=== PATIENT | female | born 1955 | race Caucasian/White ===

== ENCOUNTER → 2017-03-30 | Outpatient (CLI) | payer OTHER ==
--- NOTE | 2017-04-02 10:06 | MM ---
Reason for exam: screening (asymptomatic). Last mammogram was performed 1 year and 1 month ago. History: Patient is postmenopausal. Physical Findings: A clinical breast exam by your physician is recommended on an annual basis and results should be correlated with mammographic findings. MG Screening Mammo w CAD Bilateral CC and MLO view(s) were taken. Prior study comparison: March 07, 2016, bilateral MG screening mammo w CAD. January 08, 2015, bilateral MG screening mammo w CAD. There are scattered fibroglandular densities. There is chronic nodularity in the right breast. No significant changes when compared with prior studies. ASSESSMENT: Negative, BI-RAD 1 RECOMMENDATION: Routine screening mammogram of both breasts in 1 year.
== END | disposition home or self-care (01) ==
LOC: RADMAMWWP 11:38
PROVIDERS: ATTEND Family Medicine
DX: Z12.31 Encounter for screening mammogram for malignant neoplasm of breast (principal)

== ENCOUNTER 2017-08-02 15:12 | Emergency (ER) | payer OTHER ==
[2017-08-02 15:42] VITALS: BP 141/74; PULSE 117; RESP 18; TEMP 97.6
--- NOTE | 2017-08-02 15:56 | ED ---
Upper Extremity HPI - General Chief Complaint: Extremity Injury, Upper Stated Complaint: Shoulder Pain Time Seen by Provider: 08/02/17 15:41 Source: patient, RN notes reviewed Mode of arrival: ambulatory Limitations: no limitations - History of Present Illness Initial Comments: This is a 61-year-old female presents to the emergency department with chief complaint of left shoulder injury. Patient states that last evening she slipped on a patch of ice and fell down landing on her left shoulder with her arm twisted behind herself. Patient states that she has limited range of motion of the arm due to pain. She states that she slept sitting up in a chair last night because she was unable to lay down. Patient denies any head injury or loss of consciousness. She denies any other injuries. Patient states that her left arm feels swollen so she has been applying ice. Denies fever, chills, chest pain, shortness of breath, abdominal pain, nausea or vomiting, constipation or diarrhea, numbness or tingling, headache or vision changes. - Related Data Home Medications Medication Instructions Recorded Confirmed Aspirin 81 mg PO DAILY 02/09/14 07/24/15 Ipratropium/Albuterol Sulfate 2.5 mg INHALATION BID 02/09/14 07/24/15 [Combivent Respimat Inhaler] Methocarbamol [Robaxin] 500 mg PO TID 02/09/14 07/24/15 Montelukast [Singulair] 10 mg PO DAILY 02/09/14 07/24/15 Oxybutynin Chloride 5 mg PO TID 02/09/14 07/24/15 Symbicort (Unknown Dose) 2 puff INHALATION BID 02/09/14 07/24/15 Ventolin Inhaler (Unknown Dose) 90 mg INHALATION QID PRN 02/09/14 07/24/15 Ipratropium [place] [Atrovent Hfa] 2 puff INHALATION QID 02/10/14 07/24/15 Previous Rx's Medication Instructions Recorded Acetaminophen Tab [Tylenol Tab] 650 mg PO Q6H PRN #20 tablet 07/24/15 Allergies Allergy/AdvReac Type Severity Reaction Status Date / Time No Known Allergies Allergy Verified 08/02/17 15:42 Review of Systems ROS Statement: Those systems with pertinent positive or pertinent negative responses have been documented in the HPI. ROS Other: All systems not noted in ROS Statement are negative. Past Medical History Past Medical History: Asthma, Blood Disorder, COPD, Pneumonia Additional Past Medical History / Comment(s): arrythmia, hx anemia History of Any Multi-Drug Resistant Organisms: None Reported Past Surgical History: Orthopedic Surgery Additional Past Surgical History / Comment(s): Thumb surgery Past Anesthesia/Blood Transfusion Reactions: No Reported Reaction Past Psychological History: No Psychological Hx Reported Smoking Status: Former smoker Past Alcohol Use History: Rare Past Drug Use History: None Reported General Exam - General Exam Comments Initial Comments: General: Awake and alert, well-developed; in no apparent distress. HEENT: Head atraumatic, normocephalic. Pupils are equal, round and reactive to light. Extraocular movements intact. Neck: Supple. Normal ROM. Cardiovascular: Regular rate and rhythm. No murmurs, rubs or gallops. Chest symmetrical. Respiratory: Lungs clear to auscultation bilaterally. No wheezes, rales or rhonchi. Normal respiratory effort with no use of accessory muscles. Musculoskeletal: Patient has limited range of motion of the left shoulder due to pain. There is tenderness on palpation of proximal humerus. No clavicular or scapular tenderness. Patient has normal range of motion of the left elbow with no tenderness on palpation. There is generalized swelling of the left upper arm with contusion as noted below. Skin: [place], warm and dry without rashes. Large area of ecchymosis overlying the left bicep muscle. Neurological: Alert and oriented x3. CN II-XII grossly intact. Speech is fluent and answers are appropriate. No focal neuro deficits. Psychiatric: Normal mood and affect. No overt signs of depression or anxiety noted. Limitations: no limitations Course Vital Signs 08/02/17 15:39 Temperature 97.6 F Pulse Rate 117 H Respiratory 18 Rate Blood Pressure 141/74 O2 Sat by Pulse 93 L Oximetry Medical Decision Making - Medical Decision Making This is a 61-year-old female who presents to the emergency department with chief complaint of left shoulder injury. X-ray revealed a left femoral neck fracture. A sling was placed and patient tolerated well. She is neurovascularly intact in no acute distress. She will be discharged home with recommendation to follow-up with orthopedics tomorrow morning. Patient given a starter pack of Tylenol with codeine. Patient is in agreement with plan and voices understanding. All questions were answered. This case was discussed with attending physician, Dr. Garza. - Radiology Data Radiology results: report reviewed X-ray left humerus and shoulder findings: There is a left humeral neck fracture identified with mild comminution seen. Hemarthrosis resulting pseudosubluxation. No additional fracture identified within the field view. AC joint is intact. Impression: 1. Left humeral neck fracture. Disposition Clinical Impression: Fracture of neck of humerus Disposition: HOME SELF-CARE Condition: Good Instructions: Arm Fracture in Adults (ED), Proximal Humerus Fracture (ED) Additional Instructions: Please follow up with Dr. Arias, orthopedics tomorrow morning. May take one Tylenol with codeine as needed every 4-6 hours. Please follow up with primary care provider within 1-2 days. Return to emergency department if symptoms should worsen or any concerns arise. Referrals: Randal Smith DO [Primary Care Provider] - 1-2 days Randy Arias DO [Doctor of Osteopathic Medicine] - 1-2 days Time of Disposition: 16:42
--- NOTE | 2017-08-02 16:11 | XR ---
EXAMINATION TYPE: XR humerus LT, XR shoulder complete LT DATE OF EXAM: 08/02/2017 CLINICAL HISTORY: pain COMPARISON: NONE TECHNIQUE: Three views of the left shoulder and left humerus are obtained. FINDINGS: There is a left humeral neck fracture identified with mild comminution seen. Hemarthrosis r esulting pseudosubluxation. No additional fractures identified within the [id number]. AC joint is intact. IMPRESSION: 1. Left humeral neck fracture. ICD 10 closed FRACTURE, INITIAL EVALUATION
[2017-08-02] MEDS ORDERED: ACET/COD 300 MG/30 MG STARTER PACK 6 TAB BTL PO STA (16:40)
== END 2017-08-02 16:53 | disposition home or self-care (01) ==
LOC: EC 15:12
DX: S42.292A Other displaced fracture of upper end of left humerus, initial encounter for closed fracture (principal); M25.012 Hemarthrosis, left shoulder; J44.9 Chronic obstructive pulmonary disease, unspecified; Z87.891 Personal history of nicotine dependence; Z79.51 Long term (current) use of inhaled steroids; Z79.82 Long term (current) use of aspirin; Z79.899 Other long term (current) drug therapy; Z87.01 Personal history of pneumonia (recurrent); W00.0XXA Fall on same level due to ice and snow, initial encounter; Y92.89 Other specified places as the place of occurrence of the external cause
CPT/HCPCS: 99283

== ENCOUNTER 2018-01-24 19:38 | Emergency (ER) | payer OTHER ==
[2018-01-24 19:45] VITALS: TEMP 97.9
[2018-01-24 20:01] VITALS: RESP 18
--- NOTE | 2018-01-24 20:16 | ED ---
General Adult HPI - General Chief complaint: Upper Respiratory Infection Stated complaint: asthma Time Seen by Provider: 01/24/18 19:40 Source: patient, RN notes reviewed Mode of arrival: ambulatory Limitations: no limitations - History of Present Illness Initial comments: This is a 62-year-old female who comes to the emergency department because she wanted to get a chest x-ray because her primary doctor told her to go to the hospital and get one. After talking to her further this conversation took place a few weeks ago and this was her first opportunity to make it to the hospital. Patient states that this point she hasn't had any difficulty breathing lately and certainly hasn't is no difficulty breathing now. Patient denies any chest pain or palpitations. Patient states she has had a weight loss over the last 2 years and wonders if that is not why the doctor wants the chest x-ray. Patient was pretty insistent on wanting to get the chest x-ray because her doctor wanted to see one. Patient denies any fever chills patient denies any complaints at this time. - Related Data Home Medications Medication Instructions Recorded Confirmed Aspirin 81 mg PO DAILY 02/09/14 07/24/15 Ipratropium/Albuterol Sulfate 2.5 mg INHALATION BID 02/09/14 07/24/15 [Combivent Respimat Inhaler] Methocarbamol [Robaxin] 500 mg PO TID 02/09/14 07/24/15 Montelukast [Singulair] 10 mg PO DAILY 02/09/14 07/24/15 Oxybutynin Chloride 5 mg PO TID 02/09/14 07/24/15 Symbicort (Unknown Dose) 2 puff INHALATION BID 02/09/14 07/24/15 Ventolin Inhaler (Unknown Dose) 90 mg INHALATION QID PRN 02/09/14 07/24/15 Ipratropium [place] [Atrovent Hfa] 2 puff INHALATION QID 02/10/14 07/24/15 Previous Rx's Medication Instructions Recorded Acetaminophen Tab [Tylenol Tab] 650 mg PO Q6H PRN #20 tablet 07/24/15 Allergies Allergy/AdvReac Type Severity Reaction Status Date / Time umeclidinium Allergy Unknown Verified 01/24/18 19:46 [From Patricia Bishop] Review of Systems ROS Statement: Those systems with pertinent positive or pertinent negative responses have been documented in the HPI. ROS Other: All systems not noted in ROS Statement are negative. Past Medical History Past Medical History: Asthma, Blood Disorder, COPD, Pneumonia Additional Past Medical History / Comment(s): arrythmia, hx anemia History of Any Multi-Drug Resistant Organisms: None Reported Past Surgical History: Orthopedic Surgery Additional Past Surgical History / Comment(s): Thumb surgery Past Anesthesia/Blood Transfusion Reactions: No Reported Reaction Past Psychological History: No Psychological Hx Reported Smoking Status: Former smoker Past Alcohol Use History: Rare Past Drug Use History: None Reported General Exam - General Exam Comments Initial Comments: GENERAL: Patient is well-developed and well-nourished. Patient is nontoxic and well- hydrated and is in no acute distress. ENT: Neck is soft and supple. No significant lymphadenopathy is noted. Oropharynx is clear. Moist mucous membranes. Neck has full range of motion without eliciting any pain. EYES: The sclera were anicteric and conjunctiva were pink and moist. Extraocular movements were intact and pupils were equal round and reactive to light. Eyelids were unremarkable. PULMONARY: Unlabored respirations. Good breath sounds bilaterally. No audible rales rhonchi or wheezing was noted. CARDIOVASCULAR: There is a regular rate and rhythm without any murmurs gallops or rubs. ABDOMEN: Soft and nontender with normal bowel sounds. No palpable organomegaly was noted. There is no palpable pulsatile mass. SKIN: Skin is clear with no lesions or rashes and otherwise unremarkable. NEUROLOGIC: Patient is alert and oriented x3. Cranial nerves II through XII are grossly intact. Motor and sensory are also intact. Normal speech, volume and content. Symmetrical smile. MUSCULOSKELETAL: Normal extremities with adequate strength and full range of motion. No lower extremity swelling or edema. No calf tenderness. LYMPHATICS: No significant lymphadenopathy is noted PSYCHIATRIC: Normal psychiatric evaluation. Limitations: no limitations Course Vital Signs 01/24/18 01/24/18 01/24/18 19:41 20:00 20:35 Temperature 97.9 F Pulse Rate 126 H 112 H Respiratory 20 18 18 Rate Blood Pressure 126/77 129/74 O2 Sat by Pulse 94 L 95 Oximetry Medical Decision Making - Medical Decision Making X-ray shows no acute abnormality. Disposition Clinical Impression: History of asthma Disposition: HOME SELF-CARE Condition: Good Instructions: Asthma (ED) Is patient prescribed a controlled substance at d/c from ED?: No Referrals: Randal Smith DO [Primary Care Provider] - 1-2 days Time of Disposition: 20:49
[2018-01-24 20:36] VITALS: BP 129/74; PULSE 112
--- NOTE | 2018-01-24 21:31 | XR ---
EXAMINATION: XR chest 2V DATE AND TIME: 01/24/2018 8:12 PM ORDERING PROVIDER: Sharan Reyes MD CLINICAL INDICATION: Difficulty breathing TECHNIQUE: PA and lateral COMPARISON: None. DESCRIPTION: The lungs show diffuse hyperinflation. In the right upper lobe there is a zone of faint ill-defined opacity which could correlate with a clinical diagnosis of developing right upper lobe bronchopneumon ia. Also, the lateral view shows a band of added opacity posteriorly in the lower lobes, but this has th e appearance of pulmonary scarring rather than pneumonia. Differences on the lateral radiographs make direct comparison difficult. The pleural spaces are positive for small left pleural effusion. The cardiac silhouette is not enlarged. The soft tissues are unremarkable. The skeletal structures are remarkable for what appeared to be subacute or chronic left surgical dusty ral neck fracture, not seen on the comparison 11/29/2012 radiograph. In addition, the right femoral he ad and neck appears remodeled - suggesting prior injury also not seen on the comparison radiograph. IMPRESSION: 1. Hyperinflation. 2. Subtle findings, suspicious for the possibility of developing pneumonia. Recommend: Six-week follow-up radiographs advised.
== END 2018-01-24 21:24 | disposition home or self-care (01) ==
LOC: EC 19:38
DX: Z13.83 Encounter for screening for respiratory disorder NEC (principal); J44.9 Chronic obstructive pulmonary disease, unspecified; Z88.8 Allergy status to other drugs, medicaments and biological substances; Z79.51 Long term (current) use of inhaled steroids; Z79.82 Long term (current) use of aspirin; Z79.899 Other long term (current) drug therapy; Z87.891 Personal history of nicotine dependence
CPT/HCPCS: 71046; 99283

== ENCOUNTER → 2018-05-24 | Outpatient (CLI) | payer OTHER ==
--- NOTE | 2018-05-24 11:52 | CTL ---
EXAMINATION TYPE: CT Low Dose Lung DATE OF EXAM ORDERED: 05/24/2018 COMPARISON: 05/24/2018 HISTORY: . Low Dose CT Lung Screening CT DLP: [address] CTDI: 1.0 mGy IV CONTRAST USED: None. SCREENING VISIT: First visit COMPARISON: None. TECHNIQUE: Low dose computed tomography scan was performed through the chest at 1 millimeter thick se ctions and reconstructed images in the coronal plane at [address] DIAGNOSTIC QUALITY: Satisfactory FINDINGS: LUNG NODULES: Not presentLeft lung: no nodules identified.Right lung: no nodules identified. LUNGS: COPD: Severity: Moderate Fibrosis: Severity: Mild right upper lobe fibrotic and bronchiectatic changes. Lymph nodes: None Other findings: None RIGHT PLEURAL SPACE: Effusion: None Calcification: None Thickening: None Pneumothorax: None LEFT PLEURAL SPACE: Effusion: None Calcification: None Thickening: Left basilar pleural thickening. Pneumothorax: None HEART: Heart Size: Mildly enlarged Coronary calcification: Mild Pericardial effusion: None OTHER FINDINGS: Upper abdomen: Small hiatal hernia. Bony thorax: Degenerative changes Supraclavicular region: No significant abnormalityOther: No significant abnormalityI IMPRESSION: Benign FOLLOW UP CT CHEST RECOMMENDATION: Follow-up screening in one year CT LUNG RAD: LUNG RAD CATEGORY 1 negative
--- NOTE | 2018-05-27 11:45 | MM ---
Reason for exam: screening (asymptomatic). Last mammogram was performed 1 year and 2 months ago. History: Patient is postmenopausal. Physical Findings: A clinical breast exam by your physician is recommended on an annual basis and results should be correlated with mammographic findings. MG Screening Mammo w CAD Bilateral CC and MLO view(s) were taken. Prior study comparison: March 30, 2017, bilateral MG screening mammo w CAD. March 07, 2016, bilateral MG screening mammo w CAD. There are scattered fibroglandular densities. No significant changes when compared with prior studies. ASSESSMENT: Benign, BI-RAD 2 RECOMMENDATION: Routine screening mammogram of both breasts in 1 year.
== END ==
LOC: RADMAMWWP 10:45
PROVIDERS: ATTEND Family Medicine
DX: Z12.31 Encounter for screening mammogram for malignant neoplasm of breast (principal); Z12.2 Encounter for screening for malignant neoplasm of respiratory organs; Z87.891 Personal history of nicotine dependence
CPT/HCPCS: 77067; G0297

== ENCOUNTER → 2018-07-19 | Outpatient (CLI) | payer OTHER ==
--- NOTE | 2018-07-19 18:21 | ECHOF ---
Referral Reason:R94.31 Abnormal EKG. MEASUREMENTS -------- HEIGHT: 160.0 cm WEIGHT: 47.6 kg BP: 112/73 RVIDd: 2.8 cm (< 3.3) IVSd: 1.1 cm (0.6 - 1.1) LVIDd: 3.8 cm (3.9 - 5.3) LVPWd: 1.0 cm (0.6 - 1.1) IVSs: 1.6 cm LVIDs: 2.5 cm LVPWs: 1.4 cm LA Diam: 2.5 cm (2.7 - 3.8) LAESV Index (A-L): 13.56 ml/m Ao Diam: 3.1 cm (2.0 - 3.7) AV Cusp: 2.2 cm (1.5 - 2.6) MV EXCURSION: 18.612 mm (> 18.000) MV EF SLOPE: 145 mm/s (70 - 150) EPSS: 0.4 cm MV E Maxime: 1.19 m/s MV DecT: 169 ms MV A Maxime: 0.50 m/s MV E/A Ratio: 2.39 FINDINGS -------- Resting tachycardia (HR>100bpm). This was a technically adequate study. The left ventricular size is normal. There is borderline concentric left ventricular hypertrophy. Overall left ventricular systolic function is normal with, an EF between 55 - 60 %. The right ventricle is normal in size. Normal LA size by volume 22+/-6 ml/m2. The right atrium is normal in size. The aortic valve is trileaflet and appears structurally normal. Trace amount of aortic regurgitatio n. The mitral valve is normal. The tricuspid valve appears structurally normal. Trace/mild (physiologic) pulmonic regurgitation. The aortic root size is normal. Normal inferior vena cava with less than 50% inspiratory collapse consistent with estimated right atr ial pressure of 15 mmHg. There is no pericardial effusion. CONCLUSIONS -------- 1. Resting tachycardia (HR>100bpm). 2. This was a technically adequate study. 3. The left ventricular size is normal. 4. There is borderline concentric left ventricular hypertrophy. 5. Overall left ventricular systolic function is normal with, an EF between 55 - 60 %. 6. The right ventricle is normal in size. 7. Normal LA size by volume 22+/-6 ml/m2. 8. The right atrium is normal in size. 9. The aortic valve is trileaflet and appears structurally normal. 10. Trace amount of aortic regurgitation. 11. The mitral valve is normal. 12. The tricuspid valve appears structurally normal. 13. Trace/mild (physiologic) pulmonic regurgitation. 14. The aortic root size is normal. 15. Normal inferior vena cava with less than 50% inspiratory collapse consistent with estimated right atrial pressure of 15 mmHg. 16. There is no pericardial effusion. CATERERS HELPER: Jojo Hernandez RDCS
--- NOTE | 2018-07-23 13:39 | EST ---
EXERCISE STRESS DATE OF SERVICE: 07/19/2017 AGE: 62 SEX: Female HT: 5'3" WT: 105 PROTOCOL: Oh STAGE: I DURATION OF EXERCISE: 1 minute 46 seconds HEART RATE REST: 120 BLOOD PRESSURE REST: 140/85 MAXIMUM HEART RATE ACHIEVED: 139 MAXIMUM BLOOD PRESSURE: 167/84 85% MPHR: 134 100% MPHR: 158 METS: 2.8 INDICATIONS: Abnormal EKG. CLINICAL INFORMATION: Baseline EKG revealed normal sinus rhythm with leftward axis. Patient walked on standard Oh protocol for 1 minute 46 seconds. Heart rate changed from 120 beats to 139 beats per minute which is more than 85% of predicted maximal. Blood pressure changed from 140/85 to 167/84. EKG remained unchanged and unremarkable. Extremely limited exercise capacity with a negative stress test by EKG criteria was noted. MMODL / IJN: [id number] /
== END | disposition home or self-care (01) ==
LOC: RADNMMAIN 10:25
PROVIDERS: ATTEND Family Medicine
DX: I37.1 Nonrheumatic pulmonary valve insufficiency (principal); I51.7 Cardiomegaly; R94.31 Abnormal electrocardiogram [ECG] [EKG]
CPT/HCPCS: 93017; 93306

== ENCOUNTER → 2019-03-19 | Outpatient (CLI) | payer OTHER ==
--- NOTE | 2019-03-20 09:37 | XR ---
EXAMINATION TYPE: XR chest 2V DATE OF EXAM: 03/19/2019 COMPARISON: 01/24/2018 HISTORY: R 63.4 TECHNIQUE: Frontal and lateral views of the chest are obtained. FINDINGS: There is pulmonary hyperinflation and flattening of the diaphragms indicative of underlyin g COPD. This appears advanced with increased retrosternal airspace. Pleural parenchymal scarring is s een at the lung apices and right lateral lung as well as at the costophrenic angles. Old healed poste rior lateral fourth left rib fracture is seen as well as right proximal humeral healed fracture. Diff use osseous demineralization is noted. Midthoracic compression deformities are stable. Cardiomediasti nal silhouette is also stable. IMPRESSION: Advanced emphysematous change. No acute cardiopulmonary process.
== END | disposition home or self-care (01) ==
LOC: RADXRMAIN 16:12
PROVIDERS: ATTEND Family Medicine
DX: J43.9 Emphysema, unspecified (principal)
CPT/HCPCS: 71046

== ENCOUNTER → 2019-05-26 | Outpatient (CLI) | payer OTHER ==
--- NOTE | 2019-05-26 12:16 | CTL ---
EXAMINATION TYPE: CT Low Dose Lung DATE OF EXAM ORDERED: 05/26/2019 COMPARISON: 05/24/2018 HISTORY: . Low Dose CT Lung Screening CT DLP: 35.[address] CTDI: 0.9 mGy IV CONTRAST USED: None. SCREENING VISIT: First visit COMPARISON: None. TECHNIQUE: Low dose computed tomography scan was performed through the chest at 1 millimeter thick se ctions and reconstructed images in the coronal plane at [address] DIAGNOSTIC QUALITY: Satisfactory FINDINGS: LUNG NODULES: Not presentLeft lung: no nodules identified.Right lung: no nodules identified. LUNGS: Parenchymal scarring right upper lobe and left lower lobe with bronchiectasis noted. COPD: Severity: Moderate Fibrosis: Severity:None Lymph nodes: None Other findings: Left lower lobe pleural thickening. RIGHT PLEURAL SPACE: Effusion: None Calcification: None Thickening: None Pneumothorax: None LEFT PLEURAL SPACE: Effusion: None Calcification: None Thickening: None Pneumothorax: None HEART: Heart Size: Mildly enlarged Coronary calcification: Mild Pericardial effusion: None OTHER FINDINGS: Upper abdomen: No significant abnormality Bony thorax: Degenerative changes Supraclavicular region: No significant abnormalityOther: No significant abnormalityI IMPRESSION: Benign FOLLOW UP CT CHEST RECOMMENDATION: Follow-up screening in one year. Recommend smoking cessation. CT LUNG RAD: LUNG RAD CATEGORY 1 negative
== END | disposition home or self-care (01) ==
LOC: RADCTMAIN 10:53
PROVIDERS: ATTEND Family Medicine
DX: Z12.2 Encounter for screening for malignant neoplasm of respiratory organs (principal); Z87.891 Personal history of nicotine dependence

== ENCOUNTER 2019-06-20 20:55 | Inpatient (IN) | payer OTHER ==
--- NOTE | 2019-06-20 21:02 | ED ---
SOB HPI - General Stated Complaint: SOB Time Seen by Provider: 06/20/19 21:01 Source: RN notes reviewed, old records reviewed - History of Present Illness Initial Comments: This is a 63-year-old female here for evaluation of severe shortness of breath severe COPD. Patient having continued severe shortness of breath. Patient meza ving significant shortness breath chest pain with cough. No fevers no cough or congestion symptoms are significantly progressed throughout the day. Patient intubated her with all with no significant improvement. MD Complaint: shortness of breath -: hour(s), days(s) Radiation: back Severity: severe Severity scale (1-10): 8 Quality: dull Consistency: constant Improves With: rest, bronchodilators Worsens With: exertion Known History Of: COPD Context: recent URI Associated Symptoms: denies other symptoms, pain with inspiration, cough, sputum production Treatments Prior to Arrival: oxygen, bronchodilator - Related Data Home Medications Medication Instructions Recorded Confirmed Ipratropium/Albuterol Sulfate 2.5 mg INHALATION BID 02/09/14 05/12/19 [Combivent Respimat Inhaler] Methocarbamol [Robaxin] 500 mg PO TID 02/09/14 05/12/19 Montelukast [Singulair] 10 mg PO DAILY 02/09/14 05/12/19 Ipratropium [place] [Atrovent Hfa] 2 puff INHALATION QID 02/10/14 05/12/19 Albuterol Nebulized [Ventolin 2.5 mg INHALATION Q6H 05/12/19 05/12/19 Nebulized] Ascorbic Acid [Vitamin C] 500 mg PO DAILY 05/12/19 05/12/19 Budesonide/Formoterol Fumarate 2 puff INHALATION BID 05/12/19 05/12/19 [Symbicort 160-4.5 Mcg Inhaler] Calcium/Magnesium/Zinc 1 each PO DAILY 05/12/19 05/12/19 [Fnbzovq-Ggptpfpmj-Gjkl Tablet] Cholecalciferol [Vitamin D3 (25 1,000 unit PO DAILY 05/12/19 05/12/19 Mcg = 1000 Iu)] Cranberry 4200mg 1 tab PO DAILY 05/12/19 Fluticasone Nasal [place] [Flonase 2 spr EA NOSTRIL DAILY 05/12/19 05/12/19 Nasal [place]] Guaifenesin/Dextromethorphan 1 each PO HS 05/12/19 05/12/19 [Mucinex Dm ER 1,200-60 mg Tab] Ibuprofen [Motrin Ib] 400 mg PO TID 05/12/19 05/12/19 Tolterodine Tartrate [Detrol LA] 4 mg PO HS 05/12/19 05/12/19 Allergies Allergy/AdvReac Type Severity Reaction Status Date / Time umeclidinium Allergy Dyspnea Verified 05/12/19 15:02 [From Incruse Ellipta] Review of Systems ROS Statement: Those systems with pertinent positive or pertinent negative responses have been documented in the HPI. ROS Other: All systems not noted in ROS Statement are negative. Past Medical History Past Medical History: Asthma, Blood Disorder, COPD, Pneumonia Additional Past Medical History / Comment(s): arrythmia, hx anemia, USES O2/2L NC AT HS History of Any Multi-Drug Resistant Organisms: None Reported Past Surgical History: Orthopedic Surgery Additional Past Surgical History / Comment(s): Thumb surgery, sx on cervix, colonoscopy, bilat cataracts removed Past Anesthesia/Blood Transfusion Reactions: No Reported Reaction Smoking Status: Former smoker - Past Family History Father Family Medical History: Cancer General Exam General appearance: alert, in no apparent distress Head exam: Present: atraumatic, normocephalic, normal inspection Eye exam: Present: normal appearance, PERRL, EOMI. Absent: scleral icterus, conjunctival injection, periorbital swelling ENT exam: Present: normal exam, mucous membranes moist Neck exam: Present: normal inspection. Absent: tenderness, meningismus, lymphadenopathy Respiratory exam: Present: normal lung sounds bilaterally, respiratory distress, wheezes, accessory muscle use, decreased breath sounds, prolonged expiratory. Absent: rales, rhonchi, stridor Cardiovascular Exam: Present: normal rhythm, tachycardia, normal heart sounds. Absent: systolic murmur, diastolic murmur, rubs, gallop, clicks GI/Abdominal exam: Present: soft, normal bowel sounds. Absent: distended, tenderness, guarding, rebound, rigid Extremities exam: Present: normal inspection, full ROM, normal capillary refill. Absent: tenderness, pedal edema, joint swelling, calf tenderness Back exam: Present: normal inspection Neurological exam: Present: alert, oriented X3, CN II-XII intact Psychiatric exam: Present: normal affect, normal mood Skin exam: Present: warm, dry, intact, normal color. Absent: rash Course Vital Signs 06/20/19 06/20/19 06/20/19 21:11 21:58 21:59 Temperature 97.7 F Pulse Rate 119 H 105 H Respiratory 20 20 Rate Blood Pressure 137/83 O2 Sat by Pulse 97 Oximetry 06/20/19 06/20/19 06/20/19 22:15 22:30 22:37 Temperature Pulse Rate 105 H 105 H 112 H Respiratory Rate Blood Pressure O2 Sat by Pulse Oximetry - Reevaluation(s) Reevaluation #1: 06/20/19 22:57 Medical records reviewed Reevaluation #2: 06/20/19 22:57 Patient has no significant improvement of breathing treatments - Consultations Consultation #1: Spoke with Dr. Garcia for [facility] who is agreeable for admission Medical Decision Making - Medical Decision Making 63 female here for evaluation of severe COPD. Patient admitted for evaluation and treatment, continue breathing treatments and monitoring of pulse ox - Lab Data Result diagrams: 06/20/19 21:05 06/20/19 21:05 Lab Results 06/20/19 06/20/19 06/20/19 Range/Units 21:05 21:05 21:05 WBC 13.2 H (3.8-10.6) k/uL RBC 4.53 (3.80-5.40) m/uL Hgb 14.9 (11.4-16.0) gm/dL Hct 43.6 (34.0-46.0) % MCV 96.3 (80.0-100.0) fL MCH 32.8 (25.0-35.0) pg MCHC 34.1 (31.0-37.0) g/dL RDW 12.1 (11.5-15.5) % Plt Count 221 (150-450) k/uL Neutrophils % 86 % Lymphocytes % 8 % Monocytes % 5 % Eosinophils % 0 % Basophils % 0 % Neutrophils # 11.3 H (1.3-7.7) k/uL Lymphocytes # 1.0 (1.0-4.8) k/uL Monocytes # 0.7 (0-1.0) k/uL Eosinophils # 0.0 (0-0.7) k/uL Basophils # 0.0 (0-0.2) k/uL PT (9.0-12.0) sec INR (<1.2) APTT (22.0-30.0) sec Sodium 132 L (137-145) mmol/L Potassium 4.2 (3.5-5.1) mmol/L Chloride 93 L (98-107) mmol/L Carbon Dioxide 32 H (22-30) mmol/L Anion Gap 7 mmol/L BUN 11 (7-17) mg/dL Creatinine 0.39 L (0.52-1.04) mg/dL Est GFR (CKD-EPI)AfAm >90 (>60 ml/min/1.73 sqM) Est GFR (CKD-EPI)NonAf >90 (>60 ml/min/1.73 sqM) Glucose 74 (74-99) mg/dL Calcium 9.2 (8.4-10.2) mg/dL Magnesium 1.8 (1.6-2.3) mg/dL Total Bilirubin 0.9 (0.2-1.3) mg/dL AST 24 (14-36) U/L ALT 27 (9-52) U/L Alkaline Phosphatase 81 (38-126) U/L Troponin I (0.000-0.034) ng/mL NT-Pro-B Natriuret Pep 193 pg/mL Total Protein 6.4 (6.3-8.2) g/dL Albumin 3.7 (3.5-5.0) g/dL 06/20/19 06/20/19 Range/Units 21:05 21:05 WBC (3.8-10.6) k/uL RBC (3.80-5.40) m/uL Hgb (11.4-16.0) gm/dL Hct (34.0-46.0) % MCV (80.0-100.0) fL MCH (25.0-35.0) pg MCHC (31.0-37.0) g/dL RDW (11.5-15.5) % Plt Count (150-450) k/uL Neutrophils % % Lymphocytes % % Monocytes % % Eosinophils % % Basophils % % Neutrophils # (1.3-7.7) k/uL Lymphocytes # (1.0-4.8) k/uL Monocytes # (0-1.0) k/uL Eosinophils # (0-0.7) k/uL Basophils # (0-0.2) k/uL PT 11.7 (9.0-12.0) sec INR 1.1 (<1.2) APTT 29.0 (22.0-30.0) sec Sodium (137-145) mmol/L Potassium (3.5-5.1) mmol/L Chloride (98-107) mmol/L Carbon Dioxide (22-30) mmol/L Anion Gap mmol/L BUN (7-17) mg/dL Creatinine (0.52-1.04) mg/dL Est GFR (CKD-EPI)AfAm (>60 ml/min/1.73 sqM) Est GFR (CKD-EPI)NonAf (>60 ml/min/1.73 sqM) Glucose (74-99) mg/dL Calcium (8.4-10.2) mg/dL Magnesium (1.6-2.3) mg/dL Total Bilirubin (0.2-1.3) mg/dL AST (14-36) U/L ALT (9-52) U/L Alkaline Phosphatase (38-126) U/L Troponin I <0.012 (0.000-0.034) ng/mL NT-Pro-B Natriuret Pep pg/mL Total Protein (6.3-8.2) g/dL Albumin (3.5-5.0) g/dL - EKG Data -: EKG Interpreted by Me (EKG shows sinus tachycardia rate of 114, para 1.6, QRS 80, QTC 446) - Radiology Data Radiology results: report reviewed (Chest x-ray is negative for acute disease), image reviewed Disposition Clinical Impression: Acute exacerbation of chronic obstructive pulmonary disease, Hypoxia Disposition: ADMITTED IP TO THIS [facility] Condition: Good Is patient prescribed a controlled substance at d/c from ED?: No Referrals: Randal Smith DO [Primary Care Provider] - 1-2 days
[2019-06-20] MEDS ORDERED: MORPHINE SULFATE 2 MG/ML SYRINGE IVP STA (21:06)
[2019-06-20] MEDS ORDERED: IPRATROPIUM 0.5 MG/2.5 ML NEBU INHALATION STA ×2 (21:22→23:09)
[2019-06-20] MEDS ORDERED: methylPREDNISolone SOD SUCCI 125 MG/2 ML VIAL IV STA (21:22)
[2019-06-20] MEDS ORDERED: ALBUTEROL NEBULIZED 2.5 MG/3 ML INHALATION STA ×2 (21:22→23:09)
[2019-06-20] MEDS ORDERED: SODIUM CHLORIDE 0.9% 500 ML 500 ML IV STA (21:22)
[2019-06-20] MEDS ORDERED: AZITHROMYCIN 500 MG in SODIUM CHLORIDE 0.9% 250 ML IVPB STA (21:22)
[2019-06-20] MEDS ORDERED: SODIUM CHLORIDE 0.9% 1,000 ML IV STA ×2 (21:22)
[2019-06-20 21:47] LABS: INR 1.1 (<1.2); Prothrombin Time 11.7 sec (9.0-12.0)
[2019-06-20 21:48] LABS: ALT 27 U/L (9-52); AST 24 U/L (14-36); African American GFR (CKD) >90 (>60 ml/min/1.73 sqM); Albumin 3.7 g/dL (3.5-5.0); Alkaline Phosphatase 81 U/L (38-126); Anion Gap 7 mmol/L; Blood Urea Nitrogen 11 mg/dL (7-17); Calcium 9.2 mg/dL (8.4-10.2); Carbon Dioxide 32 mmol/L (22-30); Chloride 93 mmol/L (98-107); Glucose 74 mg/dL (74-99); Magnesium 1.8 mg/dL (1.6-2.3); Non-African American GFR(CKD) >90 (>60 ml/min/1.73 sqM); Potassium 4.2 mmol/L (3.5-5.1); Sodium 132 mmol/L (137-145); Total Bilirubin 0.9 mg/dL (0.2-1.3); Total Protein 6.4 g/dL (6.3-8.2)
--- NOTE | 2019-06-20 21:51 | XR ---
EXAMINATION TYPE: XR chest 2V DATE OF EXAM: 06/20/2019 COMPARISON: 03/19/2019 HISTORY: Cough and short of breath TECHNIQUE: Frontal and lateral views of the chest are obtained. FINDINGS: There is pulmonary hyperinflation and flattening of the diaphragm. Heart size is normal. T horacic aorta is atheromatous. There is some mild coarsening of the lung markings. There is osteopenia. IMPRESSION: COPD and pulmonary fibrosis. Normal heart. There is some progression of disease compared to old exam.
[2019-06-20 21:57] LABS: Basophils % (A) 0 %; Eosinophils % (A) 0 %; HCT 43.6 % (34.0-46.0); HGB 14.9 gm/dL (11.4-16.0); Lymphocytes % (A) 8 %; MCH 32.8 pg (25.0-35.0); MCHC 34.1 g/dL (31.0-37.0); MCV 96.3 fL (80.0-100.0); Mean Platelet Volume 8.3; Monocytes # (A) 0.7 k/uL (0-1.0); Monocytes % (A) 5 %; Neutrophils # (A) 11.3 k/uL (1.3-7.7); Neutrophils % (A) 86 %; Platelet Count 221 k/uL (150-450); RBC 4.53 m/uL (3.80-5.40); RDW 12.1 % (11.5-15.5); WBC 13.2 k/uL (3.8-10.6)
[2019-06-20] MEDS ORDERED: MORPHINE SULFATE 2 MG/ML SYRINGE IVP PRN (22:54)
[2019-06-20] MEDS: SODIUM CHLORIDE 0.9% 1,000 ML IV SCH (23:02)
[2019-06-20] MEDS ORDERED: ONDANSETRON 4 MG/2 ML VIAL IVP STA (23:12)
[2019-06-21] MEDS: methylPREDNISolone SOD SUCCI 125 MG/2 ML VIAL IV SCH ×5 (00:23→23:40)
[2019-06-21] MEDS: IPRATROPIUM-ALBUTEROL 3 ML NEB INHALATION PRN (02:39)
[2019-06-21] MEDS: ALBUTEROL NEBULIZED 2.5 MG/3 ML INHALATION SCH ×4 (08:14→19:51)
[2019-06-21] MEDS: IBUPROFEN 400 MG TAB PO PRN ×2 (10:19→20:22)
[2019-06-21] MEDS: FAMOTIDINE 20 MG TAB PO SCH ×2 (10:20→20:22)
[2019-06-21] MEDS: guaiFENesin 600 MG TABLET.ER PO SCH ×2 (10:20→20:21)
[2019-06-21] MEDS: SODIUM CHLORIDE 0.9% 1,000 ML IV SCH ×2 (10:23→17:28)
[2019-06-21 11:21] LABS: Glucose,Whole Blood 310 mg/dL (75-99)
[2019-06-21] MEDS: INSULIN ASPART (NovoLOG) 100 UNIT/ML VIAL SQ SCH ×3 (12:54→20:23)
[2019-06-21] MEDS: ENOXAPARIN 40 MG/0.4 ML SYRINGE SQ SCH (12:54)
--- NOTE | 2019-06-21 12:55 | P.HPIM ---
History of Present Illness H&P Date: 06/21/19 Chief Complaint: Shortness of breath Ms. Whaley is a 63-year-old female with a past medical history of asthma, COPD, arrhythmia coming into the hospital with a chief complaint of difficulty in breathing. Patient states that she uses 2 L of oxygen at night only and for the past couple of days she has more shortness of breath and so using her oxygen even during the day. She complains of difficulty in breathing with cough. Cough is mostly productive in nature with whitish sputum. Patient denies having any fevers but was feeling hot and cold. Patient denies having any sick contacts. Patient denies having any chest pain or palpitations. She denies having any swelling of her lower extremities. No orthopnea or PND. Patient is a smoker and and quit 1 year back. In the emergency room patient had a chest x-ray showing COPD and pulmonary fibrosis. She had blood work done showing mildly elevated WBC count at 13.2. Troponin less than 0.012. BNP 193. Patient was on BiPAP for a few hours in the ED and her symptoms improved later. She was given breathing treatments, steroids and a dose of Zithromax and admitted to the floor for further management. Review of Systems REVIEW OF SYSTEMS: PSYCH: No anxiety or depression NEURO:No c/o weakness of the extremties, No facial droop, No speech abnormalities. VASCULAR: no edema HEMATOLOGIC: No history of easy bleeding and bruising . No recent infections . RESPIRATORY: As per HPI IMMUNE: No infections INTEGUMENT: no rashes OPHTHALMOLOGIC: No blurry vision and no eye discharge : No dysuria or hematuria HRIS DEVELOPER: No bleeding PV CARDIAC: No chest pain , shortness of breath , paroxysmal nocturnal dyspnea MUSCULOSKELETAL : No Aches or pains in the joints or muscles. GI: No abdominal pain, Nausea or vomiting. No constipation or diarrhea. All 13 review of systems are negative except for the ones mentioned above. Past Medical History Past Medical History: Asthma, Blood Disorder, COPD, Pneumonia Additional Past Medical History / Comment(s): heart arrythmia, hx anemia, USES O2/2L NC AT HS History of Any Multi-Drug Resistant Organisms: None Reported Past Surgical History: Orthopedic Surgery Additional Past Surgical History / Comment(s): Thumb surgery, sx on cervix, colonoscopy, bilat cataracts removed Past Anesthesia/Blood Transfusion Reactions: No Reported Reaction Past Psychological History: No Psychological Hx Reported Smoking Status: Former smoker Past Alcohol Use History: None Reported Additional Past Alcohol Use History / Comment(s): quit smoking 05/2018 Past Drug Use History: None Reported - Past Family History Father Family Medical History: Cancer Medications and Allergies Home Medications Medication Instructions Recorded Confirmed Type Methocarbamol [Robaxin] 500 mg PO TID 02/09/14 06/20/19 History Montelukast [Singulair] 10 mg PO HS 02/09/14 06/20/19 History Albuterol Nebulized [Ventolin 2.5 mg INHALATION RT-Q6H PRN 05/12/19 06/20/19 History Nebulized] Ascorbic Acid [Vitamin C] 500 mg PO DAILY 05/12/19 06/20/19 History Budesonide/Formoterol Fumarate 2 puff INHALATION RT-BID 05/12/19 06/20/19 History [Symbicort 160-4.5 Mcg Inhaler] Cholecalciferol [Vitamin D3 (25 1,000 unit PO DAILY 05/12/19 06/20/19 History Mcg = 1000 Iu)] Fluticasone Nasal [place] [Flonase 2 spr EA NOSTRIL DAILY PRN 05/12/19 06/20/19 History Nasal [place]] Guaifenesin/Dextromethorphan 1 tab PO HS 05/12/19 06/20/19 History [Mucinex Dm ER 1,200-60 mg Tab] Tolterodine Tartrate [Detrol LA] 4 mg PO HS 05/12/19 06/20/19 History Calcium Carbonate [Calcium] 600 mg PO DAILY 06/20/19 06/20/19 History Glycopyrrolate/Formoterol Fum 1 puff INHALATION RT-BID 06/20/19 06/20/19 History [Bevespi Aerosphere Inhaler] Ipratropium Nebulized [Atrovent 0.5 mg INHALATION RT-Q6H PRN 06/20/19 06/20/19 History Nebulized 0.2 MG/ML] Allergies Allergy/AdvReac Type Severity Reaction Status Date / Time umeclidinium AdvReac Dyspnea Verified 06/20/19 22:56 [From Incruse Ellipta] Physical Exam Vitals: Vital Signs Temp Pulse Pulse Resp BP BP Pulse Ox 06/21/19 12:36 108 H 06/21/19 12:24 108 H 06/21/19 08:25 100 06/21/19 08:23 98.3 F 121 H 19 127/69 91 L 06/21/19 08:14 108 H 06/21/19 07:25 106 H 20 124/68 96 06/21/19 04:44 108 H 19 115/60 96 06/21/19 02:50 110 H 06/21/19 02:39 108 H 06/21/19 01:39 94 L 06/21/19 00:22 105 H 20 127/67 94 L 06/20/19 23:13 94 L 06/20/19 23:06 112 H 24 90 L 06/20/19 22:37 112 H 06/20/19 22:30 105 H 06/20/19 22:26 102 H 22 118/69 100 06/20/19 22:15 105 H 06/20/19 21:59 105 H 06/20/19 21:58 20 06/20/19 21:11 97.7 F 119 H 20 137/83 97 Intake and Output 06/20/19 06/21/19 06/21/19 22:59 06:59 14:59 Other: Voiding Method Toilet Weight 45.359 kg 45.359 kg 45.359 kg GEN. APPEARANCE: alert, in no apparent distress HEENT : Normocephalic. PERRLA. No pallor. No icterus. RESPIRATORY EXAM: Decreased breath sounds in all lung varma. Mild end expiratory wheeze. Velcro crackles at the lower lung bases. CARDIOVASCULAR EXAM: Tachycardia. S1 and S2 heard. GI/ABDOMINAL EXAM: soft, normal bowel sounds. No guarding or rigidity. EXTREMITIES EXAM: No edema. NEUROLOGICAL EXAM: alert, oriented X3, no focal neurological deficits on gross exam SKIN EXAM: warm, dry, intact, normal color. Absent: rash Results CBC & Chem 7: 06/20/19 21:05 06/20/19 21:05 Labs: Abnormal Lab Results - Last 24 Hours (Table) 06/20/19 06/20/19 06/21/19 Range/Units 21:05 21:05 11:20 WBC 13.2 H (3.8-10.6) k/uL Neutrophils # 11.3 H (1.3-7.7) k/uL Sodium 132 L (137-145) mmol/L Chloride 93 L (98-107) mmol/L Carbon Dioxide 32 H (22-30) mmol/L Creatinine 0.39 L (0.52-1.04) mg/dL POC Glucose (mg/dL) 310 H (75-99) mg/dL Thrombosis Risk Factor Assmnt - Choose All That Apply Any of the Below Risk Factors Present?: Yes Each Factor Represents 1 point: Abnormal pulmonary function (COPD) Other Risk Factors: Yes Each Risk Factor Represents 2 Points: Age 61-74 years Other congenital or acquired thrombophilia - If yes, enter type in comment: No Thrombosis Risk Factor Assessment Total Risk Factor Score: 3 Thrombosis Risk Factor Assessment Level: Moderate Risk Assessment and Plan Assessment: ASSESSMENT Acute on chronic hypoxic respiratory failure Acute COPD exacerbation Asthma History of arrhythmia Low BMI and 17.7 PLAN: Patient has been started on breathing treatments and IV steroids. Continue with azithromycin. Patient's home medications have been continued. The treatment plan was discussed with the patient in detail and further recommendations to follow depending on the progress of the patient.
[2019-06-21] MEDS: METHOCARBAMOL 500 MG TAB PO SCH ×2 (15:35→20:22)
[2019-06-21 17:20] LABS: Glucose,Whole Blood 193 mg/dL (75-99)
[2019-06-21 19:37] LABS: Glucose,Whole Blood 248 mg/dL (75-99)
[2019-06-21] MEDS: SYMBICORT 160-4.5 MCG INHALER INHALATION SCH (19:51)
[2019-06-21] MEDS: MONTELUKAST 10 MG TAB PO SCH (20:21)
[2019-06-21] MEDS: OXYBUTYNIN 10 MG TAB.ER.24 PO SCH (20:22)
[2019-06-21] MEDS: AZITHROMYCIN 250 MG TAB PO SCH (20:26)
[2019-06-22] MEDS: IPRATROPIUM-ALBUTEROL 3 ML NEB INHALATION PRN ×2 (01:22→10:59)
[2019-06-22] MEDS: SODIUM CHLORIDE 0.9% 1,000 ML IV SCH ×2 (03:17→17:06)
[2019-06-22] MEDS: IBUPROFEN 400 MG TAB PO PRN (03:17)
[2019-06-22] MEDS: methylPREDNISolone SOD SUCCI 125 MG/2 ML VIAL IV SCH ×3 (05:36→17:03)
[2019-06-22 07:00] LABS: Glucose,Whole Blood 160 mg/dL (75-99)
[2019-06-22] MEDS: ENOXAPARIN 40 MG/0.4 ML SYRINGE SQ SCH (07:13)
[2019-06-22] MEDS: INSULIN ASPART (NovoLOG) 100 UNIT/ML VIAL SQ SCH ×4 (07:13→21:34)
[2019-06-22] MEDS: FAMOTIDINE 20 MG TAB PO SCH ×2 (07:14→21:48)
[2019-06-22] MEDS: METHOCARBAMOL 500 MG TAB PO SCH ×3 (07:14→22:01)
[2019-06-22] MEDS: guaiFENesin 600 MG TABLET.ER PO SCH ×2 (07:14→21:48)
[2019-06-22] MEDS: SYMBICORT 160-4.5 MCG INHALER INHALATION SCH ×2 (07:19→20:29)
[2019-06-22] MEDS: ALBUTEROL NEBULIZED 2.5 MG/3 ML INHALATION SCH ×4 (07:19→20:29)
[2019-06-22 07:47] LABS: Basophils % (A) 0 %; Eosinophils % (A) 0 %; HCT 43.4 % (34.0-46.0); HGB 14.1 gm/dL (11.4-16.0); Lymphocytes # (A) 0.8 k/uL (1.0-4.8); Lymphocytes % (A) 4 %; MCH 32.5 pg (25.0-35.0); MCHC 32.5 g/dL (31.0-37.0); MCV 99.9 fL (80.0-100.0); Mean Platelet Volume 6.6; Monocytes # (A) 0.6 k/uL (0-1.0); Monocytes % (A) 3 %; Neutrophils # (A) 17.9 k/uL (1.3-7.7); Neutrophils % (A) 92 %; Platelet Count 254 k/uL (150-450); RBC 4.34 m/uL (3.80-5.40); RDW 12.4 % (11.5-15.5); WBC 19.4 k/uL (3.8-10.6)
[2019-06-22 08:02] LABS: African American GFR (CKD) >90 (>60 ml/min/1.73 sqM); Anion Gap 5 mmol/L; Blood Urea Nitrogen 11 mg/dL (7-17); Carbon Dioxide 32 mmol/L (22-30); Chloride 100 mmol/L (98-107); Glucose 138 mg/dL (74-99); Non-African American GFR(CKD) >90 (>60 ml/min/1.73 sqM); Potassium 4.7 mmol/L (3.5-5.1); Sodium 137 mmol/L (137-145)
[2019-06-22 11:14] LABS: Glucose,Whole Blood 157 mg/dL (75-99)
[2019-06-22 15:44] LABS: Glucose,Whole Blood 231 mg/dL (75-99)
[2019-06-22 15:54] LABS: ABG Base Excess -0.1 mmol/L; ABG HCO3 30 mmol/L (21-25); ABG Oxygen Saturation 99.5 % (94-97); ABG PO2 234 mmHg (83-108); ABG TCO2 33 mmol/L (19-24); Allen Test Performed? Yes
[2019-06-22 16:02] LABS: ABG PCO2 96 mmHg (35-45)
[2019-06-22 16:11] LABS: Glucose,Whole Blood 218 mg/dL (75-99)
[2019-06-22 16:53] LABS: ABG Base Excess 8.1 mmol/L; ABG HCO3 35 mmol/L (21-25); ABG Oxygen Saturation 93.8 % (94-97); ABG PH 7.26 (7.35-7.45); ABG PO2 70 mmHg (83-108); ABG TCO2 38 mmol/L (19-24); Allen Test Performed? Yes
[2019-06-22 17:02] LABS: ABG PCO2 78 mmHg (35-45)
--- NOTE | 2019-06-22 18:20 | CT ---
EXAMINATION TYPE: CT brain wo con DATE OF EXAM: 06/22/2019 COMPARISON: None HISTORY: Unwitnessed fall injury. Head pain. CT DLP: 1099.4 mGycm Automated exposure control for dose reduction was used. TECHNIQUE: CT scan of the head is performed without contrast. FINDINGS: There is no acute intracranial hemorrhage or midline shift identified. There is diffuse v entricular and sulcal prominence consistent with diffuse age-related cerebral atrophy. There is low- attenuation in the periventricular white matter consistent with chronic small vessel ischemic change. The globes are intact and the visualized sinuses are clear. Small amount of fluid is seen within the right mastoid air cells. IMPRESSION: 1. No acute intracranial hemorrhage or midline shift. 2. Diffuse age-related cerebral atrophy and chronic small vessel ischemic change noted. 3. Small amount of fluid in the right mastoid air cells. Correlate with point tenderness to mastoidit is.
[2019-06-22 18:44] LABS: ABG Base Excess 9.4 mmol/L; ABG HCO3 36 mmol/L (21-25); ABG Oxygen Saturation 98.8 % (94-97); ABG PH 7.28 (7.35-7.45); ABG PO2 134 mmHg (83-108); ABG TCO2 39 mmol/L (19-24); Allen Test Performed? Yes
[2019-06-22 18:50] LABS: ABG PCO2 77 mmHg (35-45)
[2019-06-22 21:34] LABS: Glucose,Whole Blood 105 mg/dL (75-99)
[2019-06-22] MEDS: MONTELUKAST 10 MG TAB PO SCH (21:48)
[2019-06-22] MEDS: OXYBUTYNIN 10 MG TAB.ER.24 PO SCH (22:01)
[2019-06-22] MEDS: AZITHROMYCIN 250 MG TAB PO SCH (22:01)
--- NOTE | 2019-06-22 22:58 | P.PN ---
Subjective Progress Note Date: 06/22/19 Principal diagnosis: Acute on chronic hypercapnic respiratory failure Ms. Whaley is a 63-year-old female with a past medical history of asthma, COPD, arrhythmia coming into the hospital with a chief complaint of difficulty in breathing. Patient states that she uses 2 L of oxygen at night only and for the past couple of days she has more shortness of breath and so using her oxygen even during the day. She complains of difficulty in breathing with cough. Cough is mostly productive in nature with whitish sputum. Patient denies having any fevers but was feeling hot and cold. Patient denies having any sick contacts. Patient denies having any chest pain or palpitations. She denies having any swelling of her lower extremities. No orthopnea or PND. Patient is a smoker and and quit 1 year back. In the emergency room patient had a chest x-ray showing COPD and pulmonary fibrosis. She had blood work done showing mildly elevated WBC count at 13.2. Troponin less than 0.012. BNP 193. Patient was on BiPAP for a few hours in the ED and her symptoms improved later. She was given breathing treatments, steroids and a dose of Zithromax and admitted to the floor for further management. On 06/22/2019 -around 3:30 PM a CODE BLUE was called overhead as the patient was found on the floor beside the bed. Patient was trying to get out of bed to go to the bathroom and her roommate heard her fall and informed the nursing staff. When they went to see her, she was blue, not wearing her oxygen. The patient opened her eyes to sternal rub. No CPR was done. There was no loss of consciousness. Patient only complained of difficulty in breathing. She did not having any slurring of speech or weakness of her extremities. Patient was placed on BiPAP. ABGs were obtained showing severe respiratory acidosis. Patient was transferred to the ICU for further management. Active Medications Albuterol Sulfate (Ventolin Nebulized) 2.5 mg INHALATION RT-QID ANTONIA Last Admin: 06/22/19 20:29 Dose: 2.5 mg Documented by: Albuterol/Ipratropium (Duoneb 0.5 Mg-3 Mg/3 Ml Soln) 3 ml INHALATION RT-Q4H PRN PRN Reason: Shortness Of Breath Or Wheezing Last Admin: 06/22/19 10:59 Dose: 3 ml Documented by: Azithromycin (Zithromax) 250 mg PO [facility] Last Admin: 06/22/19 22:01 Dose: 250 mg Documented by: Budesonide/Formoterol Fumarate (Symbicort 160-4.5 Mcg Inhaler) 2 puff INHALATION RT-BID [facility] Last Admin: 06/22/19 20:29 Dose: 2 puff Documented by: Enoxaparin Sodium (Lovenox) 40 mg SQ DAILY [facility] Last Admin: 06/22/19 07:13 Dose: 40 mg Documented by: Famotidine (Pepcid) 20 mg PO BID [facility] Last Admin: 06/22/19 21:48 Dose: 20 mg Documented by: Guaifenesin (Mucinex) 600 mg PO Q12HR [facility] Last Admin: 06/22/19 21:48 Dose: 600 mg Documented by: Sodium Chloride (Saline 0.9%) 1,000 mls @ 100 mls/hr IV .Q10H [facility] Last Admin: 06/22/19 17:06 Dose: 100 mls/hr Documented by: Ibuprofen (Motrin) 400 mg PO TID PRN PRN Reason: pain Last Admin: 06/22/19 03:17 Dose: 400 mg Documented by: Insulin Aspart (Novolog) 0 unit SQ [facility]; Protocol Last Admin: 06/22/19 21:34 Dose: Not Given Documented by: Lorazepam (Ativan) 1 mg IV Q4HR PRN PRN Reason: Anxiety Methocarbamol (Robaxin) 500 mg PO TID [facility] Last Admin: 06/22/19 22:01 Dose: 500 mg Documented by: Methylprednisolone Sodium Succinate (Solu-Medrol) 60 mg IV Q6HR [facility] Last Admin: 06/22/19 17:03 Dose: 60 mg Documented by: Montelukast Sodium (Singulair) 10 mg PO [facility] Last Admin: 06/22/19 21:48 Dose: 10 mg Documented by: Morphine Sulfate (Morphine Sulfate (Inj)) 2 mg IVP Q4H PRN PRN Reason: Pain/Discomfort Oxybutynin Chloride (Ditropan Xl) 10 mg PO [facility] Last Admin: 06/22/19 22:01 Dose: 10 mg Documented by: Objective - Vital Signs Vital signs: Vital Signs Temp 98.1 F 06/22/19 13:00 Pulse 111 H 06/22/19 15:32 Resp 16 06/22/19 15:32 BP 108/58 06/22/19 13:00 Pulse Ox 100 06/22/19 13:00 Intake & Output 06/21/19 06/22/19 06/22/19 18:59 06:59 18:59 Intake Total 800 800 Balance 800 800 Weight 45.359 kg Intake: IV 800 800 Sodium Chloride 0.9% 1, 800 800 000 ml @ 100 mls/hr IV . Q10H [facility] Rx#:[id number] Other: Voiding Method Toilet Toilet Toilet # Voids 2 2 - Exam GEN. APPEARANCE: alert, in no apparent distress HEENT : Normocephalic. PERRLA. No pallor. No icterus. RESPIRATORY EXAM: Decreased breath sounds in all lung varma. Mild end expiratory wheeze. Velcro crackles at the lower lung bases. CARDIOVASCULAR EXAM: Tachycardia. S1 and S2 heard. GI/ABDOMINAL EXAM: soft, normal bowel sounds. No guarding or rigidity. EXTREMITIES EXAM: No edema. NEUROLOGICAL EXAM: alert, oriented X3, no focal neurological deficits on gross exam SKIN EXAM: warm, dry, intact, normal color. Absent: rash - Labs CBC & Chem 7: 06/22/19 06:33 06/22/19 06:33 Labs: Abnormal Lab Results - Last 24 Hours (Table) 06/21/19 06/21/19 06/22/19 Range/Units 17:18 19:35 06:33 WBC 19.4 H (3.8-10.6) k/uL Neutrophils # 17.9 H (1.3-7.7) k/uL Lymphocytes # 0.8 L (1.0-4.8) k/uL ABG pH (7.35-7.45) ABG pCO2 (35-45) mmHg ABG pO2 (83-108) mmHg ABG HCO3 (21-25) mmol/L ABG Total CO2 (19-24) mmol/L ABG O2 Saturation (94-97) % Carbon Dioxide (22-30) mmol/L Creatinine (0.52-1.04) mg/dL Glucose (74-99) mg/dL POC Glucose (mg/dL) 193 H 248 H (75-99) mg/dL 06/22/19 06/22/19 06/22/19 Range/Units 06:33 06:58 11:10 WBC (3.8-10.6) k/uL Neutrophils # (1.3-7.7) k/uL Lymphocytes # (1.0-4.8) k/uL ABG pH (7.35-7.45) ABG pCO2 (35-45) mmHg ABG pO2 (83-108) mmHg ABG HCO3 (21-25) mmol/L ABG Total CO2 (19-24) mmol/L ABG O2 Saturation (94-97) % Carbon Dioxide 32 H (22-30) mmol/L Creatinine 0.39 L (0.52-1.04) mg/dL Glucose 138 H (74-99) mg/dL POC Glucose (mg/dL) 160 H 157 H (75-99) mg/dL 06/22/19 06/22/19 Range/Units 15:43 15:50 WBC (3.8-10.6) k/uL Neutrophils # (1.3-7.7) k/uL Lymphocytes # (1.0-4.8) k/uL ABG pH 7.10 L* (7.35-7.45) ABG pCO2 96 H* (35-45) mmHg ABG pO2 234 H (83-108) mmHg ABG HCO3 30 H (21-25) mmol/L ABG Total CO2 33 H (19-24) mmol/L ABG O2 Saturation 99.5 H (94-97) % Carbon Dioxide (22-30) mmol/L Creatinine (0.52-1.04) mg/dL Glucose (74-99) mg/dL POC Glucose (mg/dL) 231 H (75-99) mg/dL Assessment and Plan Assessment: ASSESSMENT Acute on chronic hypercapnic respiratory failure Acute COPD exacerbation Asthma History of arrhythmia Low BMI and 17.7 PLAN: Patient was on BiPAP in the emergency department initially, later on transferred to the floors. Patient was maintaining her oxygen saturations well on 3 L. But this afternoon as she took her oxygen off and and tried to go to the bathroom, she became very short of breath and fell to the floor. She was found blue on the floor by the nursing staff. A CODE BLUE was initiated overhead, but CPR was not done. Patient open her eyes to sternal rub and she was immediately put on BiPAP, her oxygen saturations came up to 90's. ABGs were obtained showing severe respiratory acidosis. As the patient had a fall, CT of the head was obtained, it was negative for any acute intracranial process.She is transferred to the ICU. Overall prognosis is guarded. Further recommendations to follow depending on the progress of the patient.
[2019-06-23] MEDS: methylPREDNISolone SOD SUCCI 125 MG/2 ML VIAL IV SCH ×5 (00:28→23:59)
[2019-06-23] MEDS: LORazepam 2 MG/ML INJ IV PRN ×2 (00:40→23:59)
[2019-06-23] MEDS: SODIUM CHLORIDE 0.9% 1,000 ML IV SCH ×3 (01:50→22:38)
[2019-06-23 05:31] LABS: Basophils % (A) 0 %; Eosinophils % (A) 0 %; HGB 12.8 gm/dL (11.4-16.0); Lymphocytes # (A) 0.5 k/uL (1.0-4.8); Lymphocytes % (A) 3 %; MCH 32.9 pg (25.0-35.0); MCHC 33.6 g/dL (31.0-37.0); Mean Platelet Volume 7.2; Monocytes # (A) 0.3 k/uL (0-1.0); Monocytes % (A) 2 %; Neutrophils # (A) 15.6 k/uL (1.3-7.7); Neutrophils % (A) 95 %; Platelet Count 226 k/uL (150-450); RBC 3.88 m/uL (3.80-5.40); RDW 12.2 % (11.5-15.5); WBC 16.4 k/uL (3.8-10.6)
[2019-06-23 05:40] LABS: ALT 66 U/L (9-52); AST 50 U/L (14-36); African American GFR (CKD) >90 (>60 ml/min/1.73 sqM); Albumin 2.7 g/dL (3.5-5.0); Alkaline Phosphatase 61 U/L (38-126); Anion Gap -2 mmol/L; Blood Urea Nitrogen 12 mg/dL (7-17); Calcium 8.5 mg/dL (8.4-10.2); Carbon Dioxide 38 mmol/L (22-30); Chloride 98 mmol/L (98-107); Glucose 131 mg/dL (74-99); Non-African American GFR(CKD) >90 (>60 ml/min/1.73 sqM); Potassium 4.1 mmol/L (3.5-5.1); Sodium 134 mmol/L (137-145); Total Bilirubin 0.3 mg/dL (0.2-1.3); Total Protein 4.9 g/dL (6.3-8.2)
[2019-06-23 06:34] LABS: Glucose,Whole Blood 131 mg/dL (75-99)
[2019-06-23] MEDS: INSULIN ASPART (NovoLOG) 100 UNIT/ML VIAL SQ SCH ×4 (06:39→22:38)
--- NOTE | 2019-06-23 07:08 | XR ---
EXAMINATION TYPE: XR chest 1V DATE OF EXAM: 06/23/2019 COMPARISON: 06/20/2019 HISTORY: Shortness of breath TECHNIQUE: Single frontal view of the chest is obtained. FINDINGS: Emphysematous changes are seen in the lungs with pulmonary hyperinflation and biapical maxine ency. Biapical fibrotic change is seen with very minimal right basilar linear atelectasis. No new foc al consolidation, pleural effusion or pneumothorax. Cardiomediastinal silhouette is within normal merlos its. 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 Diffuse osseous demineralization. IMPRESSION: COPD and new right basilar subsegmental atelectasis.
[2019-06-23] MEDS: SYMBICORT 160-4.5 MCG INHALER INHALATION SCH (08:10)
[2019-06-23] MEDS: ALBUTEROL NEBULIZED 2.5 MG/3 ML INHALATION SCH (08:10)
[2019-06-23] MEDS: ENOXAPARIN 40 MG/0.4 ML SYRINGE SQ SCH (09:54)
[2019-06-23] MEDS: METHOCARBAMOL 500 MG TAB PO SCH ×3 (09:55→22:44)
[2019-06-23] MEDS: FAMOTIDINE 20 MG TAB PO SCH ×2 (09:56→22:37)
[2019-06-23] MEDS: guaiFENesin 600 MG TABLET.ER PO SCH ×2 (09:56→22:37)
--- NOTE | 2019-06-23 10:19 | CONS ---
CONSULTATION PULMONARY/CRITICAL CARE CONSULTATION: DATE OF CONSULTATION: June 23, 2019 This is a patient who was apparently admitted to the hospital on June 20 with COPD exacerbation. The patient was transferred to the ICU yesterday on June 22. She apparently stopped breathing and a Code Blue was called. She apparently was bagged and transferred to the ICU. Throughout that period of time, the patient apparently had a pulse and blood pressure. Anyway, the patient is now in the ICU. Currently, she is between either 8 L high-flow oxygen or BiPAP at 14 and 5 and 45%. She is a CO2 retainer. We calculated her baseline PaCO2 to be right around 65 to 67 mmHg and hence we are going to accept saturations anywhere from 88% to 92%. She is getting a 0.9 IV at 100 mL an hour. The patient had a CT of the brain, which was negative. We did have a long conversation with the patient and she would not want to be intubated and resuscitated in that regard. Short of that, all medical therapies are appropriate. The patient is a 63-year-old female who presented to the emergency room on June 20 with shortness of breath. Her primary care provider is Dr. Randal Smith. Her events manager is Dr. Huerta. The patient presented with shortness of breath, cough, chest congestion and wheezing. No fever or chills. Anyway, she was initially admitted with a COPD exacerbation as I mentioned to the medical floor. The Code Blue was called on June 22. HOME MEDICATIONS: Her home medications are reviewed. She was on Combivent, Robaxin, Singulair, Atrovent inhaler, albuterol updrafts, ascorbic acid, Symbicort, calcium, magnesium, zinc tablet, vitamin D3, cranberry tablets, Flonase nasal spray, Mucinex, Motrin, and Detrol LA. ALLERGIES: Allergies include INCRUSE. MEDICAL HISTORY: Medical history includes COPD, stage III, pneumonia, cardiac arrhythmia, anemia, chronic hypoxemic respiratory failure with nighttime oxygen therapy. SURGICAL HISTORY: Surgical history includes thumb surgery, cervical surgery, colonoscopy, bilateral cataract surgery. SOCIAL HISTORY: Positive for heavy tobacco use in the past. She apparently quit about a year ago. FAMILY HISTORY: Positive for father with cancer. OCCUPATIONAL HISTORY: Noncontributory. REVIEW OF SYSTEMS: CONSTITUTIONAL: Weakness. NEUROLOGIC: Negative. HEENT: Negative. CARDIOVASCULAR: Negative. PULMONARY: Profound shortness of breath with any activity. Chronic cough, wheezing and tightness in the chest. GI: Negative. : Negative. RHEUMATOLOGIC: Negative. IMMUNOLOGIC: Negative. ENDOCRINOLOGIC: Negative. DERMATOLOGIC: Negative. PHYSICAL EXAMINATION: VITAL SIGNS: Current vital signs are reviewed. Temperature is 97.3, heart rate about 100, respiratory rate 24, blood pressure 146/77, mean 100, and saturations are about 92% to 94% on BiPAP. GENERAL: She does have conversational dyspnea. No use of accessory muscles. No audible wheezing. HEENT: Examination is grossly unremarkable. Nasal O2 in place, when we saw her. NECK: Supple. Full range of motion. No adenopathy. Neck veins are flat. CARDIOVASCULAR: Examination reveals tachycardia. Heart rate 100 beats per minute. It is regular. LUNGS: Reveal diffuse inspiratory and expiratory wheezes. Breath sounds are severely diminished. No rhonchi or crackles. ABDOMEN: Soft. EXTREMITIES: Are intact. No cyanosis, clubbing, or edema. SKIN: Without rash. NEUROLOGIC: Examination is brief but nonfocal. She is alert and oriented. A chest x-ray is consistent with underlying COPD with some bibasilar atelectasis. Brain CT was negative for anything acute. LABS: Labs are reviewed. White count 16.4, hemoglobin 12.8, hematocrit 38.0, platelet count 226,000. Sodium 134, potassium 4.1, chloride 98, CO2 is 38, BUN and creatinine were 12 and 0.34. Albumin 2.7. Microbiology is currently pending or negative. MEDICATIONS: Medications are reviewed. She is currently on albuterol updrafts, Zithromax, Symbicort, Lovenox, Pepcid, Mucinex, Motrin, insulin, DuoNeb, Ativan, Robaxin, Solu- Medrol, Singulair, morphine, Ditropan, and a 0.9 IV at 100 mL an hour. ASSESSMENT: 1. Chronic obstructive pulmonary disease exacerbation in a patient with severe chronic obstructive pulmonary disease, status post respiratory arrest, not requiring intubation. 2. Chronic hypoxemic and hypercapnic respiratory failure secondary to chronic obstructive pulmonary disease. 3. Previous history of heavy tobacco use. 4. History of urinary incontinence. 5. History of chronic anemia. 6. Previous history of arrhythmia. 7. History of pneumonia. 8. Previous history of heavy tobacco use with nicotine addiction. 9. History of vitamin D deficiency. PLAN: Today we had a long discussion with the patient about code status and intubation. Though she would want everything done, she does not want intubation and mechanical ventilation. She is very clear about that. She is very lucid and oriented when having the discussion. The patient would agree oxygen therapy, antibiotics breathing treatments, steroids, AIRVO, BiPAP, oxygen, etc., but no intubation. That order is put in. Additional recommendations and suggestions forthcoming. I will review the medications. We will optimize those. Will discontinue the Symbicort in favor of Pulmicort and Perforomist. We will also make sure she is on appropriate updrafts and steroids. An oral antibiotic would be appropriate. No additional recommendations are made. Prognosis is guarded. MMODL / IJN: [id number] /
[2019-06-23] MEDS: IPRATROPIUM-ALBUTEROL 3 ML NEB INHALATION PRN ×4 (11:30→23:33)
[2019-06-23 11:38] LABS: Glucose,Whole Blood 127 mg/dL (75-99)
[2019-06-23 16:42] LABS: Glucose,Whole Blood 113 mg/dL (75-99)
[2019-06-23] MEDS: FORMOTEROL FUMARATE 20 MCG/2 ML NEBU INHALATION SCH (19:32)
[2019-06-23] MEDS: BUDESONIDE 1 MG/2 ML NEBU INHALATION SCH (19:32)
--- NOTE | 2019-06-23 19:53 | P.PN ---
Subjective Progress Note Date: 06/23/19 Principal diagnosis: Acute on chronic hypercapnic respiratory failure Ms. Whaley is a 63-year-old female with a past medical history of asthma, COPD, arrhythmia coming into the hospital with a chief complaint of difficulty in breathing. Patient states that she uses 2 L of oxygen at night only and for the past couple of days she has more shortness of breath and so using her oxygen even during the day. She complains of difficulty in breathing with cough. Cough is mostly productive in nature with whitish sputum. Patient denies having any fevers but was feeling hot and cold. Patient denies having any sick contacts. Patient denies having any chest pain or palpitations. She denies having any swelling of her lower extremities. No orthopnea or PND. Patient is a smoker and and quit 1 year back. In the emergency room patient had a chest x-ray showing COPD and pulmonary fibrosis. She had blood work done showing mildly elevated WBC count at 13.2. Troponin less than 0.012. BNP 193. Patient was on BiPAP for a few hours in the ED and her symptoms improved later. She was given breathing treatments, steroids and a dose of Zithromax and admitted to the floor for further management. On 06/22/2019 -around 3:30 PM a CODE BLUE was called overhead as the patient was found on the floor beside the bed. Patient was trying to get out of bed to go to the bathroom and her roommate heard her fall and informed the nursing staff. When they went to see her, she was blue, not wearing her oxygen. The patient opened her eyes to sternal rub. No CPR was done. There was no loss of consciousness. Patient only complained of difficulty in breathing. She did not having any slurring of speech or weakness of her extremities. Patient was placed on BiPAP. ABGs were obtained showing severe respiratory acidosis. Patient was transferred to the ICU for further management. On 06/23/19 - Patient is in the ICU. She is on BiPAP. As per the nursing staff report the patient was on 8 L of oxygen this morning to have her breakfast and was very short of breath, so they had to put her back on BiPAP. Patient denies having any chest pain or palpitations. She continues to have difficulty in breathing. No fevers chills or rigors. On reviewing the patient's vitals her blood pressure has been within normal limits and heart rate below 100. Patient's labs from this morning show a white count of 16.4 hemoglobin at 12.8 sodium 134, potassium 4.1, BUN 12, creatinine 0.34. Active Medications Albuterol/Ipratropium (Duoneb 0.5 Mg-3 Mg/3 Ml Soln) 3 ml INHALATION RT-Q4H PRN PRN Reason: Shortness Of Breath Or Wheezing Last Admin: 06/23/19 19:32 Dose: 3 ml Documented by: Azithromycin (Zithromax) 250 mg PO HS [facility] Last Admin: 06/22/19 22:01 Dose: 250 mg Documented by: Budesonide (Pulmicort) 1 mg INHALATION RT-BID [facility] Last Admin: 06/23/19 19:32 Dose: 1 mg Documented by: Enoxaparin Sodium (Lovenox) 40 mg SQ DAILY [facility] Last Admin: 06/23/19 09:54 Dose: 40 mg Documented by: Famotidine (Pepcid) 20 mg PO BID [facility] Last Admin: 06/23/19 09:56 Dose: 20 mg Documented by: Formoterol Fumarate (Perforomist) 20 mcg INHALATION RT-BID [facility] Last Admin: 06/23/19 19:32 Dose: 20 mcg Documented by: Guaifenesin (Mucinex) 600 mg PO Q12HR [facility] Last Admin: 06/23/19 09:56 Dose: 600 mg Documented by: Sodium Chloride (Saline 0.9%) 1,000 mls @ 100 mls/hr IV .Q10H [facility] Last Admin: 06/23/19 10:05 Dose: 100 mls/hr Documented by: Ibuprofen (Motrin) 400 mg PO TID PRN PRN Reason: pain Last Admin: 06/22/19 03:17 Dose: 400 mg Documented by: Insulin Aspart (Novolog) 0 unit SQ ACHS [facility]; Protocol Last Admin: 06/23/19 16:45 Dose: Not Given Documented by: Lorazepam (Ativan) 1 mg IV Q4HR PRN PRN Reason: Anxiety Last Admin: 06/23/19 00:40 Dose: 1 mg Documented by: Methocarbamol (Robaxin) 500 mg PO TID [facility] Last Admin: 06/23/19 16:36 Dose: 500 mg Documented by: Methylprednisolone Sodium Succinate (Solu-Medrol) 60 mg IV Q6HR [facility] Last Admin: 06/23/19 18:16 Dose: 60 mg Documented by: Montelukast Sodium (Singulair) 10 mg PO [facility] Last Admin: 06/22/19 21:48 Dose: 10 mg Documented by: Morphine Sulfate (Morphine Sulfate (Inj)) 2 mg IVP Q4H PRN PRN Reason: Pain/Discomfort Oxybutynin Chloride (Ditropan Xl) 10 mg PO [facility] Last Admin: 06/22/19 22:01 Dose: 10 mg Documented by: Objective - Vital Signs Vital signs: Vital Signs Temp 97.3 F L 06/23/19 16:00 Pulse 93 06/23/19 19:00 Resp 19 06/23/19 19:00 BP 144/77 06/23/19 19:00 Pulse Ox 97 06/23/19 19:00 Intake & Output 06/23/19 06/23/19 06/24/19 06:59 18:59 06:59 Intake Total 1200 1200 100 Output Total 800 1395 90 Balance 400 -195 10 Weight 50.3 kg Intake: IV 1200 1200 100 Sodium Chloride 0.9% 1, 1200 1200 100 000 ml @ 100 mls/hr IV . Q10H [facility] Rx#:[id number] Output: Urine 800 1395 90 Other: Voiding Method Bedpan Bedpan - Exam GEN. APPEARANCE: alert, in no apparent distress, on BiPAP, Cachectic HEENT : Normocephalic. PERRLA. No pallor. No icterus. RESPIRATORY EXAM: Decreased breath sounds in all lung varma. Mild end expiratory wheeze. Velcro crackles at the lower lung bases. CARDIOVASCULAR EXAM: S1 and S2 heard. GI/ABDOMINAL EXAM: soft, normal bowel sounds. No guarding or rigidity. EXTREMITIES EXAM: No edema. NEUROLOGICAL EXAM: alert, oriented X3, no focal neurological deficits on gross exam SKIN EXAM: warm, dry, intact, normal color. Absent: rash - Labs CBC & Chem 7: 06/23/19 05:17 06/23/19 05:15 Labs: Abnormal Lab Results - Last 24 Hours (Table) 06/22/19 06/23/19 06/23/19 Range/Units 21:33 05:15 05:17 WBC 16.4 H (3.8-10.6) k/uL Neutrophils # 15.6 H (1.3-7.7) k/uL Lymphocytes # 0.5 L (1.0-4.8) k/uL Sodium 134 L (137-145) mmol/L Carbon Dioxide 38 H (22-30) mmol/L Creatinine 0.34 L (0.52-1.04) mg/dL Glucose 131 H (74-99) mg/dL POC Glucose (mg/dL) 105 H (75-99) mg/dL AST 50 H (14-36) U/L ALT 66 H (9-52) U/L Total Protein 4.9 L (6.3-8.2) g/dL Albumin 2.7 L (3.5-5.0) g/dL 06/23/19 06/23/19 06/23/19 Range/Units 06:31 11:37 16:41 WBC (3.8-10.6) k/uL Neutrophils # (1.3-7.7) k/uL Lymphocytes # (1.0-4.8) k/uL Sodium (137-145) mmol/L Carbon Dioxide (22-30) mmol/L Creatinine (0.52-1.04) mg/dL Glucose (74-99) mg/dL POC Glucose (mg/dL) 131 H 127 H 113 H (75-99) mg/dL AST (14-36) U/L ALT (9-52) U/L Total Protein (6.3-8.2) g/dL Albumin (3.5-5.0) g/dL Assessment and Plan Assessment: ASSESSMENT Acute on chronic hypercapnic respiratory failure with respiratory arrest Acute on Chronic COPD exacerbation Asthma History of arrhythmia History of urinary incontinence Chronic anemia Heavy smoking history History of pneumonia Severe protein calorie malnutrition PLAN: . Patient is being maintained on BiPAP. Pulmonary, Dr. Alonso, had a CODE STATUS discussion, patient does not want to be intubated. Continue with IV steroids and breathing treatments. Overall prognosis is poor. Further recommendations to follow depending on the progress of the patient.
[2019-06-23 20:33] LABS: Glucose,Whole Blood 113 mg/dL (75-99)
[2019-06-23] MEDS: MONTELUKAST 10 MG TAB PO SCH (22:37)
[2019-06-23] MEDS: OXYBUTYNIN 10 MG TAB.ER.24 PO SCH (22:44)
[2019-06-23] MEDS: AZITHROMYCIN 250 MG TAB PO SCH (22:44)
[2019-06-24] MEDS: IPRATROPIUM-ALBUTEROL 3 ML NEB INHALATION PRN ×4 (03:25→15:47)
[2019-06-24 05:38] LABS: Basophils % (A) 0 %; Eosinophils % (A) 0 %; HCT 41.7 % (34.0-46.0); HGB 13.5 gm/dL (11.4-16.0); Lymphocytes # (A) 0.4 k/uL (1.0-4.8); Lymphocytes % (A) 3 %; MCH 31.9 pg (25.0-35.0); MCHC 32.4 g/dL (31.0-37.0); MCV 98.4 fL (80.0-100.0); Monocytes # (A) 0.4 k/uL (0-1.0); Monocytes % (A) 3 %; Neutrophils # (A) 11.7 k/uL (1.3-7.7); Neutrophils % (A) 93 %; Platelet Count 248 k/uL (150-450); RBC 4.23 m/uL (3.80-5.40); RDW 12.1 % (11.5-15.5); WBC 12.5 k/uL (3.8-10.6)
[2019-06-24 05:54] LABS: African American GFR (CKD) >90 (>60 ml/min/1.73 sqM); Blood Urea Nitrogen 8 mg/dL (7-17); Calcium 8.4 mg/dL (8.4-10.2); Chloride 92 mmol/L (98-107); Glucose 141 mg/dL (74-99); Non-African American GFR(CKD) >90 (>60 ml/min/1.73 sqM); Potassium 3.5 mmol/L (3.5-5.1); Sodium 134 mmol/L (137-145)
[2019-06-24 06:00] LABS: Anion Gap -1 mmol/L
[2019-06-24 06:04] LABS: Carbon Dioxide 43 mmol/L (22-30)
[2019-06-24 06:42] LABS: Glucose,Whole Blood 139 mg/dL (75-99)
[2019-06-24] MEDS: SODIUM CHLORIDE 0.9% 1,000 ML IV SCH ×2 (07:34→16:44)
[2019-06-24] MEDS: INSULIN ASPART (NovoLOG) 100 UNIT/ML VIAL SQ SCH ×4 (07:34→20:57)
[2019-06-24] MEDS: methylPREDNISolone SOD SUCCI 125 MG/2 ML VIAL IV SCH ×3 (07:34→17:11)
--- NOTE | 2019-06-24 08:02 | XR ---
EXAMINATION TYPE: XR chest 1V portable DATE OF EXAM: 06/24/2019 COMPARISON: 06/23/2019 HISTORY: Shortness of breath TECHNIQUE: Single frontal view of the chest is obtained. FINDINGS: Hyperinflation suggests COPD. Chronic rib deformities are seen. Curvature the spine with d egenerative changes. Subsegmental changes at both lung bases. IMPRESSION: COPD with basilar atelectasis favored over pneumonia. Correlate clinically.
--- NOTE | 2019-06-24 08:38 | P.PN ---
Subjective Progress Note Date: 06/24/19 Principal diagnosis: Acute exacerbation of chronic obstructive pulmonary disease acute on chronic hypercapnic and hypoxemic respiratory failure. On 06/24/2019 patient seen again in follow-up in the intensive care unit, she is intermittently wearing BiPAP, she has been given a trial of nasal cannula, currently at 3 L, her pulse ox is 88-94%, patient is afebrile, hemodynamically able, a bit hypertensive, she states her breathing is improving, but she still gets fatigued easy, and quite dyspneic, requiring intermittent BiPAP support, lung sounds are positive for very diminished breath sounds, with end expiratory wheezes, patient states she has a productive cough, she is on Zithromax for antibiotic coverage, nebulized bronchodilator's, IV steroids, Singulair, today's labs have been reviewed, with a total count is trending down, down to 12.5 on today's labs, hemoglobin is 13.5, sodium is 134, potassium 3.5, chloride is 92, CO2 is 43, BUN is 8, creatinine is 0.39. Today's chest x-ray has been reviewed, which shows hyperinflation consistent with COPD, and basilar atelectasis. Objective - Vital Signs Vital signs: Vital Signs Temp 98.0 F 06/24/19 04:00 Pulse 116 H 06/24/19 07:00 Resp 28 H 06/24/19 07:00 BP 164/91 06/24/19 07:00 Pulse Ox 88 L 06/24/19 07:00 Intake & Output 06/23/19 06/24/19 06/24/19 18:59 06:59 18:59 Intake Total 1200 560 100 Output Total 1395 1125 350 Balance -195 -565 -250 Weight 51.4 kg Intake: IV 1200 560 100 Sodium Chloride 0.9% 1, 1200 560 100 000 ml @ 100 mls/hr IV . Q10H [facility] Rx#:[id number] Output: Urine 1395 1125 350 Other: Voiding Method Bedpan Bedpan - Exam GENERAL EXAM: Alert, thin, 63-year-old white female, on 3 L of oxygen, moderately short of breath with conversation, comfortable in no apparent distress. HEAD: Normocephalic/atraumatic. EYES: Normal reaction of pupils, equal size. Conjunctiva pink, sclera white. NOSE: Clear with pink turbinates. THROAT: No erythema or exudates. NECK: No masses, no JVD, no thyroid enlargement, no adenopathy. CHEST: No chest wall deformity. Symmetrical expansion. LUNGS: Diminished air entry with end expiratory wheezes CVS: Regular rate and rhythm, normal S1 and S2, no gallops, no murmurs, no rubs ABDOMEN: Soft, nontender. No hepatosplenomegaly, normal bowel sounds, no guarding or rigidity. EXTREMITIES: No clubbing, no edema, no cyanosis, 2+ pulses and upper and lower extremities. MUSCULOSKELETAL: Muscle strength and tone normal. SPINE: No scoliosis or deformity SKIN: No rashes CENTRAL NERVOUS SYSTEM: Alert and oriented -3. No focal deficits, tone is normal in all 4 extremities. PSYCHIATRIC: Alert and oriented -3. Appropriate affect. Intact judgment and insight. - Labs CBC & Chem 7: 06/24/19 05:30 06/24/19 05:28 Labs: Abnormal Lab Results - Last 24 Hours (Table) 06/23/19 06/23/19 06/23/19 Range/Units 11:37 16:41 20:32 WBC (3.8-10.6) k/uL Neutrophils # (1.3-7.7) k/uL Lymphocytes # (1.0-4.8) k/uL Sodium (137-145) mmol/L Chloride (98-107) mmol/L Carbon Dioxide (22-30) mmol/L Creatinine (0.52-1.04) mg/dL Glucose (74-99) mg/dL POC Glucose (mg/dL) 127 H 113 H 113 H (75-99) mg/dL 06/24/19 06/24/19 06/24/19 Range/Units 05:28 05:30 06:40 WBC 12.5 H (3.8-10.6) k/uL Neutrophils # 11.7 H (1.3-7.7) k/uL Lymphocytes # 0.4 L (1.0-4.8) k/uL Sodium 134 L (137-145) mmol/L Chloride 92 L (98-107) mmol/L Carbon Dioxide 43 H* (22-30) mmol/L Creatinine 0.39 L (0.52-1.04) mg/dL Glucose 141 H (74-99) mg/dL POC Glucose (mg/dL) 139 H (75-99) mg/dL Assessment and Plan Plan: Assessment: #1. Acute on chronic hypercapnic and hypoxemic respiratory failure related to acute exacerbation of chronic obstructive pulmonary disease #2. Altered mentation, respiratory arrest, not requiring intubation, and patient has improved via noninvasive positive pressure ventilation and medical treatment #3. Advanced COPD, with chronic hypoxemic and hypercapnic respiratory failure normally wears 2-3 L of oxygen at home #4. Previous history of heavy tobacco use #5. History of chronic anemia #6. Previous history of arrhythmia #7. History of pneumonia #8. History of vitamin D deficiency Plan: Continue current medical treatment, and his sputum culture, continue Zithromax, no fever or chills, patient is tolerating nasal cannula trials, she states her breathing is improving, she is more awake and alert, answering questions, still is fatigued and dyspneic, continue BiPAP support intermittently, her CODE STATUS is DO NOT INTUBATE, continue current dose of IV steroids, nebulized bronchodilators, today's chest x-ray has been reviewed showing bibasilar atelectasis the ground of chronic COPD I performed a history & physical examination of the patient and discussed their management with my nurse practitioner, Jasmin Fuentes. I reviewed the nurse practitioner's note and agree with the documented findings and plan of care. Lung sounds are positive for diminished breath sounds with diffuse wheezes throughout the lung varma. The findings and the impression was discussed with the patient. I attest to the documentation by the nurse practitioner. Time with Patient: Less than 30
[2019-06-24] MEDS: METHOCARBAMOL 500 MG TAB PO SCH ×3 (08:41→20:57)
[2019-06-24] MEDS: guaiFENesin 600 MG TABLET.ER PO SCH ×2 (08:41→20:57)
[2019-06-24] MEDS: ENOXAPARIN 40 MG/0.4 ML SYRINGE SQ SCH (08:41)
[2019-06-24] MEDS: FAMOTIDINE 20 MG TAB PO SCH ×2 (08:41→20:57)
[2019-06-24] MEDS: BUDESONIDE 1 MG/2 ML NEBU INHALATION SCH ×2 (08:52→20:01)
[2019-06-24] MEDS: FORMOTEROL FUMARATE 20 MCG/2 ML NEBU INHALATION SCH ×2 (08:52→20:01)
[2019-06-24 11:38] LABS: Glucose,Whole Blood 235 mg/dL (75-99)
[2019-06-24] MEDS ORDERED: Potassium Replacement Protocol 1 EACH MISC MISCELLANE PRN (11:38)
[2019-06-24] MEDS: POTASSIUM BICARBONATE/CIT AC 20 MEQ TABLET.EFF NG-TUBE SCH ×2 (12:18→13:34)
[2019-06-24] MEDS: IPRATROPIUM-ALBUTEROL 3 ML NEB INHALATION SCH ×3 (15:47→23:44)
[2019-06-24] MEDS ORDERED: POTASSIUM BICARBONATE/CIT AC 20 MEQ TABLET.EFF NG-TUBE ONE (16:00)
[2019-06-24] MEDS: IBUPROFEN 400 MG TAB PO PRN (16:43)
[2019-06-24 16:53] LABS: Glucose,Whole Blood 158 mg/dL (75-99)
[2019-06-24 20:26] LABS: Glucose,Whole Blood 228 mg/dL (75-99)
--- NOTE | 2019-06-24 20:36 | PN ---
PROGRESS NOTE DATE OF SERVICE: 06/24/2019. PRESENTING COMPLAINT: Short of breath. INTERVAL HISTORY: This is a 63-year-old patient of Dr. Smith who was admitted with shortness of breath. Admitted with a diagnosis of acute on chronic hypercapnic and hypoxic respiratory failure from chronic obstructive pulmonary disease exacerbation, acute metabolic encephalopathy. Today-remains in the ICU. Requiring BiPAP intermittently. The patient is drinking clear Ensure. Tires very easily. Minimal cough. REVIEW OF SYSTEMS: Was done for constitutional, cardiovascular, GI, pulmonary; relevant findings as above. CURRENT MEDICATIONS: Reviewed that include IV Solu-Medrol, nebulized bronchodilator. PHYSICAL EXAMINATION: VITAL SIGNS: Temperature 97.5. Pulse 126, respiration 38, blood pressure 159/94, pulse ox 93 percent on 3 L. GENERAL APPEARANCE: Sitting up on bed, short of breath at rest with a BiPAP in place. HEENT: Eyes: Pupils equal. Conjunctivae normal. NECK: JVD not raised. Mass not palpable. RESPIRATORY: Effort increased. Accessory muscles are working. Not able to speak in full sentences. LUNGS: Poor air entry. Prolonged expiration. CARDIOVASCULAR: First and second sounds normal. No edema. ABDOMEN: Soft, nontender. Liver and spleen not palpable. PSYCHIATRY: Alert, oriented x3. Mood and affect anxious-appearing. INVESTIGATIONS: White count 12.5, hemoglobin 13.5. Chest x-ray film, personally reviewed by me, shows hyperinflated lungs. ASSESSMENT: 1. Acute on chronic hypercapnic and hypoxemic respiratory failure secondary to acute chronic obstructive pulmonary disease exacerbation. 2. Acute severe chronic obstructive pulmonary disease exacerbation in an ex-smoker. 3. Chronic hypoxic respiratory failure. Patient wears 2-3 L oxygen at home. 4. Acute metabolic encephalopathy from chronic obstructive pulmonary disease exacerbation requiring BiPAP. 5. Metabolic alkalosis, possible steroids and volume contraction. 6. Mild protein-calorie malnutrition with hypoalbuminemia from decreased oral intake. 7. Overall slow to respond. PLAN: The patient remains on IV Solu-Medrol, DuoNeb every 4 hours, Zithromax. Other medications are to continue. Care was discussed with the patient. MMODL / IJN: [id number] /
[2019-06-24] MEDS: OXYBUTYNIN 10 MG TAB.ER.24 PO SCH (20:57)
[2019-06-24] MEDS: MONTELUKAST 10 MG TAB PO SCH (20:57)
[2019-06-24] MEDS: AZITHROMYCIN 250 MG TAB PO SCH (20:57)
[2019-06-24] MEDS: LORazepam 2 MG/ML INJ IV PRN (22:00)
[2019-06-25] MEDS: methylPREDNISolone SOD SUCCI 125 MG/2 ML VIAL IV SCH ×4 (00:25→17:00)
[2019-06-25] MEDS: IPRATROPIUM-ALBUTEROL 3 ML NEB INHALATION SCH ×5 (03:28→19:32)
[2019-06-25 06:25] LABS: Basophils % (A) 0 %; Eosinophils % (A) 0 %; HCT 42.8 % (34.0-46.0); HGB 13.8 gm/dL (11.4-16.0); Lymphocytes # (A) 0.9 k/uL (1.0-4.8); Lymphocytes % (A) 7 %; MCH 31.3 pg (25.0-35.0); MCHC 32.2 g/dL (31.0-37.0); MCV 97.3 fL (80.0-100.0); Mean Platelet Volume 6.8; Monocytes # (A) 0.6 k/uL (0-1.0); Monocytes % (A) 5 %; Neutrophils # (A) 10.8 k/uL (1.3-7.7); Neutrophils % (A) 87 %; Platelet Count 217 k/uL (150-450); RDW 12.1 % (11.5-15.5); WBC 12.4 k/uL (3.8-10.6)
[2019-06-25 06:36] LABS: African American GFR (CKD) >90 (>60 ml/min/1.73 sqM); Blood Urea Nitrogen 7 mg/dL (7-17); Calcium 8.7 mg/dL (8.4-10.2); Chloride 83 mmol/L (98-107); Glucose 93 mg/dL (74-99); Non-African American GFR(CKD) >90 (>60 ml/min/1.73 sqM); Potassium 3.5 mmol/L (3.5-5.1); Sodium 132 mmol/L (137-145)
[2019-06-25 06:43] LABS: Anion Gap 0 mmol/L
[2019-06-25 06:45] LABS: Glucose,Whole Blood 98 mg/dL (75-99)
[2019-06-25] MEDS: INSULIN ASPART (NovoLOG) 100 UNIT/ML VIAL SQ SCH ×3 (06:59→16:58)
[2019-06-25 07:00] LABS: Carbon Dioxide 49 mmol/L (22-30)
--- NOTE | 2019-06-25 07:29 | XR ---
EXAMINATION TYPE: XR chest 1V portable DATE OF EXAM: 06/25/2019 COMPARISON: 06/24/2019 HISTORY: Shortness of breath TECHNIQUE: Single frontal view of the chest is obtained. FINDINGS: New right basilar opacity has developed in the interim. Extensive underlying COPD with pul monary hyperinflation and biapical lucency. There is diffuse osseous demineralization and old fractur e deformities of the proximal humeri. Cardiomediastinal silhouette is within normal limits. Mild dext roscoliosis of the thoracolumbar junction. IMPRESSION: New small right basilar opacity that may represent atelectasis or developing pneumonia. Advanced underlying COPD.
[2019-06-25] MEDS: ENOXAPARIN 40 MG/0.4 ML SYRINGE SQ SCH (08:20)
[2019-06-25] MEDS: METHOCARBAMOL 500 MG TAB PO SCH ×3 (08:20→22:58)
[2019-06-25] MEDS: POTASSIUM BICARBONATE/CIT AC 20 MEQ TABLET.EFF NG-TUBE SCH ×2 (08:20→10:32)
[2019-06-25] MEDS: guaiFENesin 600 MG TABLET.ER PO SCH ×2 (08:21→22:58)
[2019-06-25] MEDS: FAMOTIDINE 20 MG TAB PO SCH ×2 (08:21→22:58)
[2019-06-25] MEDS: IBUPROFEN 400 MG TAB PO PRN ×2 (08:21→16:19)
[2019-06-25] MEDS: FORMOTEROL FUMARATE 20 MCG/2 ML NEBU INHALATION SCH ×2 (08:35→19:31)
[2019-06-25] MEDS: BUDESONIDE 1 MG/2 ML NEBU INHALATION SCH ×2 (08:35→19:31)
--- NOTE | 2019-06-25 09:30 | P.PN ---
Subjective Progress Note Date: 06/25/19 Principal diagnosis: Acute exacerbation of chronic obstructive pulmonary disease acute on chronic hypercapnic and hypoxemic respiratory failure. On 06/24/2019 patient seen again in follow-up in the intensive care unit, she is intermittently wearing BiPAP, she has been given a trial of nasal cannula, currently at 3 L, her pulse ox is 88-94%, patient is afebrile, hemodynamically able, a bit hypertensive, she states her breathing is improving, but she still gets fatigued easy, and quite dyspneic, requiring intermittent BiPAP support, lung sounds are positive for very diminished breath sounds, with end expiratory wheezes, patient states she has a productive cough, she is on Zithromax for antibiotic coverage, nebulized bronchodilator's, IV steroids, Singulair, today's labs have been reviewed, with a total count is trending down, down to 12.5 on today's labs, hemoglobin is 13.5, sodium is 134, potassium 3.5, chloride is 92, CO2 is 43, BUN is 8, creatinine is 0.39. Today's chest x-ray has been reviewed, which shows hyperinflation consistent with COPD, and basilar atelectasis. On 06/25/2018 patient seen in follow-up in intensive care unit, she continues to wear BiPAP most of the night, and intermittently through the day, she is currently off BiPAP on 3 L of oxygen, she is sounding and looking slightly improved, although lung sounds are still very diminished, with expiratory wheezes, and patient gets quite dyspneic with any exertion. No fever or chills, today's labs have been reviewed, with blood cell count is 12.4, hemoglobin is 13.8, sodium is 132, potassium is 3.5, chloride is 83, CO2 is 49, BUN is 7 creatinine 0.35. Continues on nebulized bronchodilators, empiric antibiotics, and IV steroids. Today's chest x-ray shows a new small right basilar opacity that could represent atelectasis or developing pneumonia. Objective - Vital Signs Vital signs: Vital Signs Temp 97.7 F 06/25/19 08:00 Pulse 111 H 06/25/19 08:51 Resp 19 06/25/19 08:00 BP 126/90 06/25/19 08:00 Pulse Ox 91 L 06/25/19 08:00 Intake & Output 06/24/19 06/25/19 06/25/19 18:59 06:59 18:59 Intake Total 400 260 Output Total 3250 1500 Balance -2850 -1240 Weight 51.4 kg 50.8 kg Intake: IV 400 260 Sodium Chloride 0.9% 1, 400 260 000 ml @ 20 mls/hr IV . Q24H [facility] Rx#:[id number] Output: Urine 3250 1500 Other: Voiding Method Indwelling Catheter Indwelling Catheter Indwelling Catheter # Bowel Movements 1 - Exam GENERAL EXAM: Alert, thin, 63-year-old white female, on 3 L of oxygen, modera tely short of breath with conversation, comfortable in no apparent distress. HEAD: Normocephalic/atraumatic. EYES: Normal reaction of pupils, equal size. Conjunctiva pink, sclera white. NOSE: Clear with pink turbinates. THROAT: No erythema or exudates. NECK: No masses, no JVD, no thyroid enlargement, no adenopathy. CHEST: No chest wall deformity. Symmetrical expansion. LUNGS: Diminished air entry with end expiratory wheezes CVS: Regular rate and rhythm, normal S1 and S2, no gallops, no murmurs, no rubs ABDOMEN: Soft, nontender. No hepatosplenomegaly, normal bowel sounds, no guarding or rigidity. EXTREMITIES: No clubbing, no edema, no cyanosis, 2+ pulses and upper and lower extremities. MUSCULOSKELETAL: Muscle strength and tone normal. SPINE: No scoliosis or deformity SKIN: No rashes CENTRAL NERVOUS SYSTEM: Alert and oriented -3. No focal deficits, tone is normal in all 4 extremities. PSYCHIATRIC: Alert and oriented -3. Appropriate affect. Intact judgment and insight. - Labs CBC & Chem 7: 06/25/19 05:57 06/25/19 05:57 Labs: Abnormal Lab Results - Last 24 Hours (Table) 06/24/19 06/24/19 06/24/19 Range/Units 11:37 16:52 20:24 WBC (3.8-10.6) k/uL Neutrophils # (1.3-7.7) k/uL Lymphocytes # (1.0-4.8) k/uL Sodium (137-145) mmol/L Chloride (98-107) mmol/L Carbon Dioxide (22-30) mmol/L Creatinine (0.52-1.04) mg/dL POC Glucose (mg/dL) 235 H 158 H 228 H (75-99) mg/dL 06/25/19 06/25/19 Range/Units 05:57 05:57 WBC 12.4 H (3.8-10.6) k/uL Neutrophils # 10.8 H (1.3-7.7) k/uL Lymphocytes # 0.9 L (1.0-4.8) k/uL Sodium 132 L (137-145) mmol/L Chloride 83 L (98-107) mmol/L Carbon Dioxide 49 H* (22-30) mmol/L Creatinine 0.35 L (0.52-1.04) mg/dL POC Glucose (mg/dL) (75-99) mg/dL Assessment and Plan Plan: Assessment: #1. Acute on chronic hypercapnic and hypoxemic respiratory failure related to acute exacerbation of chronic obstructive pulmonary disease #2. Altered mentation, respiratory arrest, not requiring intubation, and patient has improved via noninvasive positive pressure ventilation and medical treatment #3. Advanced COPD, with chronic hypoxemic and hypercapnic respiratory failure normally wears 2-3 L of oxygen at home #4. Previous history of heavy tobacco use #5. History of chronic anemia #6. Previous history of arrhythmia #7. History of pneumonia #8. History of vitamin D deficiency Plan: Continue current medical treatment, same dose IV steroids, empiric antibiotics, nebulized bronchodilators, continue intermittent BiPAP support, slightly improved on today's exam, although still quite dyspneic on bronchospastic, his chest x-ray has been reviewed, showing new right basilar area of atelectasis or developing infiltrate, however patient has been afebrile. No worsening dyspnea, we'll continue to follow I performed a history & physical examination of the patient and discussed their management with my nurse practitioner, Jasmin Fuentes. I reviewed the nurse practitioner's note and agree with the documented findings and plan of care. Lung sounds are positive for diminished breath sounds with diffuse wheezes throughout the lung varma. The findings and the impression was discussed with the patient. I attest to the documentation by the nurse practitioner. Time with Patient: Less than 30
[2019-06-25] MEDS: MENTHOL (NICE) LOZENGE MUCOUS MEM PRN ×2 (10:32→16:20)
[2019-06-25 11:54] LABS: Glucose,Whole Blood 205 mg/dL (75-99)
[2019-06-25] MEDS: LORazepam 2 MG/ML INJ IV PRN (13:26)
[2019-06-25] MEDS: SODIUM CHLORIDE 0.9% 1,000 ML IV SCH (16:14)
[2019-06-25 16:58] LABS: Glucose,Whole Blood 127 mg/dL (75-99)
[2019-06-25 17:13] LABS: Glucose,Whole Blood 130 mg/dL (75-99)
[2019-06-25 20:47] LABS: Glucose,Whole Blood 235 mg/dL (75-99)
[2019-06-25 22:58] LABS: Glucose,Whole Blood 314 mg/dL (75-99)
[2019-06-25] MEDS: MONTELUKAST 10 MG TAB PO SCH (22:58)
[2019-06-25] MEDS: AZITHROMYCIN 250 MG TAB PO SCH (22:58)
[2019-06-25] MEDS: THEOPHYLLINE 24 HOUR 200 MG CAP.ER.24H PO SCH (22:58)
[2019-06-25] MEDS: OXYBUTYNIN 10 MG TAB.ER.24 PO SCH (22:59)
--- NOTE | 2019-06-25 23:46 | P.PN ---
Progress Note - Text Progress Note Date: 06/25/19 Interval history: This is a 63-year-old patient of Dr. Smith who was admitted for shortness of breath. Found to have acute on chronic hypercapnic and hypoxic respiratory failure from underlying COPD exacerbation. Also had acute metabolic encephalopathy. Today-to the ICU. Continues to use BiPAP. Decreased oral intake. She'll tired rundown. Review of systems: Was done for constitutional, cardiovascular, GI, pulmonary. relevant finding as above Active Medications Albuterol/Ipratropium (Duoneb 0.5 Mg-3 Mg/3 Ml Soln) 3 ml INHALATION RT-Q4H PRN PRN Reason: Shortness Of Breath Or Wheezing Last Admin: 06/24/19 15:47 Dose: 3 ml Documented by: Albuterol/Ipratropium (Duoneb 0.5 Mg-3 Mg/3 Ml Soln) 3 ml INHALATION RT-Q4H [facility] Last Admin: 06/25/19 19:32 Dose: 3 ml Documented by: Azithromycin (Zithromax) 250 mg PO HS [facility] Last Admin: 06/25/19 22:58 Dose: 250 mg Documented by: Budesonide (Pulmicort) 1 mg INHALATION RT-BID [facility] Last Admin: 06/25/19 19:31 Dose: 1 mg Documented by: Enoxaparin Sodium (Lovenox) 40 mg SQ DAILY [facility] Last Admin: 06/25/19 08:20 Dose: 40 mg Documented by: Famotidine (Pepcid) 20 mg PO BID [facility] Last Admin: 06/25/19 22:58 Dose: 20 mg Documented by: Formoterol Fumarate (Perforomist) 20 mcg INHALATION RT-BID [facility] Last Admin: 06/25/19 19:31 Dose: 20 mcg Documented by: Guaifenesin (Mucinex) 600 mg PO Q12HR [facility] Last Admin: 06/25/19 22:58 Dose: 600 mg Documented by: Sodium Chloride (Saline 0.9%) 1,000 mls @ 20 mls/hr IV .Q24H [facility] Last Admin: 06/25/19 16:14 Dose: Not Given Documented by: Ibuprofen (Motrin) 400 mg PO TID PRN PRN Reason: pain Last Admin: 06/25/19 16:19 Dose: 400 mg Documented by: Insulin Aspart (Novolog) 0 unit SQ [facility]; Protocol Last Admin: 06/25/19 16:58 Dose: Not Given Documented by: Lorazepam (Ativan) 1 mg IV Q4HR PRN PRN Reason: Anxiety Last Admin: 06/25/19 13:26 Dose: 1 mg Documented by: Menthol (Nice Cough Drops) 1 each MUCOUS MEM Q2H PRN PRN Reason: Sore Throat Last Admin: 06/25/19 16:20 Dose: 1 each Documented by: Methocarbamol (Robaxin) 500 mg PO TID [facility] Last Admin: 06/25/19 22:58 Dose: 500 mg Documented by: Methylprednisolone Sodium Succinate (Solu-Medrol) 60 mg IV Q6HR [facility] Last Admin: 06/25/19 17:00 Dose: 60 mg Documented by: Miscellaneous Information (Potassium Per Protocol) 1 each MISCELLANE DAILY PRN; Protocol PRN Reason: Per Protocol Montelukast Sodium (Singulair) 10 mg PO [facility] Last Admin: 06/25/19 22:58 Dose: 10 mg Documented by: Morphine Sulfate (Morphine Sulfate (Inj)) 2 mg IVP Q4H PRN PRN Reason: Pain/Discomfort Oxybutynin Chloride (Ditropan Xl) 10 mg PO [facility] Last Admin: 06/25/19 22:59 Dose: 10 mg Documented by: Theophylline (Marvin-24) 200 mg PO [facility] Last Admin: 06/25/19 22:58 Dose: 200 mg Documented by: Physical examination: VITAL SIGNS: 97.8, 120, 24, 157/97, 92% on 3 L GENERAL: ; Bed, tired short of breath BiPAP in place. EYES: Pupils equal. Conjunctiva normal. HEENT: External appearance of nose and ears normal, oral cavity grossly normal. NECK: JVD unable to assess; masses not palpable. HEART: First and second heart sounds are normal; no edema. LUNGS: Respiratory rate increased, decreased breath sounds prolonged expiration. ABDOMEN: Soft, nontender, liver spleen not palpable, no masses palpable. PSYCH: Alert and oriented x3; mood and affect tiredl. Investigations: -White count 12.4 hemoglobin 10.8 progression 3.5 by, 49 creatinine 0.35 Assessment: -Acute on chronic hypercapnic and hypoxemic respiratory failure secondary to COPD exacerbation -Acute severe COPD exacerbation and an ex-smoker slow to respond -Chronic hypoxic respiratory failure patient wished to-3 L of oxygen at home -Acute metabolic encephalopathy from COPD requiring BiPAP -Metabolic alkalosis from steroids involvement contraction -Mild protein calorie medication with hypoalbuminemia from decreased oral intake - Plan: Patient remains on IV steroids antibiotics. Prognosis guarded. Patient encouraged to increase her oral intake . Follow with pulmonary
[2019-06-26] MEDS: IPRATROPIUM-ALBUTEROL 3 ML NEB INHALATION SCH ×7 (00:17→23:08)
[2019-06-26 00:34] LABS: Glucose,Whole Blood 198 mg/dL (75-99)
[2019-06-26] MEDS: INSULIN ASPART (NovoLOG) 100 UNIT/ML VIAL SQ SCH ×5 (00:34→22:37)
[2019-06-26] MEDS: methylPREDNISolone SOD SUCCI 125 MG/2 ML VIAL IV SCH ×4 (01:15→17:11)
[2019-06-26 06:17] LABS: Basophils % (A) 0 %; Eosinophils % (A) 0 %; HCT 45.8 % (34.0-46.0); HGB 14.7 gm/dL (11.4-16.0); Lymphocytes # (A) 0.6 k/uL (1.0-4.8); Lymphocytes % (A) 3 %; MCH 31.2 pg (25.0-35.0); MCHC 32.1 g/dL (31.0-37.0); MCV 97.4 fL (80.0-100.0); Mean Platelet Volume 6.7; Monocytes # (A) 0.9 k/uL (0-1.0); Monocytes % (A) 5 %; Neutrophils # (A) 17.2 k/uL (1.3-7.7); Neutrophils % (A) 91 %; Platelet Count 244 k/uL (150-450); RDW 12.1 % (11.5-15.5); WBC 18.8 k/uL (3.8-10.6)
[2019-06-26 06:34] LABS: ALT 43 U/L (9-52); AST 19 U/L (14-36); African American GFR (CKD) >90 (>60 ml/min/1.73 sqM); Albumin 3.3 g/dL (3.5-5.0); Alkaline Phosphatase 56 U/L (38-126); Blood Urea Nitrogen 9 mg/dL (7-17); Calcium 8.7 mg/dL (8.4-10.2); Chloride 81 mmol/L (98-107); Glucose 87 mg/dL (74-99); Non-African American GFR(CKD) >90 (>60 ml/min/1.73 sqM); Potassium 3.2 mmol/L (3.5-5.1); Sodium 134 mmol/L (137-145); Total Protein 5.8 g/dL (6.3-8.2)
[2019-06-26 06:41] LABS: Anion Gap 5 mmol/L
[2019-06-26 06:50] LABS: Glucose,Whole Blood 94 mg/dL (75-99)
[2019-06-26 07:20] LABS: Carbon Dioxide 48 mmol/L (22-30)
--- NOTE | 2019-06-26 07:31 | XR ---
EXAMINATION TYPE: XR chest 1V portable DATE OF EXAM: 06/26/2019 HISTORY: Shortness of breath. COMPARISON: 06/25/2019 TECHNIQUE: Single view of the chest is submitted. FINDINGS: Demonstrated are scattered senescent parenchymal change. There is no evidence for focal infiltrate. The heart is stable. Hilar and mediastinal structures are within normal limits. Degenerative changes are seen of the dorsal spine. IMPRESSION: 1. Chronic changes without evidence for acute pulmonary disease.
[2019-06-26] MEDS: FORMOTEROL FUMARATE 20 MCG/2 ML NEBU INHALATION SCH ×2 (08:01→20:43)
[2019-06-26] MEDS: BUDESONIDE 1 MG/2 ML NEBU INHALATION SCH ×2 (08:01→20:43)
[2019-06-26] MEDS: FAMOTIDINE 20 MG TAB PO SCH ×2 (08:29→20:40)
[2019-06-26] MEDS: guaiFENesin 600 MG TABLET.ER PO SCH ×2 (08:29→20:40)
[2019-06-26] MEDS: ENOXAPARIN 40 MG/0.4 ML SYRINGE SQ SCH (08:29)
[2019-06-26] MEDS: METHOCARBAMOL 500 MG TAB PO SCH ×3 (08:30→20:41)
--- NOTE | 2019-06-26 09:01 | P.PN ---
Subjective Progress Note Date: 06/26/19 Principal diagnosis: Acute exacerbation of chronic obstructive pulmonary disease acute on chronic hypercapnic and hypoxemic respiratory failure. On 06/24/2019 patient seen again in follow-up in the intensive care unit, she is intermittently wearing BiPAP, she has been given a trial of nasal cannula, currently at 3 L, her pulse ox is 88-94%, patient is afebrile, hemodynamically able, a bit hypertensive, she states her breathing is improving, but she still gets fatigued easy, and quite dyspneic, requiring intermittent BiPAP support, lung sounds are positive for very diminished breath sounds, with end expiratory wheezes, patient states she has a productive cough, she is on Zithromax for antibiotic coverage, nebulized bronchodilator's, IV steroids, Singulair, today's labs have been reviewed, with a total count is trending down, down to 12.5 on today's labs, hemoglobin is 13.5, sodium is 134, potassium 3.5, chloride is 92, CO2 is 43, BUN is 8, creatinine is 0.39. Today's chest x-ray has been reviewed, which shows hyperinflation consistent with COPD, and basilar atelectasis. On 06/25/2019 patient seen in follow-up in intensive care unit, she continues to wear BiPAP most of the night, and intermittently through the day, she is currently off BiPAP on 3 L of oxygen, she is sounding and looking slightly improved, although lung sounds are still very diminished, with expiratory wheezes, and patient gets quite dyspneic with any exertion. No fever or chills, today's labs have been reviewed, with blood cell count is 12.4, hemoglobin is 13.8, sodium is 132, potassium is 3.5, chloride is 83, CO2 is 49, BUN is 7 creatinine 0.35. Continues on nebulized bronchodilators, empiric antibiotics, and IV steroids. Today's chest x-ray shows a new small right basilar opacity that could represent atelectasis or developing pneumonia. On 06/26/2019 patient is seen in follow-up in intensive care unit, she is awake and alert, she is breathing easier today, she did not require BiPAP support last night, currently on 3 L of oxygen with a pulse ox of 98%, afebrile, hemodyna mically stable, yesterday we added theophylline 2 patient's medications, and patient continues on IV steroids, nebulized bronchodilators and empiric antibiotics. Lung sounds are positive for a few scattered rhonchi, less bronchospastic on today's exam. Improving. Objective - Vital Signs Vital signs: Vital Signs Temp 96.1 F L 06/26/19 08:00 Pulse 94 06/26/19 08:30 Resp 16 06/26/19 08:00 BP 130/71 06/26/19 08:00 Pulse Ox 98 06/26/19 08:00 Intake & Output 06/25/19 06/26/19 06/26/19 18:59 06:59 18:59 Intake Total 240 220 20 Output Total 3100 700 100 Balance -2860 -480 -80 Weight 51.4 kg Intake: IV 240 220 20 Sodium Chloride 0.9% 1, 240 220 20 000 ml @ 20 mls/hr IV . Q24H [facility] Rx#:[id number] Output: Urine 3100 700 100 Other: Voiding Method Indwelling Catheter Indwelling Catheter # Voids 2 # Bowel Movements 1 - Exam GENERAL EXAM: Alert, thin, 63-year-old white female, on 3 L of oxygen, m oderately short of breath with conversation, comfortable in no apparent distress. HEAD: Normocephalic/atraumatic. EYES: Normal reaction of pupils, equal size. Conjunctiva pink, sclera white. NOSE: Clear with pink turbinates. THROAT: No erythema or exudates. NECK: No masses, no JVD, no thyroid enlargement, no adenopathy. CHEST: No chest wall deformity. Symmetrical expansion. LUNGS: Diminished air entry with scattered rhonchi, minimal wheezing heard on today's exam. CVS: Regular rate and rhythm, normal S1 and S2, no gallops, no murmurs, no rubs ABDOMEN: Soft, nontender. No hepatosplenomegaly, normal bowel sounds, no guarding or rigidity. EXTREMITIES: No clubbing, no edema, no cyanosis, 2+ pulses and upper and lower extremities. MUSCULOSKELETAL: Muscle strength and tone normal. SPINE: No scoliosis or deformity SKIN: No rashes CENTRAL NERVOUS SYSTEM: Alert and oriented -3. No focal deficits, tone is normal in all 4 extremities. PSYCHIATRIC: Alert and oriented -3. Appropriate affect. Intact judgment and insight. - Labs CBC & Chem 7: 06/26/19 05:58 06/26/19 05:58 Labs: Abnormal Lab Results - Last 24 Hours (Table) 06/25/19 06/25/19 06/25/19 Range/Units 11:53 16:57 17:11 WBC (3.8-10.6) k/uL Neutrophils # (1.3-7.7) k/uL Lymphocytes # (1.0-4.8) k/uL Sodium (137-145) mmol/L Potassium (3.5-5.1) mmol/L Chloride (98-107) mmol/L Carbon Dioxide (22-30) mmol/L Creatinine (0.52-1.04) mg/dL POC Glucose (mg/dL) 205 H 127 H 130 H (75-99) mg/dL Total Protein (6.3-8.2) g/dL Albumin (3.5-5.0) g/dL 06/25/19 06/25/19 06/26/19 Range/Units 20:46 22:56 00:34 WBC (3.8-10.6) k/uL Neutrophils # (1.3-7.7) k/uL Lymphocytes # (1.0-4.8) k/uL Sodium (137-145) mmol/L Potassium (3.5-5.1) mmol/L Chloride (98-107) mmol/L Carbon Dioxide (22-30) mmol/L Creatinine (0.52-1.04) mg/dL POC Glucose (mg/dL) 235 H 314 H 198 H (75-99) mg/dL Total Protein (6.3-8.2) g/dL Albumin (3.5-5.0) g/dL 06/26/19 06/26/19 Range/Units 05:58 05:58 WBC 18.8 H (3.8-10.6) k/uL Neutrophils # 17.2 H (1.3-7.7) k/uL Lymphocytes # 0.6 L (1.0-4.8) k/uL Sodium 134 L (137-145) mmol/L Potassium 3.2 L (3.5-5.1) mmol/L Chloride 81 L (98-107) mmol/L Carbon Dioxide 48 H* (22-30) mmol/L Creatinine 0.29 L (0.52-1.04) mg/dL POC Glucose (mg/dL) (75-99) mg/dL Total Protein 5.8 L (6.3-8.2) g/dL Albumin 3.3 L (3.5-5.0) g/dL Microbiology - Last 24 Hours (Table) 06/25/19 11:52 Gram Stain - Preliminary Sputum Assessment and Plan Plan: Assessment: #1. Acute on chronic hypercapnic and hypoxemic respiratory failure related to acute exacerbation of chronic obstructive pulmonary disease #2. Altered mentation, respiratory arrest, not requiring intubation, and patient has improved via noninvasive positive pressure ventilation and medical treatment #3. Advanced COPD, with chronic hypoxemic and hypercapnic respiratory failure normally wears 2-3 L of oxygen at home #4. Previous history of heavy tobacco use #5. History of chronic anemia #6. Previous history of arrhythmia #7. History of pneumonia #8. History of vitamin D deficiency Plan: Continue current medical treatment, continue same dose IV steroids, nebulized broncho-dilators, empiric antibiotics, yesterday we added the theophylline preparation, patient started to respond to inpatient treatments, encourage the patient to use the flutter valve, encouraged to deep breathe and cough, not require BiPAP support last night, may use BiPAP as needed, patient is able to transfer out of the intensive care unit today to general medical floor. I performed a history & physical examination of the patient and discussed their management with my nurse practitioner, Jasmin Fuentes. I reviewed the nurse practitioner's note and agree with the documented findings and plan of care. Lung sounds are positive for diminished breath sounds with diffuse wheezes throughout the lung varma. The findings and the impression was discussed with the patient. I attest to the documentation by the nurse practitioner. Time with Patient: Less than 30
[2019-06-26] MEDS: IBUPROFEN 400 MG TAB PO PRN (11:01)
[2019-06-26] MEDS: LORazepam 2 MG/ML INJ IV PRN (11:29)
[2019-06-26 12:02] LABS: Glucose,Whole Blood 262 mg/dL (75-99)
[2019-06-26] MEDS: SODIUM CHLORIDE 0.9% 1,000 ML IV SCH (16:32)
[2019-06-26 16:45] LABS: Glucose,Whole Blood 124 mg/dL (75-99)
[2019-06-26 20:35] LABS: Glucose,Whole Blood 218 mg/dL (75-99)
[2019-06-26] MEDS: MONTELUKAST 10 MG TAB PO SCH (20:40)
[2019-06-26] MEDS: THEOPHYLLINE 24 HOUR 200 MG CAP.ER.24H PO SCH (20:40)
[2019-06-26] MEDS: OXYBUTYNIN 10 MG TAB.ER.24 PO SCH (20:41)
[2019-06-26] MEDS: AZITHROMYCIN 250 MG TAB PO SCH (20:41)
--- NOTE | 2019-06-26 21:24 | P.PN ---
Progress Note - Text Progress Note Date: 06/26/19 Interval history: This is a 63-year-old patient of Dr. Smith who was admitted for shortness of breath. Found to have acute on chronic hypercapnic and hypoxic respiratory failure from underlying COPD exacerbation. Also had acute metabolic encephalopathy. Today- ICU. patient's wish to nasal cannula. More awake a bit. Eating better. Less short of breath. Tired Review of systems: Was done for constitutional, cardiovascular, GI, pulmonary. relevant finding as above Active Medications Albuterol/Ipratropium (Duoneb 0.5 Mg-3 Mg/3 Ml Soln) 3 ml INHALATION RT-Q4H PRN PRN Reason: Shortness Of Breath Or Wheezing Last Admin: 06/24/19 15:47 Dose: 3 ml Documented by: Albuterol/Ipratropium (Duoneb 0.5 Mg-3 Mg/3 Ml Soln) 3 ml INHALATION RT-Q4H [facility] Last Admin: 06/26/19 20:43 Dose: 3 ml Documented by: Azithromycin (Zithromax) 250 mg PO HS [facility] Last Admin: 06/26/19 20:41 Dose: 250 mg Documented by: Budesonide (Pulmicort) 1 mg INHALATION RT-BID [facility] Last Admin: 06/26/19 20:43 Dose: 1 mg Documented by: Enoxaparin Sodium (Lovenox) 40 mg SQ DAILY [facility] Last Admin: 06/26/19 08:29 Dose: 40 mg Documented by: Famotidine (Pepcid) 20 mg PO BID [facility] Last Admin: 06/26/19 20:40 Dose: 20 mg Documented by: Formoterol Fumarate (Perforomist) 20 mcg INHALATION RT-BID [facility] Last Admin: 06/26/19 20:43 Dose: 20 mcg Documented by: Guaifenesin (Mucinex) 600 mg PO Q12HR [facility] Last Admin: 06/26/19 20:40 Dose: 600 mg Documented by: Sodium Chloride (Saline 0.9%) 1,000 mls @ 20 mls/hr IV .Q24H [facility] Last Admin: 06/26/19 16:32 Dose: 20 mls/hr Documented by: Ibuprofen (Motrin) 400 mg PO TID PRN PRN Reason: pain Last Admin: 06/26/19 11:01 Dose: 400 mg Documented by: Insulin Aspart (Novolog) 0 unit SQ [facility]; Protocol Last Admin: 06/26/19 17:06 Dose: Not Given Documented by: Lorazepam (Ativan) 1 mg IV Q4HR PRN PRN Reason: Anxiety Last Admin: 06/26/19 11:29 Dose: 1 mg Documented by: Menthol (Nice Cough Drops) 1 each MUCOUS MEM Q2H PRN PRN Reason: Sore Throat Last Admin: 06/25/19 16:20 Dose: 1 each Documented by: Methocarbamol (Robaxin) 500 mg PO TID [facility] Last Admin: 06/26/19 20:41 Dose: 500 mg Documented by: Methylprednisolone Sodium Succinate (Solu-Medrol) 40 mg IV Q8HR [facility] Miscellaneous Information (Potassium Per Protocol) 1 each MISCELLANE DAILY PRN; Protocol PRN Reason: Per Protocol Montelukast Sodium (Singulair) 10 mg PO HS [facility] Last Admin: 06/26/19 20:40 Dose: 10 mg Documented by: Morphine Sulfate (Morphine Sulfate (Inj)) 2 mg IVP Q4H PRN PRN Reason: Pain/Discomfort Oxybutynin Chloride (Ditropan Xl) 10 mg PO HS [facility] Last Admin: 06/26/19 20:41 Dose: 10 mg Documented by: Theophylline (Marvin-24) 200 mg PO [facility] Last Admin: 06/26/19 20:40 Dose: 200 mg Documented by: Physical examination: VITAL SIGNS: 98, 116, 29, 156/82, 97% on 3 L GENERAL: ; propped up in bed, more awake today. EYES: Pupils equal. Conjunctiva normal. HEENT: External appearance of nose and ears normal, oral cavity grossly normal. NECK: JVD unable to assess; masses not palpable. HEART: First and second heart sounds are normal; no edema. LUNGS: Respiratory rate increased, decreased breath sounds prolonged expiration. ABDOMEN: Soft, nontender, liver spleen not palpable, no masses palpable. PSYCH: Alert and oriented x3; mood and affect tiredl. Investigations: white count 18.8 hemoglobin 14.7 progression 3.2 by commercial helicopter pilot 48 creatinine 0.29 Assessment: -Acute on chronic hypercapnic and hypoxemic respiratory failure secondary to COPD exacerbation, slowly improving -Acute severe COPD exacerbation and an ex-smoker, slowly improving -Chronic hypoxic respiratory failure patient wished to-3 L of oxygen at home -Acute metabolic encephalopathy from COPD requiring BiPAP, improving -Metabolic alkalosis from steroids involvement contraction -Mild protein calorie medication with hypoalbuminemia from decreased oral intake - Plan: tobacco patient IV Solu-Medrol to 40 every 8. Other medication treatment plan is to continue. Oral intake to increase encouraged. Patient will be moved out of the ICU.
[2019-06-27] MEDS: methylPREDNISolone SOD SUCCI 40 MG/ML 1 ML VIAL IV SCH ×2 (00:32→08:31)
[2019-06-27] MEDS: IPRATROPIUM-ALBUTEROL 3 ML NEB INHALATION SCH ×6 (03:25→23:20)
[2019-06-27] MEDS: BUDESONIDE 1 MG/2 ML NEBU INHALATION SCH ×2 (07:36→19:03)
[2019-06-27] MEDS: FORMOTEROL FUMARATE 20 MCG/2 ML NEBU INHALATION SCH ×2 (07:36→19:03)
[2019-06-27 07:38] LABS: Glucose,Whole Blood 116 mg/dL (75-99)
[2019-06-27] MEDS: INSULIN ASPART (NovoLOG) 100 UNIT/ML VIAL SQ SCH ×4 (07:53→20:36)
[2019-06-27] MEDS: IBUPROFEN 400 MG TAB PO PRN ×2 (08:30→21:15)
[2019-06-27] MEDS: ENOXAPARIN 40 MG/0.4 ML SYRINGE SQ SCH (08:31)
[2019-06-27] MEDS: FAMOTIDINE 20 MG TAB PO SCH ×2 (08:31→21:15)
[2019-06-27] MEDS: guaiFENesin 600 MG TABLET.ER PO SCH ×2 (08:31→21:15)
[2019-06-27] MEDS: METHOCARBAMOL 500 MG TAB PO SCH ×3 (09:48→21:15)
[2019-06-27] MEDS: MENTHOL (NICE) LOZENGE MUCOUS MEM PRN (09:49)
--- NOTE | 2019-06-27 11:14 | P.PN ---
Subjective Progress Note Date: 06/27/19 Principal diagnosis: Acute exacerbation of chronic obstructive pulmonary disease acute on chronic hypercapnic and hypoxemic respiratory failure. On 06/24/2019 patient seen again in follow-up in the intensive care unit, she is intermittently wearing BiPAP, she has been given a trial of nasal cannula, currently at 3 L, her pulse ox is 88-94%, patient is afebrile, hemodynamically able, a bit hypertensive, she states her breathing is improving, but she still gets fatigued easy, and quite dyspneic, requiring intermittent BiPAP support, lung sounds are positive for very diminished breath sounds, with end expiratory wheezes, patient states she has a productive cough, she is on Zithromax for antibiotic coverage, nebulized bronchodilator's, IV steroids, Singulair, today's labs have been reviewed, with a total count is trending down, down to 12.5 on today's labs, hemoglobin is 13.5, sodium is 134, potassium 3.5, chloride is 92, CO2 is 43, BUN is 8, creatinine is 0.39. Today's chest x-ray has been reviewed, which shows hyperinflation consistent with COPD, and basilar atelectasis. On 06/25/2019 patient seen in follow-up in intensive care unit, she continues to wear BiPAP most of the night, and intermittently through the day, she is currently off BiPAP on 3 L of oxygen, she is sounding and looking slightly improved, although lung sounds are still very diminished, with expiratory wheezes, and patient gets quite dyspneic with any exertion. No fever or chills, today's labs have been reviewed, with blood cell count is 12.4, hemoglobin is 13.8, sodium is 132, potassium is 3.5, chloride is 83, CO2 is 49, BUN is 7 creatinine 0.35. Continues on nebulized bronchodilators, empiric antibiotics, and IV steroids. Today's chest x-ray shows a new small right basilar opacity that could represent atelectasis or developing pneumonia. On 06/26/2019 patient is seen in follow-up in intensive care unit, she is awake and alert, she is breathing easier today, she did not require BiPAP support last night, currently on 3 L of oxygen with a pulse ox of 98%, afebrile, hemodyna mically stable, yesterday we added theophylline 2 patient's medications, and patient continues on IV steroids, nebulized bronchodilators and empiric antibiotics. Lung sounds are positive for a few scattered rhonchi, less bronchospastic on today's exam. Improving. On 06/27/2018 patient seen in follow-up on selective care unit, she is awake and alert, but having more difficulty breathing today, compared to yesterday she did not wear BiPAP support yesterday or last night, this morning she is on 2 L of oxygen her pulse ox is 92%, she is afebrile, slightly tachycardic. Lungs sounds are diminished, with expiratory wheezing. Sputum culture so far showed just Sarahi albicans likely related to oral contamination, final culture is pending, patient is covered with an antibiotic in the form of Zithromax, nebulized bronchodilators, we added theophylline preparation, and patient remains on IV s teroids although her dose was decreased to 40 every 8 hours. Objective - Vital Signs Vital signs: Vital Signs Temp 97.7 F 06/27/19 07:46 Pulse 118 H 06/27/19 08:45 Resp 16 06/27/19 07:46 BP 150/77 06/27/19 07:46 Pulse Ox 92 L 06/27/19 07:46 Intake & Output 06/26/19 06/27/19 06/27/19 18:59 06:59 18:59 Intake Total 400 340 Output Total 1970 9421 792 Balance -6570 -7350 -114 Weight 51.4 kg 51.5 kg Intake: IV 200 Sodium Chloride 0.9% 1, 200 000 ml @ 20 mls/hr IV . Q24H [facility] Rx#:[id number] Oral 200 340 Output: Urine 1969 1471 660 Uretheral (Mcgrath) [id number] Other: Voiding Method Indwelling Catheter Indwelling Catheter - Exam GENERAL EXAM: Alert, thin, 63-year-old white female, on 2 L of oxygen, moderately short of breath with conversation, or shortness of breath appears to be worse on today's exam HEAD: Normocephalic/atraumatic. EYES: Normal reaction of pupils, equal size. Conjunctiva pink, sclera white. NOSE: Clear with pink turbinates. THROAT: No erythema or exudates. NECK: No masses, no JVD, no thyroid enlargement, no adenopathy. CHEST: No chest wall deformity. Symmetrical expansion. LUNGS: Diminished air entry with scattered rhonchi, wheezing heard on today's exam. CVS: Regular rate and rhythm, normal S1 and S2, no gallops, no murmurs, no rubs ABDOMEN: Soft, nontender. No hepatosplenomegaly, normal bowel sounds, no guarding or rigidity. EXTREMITIES: No clubbing, no edema, no cyanosis, 2+ pulses and upper and lower extremities. MUSCULOSKELETAL: Muscle strength and tone normal. SPINE: No scoliosis or deformity SKIN: No rashes CENTRAL NERVOUS SYSTEM: Alert and oriented -3. No focal deficits, tone is normal in all 4 extremities. PSYCHIATRIC: Alert and oriented -3. Appropriate affect. Intact judgment and insight. - Labs CBC & Chem 7: 06/26/19 05:58 06/26/19 05:58 Labs: Abnormal Lab Results - Last 24 Hours (Table) 06/26/19 06/26/19 06/26/19 Range/Units 12:01 16:43 20:23 POC Glucose (mg/dL) 262 H 124 H 218 H (75-99) mg/dL 06/27/19 Range/Units 07:21 POC Glucose (mg/dL) 116 H (75-99) mg/dL Microbiology - Last 24 Hours (Table) 06/25/19 11:52 Gram Stain - Preliminary Sputum Sputum Culture - Preliminary Sarahi albicans Assessment and Plan Plan: Assessment: #1. Acute on chronic hypercapnic and hypoxemic respiratory failure related to acute exacerbation of chronic obstructive pulmonary disease #2. Altered mentation, respiratory arrest, not requiring intubation, and p atient has improved via noninvasive positive pressure ventilation and medical treatment #3. Advanced COPD, with chronic hypoxemic and hypercapnic respiratory failure normally wears 2-3 L of oxygen at home #4. Previous history of heavy tobacco use #5. History of chronic anemia #6. Previous history of arrhythmia #7. History of pneumonia #8. History of vitamin D deficiency Plan: May use BiPAP support as needed, and we recommended the patient use it at bedtime as it may help her with breathing during the day and help her with respiratory muscle fatigue. Continue same antibiotics, will increase to IV site measured to 60 every 6, patient is more bronchospastic and dyspneic on today's exam, continue nebulized bronchodilators, and theophylline. We'll continue to follow. Yesterday chest x-ray has been reviewed showing chronic changes without evidence of acute pulmonary disease. I performed a history & physical examination of the patient and discussed their management with my nurse practitioner, Jasmin Fuentes. I reviewed the nurse practitioner's note and agree with the documented findings and plan of care. Lung sounds are positive for diminished breath sounds with diffuse wheezes throughout the lung varma. The findings and the impression was discussed with the patient. I attest to the documentation by the nurse practitioner. Time with Patient: Less than 30
[2019-06-27 11:21] LABS: Glucose,Whole Blood 218 mg/dL (75-99)
[2019-06-27] MEDS: LORazepam 2 MG/ML INJ IV PRN ×3 (11:28→21:15)
[2019-06-27] MEDS: methylPREDNISolone SOD SUCCI 125 MG/2 ML VIAL IV SCH ×2 (12:01→17:23)
[2019-06-27 17:10] LABS: Glucose,Whole Blood 219 mg/dL (75-99)
[2019-06-27] MEDS: SODIUM CHLORIDE 0.9% 1,000 ML IV SCH (18:59)
--- NOTE | 2019-06-27 19:32 | P.PN ---
Progress Note - Text Progress Note Date: 06/27/19 interval history: This is a 63-year-old patient of Dr. Smith who was admitted for shortness of breath. Found to have acute on chronic hypercapnic and hypoxic respiratory failure from underlying COPD exacerbation. Also had acute metabolic encephalopathy. Today- moved out of the ICU. Tired. She is slightly short of breath. breathing a bit worse today. Heart rate is up. Eating small amounts. Review of systems: Was done for constitutional, cardiovascular, GI, pulmonary. relevant finding as above Active Medications Albuterol/Ipratropium (Duoneb 0.5 Mg-3 Mg/3 Ml Soln) 3 ml INHALATION RT-Q4H PRN PRN Reason: Shortness Of Breath Or Wheezing Last Admin: 06/24/19 15:47 Dose: 3 ml Documented by: Albuterol/Ipratropium (Duoneb 0.5 Mg-3 Mg/3 Ml Soln) 3 ml INHALATION RT-Q4H COUNTS INCLUDE 234 BEDS AT THE [facility] Last Admin: 06/27/19 19:03 Dose: 3 ml Documented by: Azithromycin (Zithromax) 250 mg PO HS COUNTS INCLUDE 234 BEDS AT THE [facility] Last Admin: 06/26/19 20:41 Dose: 250 mg Documented by: Budesonide (Pulmicort) 1 mg INHALATION RT-BID COUNTS INCLUDE 234 BEDS AT THE [facility] Last Admin: 06/27/19 19:03 Dose: 1 mg Documented by: Enoxaparin Sodium (Lovenox) 40 mg SQ DAILY COUNTS INCLUDE 234 BEDS AT THE [facility] Last Admin: 06/27/19 08:31 Dose: 40 mg Documented by: Famotidine (Pepcid) 20 mg PO BID COUNTS INCLUDE 234 BEDS AT THE [facility] Last Admin: 06/27/19 08:31 Dose: 20 mg Documented by: Formoterol Fumarate (Perforomist) 20 mcg INHALATION RT-BID COUNTS INCLUDE 234 BEDS AT THE [facility] Last Admin: 06/27/19 19:03 Dose: 20 mcg Documented by: Guaifenesin (Mucinex) 600 mg PO Q12HR COUNTS INCLUDE 234 BEDS AT THE [facility] Last Admin: 06/27/19 08:31 Dose: 600 mg Documented by: Sodium Chloride (Saline 0.9%) 1,000 mls @ 20 mls/hr IV .Q24H COUNTS INCLUDE 234 BEDS AT THE [facility] Last Admin: 06/27/19 18:59 Dose: Not Given Documented by: Ibuprofen (Motrin) 400 mg PO TID PRN PRN Reason: pain Last Admin: 06/27/19 08:30 Dose: 400 mg Documented by: Insulin Aspart (Novolog) 0 unit SQ ACHS COUNTS INCLUDE 234 BEDS AT THE [facility]; Protocol Last Admin: 06/27/19 17:27 Dose: 7 unit Documented by: Lorazepam (Ativan) 1 mg IV Q4HR PRN PRN Reason: Anxiety Last Admin: 06/27/19 17:44 Dose: 1 mg Documented by: Menthol (Nice Cough Drops) 1 each MUCOUS MEM Q2H PRN PRN Reason: Sore Throat Last Admin: 06/27/19 09:49 Dose: 1 each Documented by: Methocarbamol (Robaxin) 500 mg PO TID COUNTS INCLUDE 234 BEDS AT THE [facility] Last Admin: 06/27/19 17:23 Dose: 500 mg Documented by: Methylprednisolone Sodium Succinate (Solu-Medrol) 60 mg IV Q6HR COUNTS INCLUDE 234 BEDS AT THE [facility] Last Admin: 06/27/19 17:23 Dose: 60 mg Documented by: Miscellaneous Information (Potassium Per Protocol) 1 each MISCELLANE DAILY PRN; Protocol PRN Reason: Per Protocol Montelukast Sodium (Singulair) 10 mg PO [facility] Last Admin: 06/26/19 20:40 Dose: 10 mg Documented by: Morphine Sulfate (Morphine Sulfate (Inj)) 2 mg IVP Q4H PRN PRN Reason: Pain/Discomfort Last Admin: 06/27/19 19:03 Dose: 2 mg Documented by: Oxybutynin Chloride (Ditropan Xl) 10 mg PO [facility] Last Admin: 06/26/19 20:41 Dose: 10 mg Documented by: Theophylline (Marvin-24) 200 mg PO [facility] Last Admin: 06/26/19 20:40 Dose: 200 mg Documented by: Physical examination: VITAL SIGNS: 97.8, 26, 130, 92% on 2 L GENERAL: ; propped up in bed, a bit tired EYES: Pupils equal. Conjunctiva normal. HEENT: External appearance of nose and ears normal, oral cavity grossly normal. NECK: JVD unable to assess; masses not palpable. HEART: First and second heart sounds are normal; no edema. LUNGS: Respiratory rate increased, decreased breath sounds prolonged expiration. ABDOMEN: Soft, nontender, liver spleen not palpable, no masses palpable. PSYCH: Alert and oriented x3; mood and affect tiredl. Investigations: white count 18.8 hemoglobin 14.7 progression 3.2 by copy holder 48 creatinine 0.29 EKG-sinus tachycardia Assessment: -Acute on chronic hypercapnic and hypoxemic respiratory failure secondary to COPD exacerbation, some worsening -Acute severe COPD exacerbation and an ex-smoker, slowly improving -Chronic hypoxic respiratory failure patient wished to-3 L of oxygen at home -Acute metabolic encephalopathy from COPD requiring BiPAP, improving -Metabolic alkalosis from steroids involvement contraction -Mild protein calorie medication with hypoalbuminemia from decreased oral intake -Sinus tachycardia, multifactorial - Plan: patient remains on DuoNeb every 4 hours, inhaled Pulmicort, IV Solu-Medrol dose was increased by pulmonary because of restricted motion short of breath later today ,remains on theophylline. Prognosis is guarded
[2019-06-27 20:22] LABS: Glucose,Whole Blood 125 mg/dL (75-99)
[2019-06-27] MEDS: OXYBUTYNIN 10 MG TAB.ER.24 PO SCH (21:15)
[2019-06-27] MEDS: MONTELUKAST 10 MG TAB PO SCH (21:15)
[2019-06-27] MEDS: THEOPHYLLINE 24 HOUR 200 MG CAP.ER.24H PO SCH (21:15)
[2019-06-27] MEDS: AZITHROMYCIN 250 MG TAB PO SCH (21:42)
[2019-06-28] MEDS: methylPREDNISolone SOD SUCCI 125 MG/2 ML VIAL IV SCH ×4 (00:05→17:21)
[2019-06-28] MEDS: IPRATROPIUM-ALBUTEROL 3 ML NEB INHALATION SCH ×6 (04:19→23:28)
[2019-06-28 07:04] LABS: Glucose,Whole Blood 159 mg/dL (75-99)
[2019-06-28] MEDS: FORMOTEROL FUMARATE 20 MCG/2 ML NEBU INHALATION SCH ×2 (07:24→20:26)
[2019-06-28] MEDS: BUDESONIDE 1 MG/2 ML NEBU INHALATION SCH ×2 (07:24→20:26)
[2019-06-28] MEDS: ENOXAPARIN 40 MG/0.4 ML SYRINGE SQ SCH (07:57)
[2019-06-28] MEDS: guaiFENesin 600 MG TABLET.ER PO SCH ×2 (07:57→21:14)
[2019-06-28] MEDS: INSULIN ASPART (NovoLOG) 100 UNIT/ML VIAL SQ SCH ×4 (07:58→21:13)
[2019-06-28] MEDS: FAMOTIDINE 20 MG TAB PO SCH ×2 (07:58→21:14)
[2019-06-28] MEDS: LORazepam 2 MG/ML INJ IV PRN ×2 (09:47→19:24)
[2019-06-28 12:34] LABS: Glucose,Whole Blood 179 mg/dL (75-99)
[2019-06-28] MEDS: METHOCARBAMOL 500 MG TAB PO SCH ×3 (13:12→21:17)
--- NOTE | 2019-06-28 13:57 | PN ---
PROGRESS NOTE This is a pulmonary/critical care progress note DATE OF SERVICE: June 28, 2019 This is a 63-year-old female with a history of severe end-stage COPD. She was admitted with a diagnosis of acute on chronic hypoxemic and hypercapnic respiratory failure. Apparently last night and today she has been refusing her BiPAP. I was called last night. I told the nurses that we could not force her to wear the BiPAP. The patient does not want to wear it and continues to rip it off. I told him just to use oxygen therapy including nasal cannula. Venturi mask, simple mask, AIRVO, and also continue with her other medications including bronchodilator, steroids, etc. Currently, she is doing poorly. consideration of palliative care or hospice would be appropriate. The patient does have a history of advanced COPD. She does have a history of chronic and heavy tobacco use, anemia, arrhythmia, pneumonia, and vitamin D deficiency. On prior discussions multiple times, she did not want intubation, mechanical ventilation, or any long-term ICU care. PHYSICAL EXAMINATION: VITAL SIGNS: Current vital signs include a temperature 97.7. Heart rate 115, respiratory rate about 26, blood pressure 155/81 mean 105 and saturations are documented at 87% on 3 L. Appears quite tachypneic and dyspneic. Very lethargic today. HEENT examination is grossly unremarkable. Mucous membranes moist. No oral lesions. NECK: Supple. Full range of motion. No adenopathy. CARDIOVASCULAR examination reveals regular rhythm and rate. Heart rate about 100 beats per minute. S1, S2 normal. Heart sounds are distant. LUNGS: Reveal severely diminished breath sounds. A few scattered wheezes and rhonchi noted. Breath sounds are equal bilaterally. ABDOMEN: Soft. Bowel sounds are heard. EXTREMITIES are intact. No cyanosis, clubbing, or edema. SKIN: Without rash. NEUROLOGIC: Examination is difficult to assess. She is a bit more lethargic. She does move all 4 extremities. She does arouse. Microbiology just shows a sputum that is positive for Sarahi back on June 25. LABS: Reviewed. Nothing more from today. No new chest x-rays to report. Medications are reviewed. She is on very significant quite extensive medications for her COPD. ASSESSMENT: 1. Acute on chronic hypoxemic and hypercapnic respiratory failure secondary to severe chronic obstructive pulmonary disease and chronic obstructive pulmonary disease exacerbation. 2. Status post recent episode of near respiratory arrest/elieser respiratory arrest, with ongoing pulse and blood pressure, not requiring intubation or mechanical ventilation. 3. Advanced end-stage chronic obstructive pulmonary disease, with chronic hypoxemic respiratory failure. 4. Previous history of heavy tobacco use. 5. History of chronic anemia. 6. History of pneumonia. 7. History of vitamin D deficiency. PLAN: Overall, the patient is doing poorly. We talked to her before about code status. She does not want to be intubated. She agreed just to medical management. She does not want to wear BiPAP device. Additional recommendations and suggestions are forthcoming. Prognosis is poor. MMODL / IJN: [id number] /
[2019-06-28 17:14] LABS: Glucose,Whole Blood 160 mg/dL (75-99)
[2019-06-28 20:54] LABS: Glucose,Whole Blood 230 mg/dL (75-99)
[2019-06-28] MEDS: MONTELUKAST 10 MG TAB PO SCH (21:13)
[2019-06-28] MEDS: THEOPHYLLINE 24 HOUR 200 MG CAP.ER.24H PO SCH (21:17)
[2019-06-28] MEDS: OXYBUTYNIN 10 MG TAB.ER.24 PO SCH (21:17)
[2019-06-28] MEDS: AZITHROMYCIN 250 MG TAB PO SCH (21:17)
--- NOTE | 2019-06-28 22:16 | P.PN ---
Progress Note - Text Progress Note Date: 06/28/19 interval history: This is a 63-year-old patient of Dr. Smith who was admitted for shortness of breath. Found to have acute on chronic hypercapnic and hypoxic respiratory failure from underlying COPD exacerbation. Also had acute metabolic encephalopathy. Today-appetite slowly improved. Still quite a bit short of breath at rest. Tired.. Review of systems: Was done for constitutional, cardiovascular, GI, pulmonary. relevant finding as above Active Medications Albuterol/Ipratropium (Duoneb 0.5 Mg-3 Mg/3 Ml Soln) 3 ml INHALATION RT-Q4H PRN PRN Reason: Shortness Of Breath Or Wheezing Last Admin: 06/24/19 15:47 Dose: 3 ml Documented by: Albuterol/Ipratropium (Duoneb 0.5 Mg-3 Mg/3 Ml Soln) 3 ml INHALATION RT-Q4H [facility] Last Admin: 06/28/19 20:26 Dose: 3 ml Documented by: Budesonide (Pulmicort) 1 mg INHALATION RT-BID [facility] Last Admin: 06/28/19 20:26 Dose: 1 mg Documented by: Enoxaparin Sodium (Lovenox) 40 mg SQ DAILY [facility] Last Admin: 06/28/19 07:57 Dose: 40 mg Documented by: Famotidine (Pepcid) 20 mg PO BID [facility] Last Admin: 06/28/19 21:14 Dose: 20 mg Documented by: Formoterol Fumarate (Perforomist) 20 mcg INHALATION RT-BID [facility] Last Admin: 06/28/19 20:26 Dose: 20 mcg Documented by: Guaifenesin (Mucinex) 600 mg PO Q12HR [facility] Last Admin: 06/28/19 21:14 Dose: 600 mg Documented by: Sodium Chloride (Saline 0.9%) 1,000 mls @ 20 mls/hr IV .Q24H [facility] Last Admin: 06/27/19 18:59 Dose: Not Given Documented by: Ibuprofen (Motrin) 400 mg PO TID PRN PRN Reason: pain Last Admin: 06/27/19 21:15 Dose: 400 mg Documented by: Insulin Aspart (Novolog) 0 unit SQ ACHS [facility]; Protocol Last Admin: 06/28/19 21:13 Dose: 7 unit Documented by: Lorazepam (Ativan) 1 mg IV Q4HR PRN PRN Reason: Anxiety Last Admin: 06/28/19 19:24 Dose: 1 mg Documented by: Menthol (Nice Cough Drops) 1 each MUCOUS MEM Q2H PRN PRN Reason: Sore Throat Last Admin: 06/27/19 09:49 Dose: 1 each Documented by: Methocarbamol (Robaxin) 500 mg PO TID [facility] Last Admin: 06/28/19 21:17 Dose: 500 mg Documented by: Methylprednisolone Sodium Succinate (Solu-Medrol) 60 mg IV Q6HR [facility] Last Admin: 06/28/19 17:21 Dose: 60 mg Documented by: Miscellaneous Information (Potassium Per Protocol) 1 each MISCELLANE DAILY PRN; Protocol PRN Reason: Per Protocol Montelukast Sodium (Singulair) 10 mg PO [facility] Last Admin: 06/28/19 21:13 Dose: 10 mg Documented by: Morphine Sulfate (Morphine Sulfate (Inj)) 2 mg IVP Q4H PRN PRN Reason: Pain/Discomfort Last Admin: 06/27/19 19:03 Dose: 2 mg Documented by: Oxybutynin Chloride (Ditropan Xl) 10 mg PO [facility] Last Admin: 06/28/19 21:17 Dose: 10 mg Documented by: Theophylline (Marvin-24) 200 mg PO [facility] Last Admin: 06/28/19 21:17 Dose: 200 mg Documented by: Physical examination: VITAL SIGNS: 98, 122, 16, 136/73, 94% room air GENERAL: ; propped up in bed, tired EYES: Pupils equal. Conjunctiva normal. HEENT: External appearance of nose and ears normal, oral cavity grossly normal. NECK: JVD unable to assess; masses not palpable. HEART: First and second heart sounds are normal; no edema. LUNGS: Respiratory rate increased, decreased breath sounds prolonged expiration. ABDOMEN: Soft, nontender, liver spleen not palpable, no masses palpable. PSYCH: Alert and oriented x3; mood and affect tired Investigations: white count 18.8 hemoglobin 14.7 progression 3.2 by copier and printer field technician 48 creatinine 0.29 EKG-sinus tachycardia Assessment: -Acute on chronic hypercapnic and hypoxemic respiratory failure secondary to COPD exacerbation, slow to respond -Acute severe COPD exacerbation and an ex-smoker, slow to respond -Chronic hypoxic respiratory failure patient wished to-3 L of oxygen at home -Acute metabolic encephalopathy from COPD requiring BiPAP, improving -Metabolic alkalosis from steroids involvement contraction -Mild protein calorie medication with hypoalbuminemia from decreased oral intake -Sinus tachycardia, multifactorial - Plan: continue with bronchodilators, steroids, theophylline. Discussed with the patient.
[2019-06-28] MEDS: SODIUM CHLORIDE 0.9% 1,000 ML IV SCH (23:38)
[2019-06-29] MEDS: LORazepam 2 MG/ML INJ IV PRN ×4 (01:22→17:38)
[2019-06-29] MEDS: methylPREDNISolone SOD SUCCI 125 MG/2 ML VIAL IV SCH ×4 (01:22→17:18)
[2019-06-29] MEDS: IPRATROPIUM-ALBUTEROL 3 ML NEB INHALATION SCH ×6 (03:28→23:06)
[2019-06-29 07:20] LABS: Glucose,Whole Blood 135 mg/dL (75-99)
[2019-06-29] MEDS: BUDESONIDE 1 MG/2 ML NEBU INHALATION SCH ×2 (07:37→19:33)
[2019-06-29] MEDS: FORMOTEROL FUMARATE 20 MCG/2 ML NEBU INHALATION SCH ×2 (07:37→19:33)
[2019-06-29] MEDS: ENOXAPARIN 40 MG/0.4 ML SYRINGE SQ SCH (08:07)
[2019-06-29] MEDS: INSULIN ASPART (NovoLOG) 100 UNIT/ML VIAL SQ SCH ×4 (08:07→21:12)
[2019-06-29] MEDS: FAMOTIDINE 20 MG TAB PO SCH ×2 (08:08→21:11)
[2019-06-29] MEDS: guaiFENesin 600 MG TABLET.ER PO SCH ×2 (08:08→21:11)
[2019-06-29] MEDS: METHOCARBAMOL 500 MG TAB PO SCH ×3 (08:08→21:11)
--- NOTE | 2019-06-29 10:38 | P.PN ---
Subjective Progress Note Date: 06/29/19 Principal diagnosis: Acute hypoxemic/hypercapnic respiratory failure secondary to an acute exacerbation chronic obstructive pulmonary disease. The patient is seen today 06/29/2019 in follow-up on the regular medical floor. She is more awake and alert today as compared to yesterday. She still has declined to utilize the BiPAP but states she did try it for about an hour last n ight. Currently maintaining O2 saturations in the low 90s on 3 L/m per nasal cannula. She's been afebrile. Tachycardic. Tachypneic. Sputum was positive for Sarahi. She remains on DuoNeb inhalations, Pulmicort and Perforomist inhalations, Mucinex, Singulair, theophylline, IV Solu-Medrol. Objective - Vital Signs Vital signs: Vital Signs Temp 97.7 F 06/29/19 06:50 Pulse 120 H 06/29/19 08:06 Resp 20 06/29/19 07:25 BP 157/86 06/29/19 06:50 Pulse Ox 93 L 06/29/19 06:50 Intake & Output 06/28/19 06/29/19 06/29/19 18:59 06:59 18:59 Intake Total 296 Output Total 1400 1900 Balance -1104 -1900 Weight 51.4 kg Intake: Oral 296 Output: Urine 1400 1900 Other: Voiding Method Indwelling Catheter Indwelling Catheter Indwelling Catheter - Exam GENERAL EXAM: Alert, frail cachectic 63-year-old female patient, appears older than stated age on 3 L of oxygen, moderately short of breath HEAD: Normocephalic/atraumatic. EYES: Normal reaction of pupils, equal size. Conjunctiva pink, sclera white. NOSE: Clear with pink turbinates. THROAT: No erythema or exudates. NECK: No masses, no JVD, no thyroid enlargement, no adenopathy. CHEST: No chest wall deformity. Symmetrical expansion. LUNGS: Diminished air entry with scattered rhonchi, bilateral wheezing, diminished. CVS: Regular rate and rhythm, normal S1 and S2, no gallops, no murmurs, no rubs ABDOMEN: Soft, nontender. No hepatosplenomegaly, normal bowel sounds, no guarding or rigidity. EXTREMITIES: No clubbing, no edema, no cyanosis, 2+ pulses and upper and lower extremities. MUSCULOSKELETAL: Muscle strength and tone normal. SPINE: No scoliosis or deformity SKIN: No rashes CENTRAL NERVOUS SYSTEM: No focal deficits, tone is normal in all 4 extremities. PSYCHIATRIC: Alert and oriented -3. Appropriate affect. Intact judgment and insight. - Labs CBC & Chem 7: 06/26/19 05:58 06/26/19 05:58 Labs: Abnormal Lab Results - Last 24 Hours (Table) 06/28/19 06/28/19 06/28/19 Range/Units 12:21 16:56 20:43 POC Glucose (mg/dL) 179 H 160 H 230 H (75-99) mg/dL 06/29/19 Range/Units 06:51 POC Glucose (mg/dL) 135 H (75-99) mg/dL Microbiology - Last 24 Hours (Table) 06/25/19 11:52 Gram Stain - Final Sputum Sputum Culture - Final Sarahi albicans Assessment and Plan Assessment: #1. Acute on chronic hypercapnic and hypoxemic respiratory failure related to acute exacerbation of chronic obstructive pulmonary disease #2. Altered mentation, respiratory arrest, not requiring intubation, and patient has improved via noninvasive positive pressure ventilation and medical treatment #3. Advanced COPD, with chronic hypoxemic and hypercapnic respiratory failure normally wears 2-3 L of oxygen at home #4. Previous history of heavy tobacco use #5. History of chronic anemia #6. Previous history of arrhythmia #7. History of pneumonia #8. History of vitamin D deficiency Plan: The patient was seen and evaluated by Dr. Alonso. She is a bit improved today as compared to yesterday. She is again encouraged to utilize the BiPAP to help decrease her work of breathing. She is currently on 3 L nasal cannula. We'll continue with the current treatment plan. Her overall prognosis is quite poor. She is a DO NOT RESUSCITATE/DO NOT INTUBATE CODE STATUS per her conversation with Dr. Alonso. We'll continue to follow and make further recommendations based on her clinical status. I, the cosigning physician, performed a history & physical examination of the patient. Lungs sounds with few scattered rhonchi, end expiratory wheeze, diminished. Maintaining good O2 saturations in the 90s on 3 L/m per nasal cannula. I discussed the assessment and plan of care with my nurse practitioner, Hansa Enciso. I attest to the above note as dictated by her.
[2019-06-29 11:38] LABS: Glucose,Whole Blood 228 mg/dL (75-99)
[2019-06-29 17:10] LABS: Glucose,Whole Blood 137 mg/dL (75-99)
[2019-06-29] MEDS: SODIUM CHLORIDE 0.9% 1,000 ML IV SCH (17:18)
--- NOTE | 2019-06-29 20:16 | P.PN ---
Progress Note - Text Progress Note Date: 06/29/19 interval history: This is a 63-year-old patient of Dr. Smith who was admitted for shortness of breath. Found to have acute on chronic hypercapnic and hypoxic respiratory failure from underlying COPD exacerbation. Also had acute metabolic encephalopathy. Today-remains easily tired. Short of breath. Associated better. Using BiPAP intermittently. Family the bedside... Review of systems: Was done for constitutional, cardiovascular, GI, pulmonary. relevant finding as above Active Medications Albuterol/Ipratropium (Duoneb 0.5 Mg-3 Mg/3 Ml Soln) 3 ml INHALATION RT-Q4H PRN PRN Reason: Shortness Of Breath Or Wheezing Last Admin: 06/24/19 15:47 Dose: 3 ml Documented by: Albuterol/Ipratropium (Duoneb 0.5 Mg-3 Mg/3 Ml Soln) 3 ml INHALATION RT-Q4H [facility] Last Admin: 06/29/19 19:34 Dose: 3 ml Documented by: Budesonide (Pulmicort) 1 mg INHALATION RT-BID [facility] Last Admin: 06/29/19 19:33 Dose: 1 mg Documented by: Enoxaparin Sodium (Lovenox) 40 mg SQ DAILY [facility] Last Admin: 06/29/19 08:07 Dose: 40 mg Documented by: Famotidine (Pepcid) 20 mg PO BID [facility] Last Admin: 06/29/19 08:08 Dose: 20 mg Documented by: Formoterol Fumarate (Perforomist) 20 mcg INHALATION RT-BID [facility] Last Admin: 06/29/19 19:33 Dose: 20 mcg Documented by: Guaifenesin (Mucinex) 600 mg PO Q12HR [facility] Last Admin: 06/29/19 08:08 Dose: 600 mg Documented by: Sodium Chloride (Saline 0.9%) 1,000 mls @ 20 mls/hr IV .Q24H [facility] Last Admin: 06/29/19 17:18 Dose: Not Given Documented by: Ibuprofen (Motrin) 400 mg PO TID PRN PRN Reason: pain Last Admin: 06/27/19 21:15 Dose: 400 mg Documented by: Insulin Aspart (Novolog) 0 unit SQ ACHS [facility]; Protocol Last Admin: 06/29/19 17:18 Dose: 1 unit Documented by: Lorazepam (Ativan) 1 mg IV Q4HR PRN PRN Reason: Anxiety Last Admin: 06/29/19 17:38 Dose: 1 mg Documented by: Menthol (Nice Cough Drops) 1 each MUCOUS MEM Q2H PRN PRN Reason: Sore Throat Last Admin: 06/27/19 09:49 Dose: 1 each Documented by: Methocarbamol (Robaxin) 500 mg PO TID [facility] Last Admin: 06/29/19 17:18 Dose: 500 mg Documented by: Methylprednisolone Sodium Succinate (Solu-Medrol) 60 mg IV Q6HR [facility] Last Admin: 06/29/19 17:18 Dose: 60 mg Documented by: Miscellaneous Information (Potassium Per Protocol) 1 each MISCELLANE DAILY PRN; Protocol PRN Reason: Per Protocol Montelukast Sodium (Singulair) 10 mg PO [facility] Last Admin: 06/28/19 21:13 Dose: 10 mg Documented by: Morphine Sulfate (Morphine Sulfate (Inj)) 2 mg IVP Q4H PRN PRN Reason: Pain/Discomfort Last Admin: 06/27/19 19:03 Dose: 2 mg Documented by: Oxybutynin Chloride (Ditropan Xl) 10 mg PO [facility] Last Admin: 06/28/19 21:17 Dose: 10 mg Documented by: Theophylline (Marvin-24) 200 mg PO [facility] Last Admin: 06/28/19 21:17 Dose: 200 mg Documented by: Physical examination: VITAL SIGNS: 98.4, 118, 18, 123/71, 95% on 3 L GENERAL: ; Reclined in bed, tired EYES: Pupils equal. Conjunctiva normal. HEENT: External appearance of nose and ears normal, oral cavity grossly normal. NECK: JVD unable to assess; masses not palpable. HEART: First and second heart sounds are normal; no edema. LUNGS: Respiratory rate increased, decreased breath sounds prolonged expiration. ABDOMEN: Soft, nontender, liver spleen not palpable, no masses palpable. PSYCH: Alert and oriented x3; mood and affect tired Investigations: Accu-Cheks noted Previous testing white count 18.8 hemoglobin 14.7 progression 3.2 bun 48 creatinine 0.29 EKG-sinus tachycardia Assessment: -Acute on chronic hypercapnic and hypoxemic respiratory failure secondary to COPD exacerbation, slow to respond -Acute severe COPD exacerbation and an ex-smoker, slow to respond -Chronic hypoxic respiratory failure patient wished to-3 L of oxygen at home -Acute metabolic encephalopathy from COPD requiring BiPAP, improving -Metabolic alkalosis from steroids involvement contraction -Mild protein calorie medication with hypoalbuminemia from decreased oral intake -Sinus tachycardia, multifactorial - Plan: continue with bronchodilators, steroids, theophylline. Discussed with the p atient and at bedside. Questions were answered. The patient is set up in a chair. Increase activity. Prognosis guarded
[2019-06-29 20:47] LABS: Glucose,Whole Blood 226 mg/dL (75-99)
[2019-06-29] MEDS: MONTELUKAST 10 MG TAB PO SCH (21:11)
[2019-06-29] MEDS: THEOPHYLLINE 24 HOUR 200 MG CAP.ER.24H PO SCH (21:11)
[2019-06-29] MEDS: OXYBUTYNIN 10 MG TAB.ER.24 PO SCH (21:11)
[2019-06-30] MEDS: LORazepam 2 MG/ML INJ IV PRN ×3 (00:33→20:07)
[2019-06-30] MEDS: methylPREDNISolone SOD SUCCI 40 MG/ML 1 ML VIAL IV SCH ×4 (00:33→23:46)
[2019-06-30] MEDS: IPRATROPIUM-ALBUTEROL 3 ML NEB INHALATION SCH ×5 (02:54→19:35)
[2019-06-30 06:57] LABS: Glucose,Whole Blood 123 mg/dL (75-99)
[2019-06-30] MEDS: INSULIN ASPART (NovoLOG) 100 UNIT/ML VIAL SQ SCH ×4 (07:23→21:19)
[2019-06-30] MEDS: BUDESONIDE 1 MG/2 ML NEBU INHALATION SCH ×2 (08:25→19:35)
[2019-06-30] MEDS: FORMOTEROL FUMARATE 20 MCG/2 ML NEBU INHALATION SCH ×2 (08:25→19:35)
[2019-06-30] MEDS: FAMOTIDINE 20 MG TAB PO SCH ×2 (09:18→21:17)
[2019-06-30] MEDS: guaiFENesin 600 MG TABLET.ER PO SCH ×2 (09:18→21:17)
[2019-06-30] MEDS: METHOCARBAMOL 500 MG TAB PO SCH ×3 (09:19→21:17)
[2019-06-30] MEDS: ENOXAPARIN 40 MG/0.4 ML SYRINGE SQ SCH (09:19)
--- NOTE | 2019-06-30 11:44 | P.PN ---
Subjective Progress Note Date: 06/30/19 [place] evaluation, the patient is still short of breath quite congested and having difficulties with breathing. Limited improvement over the past few days. The chest x-ray from time of admission was consistent with COPD without any evidence of pneumonia. Sputum was positive for Sarahi. She is on 3 L of oxygen by nasal cannula. She is on DuoNeb nebulized treatments. She is on Perforomist and Pulmicort nebulized treatments. She remains on IV Solu-Medrol and theophylline. Mucinex for cough and congestion was also offered to this patient. Improvement is limited. Objective - Vital Signs Vital signs: Vital Signs Temp 98.1 F 06/30/19 07:38 Pulse 122 H 06/30/19 08:49 Resp 24 06/30/19 07:38 BP 140/71 06/30/19 07:38 Pulse Ox 98 06/30/19 08:25 Intake & Output 06/29/19 06/30/19 06/30/19 18:59 06:59 18:59 Intake Total 1080 440 Output Total 1974 1200 Balance -895 -1200 440 Weight 51.4 kg Intake: Oral 1080 440 Output: Urine 1974 1200 Other: Voiding Method Indwelling Catheter Indwelling Catheter Indwelling Catheter # Voids 1 - Exam GENERAL EXAM: Alert, frail cachectic 63-year-old female patient, appears older than stated age on 3 L of oxygen, moderately short of breath HEAD: Normocephalic/atraumatic. EYES: Normal reaction of pupils, equal size. Conjunctiva pink, sclera white. NOSE: Clear with pink turbinates. THROAT: No erythema or exudates. NECK: No masses, no JVD, no thyroid enlargement, no adenopathy. CHEST: No chest wall deformity. Symmetrical expansion. LUNGS: Diminished air entry with scattered rhonchi, bilateral wheezing, diminished. CVS: Regular rate and rhythm, normal S1 and S2, no gallops, no murmurs, no rubs ABDOMEN: Soft, nontender. No hepatosplenomegaly, normal bowel sounds, no guarding or rigidity. EXTREMITIES: No clubbing, no edema, no cyanosis, 2+ pulses and upper and lower extremities. MUSCULOSKELETAL: Muscle strength and tone normal. SPINE: No scoliosis or deformity SKIN: No rashes CENTRAL NERVOUS SYSTEM: No focal deficits, tone is normal in all 4 extremities. PSYCHIATRIC: Alert and oriented -3. Appropriate affect. I - Labs CBC & Chem 7: 06/26/19 05:58 06/26/19 05:58 Labs: Abnormal Lab Results - Last 24 Hours (Table) 06/29/19 06/29/19 06/30/19 Range/Units 16:49 20:36 06:45 POC Glucose (mg/dL) 137 H 226 H 123 H (75-99) mg/dL Assessment and Plan Plan: #1. Acute on chronic hypercapnic and hypoxemic respiratory failure related to acute exacerbation of chronic obstructive pulmonary diseasepatient continues to have congested cough and she has mucus which she is unable to bring it up completely. She remains on 3 L of oxygen by nasal cannula. She has not used BiPAP over the past 24 hours. Based on FEV1 is at 0.47 L which is only 20% of predicted with some limited reversibility post-bronchodilation as measured being up to 24%. #2. Altered mentation, respiratory arrest, not requiring intubation, and patien t has improved via noninvasive positive pressure ventilation and medical treatment #3. Advanced COPD, with chronic hypoxemic and hypercapnic respiratory failure normally wears 2-3 L of oxygen at home #4. Previous history of heavy tobacco use #5. History of chronic anemia #6. Previous history of arrhythmia #7. History of pneumonia #8. History of vitamin D deficiency plan Continue same treatment. Consider bronchoscopy within next 24-48 hours to improve overall pulmonary status and without any underlying infection. Continue IV Solu-Medrol. Aggressive pulmonary toileting.
[2019-06-30 12:04] LABS: Glucose,Whole Blood 191 mg/dL (75-99)
[2019-06-30 17:00] LABS: Glucose,Whole Blood 141 mg/dL (75-99)
[2019-06-30] MEDS: SODIUM CHLORIDE 0.9% 1,000 ML IV SCH (20:06)
[2019-06-30 20:58] LABS: Glucose,Whole Blood 229 mg/dL (75-99)
--- NOTE | 2019-06-30 21:01 | P.PN ---
Progress Note - Text Progress Note Date: 06/30/19 interval history: This is a 63-year-old patient of Dr. Smith who was admitted for shortness of breath. Found to have acute on chronic hypercapnic and hypoxic respiratory failure from underlying COPD exacerbation. Also had acute metabolic encephalopathy. Today-remains fatigued. Tired. Short of breath. Congested in the chest. Eating some.... Review of systems: Was done for constitutional, cardiovascular, GI, pulmonary. relevant finding as above Active Medications Albuterol/Ipratropium (Duoneb 0.5 Mg-3 Mg/3 Ml Soln) 3 ml INHALATION RT-Q4H PRN PRN Reason: Shortness Of Breath Or Wheezing Last Admin: 06/24/19 15:47 Dose: 3 ml Documented by: Albuterol/Ipratropium (Duoneb 0.5 Mg-3 Mg/3 Ml Soln) 3 ml INHALATION RT-Q4H [facility] Last Admin: 06/30/19 19:35 Dose: 3 ml Documented by: Budesonide (Pulmicort) 1 mg INHALATION RT-BID [facility] Last Admin: 06/30/19 19:35 Dose: 1 mg Documented by: Enoxaparin Sodium (Lovenox) 40 mg SQ DAILY [facility] Last Admin: 06/30/19 09:19 Dose: 40 mg Documented by: Famotidine (Pepcid) 20 mg PO BID [facility] Last Admin: 06/30/19 09:18 Dose: 20 mg Documented by: Formoterol Fumarate (Perforomist) 20 mcg INHALATION RT-BID [facility] Last Admin: 06/30/19 19:35 Dose: 20 mcg Documented by: Guaifenesin (Mucinex) 600 mg PO Q12HR [facility] Last Admin: 06/30/19 09:18 Dose: 600 mg Documented by: Sodium Chloride (Saline 0.9%) 1,000 mls @ 20 mls/hr IV .Q24H [facility] Last Admin: 06/30/19 20:06 Dose: Not Given Documented by: Ibuprofen (Motrin) 400 mg PO TID PRN PRN Reason: pain Last Admin: 06/27/19 21:15 Dose: 400 mg Documented by: Insulin Aspart (Novolog) 0 unit SQ ACHS [facility]; Protocol Last Admin: 06/30/19 18:38 Dose: Not Given Documented by: Lorazepam (Ativan) 1 mg IV Q4HR PRN PRN Reason: Anxiety Last Admin: 06/30/19 20:07 Dose: 1 mg Documented by: Menthol (Nice Cough Drops) 1 each MUCOUS MEM Q2H PRN PRN Reason: Sore Throat Last Admin: 06/27/19 09:49 Dose: 1 each Documented by: Methocarbamol (Robaxin) 500 mg PO TID [facility] Last Admin: 06/30/19 16:12 Dose: 500 mg Documented by: Methylprednisolone Sodium Succinate (Solu-Medrol) 40 mg IV Q8HR [facility] Last Admin: 06/30/19 16:13 Dose: 40 mg Documented by: Miscellaneous Information (Potassium Per Protocol) 1 each MISCELLANE DAILY PRN; Protocol PRN Reason: Per Protocol Montelukast Sodium (Singulair) 10 mg PO [facility] Last Admin: 06/29/19 21:11 Dose: 10 mg Documented by: Morphine Sulfate (Morphine Sulfate (Inj)) 2 mg IVP Q4H PRN PRN Reason: Pain/Discomfort Last Admin: 06/27/19 19:03 Dose: 2 mg Documented by: Oxybutynin Chloride (Ditropan Xl) 10 mg PO [facility] Last Admin: 06/29/19 21:11 Dose: 10 mg Documented by: Theophylline (Marvin-24) 200 mg PO [facility] Last Admin: 06/29/19 21:11 Dose: 200 mg Documented by: Physical examination: VITAL SIGNS: 58, 115, 16, 142/85, 93% on 3 L GENERAL: ; Reclined in bed, tired, congested cough EYES: Pupils equal. Conjunctiva normal. HEENT: External appearance of nose and ears normal, oral cavity grossly normal. NECK: JVD unable to assess; masses not palpable. HEART: First and second heart sounds are normal; no edema. LUNGS: Respiratory rate increased, decreased breath sounds prolonged expiration. audible congested cough ABDOMEN: Soft, nontender, liver spleen not palpable, no masses palpable. PSYCH: Alert and oriented x3; mood and affect tired Investigations: Accu-Cheks noted Previous testing white count 18.8 hemoglobin 14.7 progression 3.2 bun 48 creatinine 0.29 EKG-sinus tachycardia Assessment: -Acute on chronic hypercapnic and hypoxemic respiratory failure secondary to COPD exacerbation, slow to respond -Acute severe COPD exacerbation and an ex-smoker, slow to respond -Chronic hypoxic respiratory failure patient wished to-3 L of oxygen at home -Acute metabolic encephalopathy from COPD requiring BiPAP, improving -Metabolic alkalosis from steroids involvement contraction -Mild protein calorie medication with hypoalbuminemia from decreased oral intake -Sinus tachycardia, multifactorial - Plan: communicate with Dr. Harry from pulmonary. Plan to do a bronchoscopy with lavage. Prognosis guarded. With advanced lung disease. Discussed with the patient.
[2019-06-30] MEDS: OXYBUTYNIN 10 MG TAB.ER.24 PO SCH (21:17)
[2019-06-30] MEDS: THEOPHYLLINE 24 HOUR 200 MG CAP.ER.24H PO SCH (21:17)
[2019-06-30] MEDS: MONTELUKAST 10 MG TAB PO SCH (21:17)
[2019-07-01] MEDS: LORazepam 2 MG/ML INJ IV PRN ×2 (00:09→10:35)
[2019-07-01] MEDS: IPRATROPIUM-ALBUTEROL 3 ML NEB INHALATION SCH ×7 (00:38→23:48)
[2019-07-01 07:12] LABS: Glucose,Whole Blood 107 mg/dL (75-99)
[2019-07-01] MEDS: INSULIN ASPART (NovoLOG) 100 UNIT/ML VIAL SQ SCH ×4 (07:46→21:44)
[2019-07-01] MEDS: FAMOTIDINE 20 MG TAB PO SCH ×2 (07:53→21:44)
[2019-07-01] MEDS: IBUPROFEN 400 MG TAB PO PRN (07:53)
[2019-07-01] MEDS: guaiFENesin 600 MG TABLET.ER PO SCH ×2 (07:53→21:44)
[2019-07-01] MEDS: ENOXAPARIN 40 MG/0.4 ML SYRINGE SQ SCH (07:54)
[2019-07-01] MEDS: METHOCARBAMOL 500 MG TAB PO SCH ×3 (07:54→21:44)
[2019-07-01] MEDS: methylPREDNISolone SOD SUCCI 40 MG/ML 1 ML VIAL IV SCH ×2 (07:54→17:20)
[2019-07-01] MEDS: FORMOTEROL FUMARATE 20 MCG/2 ML NEBU INHALATION SCH ×2 (10:12→19:37)
[2019-07-01] MEDS: BUDESONIDE 1 MG/2 ML NEBU INHALATION SCH ×2 (10:12→19:37)
--- NOTE | 2019-07-01 11:30 | P.PN ---
Subjective Progress Note Date: 07/01/19 Principal diagnosis: Acute hypoxemic/hypercapnic respiratory failure secondary to an acute exacerbation chronic obstructive pulmonary disease. The patient is seen today 07/01/2019 in follow-up on the regular medical floor. She is more awake and alert today as compared to yesterday. She still has declined to utilize the BiPAP. Currently maintaining O2 saturations in the low 90s on 3 L/m per nasal cannula. She's been afebrile. Tachycardic. Tachypneic. Sputum was positive for Sarahi. She remains on DuoNeb inhalations, Pulmicort and Perforomist inhalations, Mucinex, Singulair, theophylline, IV Solu-Medrol. Objective - Vital Signs Vital signs: Vital Signs Temp 98 F 07/01/19 07:00 Pulse 112 H 07/01/19 10:35 Resp 24 07/01/19 10:23 BP 145/75 07/01/19 07:00 Pulse Ox 94 L 07/01/19 07:00 Intake & Output 06/30/19 07/01/19 07/01/19 18:59 06:59 18:59 Intake Total 2200 Output Total 1650 2200 Balance 550 -2200 Weight 51.4 kg Intake: Oral 2200 Output: Urine 1650 2200 Other: Voiding Method Indwelling Catheter Indwelling Catheter # Voids 1 # Bowel Movements 1 - Exam GENERAL EXAM: Alert, frail cachectic 63-year-old female, appears older than stated age on 3 L of oxygen, moderately short of breath HEAD: Normocephalic/atraumatic. EYES: Normal reaction of pupils, equal size. Conjunctiva pink, sclera white. NOSE: Clear with pink turbinates. THROAT: No erythema or exudates. NECK: No masses, no JVD, no thyroid enlargement, no adenopathy. CHEST: No chest wall deformity. Symmetrical expansion. LUNGS: Diminished air entry with scattered rhonchi, bilateral wheezing, diminished. CVS: Regular rate and rhythm, normal S1 and S2, no gallops, no murmurs, no rubs ABDOMEN: Soft, nontender. No hepatosplenomegaly, normal bowel sounds, no guarding or rigidity. EXTREMITIES: No clubbing, no edema, no cyanosis, 2+ pulses and upper and lower extremities. MUSCULOSKELETAL: Muscle strength and tone normal. SPINE: No scoliosis or deformity SKIN: No rashes CENTRAL NERVOUS SYSTEM: No focal deficits, tone is normal in all 4 extremities. PSYCHIATRIC: Alert and oriented -3. Appropriate affect. Intact judgment and insight. - Labs CBC & Chem 7: 06/26/19 05:58 06/26/19 05:58 Labs: Abnormal Lab Results - Last 24 Hours (Table) 06/30/19 06/30/19 06/30/19 Range/Units 11:53 16:48 20:57 POC Glucose (mg/dL) 191 H 141 H 229 H (75-99) mg/dL 07/01/19 Range/Units 06:55 POC Glucose (mg/dL) 107 H (75-99) mg/dL Assessment and Plan Assessment: #1. Acute on chronic hypercapnic and hypoxemic respiratory failure related to acute exacerbation of chronic obstructive pulmonary disease #2. Altered mentation, respiratory arrest, not requiring intubation, and patient has improved via noninvasive positive pressure ventilation and medical treatment #3. Advanced COPD, with chronic hypoxemic and hypercapnic respiratory failure normally wears 2-3 L of oxygen at home #4. Previous history of heavy tobacco use #5. History of chronic anemia #6. Previous history of arrhythmia #7. History of pneumonia #8. History of vitamin D deficiency Plan: The patient was seen and evaluated by Dr. Harry. We were considering possible bronchoscopy with BAL however the patient is quite adamant she does not want to have any further intervention and definitely does not want to be on life support. She is currently on 3 L nasal cannula. We'll continue with the current treatment plan. Her overall prognosis is quite poor. She is a DO NOT RESUSCITATE/DO NOT INTUBATE CODE STATUS per her conversation with Dr. Alonso. We'll continue to follow and make further recommendations based on her clinical status. I, the cosigning physician, performed a history & physical examination of the patient. Lungs sounds with few scattered rhonchi, end expiratory wheeze, diminished. Maintaining good O2 saturations in the 90s on 3 L/m per nasal cannula. I discussed the assessment and plan of care with my nurse practitioner, Hansa Enciso. I attest to the above note as dictated by her.
[2019-07-01 12:01] LABS: Glucose,Whole Blood 186 mg/dL (75-99)
[2019-07-01 16:41] LABS: Glucose,Whole Blood 138 mg/dL (75-99)
[2019-07-01] MEDS: SODIUM CHLORIDE 0.9% 1,000 ML IV SCH (17:23)
[2019-07-01 20:37] LABS: Glucose,Whole Blood 197 mg/dL (75-99)
[2019-07-01 21:36] LABS: Glucose,Whole Blood 212 mg/dL (75-99)
[2019-07-01] MEDS: THEOPHYLLINE 24 HOUR 200 MG CAP.ER.24H PO SCH (21:44)
[2019-07-01] MEDS: OXYBUTYNIN 10 MG TAB.ER.24 PO SCH (21:44)
[2019-07-01] MEDS: MONTELUKAST 10 MG TAB PO SCH (21:44)
--- NOTE | 2019-07-01 23:49 | P.PN ---
Progress Note - Text Progress Note Date: 07/01/19 nterval history: This is a 63-year-old patient of Dr. Smith who was admitted for shortness of breath. Found to have acute on chronic hypercapnic and hypoxic respiratory failure from underlying COPD exacerbation. Also had acute metabolic encephalopathy. Today-remains fatigued. Remains short of breath. Eating some food..... Review of systems: Was done for constitutional, cardiovascular, GI, pulmonary. relevant finding as above Active Medications Albuterol/Ipratropium (Duoneb 0.5 Mg-3 Mg/3 Ml Soln) 3 ml INHALATION RT-Q4H PRN PRN Reason: Shortness Of Breath Or Wheezing Last Admin: 06/24/19 15:47 Dose: 3 ml Documented by: Albuterol/Ipratropium (Duoneb 0.5 Mg-3 Mg/3 Ml Soln) 3 ml INHALATION RT-Q4H [facility] Last Admin: 07/01/19 19:37 Dose: 3 ml Documented by: Budesonide (Pulmicort) 1 mg INHALATION RT-BID [facility] Last Admin: 07/01/19 19:37 Dose: 1 mg Documented by: Enoxaparin Sodium (Lovenox) 40 mg SQ DAILY [facility] Last Admin: 07/01/19 07:54 Dose: 40 mg Documented by: Famotidine (Pepcid) 20 mg PO BID [facility] Last Admin: 07/01/19 21:44 Dose: 20 mg Documented by: Formoterol Fumarate (Perforomist) 20 mcg INHALATION RT-BID [facility] Last Admin: 07/01/19 19:37 Dose: 20 mcg Documented by: Guaifenesin (Mucinex) 600 mg PO Q12HR [facility] Last Admin: 07/01/19 21:44 Dose: 600 mg Documented by: Sodium Chloride (Saline 0.9%) 1,000 mls @ 20 mls/hr IV .Q24H [facility] Last Admin: 07/01/19 17:23 Dose: Not Given Documented by: Ibuprofen (Motrin) 400 mg PO TID PRN PRN Reason: pain Last Admin: 07/01/19 07:53 Dose: 400 mg Documented by: Insulin Aspart (Novolog) 0 unit SQ ACHS [facility]; Protocol Last Admin: 07/01/19 21:44 Dose: 6 unit Documented by: Lorazepam (Ativan) 1 mg IV Q4HR PRN PRN Reason: Anxiety Last Admin: 07/01/19 10:35 Dose: 1 mg Documented by: Menthol (Nice Cough Drops) 1 each MUCOUS MEM Q2H PRN PRN Reason: Sore Throat Last Admin: 06/27/19 09:49 Dose: 1 each Documented by: Methocarbamol (Robaxin) 500 mg PO TID [facility] Last Admin: 07/01/19 21:44 Dose: 500 mg Documented by: Methylprednisolone Sodium Succinate (Solu-Medrol) 40 mg IV Q8HR [facility] Last Admin: 07/01/19 17:20 Dose: 40 mg Documented by: Miscellaneous Information (Potassium Per Protocol) 1 each MISCELLANE DAILY PRN; Protocol PRN Reason: Per Protocol Montelukast Sodium (Singulair) 10 mg PO [facility] Last Admin: 07/01/19 21:44 Dose: 10 mg Documented by: Morphine Sulfate (Morphine Sulfate (Inj)) 2 mg IVP Q4H PRN PRN Reason: Pain/Discomfort Last Admin: 06/27/19 19:03 Dose: 2 mg Documented by: Oxybutynin Chloride (Ditropan Xl) [address] [facility] Last Admin: 07/01/19 21:44 Dose: 10 mg Documented by: Theophylline (Marvin-24) [address] [facility] Last Admin: 07/01/19 21:44 Dose: 200 mg Documented by: Physical examination: VITAL SIGNS: 98, oral 3, 20, 145/75, 94% on 3 L GENERAL: ; Reclined in bed, tired, congested cough EYES: Pupils equal. Conjunctiva normal. HEENT: External appearance of nose and ears normal, oral cavity grossly normal. NECK: JVD unable to assess; masses not palpable. HEART: First and second heart sounds are normal; no edema. LUNGS: Respiratory rate increased, decreased breath sounds prolonged expiration. audible congested cough ABDOMEN: Soft, nontender, liver spleen not palpable, no masses palpable. PSYCH: Alert and oriented x3; mood and affect tired Investigations: Accu-Cheks noted Previous testing white count 18.8 hemoglobin 14.7 progression 3.2 bun 48 creatinine 0.29 EKG-sinus tachycardia Assessment: -Acute on chronic hypercapnic and hypoxemic respiratory failure secondary to COPD exacerbation, slow to respond -Acute severe COPD exacerbation and an ex-smoker, slow to respond -Chronic hypoxic respiratory failure patient wished to-3 L of oxygen at home -Acute metabolic encephalopathy from COPD requiring BiPAP, improving -Metabolic alkalosis from steroids involvement contraction -Mild protein calorie medication with hypoalbuminemia from decreased oral intake -Sinus tachycardia, multifactorial - Plan: Spoke to patient at length. Did explain to her that the options are limited. Bronchoscopy with lavage will offer some relief and breathing. She is finally agreed to the same. Did communicate this with Dr. Harry. Total time spent today was about 40 minutes with over 20 from a discussion. We added verapamil for heart rate control
[2019-07-02] MEDS: VERAPAMIL 40 MG TAB PO SCH ×4 (00:18→21:22)
[2019-07-02] MEDS: IPRATROPIUM-ALBUTEROL 3 ML NEB INHALATION SCH ×5 (02:49→19:35)
[2019-07-02 07:05] LABS: Glucose,Whole Blood 80 mg/dL (75-99)
[2019-07-02] MEDS: INSULIN ASPART (NovoLOG) 100 UNIT/ML VIAL SQ SCH ×4 (07:40→21:17)
[2019-07-02] MEDS: FAMOTIDINE 20 MG TAB PO SCH ×2 (07:46→21:22)
[2019-07-02] MEDS: guaiFENesin 600 MG TABLET.ER PO SCH ×2 (07:47→21:22)
[2019-07-02] MEDS: methylPREDNISolone SOD SUCCI 40 MG/ML 1 ML VIAL IV SCH ×2 (07:47→19:39)
[2019-07-02] MEDS: ENOXAPARIN 40 MG/0.4 ML SYRINGE SQ SCH (07:47)
[2019-07-02] MEDS: METHOCARBAMOL 500 MG TAB PO SCH ×3 (07:49→21:23)
[2019-07-02] MEDS: BUDESONIDE 1 MG/2 ML NEBU INHALATION SCH ×2 (08:24→19:35)
[2019-07-02] MEDS: FORMOTEROL FUMARATE 20 MCG/2 ML NEBU INHALATION SCH ×2 (08:24→19:50)
--- NOTE | 2019-07-02 11:02 | P.PN ---
Subjective Progress Note Date: 07/02/19 On 07/02/2019, the patient is being seen for a follow-up. Overall pulmonary status slightly better compared to yesterday. She still has a congested cough. Unable to bring up much of sputum. She is on Mucinex for cough and congestion. She is still on 3 L of oxygen by nasal cannula. She remains on Perforomist and Pulmicort nebulized treatments and DuoNeb otherwise treatments around the clock. No fever. No chills. No other complaints otherwise. We had a prolonged discussion with her regarding the possibility of bronchoscopy and therapeutic airway suctioning. She has not made up her mind yet special that she showing some signs of improvement. Objective - Vital Signs Vital signs: Vital Signs Temp 98.2 F 07/02/19 07:52 Pulse 112 H 07/02/19 08:45 Resp 12 07/02/19 07:52 BP 121/70 07/02/19 07:52 Pulse Ox 93 L 07/02/19 07:52 Intake & Output 07/01/19 07/02/19 07/02/19 18:59 06:59 18:59 Other: Voiding Method Bedside Commode # Voids 1 4 # Bowel Movements 1 1 - Exam GENERAL EXAM: Alert, frail cachectic 63-year-old female patient, appears older than stated age on 3 L of oxygen, moderately short of breath HEAD: Normocephalic/atraumatic. EYES: Normal reaction of pupils, equal size. Conjunctiva pink, sclera white. NOSE: Clear with pink turbinates. THROAT: No erythema or exudates. NECK: No masses, no JVD, no thyroid enlargement, no adenopathy. CHEST: No chest wall deformity. Symmetrical expansion. LUNGS: Diminished air entry with scattered rhonchi, bilateral wheezing, diminished. CVS: Regular rate and rhythm, normal S1 and S2, no gallops, no murmurs, no rubs ABDOMEN: Soft, nontender. No hepatosplenomegaly, normal bowel sounds, no guarding or rigidity. EXTREMITIES: No clubbing, no edema, no cyanosis, 2+ pulses and upper and lower extremities. MUSCULOSKELETAL: Muscle strength and tone normal. SPINE: No scoliosis or deformity SKIN: No rashes CENTRAL NERVOUS SYSTEM: No focal deficits, tone is normal in all 4 extremities. PSYCHIATRIC: Alert and oriented -3. Appropriate affect. I - Labs CBC & Chem 7: 06/26/19 05:58 06/26/19 05:58 Labs: Abnormal Lab Results - Last 24 Hours (Table) 07/01/19 07/01/19 07/01/19 Range/Units 11:47 16:28 20:25 POC Glucose (mg/dL) 186 H 138 H 197 H (75-99) mg/dL 07/01/19 Range/Units 21:24 POC Glucose (mg/dL) 212 H (75-99) mg/dL Assessment and Plan Plan: #1. Acute on chronic hypercapnic and hypoxemic respiratory failure related to acute exacerbation of chronic obstructive pulmonary diseasepatient continues to have congested cough and she has mucus which she is unable to bring it up completely. She remains on 3 L of oxygen by nasal cannula. She has not used BiPAP over the past 24 hours. Based on FEV1 is at 0.47 L which is only 20% of predicted with some limited reversibility post-bronchodilation as measured being up to 24%. #2. Altered mentation, respiratory arrest, not requiring intubation, and patient has improved via noninvasive positive pressure ventilation and medical treatment #3. Advanced COPD, with chronic hypoxemic and hypercapnic respiratory failure normally wears 2-3 L of oxygen at home #4. Previous history of heavy tobacco use #5. History of chronic anemia #6. Previous history of arrhythmia #7. History of pneumonia #8. History of vitamin D deficiency plan Clinically somewhat improved compared to yesterday. CPAP unit after midnight for possible bronchoscopy in the morning and this will largely depend on the progression over the next 24 hours.
[2019-07-02 12:00] LABS: Glucose,Whole Blood 133 mg/dL (75-99)
[2019-07-02] MEDS: IBUPROFEN 400 MG TAB PO PRN (15:26)
[2019-07-02 17:11] LABS: Glucose,Whole Blood 187 mg/dL (75-99)
[2019-07-02] MEDS: SODIUM CHLORIDE 0.9% 1,000 ML IV SCH (17:32)
[2019-07-02] MEDS: OXYBUTYNIN 10 MG TAB.ER.24 PO SCH (21:22)
[2019-07-02] MEDS: THEOPHYLLINE 24 HOUR 200 MG CAP.ER.24H PO SCH (21:22)
[2019-07-02] MEDS: MONTELUKAST 10 MG TAB PO SCH (21:22)
[2019-07-02 21:26] LABS: Glucose,Whole Blood 125 mg/dL (75-99)
--- NOTE | 2019-07-02 23:38 | P.PN ---
Progress Note - Text Progress Note Date: 07/02/19 nterval history: This is a 63-year-old patient of Dr. Smith who was admitted for shortness of breath. Found to have acute on chronic hypercapnic and hypoxic respiratory failure from underlying COPD exacerbation. Also had acute metabolic encephalopathy. Today-remains fatigued. short of breath. she better than yesterday. Tired. Bronchoscopy postponed until tomorrow. Review of systems: Was done for constitutional, cardiovascular, GI, pulmonary. relevant finding as above Active Medications Albuterol/Ipratropium (Duoneb 0.5 Mg-3 Mg/3 Ml Soln) 3 ml INHALATION RT-Q4H PRN PRN Reason: Shortness Of Breath Or Wheezing Last Admin: 06/24/19 15:47 Dose: 3 ml Documented by: Albuterol/Ipratropium (Duoneb 0.5 Mg-3 Mg/3 Ml Soln) 3 ml INHALATION RT-Q4H [facility] Last Admin: 07/02/19 19:35 Dose: 3 ml Documented by: Budesonide (Pulmicort) 1 mg INHALATION RT-BID [facility] Last Admin: 07/02/19 19:35 Dose: 1 mg Documented by: Enoxaparin Sodium (Lovenox) 40 mg SQ DAILY [facility] Last Admin: 07/02/19 07:47 Dose: 40 mg Documented by: Famotidine (Pepcid) 20 mg PO BID [facility] Last Admin: 07/02/19 21:22 Dose: 20 mg Documented by: Formoterol Fumarate (Perforomist) 20 mcg INHALATION RT-BID [facility] Last Admin: 07/02/19 19:50 Dose: 20 mcg Documented by: Guaifenesin (Mucinex) 600 mg PO Q12HR [facility] Last Admin: 07/02/19 21:22 Dose: 600 mg Documented by: Sodium Chloride (Saline 0.9%) 1,000 mls @ 20 mls/hr IV .Q24H [facility] Last Admin: 07/02/19 17:32 Dose: Not Given Documented by: Ibuprofen (Motrin) 400 mg PO TID PRN PRN Reason: pain Last Admin: 07/02/19 15:26 Dose: 400 mg Documented by: Insulin Aspart (Novolog) 0 unit SQ ACHS [facility]; Protocol Last Admin: 07/02/19 21:17 Dose: Not Given Documented by: Lorazepam (Ativan) 1 mg IV Q4HR PRN PRN Reason: Anxiety Last Admin: 07/01/19 10:35 Dose: 1 mg Documented by: Menthol (Nice Cough Drops) 1 each MUCOUS MEM Q2H PRN PRN Reason: Sore Throat Last Admin: 06/27/19 09:49 Dose: 1 each Documented by: Methocarbamol (Robaxin) 500 mg PO TID [facility] Last Admin: 07/02/19 21:23 Dose: 500 mg Documented by: Methylprednisolone Sodium Succinate (Solu-Medrol) 40 mg IV Q12H [facility] Last Admin: 07/02/19 19:39 Dose: 40 mg Documented by: Miscellaneous Information (Potassium Per Protocol) 1 each MISCELLANE DAILY PRN; Protocol PRN Reason: Per Protocol Montelukast Sodium (Singulair) 10 mg PO HS [facility] Last Admin: 07/02/19 21:22 Dose: 10 mg Documented by: Morphine Sulfate (Morphine Sulfate (Inj)) 2 mg IVP Q4H PRN PRN Reason: Pain/Discomfort Last Admin: 06/27/19 19:03 Dose: 2 mg Documented by: Oxybutynin Chloride (Ditropan Xl) 10 mg PO [facility] Last Admin: 07/02/19 21:22 Dose: 10 mg Documented by: Theophylline (Marvin-24) 200 mg PO HS [facility] Last Admin: 07/02/19 21:22 Dose: 200 mg Documented by: Verapamil HCl (Isoptin) 40 mg PO TID [facility] Last Admin: 07/02/19 21:22 Dose: 40 mg Documented by: Physical examination: VITAL SIGNS: 98.8, 103, 16, 120/69, 91% on oxygen GENERAL: ;laying in bed, tired EYES: Pupils equal. Conjunctiva normal. HEENT: External appearance of nose and ears normal, oral cavity grossly normal. NECK: JVD unable to assess; masses not palpable. HEART: First and second heart sounds are normal; no edema. LUNGS: Respiratory rate increased, decreased breath sounds prolonged expiration. audible congested cough ABDOMEN: Soft, nontender, liver spleen not palpable, no masses palpable. PSYCH: Alert and oriented x3; mood and affect tired Investigations: Accu-Cheks noted Previous testing white count 18.8 hemoglobin 14.7 progression 3.2 bun 48 creatinine 0.29 EKG-sinus tachycardia Assessment: -Acute on chronic hypercapnic and hypoxemic respiratory failure secondary to COPD exacerbation, slow to respond -Acute severe COPD exacerbation and an ex-smoker, slow to respond -Chronic hypoxic respiratory failure patient wished to-3 L of oxygen at home -Acute metabolic encephalopathy from COPD requiring BiPAP, improving -Metabolic alkalosis from steroids involvement contraction -Mild protein calorie medication with hypoalbuminemia from decreased oral intake -Sinus tachycardia, multifactorial, Verapamil SR at - Plan: heart rate better controlled with the addition of verapamil. Seen by pulmonary earlier today. Bronchoscopy with lavage postponed for tomorrow.
[2019-07-03] MEDS: IBUPROFEN 400 MG TAB PO PRN ×2 (00:44→21:13)
[2019-07-03] MEDS: IPRATROPIUM-ALBUTEROL 3 ML NEB INHALATION SCH ×6 (02:06→20:53)
[2019-07-03 07:05] LABS: Glucose,Whole Blood 127 mg/dL (75-99)
[2019-07-03] MEDS: BUDESONIDE 1 MG/2 ML NEBU INHALATION SCH ×2 (09:10→20:53)
[2019-07-03] MEDS: FORMOTEROL FUMARATE 20 MCG/2 ML NEBU INHALATION SCH ×2 (09:10→20:53)
[2019-07-03] MEDS: ENOXAPARIN 40 MG/0.4 ML SYRINGE SQ SCH (10:28)
[2019-07-03] MEDS: methylPREDNISolone SOD SUCCI 40 MG/ML 1 ML VIAL IV SCH ×2 (10:28→21:03)
[2019-07-03] MEDS: FAMOTIDINE 20 MG TAB PO SCH ×2 (10:29→21:04)
[2019-07-03] MEDS: VERAPAMIL 40 MG TAB PO SCH ×3 (10:29→21:04)
[2019-07-03] MEDS: METHOCARBAMOL 500 MG TAB PO SCH ×3 (10:29→21:04)
[2019-07-03] MEDS: guaiFENesin 600 MG TABLET.ER PO SCH ×2 (10:29→21:04)
[2019-07-03] MEDS: INSULIN ASPART (NovoLOG) 100 UNIT/ML VIAL SQ SCH ×4 (10:30→21:04)
[2019-07-03 11:53] LABS: Glucose,Whole Blood 99 mg/dL (75-99)
--- NOTE | 2019-07-03 15:43 | P.PN ---
Subjective Progress Note Date: 07/03/19 on 07/03/2019, we had plans to bronchoscope this patient for therapeutic airway suctioning. She was quite concerned about the procedure. She also felt that she was getting better. She decided not to proceed with the intervention. The procedure got canceled. She has been off for liters of oxygen. She is on her usual bronchodilators and systemic steroids. I concur that there is some improvement in her condition in general. She valve and a incentive spirometer. She is doing minimal amount of activity and she is pending most of her time in bed. No fever. No chills. No other new complaints otherwise for now. Objective - Vital Signs Vital signs: Vital Signs Temp 98.2 F 07/03/19 14:40 Pulse 96 07/03/19 14:40 Resp 20 07/03/19 14:40 BP 133/67 07/03/19 14:40 Pulse Ox 93 L 07/03/19 14:40 Intake & Output 07/02/19 07/03/19 07/03/19 18:59 06:59 18:59 Output Total 950 Balance -950 Weight 46 kg Output: Urine 950 Other: Voiding Method Bedside Commode Bedside Commode Bedside Commode # Voids 1 - Exam GENERAL EXAM: Alert, frail cachectic 63-year-old female patient, appears older than stated age on 3 L of oxygen, moderately short of breath HEAD: Normocephalic/atraumatic. EYES: Normal reaction of pupils, equal size. Conjunctiva pink, sclera white. NOSE: Clear with pink turbinates. THROAT: No erythema or exudates. NECK: No masses, no JVD, no thyroid enlargement, no adenopathy. CHEST: No chest wall deformity. Symmetrical expansion. LUNGS: Diminished air entry with scattered rhonchi, bilateral wheezing, diminished. CVS: Regular rate and rhythm, normal S1 and S2, no gallops, no murmurs, no rubs ABDOMEN: Soft, nontender. No hepatosplenomegaly, normal bowel sounds, no guarding or rigidity. EXTREMITIES: No clubbing, no edema, no cyanosis, 2+ pulses and upper and lower extremities. MUSCULOSKELETAL: Muscle strength and tone normal. SPINE: No scoliosis or deformity SKIN: No rashes CENTRAL NERVOUS SYSTEM: No focal deficits, tone is normal in all 4 extremities. PSYCHIATRIC: Alert and oriented -3. Appropriate affect. I - Labs CBC & Chem 7: 06/26/19 05:58 06/26/19 05:58 Labs: Abnormal Lab Results - Last 24 Hours (Table) 07/02/19 07/02/19 07/03/19 Range/Units 17:00 21:15 06:53 POC Glucose (mg/dL) 187 H 125 H 127 H (75-99) mg/dL Assessment and Plan Plan: #1. Acute on chronic hypercapnic and hypoxemic respiratory failure related to acute exacerbation of chronic obstructive pulmonary disease She remains on 3 L of oxygen by nasal cannula. She has not used BiPAP over the past 24 hours. Based on FEV1 is at 0.47 L which is only 20% of predicted with some limited reversibility post-bronchodilation as measured being up to 24%. #2. Altered mentation, respiratory arrest, not requiring intubation, and patient has improved via noninvasive positive pressure ventilation and medical treatment #3. Advanced COPD, with chronic hypoxemic and hypercapnic respiratory failure normally wears 2-3 L of oxygen at home #4. Previous history of heavy tobacco use #5. History of chronic anemia #6. Previous history of arrhythmia #7. History of pneumonia #8. History of vitamin D deficiency plan Discussed with the patient a possibility of bronchoscopy. the patient felt that she is feeling better. She was very much concerned about the procedure itself. After scheduling it on few occasions, we ended up canceling the procedure. We will going to continue with the medical treatment. No plans for bronchoscopy for now. she should be changed to prednisone burst taper at time of discharge and be considered for discharge per medicine
[2019-07-03 17:00] LABS: Glucose,Whole Blood 155 mg/dL (75-99)
[2019-07-03] MEDS: SODIUM CHLORIDE 0.9% 1,000 ML IV SCH (17:26)
[2019-07-03 20:17] LABS: Glucose,Whole Blood 188 mg/dL (75-99)
[2019-07-03] MEDS: THEOPHYLLINE 24 HOUR 200 MG CAP.ER.24H PO SCH (21:04)
[2019-07-03] MEDS: MONTELUKAST 10 MG TAB PO SCH (21:04)
[2019-07-03] MEDS: OXYBUTYNIN 10 MG TAB.ER.24 PO SCH (21:04)
[2019-07-04] MEDS: IPRATROPIUM-ALBUTEROL 3 ML NEB INHALATION SCH ×6 (00:42→19:58)
[2019-07-04 07:22] LABS: Glucose,Whole Blood 131 mg/dL (75-99)
[2019-07-04] MEDS: INSULIN ASPART (NovoLOG) 100 UNIT/ML VIAL SQ SCH ×4 (07:56→21:48)
[2019-07-04] MEDS: guaiFENesin 600 MG TABLET.ER PO SCH ×2 (08:20→21:47)
[2019-07-04] MEDS: VERAPAMIL 40 MG TAB PO SCH ×3 (08:20→21:47)
[2019-07-04] MEDS: ENOXAPARIN 40 MG/0.4 ML SYRINGE SQ SCH (08:20)
[2019-07-04] MEDS: FAMOTIDINE 20 MG TAB PO SCH ×2 (08:20→21:47)
[2019-07-04] MEDS: methylPREDNISolone SOD SUCCI 40 MG/ML 1 ML VIAL IV SCH (08:20)
[2019-07-04] MEDS: METHOCARBAMOL 500 MG TAB PO SCH ×3 (08:22→21:47)
[2019-07-04] MEDS: BUDESONIDE 1 MG/2 ML NEBU INHALATION SCH ×2 (08:28→19:58)
[2019-07-04] MEDS: FORMOTEROL FUMARATE 20 MCG/2 ML NEBU INHALATION SCH ×2 (08:28→19:58)
[2019-07-04 11:58] LABS: Glucose,Whole Blood 144 mg/dL (75-99)
[2019-07-04] MEDS: predniSONE 20 MG TAB PO SCH (12:44)
--- NOTE | 2019-07-04 14:45 | P.PN ---
Subjective Progress Note Date: 07/04/19 Principal diagnosis: Acute exacerbation of chronic obstructive pulmonary disease acute on chronic hypercapnic and hypoxemic respiratory failure. On 06/24/2019 patient seen again in follow-up in the intensive care unit, she is intermittently wearing BiPAP, she has been given a trial of nasal cannula, currently at 3 L, her pulse ox is 88-94%, patient is afebrile, hemodynamically able, a bit hypertensive, she states her breathing is improving, but she still gets fatigued easy, and quite dyspneic, requiring intermittent BiPAP support, lung sounds are positive for very diminished breath sounds, with end expiratory wheezes, patient states she has a productive cough, she is on Zithromax for antibiotic coverage, nebulized bronchodilator's, IV steroids, Singulair, today's labs have been reviewed, with a total count is trending down, down to 12.5 on today's labs, hemoglobin is 13.5, sodium is 134, potassium 3.5, chloride is 92, CO2 is 43, BUN is 8, creatinine is 0.39. Today's chest x-ray has been reviewed, which shows hyperinflation consistent with COPD, and basilar atelectasis. On 06/25/2019 patient seen in follow-up in intensive care unit, she continues to wear BiPAP most of the night, and intermittently through the day, she is currently off BiPAP on 3 L of oxygen, she is sounding and looking slightly improved, although lung sounds are still very diminished, with expiratory wheezes, and patient gets quite dyspneic with any exertion. No fever or chills, today's labs have been reviewed, with blood cell count is 12.4, hemoglobin is 13.8, sodium is 132, potassium is 3.5, chloride is 83, CO2 is 49, BUN is 7 creatinine 0.35. Continues on nebulized bronchodilators, empiric antibiotics, and IV steroids. Today's chest x-ray shows a new small right basilar opacity that could represent atelectasis or developing pneumonia. On 06/26/2019 patient is seen in follow-up in intensive care unit, she is awake and alert, she is breathing easier today, she did not require BiPAP support last night, currently on 3 L of oxygen with a pulse ox of 98%, afebrile, hemodyna mically stable, yesterday we added theophylline 2 patient's medications, and patient continues on IV steroids, nebulized bronchodilators and empiric antibiotics. Lung sounds are positive for a few scattered rhonchi, less bronchospastic on today's exam. Improving. On 06/27/2018 patient seen in follow-up on selective care unit, she is awake and alert, but having more difficulty breathing today, compared to yesterday she did not wear BiPAP support yesterday or last night, this morning she is on 2 L of oxygen her pulse ox is 92%, she is afebrile, slightly tachycardic. Lungs sounds are diminished, with expiratory wheezing. Sputum culture so far showed just Sarahi albicans likely related to oral contamination, final culture is pending, patient is covered with an antibiotic in the form of Zithromax, nebulized bronchodilators, we added theophylline preparation, and patient remains on IV s teroids although her dose was decreased to 40 every 8 hours. On 07/04/2019 patient seen in follow-up on medical surgical floor, clinically stable, remains on supplemental oxygen, did not require BiPAP support in last several days, improving, vital signs are stable, no acute events overnight, lung sounds are diminished, patient does have occasional congested nonproductive cough. She has been treated with a combination of Zithromax, nebulized dilators, theophylline preparation, steroids. Improving, she is being discharged home today and she will follow-up on an outpatient basis Objective - Vital Signs Vital signs: Vital Signs Temp 97.7 F 07/04/19 07:10 Pulse 84 07/04/19 11:59 Resp 20 07/04/19 07:10 BP 133/67 07/04/19 07:10 Pulse Ox 96 07/04/19 08:28 Intake & Output 07/03/19 07/04/19 07/04/19 18:59 06:59 18:59 Intake Total 400 Output Total 950 Balance -550 Intake: Oral 400 Output: Urine 950 Other: Voiding Method Bedside Commode Bedside Commode Bedside Commode # Voids 1 - Exam GENERAL EXAM: Alert, thin, 63-year-old white female, on 2 L of oxygen, moderately short of breath with conversation, or shortness of breath appears to be worse on today's exam HEAD: Normocephalic/atraumatic. EYES: Normal reaction of pupils, equal size. Conjunctiva pink, sclera white. NOSE: Clear with pink turbinates. THROAT: No erythema or exudates. NECK: No masses, no JVD, no thyroid enlargement, no adenopathy. CHEST: No chest wall deformity. Symmetrical expansion. LUNGS: Diminished air entry with no rhonchi, or wheezing heard on today's exam. CVS: Regular rate and rhythm, normal S1 and S2, no gallops, no murmurs, no rubs ABDOMEN: Soft, nontender. No hepatosplenomegaly, normal bowel sounds, no guarding or rigidity. EXTREMITIES: No clubbing, no edema, no cyanosis, 2+ pulses and upper and lower extremities. MUSCULOSKELETAL: Muscle strength and tone normal. SPINE: No scoliosis or deformity SKIN: No rashes CENTRAL NERVOUS SYSTEM: Alert and oriented -3. No focal deficits, tone is normal in all 4 extremities. PSYCHIATRIC: Alert and oriented -3. Appropriate affect. Intact judgment and insight. - Labs CBC & Chem 7: 06/26/19 05:58 06/26/19 05:58 Labs: Abnormal Lab Results - Last 24 Hours (Table) 07/03/19 07/03/19 07/04/19 Range/Units 16:48 20:15 07:09 POC Glucose (mg/dL) 155 H 188 H 131 H (75-99) mg/dL 07/04/19 Range/Units 11:56 POC Glucose (mg/dL) 144 H (75-99) mg/dL Assessment and Plan Plan: Assessment: #1. Acute on chronic hypercapnic and hypoxemic respiratory failure related to acute exacerbation of chronic obstructive pulmonary disease #2. Altered mentation, respiratory arrest, not requiring intubation, and patient has improved via noninvasive positive pressure ventilation and medical treatment #3. Advanced COPD, with chronic hypoxemic and hypercapnic respiratory failure normally wears 2-3 L of oxygen at home #4. Previous history of heavy tobacco use #5. History of chronic anemia #6. Previous history of arrhythmia #7. History of pneumonia #8. History of vitamin D deficiency Plan: Patient is clinically stable, slowly continues to improve, still becomes dyspneic on exertion, she is planning on going to her son's house for a couple weeks after discharge she is going home with visiting nurses, no acute events overnight, nno worsening dyspnea, slightly congested cough, nonproductive, patient is encouraged to keep working on incentive spirometer and flutter valve, she is going home today and she can finish outpatient course of prednisone taper, antibiotics, and she can resume nebulized treatments, and inhalers, and she can follow up with Dr. Harry in the office in one to 2 weeks. I performed a history & physical examination of the patient and discussed their management with my nurse practitioner, Jasmin Fuentes. I reviewed the nurse practitioner's note and agree with the documented findings and plan of care. Lung sounds are positive for diminished breath sounds with diffuse wheezes throughout the lung varma. The findings and the impression was discussed with the patient. I attest to the documentation by the nurse practitioner. Time with Patient: Less than 30
[2019-07-04 15:14] VITALS: BMI 17.9
[2019-07-04 17:06] LABS: Glucose,Whole Blood 251 mg/dL (75-99)
[2019-07-04] MEDS: SODIUM CHLORIDE 0.9% 1,000 ML IV SCH (17:27)
[2019-07-04 21:07] LABS: Glucose,Whole Blood 150 mg/dL (75-99)
--- NOTE | 2019-07-04 21:33 | P.PN ---
Progress Note - Text Progress Note Date: 07/03/19 interval history: This is a 63-year-old patient of Dr. Smith who was admitted for shortness of breath. Found to have acute on chronic hypercapnic and hypoxic respiratory failure from underlying COPD exacerbation. Also had acute metabolic encephalopathy. Today-feels a bit better. Bronchoscopy canceled , as patient reluctant for the same. Patient would like to have another day before she can go back home. Appetite improving. Review of systems: Was done for constitutional, cardiovascular, GI, pulmonary. relevant finding as above Current medications are reviewed from today's electronic records Physical examination: VITAL SIGNS: 98.3, 103, 16, 133/64, 91% on 3 L GENERAL: ; Propped up in bed, awake EYES: Pupils equal. Conjunctiva normal. HEENT: External appearance of nose and ears normal, oral cavity grossly normal. NECK: JVD unable to assess; masses not palpable. HEART: First and second heart sounds are normal; no edema. LUNGS: Respiratory rate increased, decreased breath sounds prolonged expiration. audible congested cough ABDOMEN: Soft, nontender, liver spleen not palpable, no masses palpable. PSYCH: Alert and oriented x3; mood and affect tired Investigations: Accu-Cheks noted Previous testing white count 18.8 hemoglobin 14.7 progression 3.2 bun 48 creatinine 0.29 EKG-sinus tachycardia Assessment: -Acute on chronic hypercapnic and hypoxemic respiratory failure secondary to COPD exacerbation, -Acute severe COPD exacerbation and an ex-smoker, -Chronic hypoxic respiratory failure patient wished to-3 L of oxygen at home -Acute metabolic encephalopathy from COPD requiring BiPAP, improved -Metabolic alkalosis from steroids involvement contraction -Mild protein calorie medication with hypoalbuminemia from decreased oral intake -Sinus tachycardia, multifactorial, Verapamil SR added, doing better - Plan: Broncho-[place] was canceled as patient reluctant for the same. Continue current medications. Steroid dose to be cut back. Hopefully discharge in [address] Harry
--- NOTE | 2019-07-04 21:35 | P.PN ---
Progress Note - Text Progress Note Date: 07/04/19 interval history: This is a 63-year-old patient of Dr. Smith who was admitted for shortness of breath. Found to have acute on chronic hypercapnic and hypoxic respiratory failure from underlying COPD exacerbation. Also had acute metabolic encephalopathy. Today-feels a bit better. Sitting up. Feeling better. Less short of breath. Review of systems: Was done for constitutional, cardiovascular, GI, pulmonary. relevant finding as above Active Medications Albuterol/Ipratropium (Duoneb 0.5 Mg-3 Mg/3 Ml Soln) 3 ml INHALATION RT-Q4H PRN PRN Reason: Shortness Of Breath Or Wheezing Last Admin: 06/24/19 15:47 Dose: 3 ml Documented by: Albuterol/Ipratropium (Duoneb 0.5 Mg-3 Mg/3 Ml Soln) 3 ml INHALATION RT-Q4H ANTONIA Last Admin: 07/04/19 19:58 Dose: 3 ml Documented by: Budesonide (Pulmicort) 1 mg INHALATION RT-BID [facility] Last Admin: 07/04/19 19:58 Dose: 1 mg Documented by: Enoxaparin Sodium (Lovenox) 40 mg SQ DAILY [facility] Last Admin: 07/04/19 08:20 Dose: 40 mg Documented by: Famotidine (Pepcid) 20 mg PO BID [facility] Last Admin: 07/04/19 08:20 Dose: 20 mg Documented by: Formoterol Fumarate (Perforomist) 20 mcg INHALATION RT-BID [facility] Last Admin: 07/04/19 19:58 Dose: 20 mcg Documented by: Guaifenesin (Mucinex) 600 mg PO Q12HR [facility] Last Admin: 07/04/19 08:20 Dose: 600 mg Documented by: Sodium Chloride (Saline 0.9%) 1,000 mls @ 20 mls/hr IV .Q24H ANTONIA Last Admin: 07/04/19 17:27 Dose: Not Given Documented by: Ibuprofen (Motrin) 400 mg PO TID PRN PRN Reason: pain Last Admin: 07/03/19 21:13 Dose: 400 mg Documented by: Insulin Aspart (Novolog) 0 unit SQ ACHS ANTONIA; Protocol Last Admin: 07/04/19 17:24 Dose: 8 unit Documented by: Lorazepam (Ativan) 1 mg IV Q4HR PRN PRN Reason: Anxiety Last Admin: 07/01/19 10:35 Dose: 1 mg Documented by: Menthol (Nice Cough Drops) 1 each MUCOUS MEM Q2H PRN PRN Reason: Sore Throat Last Admin: 06/27/19 09:49 Dose: 1 each Documented by: Methocarbamol (Robaxin) 500 mg PO TID [facility] Last Admin: 07/04/19 17:24 Dose: 500 mg Documented by: Miscellaneous Information (Potassium Per Protocol) 1 each MISCELLANE DAILY PRN; Protocol PRN Reason: Per Protocol Montelukast Sodium (Singulair) 10 mg PO HS [facility] Last Admin: 07/03/19 21:04 Dose: 10 mg Documented by: Oxybutynin Chloride (Ditropan Xl) 10 mg PO [facility] Last Admin: 07/03/19 21:04 Dose: 10 mg Documented by: Prednisone () 40 mg PO DAILY [facility] Last Admin: 07/04/19 12:44 Dose: 40 mg Documented by: Theophylline (Marvin-24) 200 mg PO HS [facility] Last Admin: 07/03/19 21:04 Dose: 200 mg Documented by: Verapamil HCl (Isoptin) 40 mg PO TID [facility] Last Admin: 07/04/19 17:24 Dose: 40 mg Documented by: Physical examination: VITAL SIGNS: 97.7, 108, 20, 133/67, 95% on room air GENERAL: ; Propped up in bed, more comfortable EYES: Pupils equal. Conjunctiva normal. HEENT: External appearance of nose and ears normal, oral cavity grossly normal. NECK: JVD unable to assess; masses not palpable. HEART: First and second heart sounds are normal; no edema. LUNGS: Respiratory rate increased, decreased breath sounds prolonged expiration. ABDOMEN: Soft, nontender, liver spleen not palpable, no masses palpable. PSYCH: Alert and oriented x3; mood and affect tired Investigations: Accu-Cheks noted Previous testing white count 18.8 hemoglobin 14.7 progression 3.2 bun 48 creatinine 0.29 EKG-sinus tachycardia Assessment: -Acute on chronic hypercapnic and hypoxemic respiratory failure secondary to COPD exacerbation, improving -Acute severe COPD exacerbation and an ex-smoker, -Chronic hypoxic respiratory failure patient wished to-3 L of oxygen at home -Acute metabolic encephalopathy from COPD requiring BiPAP, improved -Metabolic alkalosis from steroids involvement contraction -Mild protein calorie medication with hypoalbuminemia from decreased oral intake -Sinus tachycardia, multifactorial, Verapamil SR added, doing better - Plan: Patient is doing better. All the discharge paperwork was done. Later the nurse called to state that patient did did not want to go home as she was feeling more short of breath. Current medications are to be continued.
[2019-07-04] MEDS: OXYBUTYNIN 10 MG TAB.ER.24 PO SCH (21:47)
[2019-07-04] MEDS: IBUPROFEN 400 MG TAB PO PRN (21:47)
[2019-07-04] MEDS: THEOPHYLLINE 24 HOUR 200 MG CAP.ER.24H PO SCH (21:47)
[2019-07-04] MEDS: MONTELUKAST 10 MG TAB PO SCH (21:47)
[2019-07-05] MEDS: IPRATROPIUM-ALBUTEROL 3 ML NEB INHALATION SCH ×4 (00:33→11:05)
[2019-07-05 06:58] LABS: Glucose,Whole Blood 88 mg/dL (75-99)
[2019-07-05] MEDS: INSULIN ASPART (NovoLOG) 100 UNIT/ML VIAL SQ SCH ×2 (07:00→12:39)
[2019-07-05 07:17] VITALS: BP 116/64; TEMP 98.4
[2019-07-05] MEDS: FORMOTEROL FUMARATE 20 MCG/2 ML NEBU INHALATION SCH (08:13)
[2019-07-05] MEDS: BUDESONIDE 1 MG/2 ML NEBU INHALATION SCH (08:13)
[2019-07-05] MEDS: ENOXAPARIN 40 MG/0.4 ML SYRINGE SQ SCH (09:01)
[2019-07-05] MEDS: VERAPAMIL 40 MG TAB PO SCH (09:01)
[2019-07-05] MEDS: predniSONE 20 MG TAB PO SCH (09:01)
[2019-07-05] MEDS: FAMOTIDINE 20 MG TAB PO SCH (09:01)
[2019-07-05] MEDS: guaiFENesin 600 MG TABLET.ER PO SCH (09:01)
[2019-07-05] MEDS: METHOCARBAMOL 500 MG TAB PO SCH (09:02)
[2019-07-05 09:08] VITALS: RESP 24
[2019-07-05] MEDS: IBUPROFEN 400 MG TAB PO PRN (09:21)
[2019-07-05 11:13] VITALS: PULSE 92
[2019-07-05 11:20] LABS: Glucose,Whole Blood 134 mg/dL (75-99)
--- NOTE | 2019-07-05 23:48 | P.DS ---
Providers Date of admission: 06/20/19 22:54 Expected date of discharge: 07/05/19 Attending physician: Chapin Bermudez Consults: 06/22/19 15:52 Consult Physician Stat Consulting Provider: Edu Huerta Consult Reason/Comments: COPD, Hypoxia Do you want consulting provider notified?: Yes Primary care physician: Randal Smith [facility] Course: Hospital course: This is a 63-year-old patient of Dr. Smith who was admitted for shortness of breath. Found to have acute on chronic hypercapnic and hypoxic respiratory failure from underlying COPD exacerbation. Also had acute metabolic encephalopathy.treated with bronchodilators steroids. Had a rather protracted course. Patient was offered bronchoscopy for lavage. she declined. Patient has end-stage COPD. Prognosis is not good.discussed with the patient repeatedly. today- Tolerating a diet. Feeling stable consultation: Dr. Myles and partners from pulmonary Physical examination: VITAL SIGNS: 98.4, 103, 17, 11 6/64, 95% on 3 L GENERAL: ; sitting at the edge of the bed,-breathing better EYES: Pupils equal. Conjunctiva normal. HEENT: External appearance of nose and ears normal, oral cavity grossly normal. NECK: JVD unable to assess; masses not palpable. HEART: First and second heart sounds are normal; no edema. LUNGS: Respiratory rate increased, decreased breath sounds ABDOMEN: Soft, nontender, liver spleen not palpable, no masses palpable. PSYCH: Alert and oriented x3; mood and affect tired Investigations: Accu-Cheks noted Previous testing white count 18.8 hemoglobin 14.7 progression 3.2 bun 48 creatinine 0.29 EKG-sinus tachycardia Assessment: -Acute on chronic hypercapnic and hypoxemic respiratory failure secondary to COPD exacerbation, improving -Acute severe COPD exacerbation and an ex-smoker, -Chronic hypoxic respiratory failure patient wished to-3 L of oxygen at home -Acute metabolic encephalopathy from COPD requiring BiPAP, improved -Metabolic alkalosis from steroids involvement contraction -Mild protein calorie medication with hypoalbuminemia from decreased oral intake -Sinus tachycardia, multifactorial, Verapamil SR added, doing better - disposition: Home Patient Condition at Discharge: Stable Plan - Discharge Summary Discharge Rx Participant: No New Discharge Prescriptions: New Ipratropium-Albuterol Nebulize [Duoneb 0.5 mg-3 mg/3 ml Soln] 3 ml INHALATION QID #120 ampul.neb guaiFENesin [Mucinex] 1,200 mg PO Q12HR #60 tablet.er Famotidine [Pepcid] 20 mg PO BID #60 tab predniSONE 10 mg PO DAILY #30 tab Theophylline 24 Hour [Marvin-24] 200 mg PO HS #30 cap.er.24h Verapamil HCl [Verapamil ER] 120 mg PO DAILY #30 tablet.er Continue Montelukast [Singulair] 10 mg PO HS Methocarbamol [Robaxin] 500 mg PO TID Budesonide/Formoterol Fumarate [Symbicort 160-4.5 Mcg Inhaler] 2 puff INHALATION RT-BID Cholecalciferol [Vitamin D3 (25 Mcg = 1000 Iu)] 1,000 unit PO DAILY Ascorbic Acid [Vitamin C] 500 mg PO DAILY Tolterodine Tartrate [Detrol LA] 4 mg PO HS Glycopyrrolate/Formoterol Fum [Bevespi Aerosphere Inhaler] 1 puff INHALATION RT-BID Calcium Carbonate [Calcium] 600 mg PO DAILY Discontinued Albuterol Nebulized [Ventolin Nebulized] 2.5 mg INHALATION RT-Q6H PRN PRN Reason: Shortness Of Breath Fluticasone Nasal [place] [Flonase Nasal [place]] 2 spr EA NOSTRIL DAILY PRN PRN Reason: Nasal Congestion Guaifenesin/Dextromethorphan [Mucinex Dm ER 1,200-60 mg Tab] 1 tab PO HS Ipratropium Nebulized [Atrovent Nebulized 0.2 MG/ML] 0.5 mg INHALATION RT-Q6H PRN PRN Reason: Shortness Of Breath Discharge Medication List Methocarbamol [Robaxin] 500 mg PO TID 02/09/14 [History] Montelukast [Singulair] 10 mg PO HS 02/09/14 [History] Ascorbic Acid [Vitamin C] 500 mg PO DAILY 05/12/19 [History] Budesonide/Formoterol Fumarate [Symbicort 160-4.5 Mcg Inhaler] 2 puff INHALATION RT-BID 05/12/19 [History] Cholecalciferol [Vitamin D3 (25 Mcg = 1000 Iu)] 1,000 unit PO DAILY 05/12/19 [History] Tolterodine Tartrate [Detrol LA] 4 mg PO HS 05/12/19 [History] Calcium Carbonate [Calcium] 600 mg PO DAILY 06/20/19 [History] Glycopyrrolate/Formoterol Fum [Bevespi Aerosphere Inhaler] 1 puff INHALATION RT- BID 06/20/19 [History] Famotidine [Pepcid] 20 mg PO BID #60 tab 07/04/19 [Rx] Ipratropium-Albuterol Nebulize [Duoneb 0.5 mg-3 mg/3 ml Soln] 3 ml INHALATION QID #120 ampul.neb 07/04/19 [Rx] Theophylline 24 Hour [Marvin-24] 200 mg PO HS #30 cap.er.24h 07/04/19 [Rx] Verapamil HCl [Verapamil ER] 120 mg PO DAILY #30 tablet.er 07/04/19 [Rx] guaiFENesin [Mucinex] 1,200 mg PO Q12HR #60 tablet.er 07/04/19 [Rx] predniSONE 10 mg PO DAILY #30 tab 07/04/19 [Rx] Follow up Appointment(s)/Referral(s): administrative office specialistdr [Other] - 1 Week [facility], [NON-STAFF] - As Needed Randal Smith DO [Primary Care Provider] - 07/10/19 9:15 am Patient Instructions/Handouts: COPD (Chronic Obstructive Pulmonary Disease) (DC) Activity/Diet/Wound Care/Special Instructions: dc if ok with dr myles
== END 2019-07-05 13:44 | disposition home health service (06) | DRG 190 ==
LOC: EC 20:55 → 3NMEDONC 22:54 → 2SICU 06-22 16:08 → 4SSUR 06-26 18:23
PROVIDERS: ADMIT Hospitalist; ATTEND Hospitalist
DX: J44.1 Chronic obstructive pulmonary disease with (acute) exacerbation (principal); E43 Unspecified severe protein-calorie malnutrition; G93.41 Metabolic encephalopathy; J96.21 Acute and chronic respiratory failure with hypoxia; J96.22 Acute and chronic respiratory failure with hypercapnia; Z68.1 Body mass index [BMI] 19.9 or less, adult; E87.4 Mixed disorder of acid-base balance; J98.11 Atelectasis; D64.9 Anemia, unspecified; F17.200 Nicotine dependence, unspecified, uncomplicated; F41.9 Anxiety disorder, unspecified; J84.10 Pulmonary fibrosis, unspecified; Z79.51 Long term (current) use of inhaled steroids; Z79.899 Other long term (current) drug therapy; Z80.9 Family history of malignant neoplasm, unspecified; Z87.01 Personal history of pneumonia (recurrent); Z99.81 Dependence on supplemental oxygen; Z88.8 Allergy status to other drugs, medicaments and biological substances; R00.0 Tachycardia, unspecified
CPT/HCPCS: 36415; 36600; 70450; 71045; 71046; 80048; 80053; 82805; 83735; 83880; 84132; 84484; 85025; 85610; 85730; 87070; 87205; 93005; 94640; 94644; 94660; 94667; 94760; 96361; 96365; 96366; 96375; 96376; 99285

== ENCOUNTER 2021-05-10 18:06 | Inpatient (IN) | payer MEDICARE, OTHER ==
[2021-05-10] MEDS ORDERED: ALBUTEROL NEBULIZED 2.5 MG/3 ML INHALATION STA (18:11)
[2021-05-10] MEDS ORDERED: IPRATROPIUM 0.5 MG/2.5 ML NEBU INHALATION STA (18:11)
[2021-05-10] MEDS ORDERED: MAGNESIUM SULFATE-D5W PMX 1 GM in DEXTROSE/WATER 1 100ML.BAG IVPB STA (18:11)
[2021-05-10] MEDS ORDERED: methylPREDNISolone SOD SUCCI 125 MG/2 ML VIAL IV STA (18:11)
[2021-05-10 18:33] LABS: Basophils # (A) 0.1 k/uL (0-0.2); Basophils % (A) 0 %; Eosinophils % (A) 0 %; HCT 41.7 % (34.0-46.0); HGB 14.2 gm/dL (11.4-16.0); Lymphocytes # (A) 0.9 k/uL (1.0-4.8); Lymphocytes % (A) 7 %; MCH 30.4 pg (25.0-35.0); MCHC 33.9 g/dL (31.0-37.0); MCV 89.7 fL (80.0-100.0); Monocytes # (A) 0.7 k/uL (0-1.0); Monocytes % (A) 5 %; Neutrophils # (A) 11.7 k/uL (1.3-7.7); Neutrophils % (A) 86 %; Platelet Count 415 k/uL (150-450); RBC 4.65 m/uL (3.80-5.40); RDW 12.3 % (11.5-15.5); WBC 13.6 k/uL (3.8-10.6)
[2021-05-10 18:41] LABS: INR 1.2 (<1.2); Partial Thromboplastin Time 25.7 sec (22.0-30.0); Prothrombin Time 12.4 sec (9.0-12.0)
[2021-05-10 18:43] LABS: ALT 27 U/L (4-34); AST 48 U/L (14-36); African American GFR (CKD) >90 (>60 ml/min/1.73 sqM); Albumin 3.7 g/dL (3.5-5.0); Alkaline Phosphatase 103 U/L (38-126); Blood Urea Nitrogen 5 mg/dL (7-17); Calcium 8.5 mg/dL (8.4-10.2); Carbon Dioxide 32 mmol/L (22-30); Glucose 175 mg/dL (74-99); Magnesium 1.5 mg/dL (1.6-2.3); Non-African American GFR(CKD) >90 (>60 ml/min/1.73 sqM); Potassium 3.4 mmol/L (3.5-5.1); Total Protein 6.5 g/dL (6.3-8.2)
[2021-05-10 18:50] LABS: Anion Gap 9 mmol/L; Chloride 73 mmol/L (98-107); Sodium 114 mmol/L (137-145)
[2021-05-10] MEDS ORDERED: SODIUM CHLORIDE 0.9% 1,000 ML IV STA (19:11)
--- NOTE | 2021-05-10 19:38 | XR ---
EXAMINATION TYPE: XR chest 1V portable DATE OF EXAM: 05/10/2021 COMPARISON: 06/26/2019 HISTORY: Cough TECHNIQUE: Single view FINDINGS: Heart size is normal. There is some patchy airspace infiltrate right lower lobe. There is n o heart failure. There is coarsening of interstitial markings. IMPRESSION: There is some right lower lobe pneumonia which is new compared to old exam. No heart fail ure. There is probably COPD and pulmonary fibrosis.
[2021-05-10] MEDS ORDERED: NALOXONE 0.4 MG/ML 1 ML VIAL IV PRN (19:41)
--- NOTE | 2021-05-10 19:41 | ED ---
SOB HPI - General Chief Complaint: Shortness of Breath Stated Complaint: DIMITRY Time Seen by Provider: 05/10/21 18:09 Source: patient, EMS Mode of arrival: EMS Limitations: no limitations - History of Present Illness Initial Comments: Patient presents with shortness of breath. Nothing makes her symptoms better or worse. She has taken medication at home with no improvement. She is unaware of sick contacts. She hasn't traveled anywhere. She denies palpitations. She has no swelling in her arms or legs. She has no nausea or vomiting. She has no fer st pain or pressure or tightness. She has no fevers or chills. - Related Data Home Medications Medication Instructions Recorded Confirmed Montelukast [Singulair] 10 mg PO HS 02/09/14 05/10/21 methocarbamoL [Robaxin] 500 mg PO TID PRN 02/09/14 05/10/21 Ascorbic Acid [Vitamin C] 500 mg PO DAILY 05/12/19 05/10/21 Budesonide/Formoterol Fumarate 2 puff INHALATION RT-BID 05/12/19 05/10/21 [Symbicort 160-4.5 Mcg Inhaler] Cholecalciferol [Vitamin D3 (25 1,000 unit PO DAILY 05/12/19 05/10/21 Mcg = 1000 Iu)] Tolterodine Tartrate [Detrol LA] 4 mg PO HS 05/12/19 05/10/21 Calcium Carbonate [Calcium] 600 mg PO DAILY 06/20/19 05/10/21 Albuterol Nebulized [Ventolin 2.5 mg INHALATION RT-Q6H PRN 05/10/21 05/10/21 Nebulized] Aspirin [Children's Aspirin] 81 mg PO DAILY 05/10/21 05/10/21 Fluticasone Nasal [place] [Flonase 2 spray EA NOSTRIL DAILY 05/10/21 05/10/21 Nasal [place]] Ipratropium [place] [Atrovent Hfa] 2 puff INHALATION RT-Q6H 05/10/21 05/10/21 Ipratropium Nebulized [Atrovent 0.5 mg INHALATION RT-Q6H PRN 05/10/21 05/10/21 Nebulized 0.2 MG/ML] Previous Rx's Medication Instructions Recorded guaiFENesin [Mucinex] 1,200 mg PO Q12HR #60 tablet.er 12/20/19 Allergies Allergy/AdvReac Type Severity Reaction Status Date / Time umeclidinium AdvReac Dyspnea Verified 05/10/21 19:20 [From Incruse Ellipta] Review of Systems ROS Statement: Those systems with pertinent positive or pertinent negative responses have been documented in the HPI. ROS Other: All systems not noted in ROS Statement are negative. Past Medical History Past Medical History: Asthma, Blood Disorder, COPD, Pneumonia Additional Past Medical History / Comment(s): heart arrythmia, hx anemia, USES O2/2L NC AT HS History of Any Multi-Drug Resistant Organisms: None Reported Past Surgical History: Orthopedic Surgery Additional Past Surgical History / Comment(s): Thumb surgery, sx on cervix, colonoscopy, bilat cataracts removed Past Anesthesia/Blood Transfusion Reactions: No Reported Reaction Past Psychological History: No Psychological Hx Reported Smoking Status: Former smoker Past Alcohol Use History: None Reported Past Drug Use History: None Reported - Past Family History Father Family Medical History: Cancer General Exam Limitations: no limitations General appearance: alert, in no apparent distress Head exam: Present: atraumatic, normocephalic, normal inspection Eye exam: Present: normal appearance, PERRL, EOMI. Absent: scleral icterus, conjunctival injection, periorbital swelling ENT exam: Present: normal exam, mucous membranes moist Neck exam: Present: normal inspection. Absent: tenderness, meningismus, lymphadenopathy Respiratory exam: Present: respiratory distress, wheezes. Absent: rales, rhonchi, stridor Cardiovascular Exam: Present: regular rate, normal rhythm, normal heart sounds. Absent: systolic murmur, diastolic murmur, rubs, gallop, clicks GI/Abdominal exam: Present: soft, normal bowel sounds. Absent: distended, tenderness, guarding, rebound, rigid Extremities exam: Present: normal inspection, full ROM, normal capillary refill. Absent: tenderness, pedal edema, joint swelling, calf tenderness Back exam: Present: normal inspection Neurological exam: Present: alert, oriented X3, CN II-XII intact Psychiatric exam: Present: normal affect, normal mood Skin exam: Present: warm, dry, intact, normal color. Absent: rash Course Vital Signs 05/10/21 05/10/21 05/10/21 18:10 18:48 19:12 Temperature 97.6 F Pulse Rate 125 H 120 H 141 H Respiratory 20 Rate Blood Pressure 163/90 O2 Sat by Pulse 96 Oximetry Medical Decision Making - Medical Decision Making Patient presents with severe respiratory distress. She is laced on BiPAP. She has a low sodium. I consult to nephrology. I consult at pulmonology. Patient will be admitted to the hospital. - Lab Data Result diagrams: 05/10/21 18:21 05/10/21 18:21 Lab Results 05/10/21 05/10/21 05/10/21 Range/Units 18:21 18:21 18:21 WBC 13.6 H (3.8-10.6) k/uL RBC 4.65 (3.80-5.40) m/uL Hgb 14.2 (11.4-16.0) gm/dL Hct 41.7 (34.0-46.0) % MCV 89.7 (80.0-100.0) fL MCH 30.4 (25.0-35.0) pg MCHC 33.9 (31.0-37.0) g/dL RDW 12.3 (11.5-15.5) % Plt Count 415 (150-450) k/uL MPV 7.0 Neutrophils % 86 % Lymphocytes % 7 % Monocytes % 5 % Eosinophils % 0 % Basophils % 0 % Neutrophils # 11.7 H (1.3-7.7) k/uL Lymphocytes # 0.9 L (1.0-4.8) k/uL Monocytes # 0.7 (0-1.0) k/uL Eosinophils # 0.0 (0-0.7) k/uL Basophils # 0.1 (0-0.2) k/uL PT 12.4 H (9.0-12.0) sec INR 1.2 H (<1.2) APTT 25.7 (22.0-30.0) sec Sodium 114 L* (137-145) mmol/L Potassium 3.4 L (3.5-5.1) mmol/L Chloride 73 L* (98-107) mmol/L Carbon Dioxide 32 H (22-30) mmol/L Anion Gap 9 mmol/L BUN 5 L (7-17) mg/dL Creatinine 0.23 L (0.52-1.04) mg/dL Est GFR (CKD-EPI)AfAm >90 (>60 ml/min/1.73 sqM) Est GFR (CKD-EPI)NonAf >90 (>60 ml/min/1.73 sqM) Glucose 175 H (74-99) mg/dL Plasma Lactic Acid Philip (0.7-2.0) mmol/L Calcium 8.5 (8.4-10.2) mg/dL Magnesium 1.5 L (1.6-2.3) mg/dL Total Bilirubin 1.0 (0.2-1.3) mg/dL AST 48 H (14-36) U/L ALT 27 (4-34) U/L Alkaline Phosphatase 103 (38-126) U/L Troponin I (0.000-0.034) ng/mL NT-Pro-B Natriuret Pep pg/mL Total Protein 6.5 (6.3-8.2) g/dL Albumin 3.7 (3.5-5.0) g/dL 05/10/21 05/10/21 05/10/21 Range/Units 18:21 18:21 18:21 WBC (3.8-10.6) k/uL RBC (3.80-5.40) m/uL Hgb (11.4-16.0) gm/dL Hct (34.0-46.0) % MCV (80.0-100.0) fL MCH (25.0-35.0) pg MCHC (31.0-37.0) g/dL RDW (11.5-15.5) % Plt Count (150-450) k/uL MPV Neutrophils % % Lymphocytes % % Monocytes % % Eosinophils % % Basophils % % Neutrophils # (1.3-7.7) k/uL Lymphocytes # (1.0-4.8) k/uL Monocytes # (0-1.0) k/uL Eosinophils # (0-0.7) k/uL Basophils # (0-0.2) k/uL PT (9.0-12.0) sec INR (<1.2) APTT (22.0-30.0) sec Sodium (137-145) mmol/L Potassium (3.5-5.1) mmol/L Chloride (98-107) mmol/L Carbon Dioxide (22-30) mmol/L Anion Gap mmol/L BUN (7-17) mg/dL Creatinine (0.52-1.04) mg/dL Est GFR (CKD-EPI)AfAm (>60 ml/min/1.73 sqM) Est GFR (CKD-EPI)NonAf (>60 ml/min/1.73 sqM) Glucose (74-99) mg/dL Plasma Lactic Acid Philip 1.5 (0.7-2.0) mmol/L Calcium (8.4-10.2) mg/dL Magnesium (1.6-2.3) mg/dL Total Bilirubin (0.2-1.3) mg/dL AST (14-36) U/L ALT (4-34) U/L Alkaline Phosphatase (38-126) U/L Troponin I <0.012 (0.000-0.034) ng/mL NT-Pro-B Natriuret Pep 609 pg/mL Total Protein (6.3-8.2) g/dL Albumin (3.5-5.0) g/dL 05/10/21 19:40 Twelve-lead EKG shows ventricular 119 bpm, normal IN interval and QRS complexes, no ST elevation or depression, interpreted by me as sinus tachycardia. Disposition Clinical Impression: COPD (chronic obstructive pulmonary disease), Hyponatremia Disposition: ADMITTED IP TO THIS HOSP Condition: Serious Referrals: Randal Smith DO [Primary Care Provider] - 1-2 days
[2021-05-10] MEDS ORDERED: methocarbamoL 500 MG TAB PO PRN (19:46)
[2021-05-10] MEDS ORDERED: IPRATROPIUM-ALBUTEROL 3 ML NEB INHALATION PRN (19:46)
[2021-05-10] MEDS ORDERED: IPRATROPIUM 0.5 MG/2.5 ML NEBU INHALATION PRN (19:46)
[2021-05-10] MEDS ORDERED: IPRATROPIUM 0.5 MG/2.5 ML NEBU INHALATION SCH (20:30)
[2021-05-10] MEDS: SODIUM CHLORIDE 0.9% 1,000 ML IV SCH (20:59)
[2021-05-10] MEDS: OXYBUTYNIN 10 MG TAB.ER.24 PO SCH (20:59)
[2021-05-10] MEDS: MONTELUKAST 10 MG TAB PO SCH (20:59)
[2021-05-10 23:16] LABS: Glucose,Whole Blood 313 mg/dL (75-99)
[2021-05-10] MEDS: SYMBICORT 160-4.5 MCG INHALER INHALATION SCH (23:34)
[2021-05-10] MEDS: guaiFENesin 600 MG TABLET.ER PO SCH (23:41)
[2021-05-10] MEDS ORDERED: ALBUTEROL HFA INHALER INHALATION PRN (23:48)
[2021-05-10] MEDS ORDERED: Potassium Replacement Protocol 1 EACH MISC MISCELLANE PRN (23:48)
[2021-05-11 00:06] LABS: ABG Base Excess 1.1 mmol/L; ABG HCO3 31 mmol/L (21-25); ABG PH 7.22 (7.35-7.45); ABG PO2 80 mmHg (83-108); Allen Test Performed? Yes
[2021-05-11 00:13] LABS: ABG PCO2 78 mmHg (35-45)
[2021-05-11] MEDS ORDERED: ALPRAZolam 0.25 MG TAB PO PRN (00:30)
[2021-05-11] MEDS: POTASSIUM CHLORIDE ER 20 MEQ TAB.ER PO SCH ×2 (00:30→01:39)
[2021-05-11] MEDS ORDERED: LORazepam 2 MG/ML INJ IV PRN (04:16)
[2021-05-11 04:52] LABS: Basophils # (A) 0.1 k/uL (0-0.2); Basophils % (A) 0 %; Eosinophils % (A) 0 %; HCT 41.7 % (34.0-46.0); HGB 13.9 gm/dL (11.4-16.0); Lymphocytes # (A) 0.7 k/uL (1.0-4.8); Lymphocytes % (A) 2 %; MCH 30.2 pg (25.0-35.0); MCHC 33.5 g/dL (31.0-37.0); MCV 90.3 fL (80.0-100.0); Mean Platelet Volume 7.8; Monocytes # (A) 1.3 k/uL (0-1.0); Monocytes % (A) 5 %; Neutrophils # (A) 24.6 k/uL (1.3-7.7); Neutrophils % (A) 92 %; Platelet Count 487 k/uL (150-450); RBC 4.62 m/uL (3.80-5.40); WBC 26.8 k/uL (3.8-10.6)
[2021-05-11 05:06] LABS: ALT 28 U/L (4-34); AST 48 U/L (14-36); African American GFR (CKD) >90 (>60 ml/min/1.73 sqM); Albumin 3.5 g/dL (3.5-5.0); Alkaline Phosphatase 98 U/L (38-126); Anion Gap 11 mmol/L; Blood Urea Nitrogen 10 mg/dL (7-17); Calcium 8.3 mg/dL (8.4-10.2); Carbon Dioxide 27 mmol/L (22-30); Chloride 79 mmol/L (98-107); Glucose 216 mg/dL (74-99); Non-African American GFR(CKD) >90 (>60 ml/min/1.73 sqM); Potassium 4.1 mmol/L (3.5-5.1); Total Bilirubin 0.7 mg/dL (0.2-1.3); Total Protein 6.3 g/dL (6.3-8.2)
[2021-05-11 05:13] LABS: Sodium 117 mmol/L (137-145)
[2021-05-11] MEDS ORDERED: propofoL 100 ML IV ONE (05:58)
[2021-05-11] MEDS ORDERED: SODIUM CHLORIDE 0.9% 1,000 ML IV ONE (06:41)
--- NOTE | 2021-05-11 06:48 | XR ---
EXAMINATION TYPE: XR chest 1V portable DATE OF EXAM: 05/11/2021 COMPARISON: Today HISTORY: Check PEG tube placement TECHNIQUE: Single view FINDINGS: There is some mild infiltrate and atelectasis right lower lobe. Left lung is fairly clear. There is nasogastric tube in the distal stomach. The endotracheal tube is 2.4 cm from the alonso. The re is no heart failure. Heart size is normal. IMPRESSION: There is some infiltrate and atelectasis right lower lobe slightly worse than exam one ho ur ago.
[2021-05-11] MEDS: NOREPINEPHRINE 4 MG in SODIUM CHLORIDE 0.9% 250 ML IV SCH (06:58)
[2021-05-11 07:26] LABS: ABG Base Excess -0.6 mmol/L; ABG HCO3 23 mmol/L (21-25); ABG Oxygen Saturation 99.9 % (94-97); ABG PCO2 37 mmHg (35-45); ABG PH 7.41 (7.35-7.45); ABG PO2 367 mmHg (83-108); Allen Test Performed? Yes
[2021-05-11] MEDS: TIOTROPIUM 2.5 MCG INHALER INHALATION SCH (07:46)
--- NOTE | 2021-05-11 07:48 | XR ---
EXAMINATION TYPE: XR chest 1V portable DATE OF EXAM: 05/11/2021 COMPARISON: 05/10/2021 INDICATION: Increased O2 demand TECHNIQUE: Single frontal view of the chest is obtained. FINDINGS: The heart size is normal. The pulmonary vasculature is normal. There is mild diffuse increased lung markings greater in the right lower lobe. Correlate for pneumoni a. Consider atypical pneumonia. IMPRESSION: 1. Developing right lower lobe infiltrate with some diffuse increased lung markings the remaining por tions of the lung varma. Correlate for atypical pneumonia
[2021-05-11] MEDS ORDERED: FLUTICASONE 50MCG/SPRAY NASAL 16GM EA NOSTRIL SCH (09:00)
[2021-05-11] MEDS: ASPIRIN 81 MG PO SCH (09:14)
[2021-05-11] MEDS: SYMBICORT 160-4.5 MCG INHALER INHALATION SCH ×2 (10:13→20:52)
[2021-05-11] MEDS ORDERED: MAGNESIUM SULFATE-D5W PMX 1 GM in DEXTROSE/WATER 1 100ML.BAG IVPB ONE (10:44)
--- NOTE | 2021-05-11 10:51 | P.HPIM ---
History of Present Illness Patient 66-year-old female came with sharp shortness of breath and patient is presently intubated patient was a shortly intubated because of severe acute hypoxemia and hypercapnia. Patient does have history of her advanced COPD, for paige smoker uses 3 L of oxygen at home. Patient is presently on systemic steroids. Patient is also found to have severe hyponatremia with the serum sodium as low as 114 patient is only getting 50 mL of IV normal saline as her sodium went up to 119 because of the bolus of IV fluids and patient is also hypotensive on levo fed, tachycardic. Patient the chest x-ray which was concerning for right lower lobe infiltrate but mostly consistent with atypical pneumonia and patient was found to have Covid 19 pneumonia. Patient is presently intubated sedated patient is on assist control ventilation with set up respiratory of around 18 because of hypercapnia episode of 40% PEEP of 5 REVIEW OF SYSTEMS: Unable to obtain due to her clinical condition PHYSICAL EXAMINATION: GENERAL: Patient is intubated sedated HEENT: Pupils are round and equally reacting to light. EOMI. No scleral icterus. No conjunctival pallor. Normocephalic, atraumatic. No pharyngeal erythema. No thyromegaly. CARDIOVASCULAR: S1 and S2 present. No murmurs, rubs, or gallops. PULMONARY: Expiratory wheezing and some rhonchi ABDOMEN: Soft, nontender, nondistended, normoactive bowel sounds. No palpable organomegaly. MUSCULOSKELETAL: No joint swelling or deformity. EXTREMITIES: No cyanosis, clubbing, or pedal edema. NEUROLOGICAL: Patient is sedated SKIN: No rashes. Assessment and plan -Acute on chronic hypoxic and hypercapnic respiratory failure secondary to Covid 19 pneumonia and COPD exacerbation respectively patient admitted to support systemic steroids inhalational treatments. -Severe hyponatremia is hypovolemic hyponatremia patient is only and 50 mL of IV fluids because of concerns of rapid correction of sodium. -Hypotension and shock most probably hypovolemia although septic shock cannot be ruled out sepsis can be secondary to Covid 19 or seconded actual pneumonia considering that she has mildly consolidated infiltrate in the right lower lung varma. Patient is presently on Rocephin. Patient is presently on norepinephrine which is being tapered -Hematuria: Patient will be monitored and patient was only taking aspirin which is being held. D-dimer is within normal limits possibility of DIC is low -Chronic hypoxic and hypercapnic respiratory failure secondary to COPD -Heimlich maneuver ischemia which will be replaced -Tachycardia secondary to severe sepsis improving at this time -Multiple acid-base abnormalities including respiratory acidosis, compensated metabolic alkalosis and possible metabolic acidosis DVT prophylaxis: No pharmacologic DVT prophylaxis at this time secondary to he maturia Past Medical History Past Medical History: Asthma, Blood Disorder, COPD, Pneumonia Additional Past Medical History / Comment(s): heart arrythmia, hx anemia, USES O2/2L NC AT HS History of Any Multi-Drug Resistant Organisms: None Reported Past Surgical History: Orthopedic Surgery Additional Past Surgical History / Comment(s): Thumb surgery, sx on cervix, colonoscopy, bilat cataracts removed Past Anesthesia/Blood Transfusion Reactions: No Reported Reaction Past Psychological History: No Psychological Hx Reported Smoking Status: Former smoker Past Alcohol Use History: None Reported Additional Past Alcohol Use History / Comment(s): quit smoking 05/2018 Past Drug Use History: None Reported - Past Family History Father Family Medical History: Cancer Medications and Allergies Home Medications Medication Instructions Recorded Confirmed Type Montelukast [Singulair] 10 mg PO HS 02/09/14 05/10/21 History methocarbamoL [Robaxin] 500 mg PO TID PRN 02/09/14 05/10/21 History Ascorbic Acid [Vitamin C] 500 mg PO DAILY 05/12/19 05/10/21 History Budesonide/Formoterol Fumarate 2 puff INHALATION RT-BID 05/12/19 05/10/21 History [Symbicort 160-4.5 Mcg Inhaler] Cholecalciferol [Vitamin D3 (25 1,000 unit PO DAILY 05/12/19 05/10/21 History Mcg = 1000 Iu)] Tolterodine Tartrate [Detrol LA] 4 mg PO HS 05/12/19 05/10/21 History Calcium Carbonate [Calcium] 600 mg PO DAILY 06/20/19 05/10/21 History guaiFENesin [Mucinex] 1,200 mg PO Q12HR #60 tablet.er 07/04/19 05/10/21 Rx Albuterol Nebulized [Ventolin 2.5 mg INHALATION RT-Q6H PRN 05/10/21 05/10/21 History Nebulized] Aspirin [Children's Aspirin] 81 mg PO DAILY 05/10/21 05/10/21 History Fluticasone Nasal [place] [Flonase 2 spray EA NOSTRIL DAILY 05/10/21 05/10/21 History Nasal [place]] Ipratropium [place] [Atrovent Hfa] 2 puff INHALATION RT-Q6H 05/10/21 05/10/21 History Ipratropium Nebulized [Atrovent 0.5 mg INHALATION RT-Q6H PRN 05/10/21 05/10/21 History Nebulized 0.2 MG/ML] Allergies Allergy/AdvReac Type Severity Reaction Status Date / Time umeclidinium AdvReac Dyspnea Verified 05/10/21 19:20 [From [facility]] Physical Exam Vitals: Vital Signs Temp Pulse Resp BP BP Pulse Ox 05/11/21 07:00 93 20 77/59 91 L 05/11/21 06:00 138 H 33 H 91/65 90 L 05/11/21 05:00 122 H 53 H 130/99 91 L 05/11/21 04:00 97.5 F L 140 H 35 H 123/89 88 L 05/11/21 03:00 130 H 34 H 124/88 94 L 05/11/21 02:00 131 H 25 H 112/80 94 L 05/11/21 01:00 133 H 24 112/80 89 L 05/11/21 00:15 89 L 05/11/21 00:13 140 H 91 L 05/11/21 00:00 96.0 F L 142 H 34 H 119/93 90 L 05/10/21 22:21 137 H 20 122/84 91 L 05/10/21 21:02 96.0 F L 119/93 91 L 05/10/21 21:00 137 H 22 128/77 91 L 05/10/21 19:12 141 H 05/10/21 19:00 22 05/10/21 18:48 120 H 05/10/21 18:10 97.6 F 125 H 20 163/90 96 Intake and Output 05/10/21 05/11/21 05/11/21 22:59 06:59 14:59 Intake Total 1370 60.072 Balance 1370 60.072 Intake: IV 1350 50 Sodium Chloride 0.9% 1, 350 50 000 ml @ 50 mls/hr IV . Q20H [facility] Rx#:[id number] Sodium Chloride 0.9% 1, 1000 000 ml @ 999 mls/hr IV . Q1H1M ONE Rx#:[id number] Intake, IV Titration 10.072 Amount propofoL 1,000 mg In 10.072 Empty Bag 1 bag @ Titrate IV .Q0M [facility] Rx#: [id number] Oral 20 Other: Voiding Method External Catheter # Voids 200 0 Weight 56.9 kg 56.9 kg 56.9 kg ABP, PAP, CO, CI - Last 8 Hours Arterial Blood Pressure 92/56 Results CBC & Chem 7: 05/11/21 04:25 05/11/21 07:36 Labs: Abnormal Lab Results - Last 24 Hours (Table) 05/10/21 05/10/21 05/10/21 Range/Units 18:21 18:21 18:21 WBC 13.6 H (3.8-10.6) k/uL Plt Count (150-450) k/uL Neutrophils # 11.7 H (1.3-7.7) k/uL Lymphocytes # 0.9 L (1.0-4.8) k/uL Monocytes # (0-1.0) k/uL PT 12.4 H (9.0-12.0) sec INR 1.2 H (<1.2) ABG pH (7.35-7.45) ABG pCO2 (35-45) mmHg ABG pO2 (83-108) mmHg ABG HCO3 (21-25) mmol/L ABG O2 Saturation (94-97) % Sodium 114 L* (137-145) mmol/L Potassium 3.4 L (3.5-5.1) mmol/L Chloride 73 L* (98-107) mmol/L Carbon Dioxide 32 H (22-30) mmol/L BUN 5 L (7-17) mg/dL Creatinine 0.23 L (0.52-1.04) mg/dL Glucose 175 H (74-99) mg/dL POC Glucose (mg/dL) (75-99) mg/dL Osmolality (280-301) mosm/kg Calcium (8.4-10.2) mg/dL Magnesium 1.5 L (1.6-2.3) mg/dL AST 48 H (14-36) U/L Coronavirus (PCR) (Not Detectd) 05/10/21 05/10/21 05/10/21 Range/Units 20:51 22:00 23:11 WBC (3.8-10.6) k/uL Plt Count (150-450) k/uL Neutrophils # (1.3-7.7) k/uL Lymphocytes # (1.0-4.8) k/uL Monocytes # (0-1.0) k/uL PT (9.0-12.0) sec INR (<1.2) ABG pH (7.35-7.45) ABG pCO2 (35-45) mmHg ABG pO2 (83-108) mmHg ABG HCO3 (21-25) mmol/L ABG O2 Saturation (94-97) % Sodium 114 L* (137-145) mmol/L Potassium (3.5-5.1) mmol/L Chloride (98-107) mmol/L Carbon Dioxide (22-30) mmol/L BUN (7-17) mg/dL Creatinine (0.52-1.04) mg/dL Glucose (74-99) mg/dL POC Glucose (mg/dL) 313 H (75-99) mg/dL Osmolality (280-301) mosm/kg Calcium (8.4-10.2) mg/dL Magnesium (1.6-2.3) mg/dL AST (14-36) U/L Coronavirus (PCR) Detected A (Not Detectd) 05/10/21 05/11/21 05/11/21 Range/Units 23:55 01:09 04:25 WBC (3.8-10.6) k/uL Plt Count (150-450) k/uL Neutrophils # (1.3-7.7) k/uL Lymphocytes # (1.0-4.8) k/uL Monocytes # (0-1.0) k/uL PT (9.0-12.0) sec INR (<1.2) ABG pH 7.22 L (7.35-7.45) ABG pCO2 78 H* (35-45) mmHg ABG pO2 80 L (83-108) mmHg ABG HCO3 31 H (21-25) mmol/L ABG O2 Saturation 93.0 L (94-97) % Sodium 115 L* 117 L* (137-145) mmol/L Potassium (3.5-5.1) mmol/L Chloride 79 L (98-107) mmol/L Carbon Dioxide (22-30) mmol/L BUN (7-17) mg/dL Creatinine 0.39 L (0.52-1.04) mg/dL Glucose 216 H (74-99) mg/dL POC Glucose (mg/dL) (75-99) mg/dL Osmolality (280-301) mosm/kg Calcium 8.3 L (8.4-10.2) mg/dL Magnesium (1.6-2.3) mg/dL AST 48 H (14-36) U/L Coronavirus (PCR) (Not Detectd) 05/11/21 05/11/21 05/11/21 Range/Units 04:25 07:16 07:36 WBC 26.8 H (3.8-10.6) k/uL Plt Count 487 H (150-450) k/uL Neutrophils # 24.6 H (1.3-7.7) k/uL Lymphocytes # 0.7 L (1.0-4.8) k/uL Monocytes # 1.3 H (0-1.0) k/uL PT (9.0-12.0) sec INR (<1.2) ABG pH (7.35-7.45) ABG pCO2 (35-45) mmHg ABG pO2 367 H (83-108) mmHg ABG HCO3 (21-25) mmol/L ABG O2 Saturation 99.9 H (94-97) % Sodium 119 L* (137-145) mmol/L Potassium (3.5-5.1) mmol/L Chloride (98-107) mmol/L Carbon Dioxide (22-30) mmol/L BUN (7-17) mg/dL Creatinine (0.52-1.04) mg/dL Glucose (74-99) mg/dL POC Glucose (mg/dL) (75-99) mg/dL Osmolality 259 L (280-301) mosm/kg Calcium (8.4-10.2) mg/dL Magnesium (1.6-2.3) mg/dL AST (14-36) U/L Coronavirus (PCR) (Not Detectd) Thrombosis Risk Factor Assmnt - Choose All That Apply Any of the Below Risk Factors Present?: Yes Each Factor Represents 1 point: Abnormal pulmonary function (COPD), Serious lung disease incl. pneumonia (< 1month) Other Risk Factors: Yes Each Risk Factor Represents 2 Points: Age 61-74 years Other congenital or acquired thrombophilia - If yes, enter type in comment: No Thrombosis Risk Factor Assessment Total Risk Factor Score: 4 Thrombosis Risk Factor Assessment Level: Moderate Risk
--- NOTE | 2021-05-11 11:13 | P.NPCON ---
History of Present Illness - Reason for Consult hyponatremia - History of Present Illness Reason for consultation: Hyponatremia History of present illness: Patient is a 65-year-old female seen in renal consultation for hyponatremia. Patient's sodium level at 6:21 PM yesterday evening was 114. Patient has received 2 L of normal saline bolus and is currently maintained on normal saline at 50 mL an hour. Sodium level as of 7:30 AM this morning was 119. No history of kidney disease. GFR at baseline. Nonoliguric. Patient was short of breath and agitated last night and was subsequently intubated. Blood pressures have been low and she is now on Levophed. She is on 40% FiO2. I don't see any thi azide diuretics and her home medication list. She does have history of COPD. Patient did test positive for coronavirus. Vital signs are stable. On Levophed. General: The patient appeared well nourished and normally developed. HEENT: Intubated. LUNGS: Breath sounds decreased. HEART: Tachycardic. ABDOMEN: Soft, no distention. EXTREMITITES: No edema. Past Medical History Past Medical History: Asthma, Blood Disorder, COPD, Pneumonia Additional Past Medical History / Comment(s): heart arrythmia, hx anemia, USES O2/2L NC AT HS History of Any Multi-Drug Resistant Organisms: None Reported Past Surgical History: Orthopedic Surgery Additional Past Surgical History / Comment(s): Thumb surgery, sx on cervix, colonoscopy, bilat cataracts removed Past Anesthesia/Blood Transfusion Reactions: No Reported Reaction Past Psychological History: No Psychological Hx Reported Smoking Status: Former smoker Past Alcohol Use History: None Reported Additional Past Alcohol Use History / Comment(s): quit smoking 05/2018 Past Drug Use History: None Reported - Past Family History Father Family Medical History: Cancer Medications and Allergies Home Medications Medication Instructions Recorded Confirmed Type Montelukast [Singulair] 10 mg PO HS 02/09/14 05/10/21 History methocarbamoL [Robaxin] 500 mg PO TID PRN 02/09/14 05/10/21 History Ascorbic Acid [Vitamin C] 500 mg PO DAILY 05/12/19 05/10/21 History Budesonide/Formoterol Fumarate 2 puff INHALATION RT-BID 05/12/19 05/10/21 History [Symbicort 160-4.5 Mcg Inhaler] Cholecalciferol [Vitamin D3 (25 1,000 unit PO DAILY 05/12/19 05/10/21 History Mcg = 1000 Iu)] Tolterodine Tartrate [Detrol LA] 4 mg PO HS 05/12/19 05/10/21 History Calcium Carbonate [Calcium] 600 mg PO DAILY 06/20/19 05/10/21 History guaiFENesin [Mucinex] 1,200 mg PO Q12HR #60 tablet.er 07/04/19 05/10/21 Rx Albuterol Nebulized [Ventolin 2.5 mg INHALATION RT-Q6H PRN 05/10/21 05/10/21 History Nebulized] Aspirin [Children's Aspirin] 81 mg PO DAILY 05/10/21 05/10/21 History Fluticasone Nasal [place] [Flonase 2 spray EA NOSTRIL DAILY 05/10/21 05/10/21 History Nasal [place]] Ipratropium [place] [Atrovent Hfa] 2 puff INHALATION RT-Q6H 05/10/21 05/10/21 History Ipratropium Nebulized [Atrovent 0.5 mg INHALATION RT-Q6H PRN 05/10/21 05/10/21 History Nebulized 0.2 MG/ML] Allergies Allergy/AdvReac Type Severity Reaction Status Date / Time umeclidinium AdvReac Dyspnea Verified 05/10/21 19:20 [[address] [facility] [place]] Physical Exam Vitals: Vital Signs Temp Pulse Resp BP BP Pulse Ox 05/11/21 07:00 93 20 77/59 91 L 05/11/21 06:00 138 H 33 H 91/65 90 L 05/11/21 05:00 122 H 53 H 130/99 91 L 05/11/21 04:00 97.5 F L 140 H 35 H 123/89 88 L 05/11/21 03:00 130 H 34 H 124/88 94 L 05/11/21 02:00 131 H 25 H 112/80 94 L 05/11/21 01:00 133 H 24 112/80 89 L 05/11/21 00:15 89 L 05/11/21 00:13 140 H 91 L 05/11/21 00:00 96.0 F L 142 H 34 H 119/93 90 L 05/10/21 22:21 137 H 20 122/84 91 L 05/10/21 21:02 96.0 F L 119/93 91 L 05/10/21 21:00 137 H 22 128/77 91 L 05/10/21 19:12 141 H 05/10/21 19:00 22 05/10/21 18:48 120 H 05/10/21 18:10 97.6 F 125 H 20 163/90 96 Intake and Output 05/10/21 05/11/21 05/11/21 22:59 06:59 14:59 Intake Total 1370 60.072 Balance 1370 60.072 Intake: IV 1350 50 Sodium Chloride 0.9% 1, 350 50 000 ml @ 50 mls/hr IV . Q20H [facility] Rx#:[id number] Sodium Chloride 0.9% 1, 1000 000 ml @ 999 mls/hr IV . Q1H1M ONE Rx#:[id number] Intake, IV Titration 10.072 Amount propofoL 1,000 mg In 10.072 Empty Bag 1 bag @ Titrate IV .Q0M [facility] Rx#: [id number] Oral 20 Other: Voiding Method External Catheter # Voids 200 0 Weight 56.9 kg 56.9 kg 56.9 kg ABP, PAP, CO, CI - Last 8 Hours Arterial Blood Pressure 92/56 Results - Lab Results Most recent lab results ABG pH 7.41 (7.35-7.45) 05/11/21 07:16 ABG pCO2 37 mmHg (35-45) 05/11/21 07:16 ABG pO2 367 mmHg (83-108) H 05/11/21 07:16 ABG HCO3 23 mmol/L (21-25) 05/11/21 07:16 ABG O2 Saturation 99.9 % (94-97) H 05/11/21 07:16 Calcium 8.3 mg/dL (8.4-10.2) L 05/11/21 04:25 Magnesium 1.5 mg/dL (1.6-2.3) L 05/10/21 18:21 05/11/21 04:25 05/11/21 07:36 Assessment and Plan Plan: Assessment: 1. Hypovolemic hyponatremia improving with IV hydration. Component of poor solute intake. Urine osmolality 146. TSH normal.Sodium level 114 on admission and was 119 this morning. 2. Acute hypoxic respiratory failure secondary to COVID-19 infection and COPD exacerbation. Intubated. 3. Coronavirus infection. 4. Septic shock secondary to coronavirus on Levophed. Plan: Maintain normal saline at 50 mL an hour. Repeat sodium level at noon. Check cortisol level. Follow-up echocardiogram. Continue to monitor renal function and urine output. Thank you for the consultation. I will continue to follow the patient with you during her hospital stay.
[2021-05-11] MEDS: ALBUTEROL HFA INHALER INHALATION SCH ×3 (12:45→20:52)
[2021-05-11] MEDS: guaiFENesin 600 MG TABLET.ER PO SCH ×2 (12:49→20:26)
[2021-05-11] MEDS: CHOLECALCIFEROL 25 MCG (1000 IU) TABLET PO SCH (12:52)
[2021-05-11] MEDS: CHLORHEXIDINE GLUCONATE 15 ML CUP MUCOUS MEM SCH ×2 (12:52→20:26)
[2021-05-11] MEDS ORDERED: HEPARIN SODIUM 1,000 UN/ML (10ML VL) IV ONE (12:52)
[2021-05-11] MEDS: CALCIUM CARBONATE 500 MG CHEWABLE PO SCH (12:52)
[2021-05-11] MEDS: ASCORBIC ACID 500 MG TAB PO SCH (12:52)
[2021-05-11] MEDS ORDERED: HEPARIN SODIUM 1,000 UN/ML (10ML VL) IV PRN (12:52)
[2021-05-11] MEDS: methylPREDNISolone SOD SUCCI 125 MG/2 ML VIAL IV SCH ×2 (12:55→17:31)
[2021-05-11] MEDS ORDERED: HEPARIN SOD,PORK IN 0.45% NACL 25,000 UNIT in 0.45% NACL 1 250ML.BAG IV SCH (13:00)
[2021-05-11 13:22] LABS: Glucose,Whole Blood 156 mg/dL (75-99)
--- NOTE | 2021-05-11 13:50 | P.CNPUL ---
History of Present Illness Consult date: 05/11/21 Requesting physician: Lilli Calabrese Reason for consult: dyspnea, COPD Chief complaint: Shortness of breath History of present illness: This is a 65-year-old female patient who follows with Dr. Smith as her primary care provider. She has a history of COPD with nighttime oxygen at home at 2 L, former smoker, FEV1 value is 0.56 L or 23% of predicted. DLCO 28%. She was last seen in our office in 2019. She's been maintained on Symbicort, Singulair, Atrovent. She presented to the emergency room yesterday with complaints of increasing shortness of breath. She had been compliant with her medications but no improvement. Chest x-ray revealed some right lower lobe pneumonia. No heart failure. Evidence of COPD. Questionable pulmonary fibrosis. She initially required BiPAP support. She was also found to be hyponatremic with a sodium of 114. She was admitted to the intensive care unit. She was found to have hypercapnic respiratory failure. Initial blood gases revealed a pO2 of 80, pCO2 78 and a pH of 7.22 on 44% FiO2. Approximately 6:00 this morning the patient had worsening oxygenation and required intubation and mechanical ventilatory support. She also tested positive for araujo virus. She is seen today in consultation in the intensive care unit. Current vent settings are assist control at a rate of 18, tidal volume 350, FiO2 40% and a PEEP of 5. Follow-up blood gases reveal a P O2 of 367, pCO2 37, pH 7.41. She is sedated on propofol at 40 mcg/kg/m. Requiring norepinephrine at 0.06 mcg/kg/m. She has 0.9 normal saline at 50 MLS per hour. White count 26.8. Hemoglobin 13.9. Platelets 487. Lymphocytes 0.7. D-dimer 0.35. Sodium 121. Potassium 4.1. Chloride 79. Bicarb 27. Anion gap 11. Creatinine 0.39. Glucose 156. Lactic acid 1.5. AST 48. ALT 28. Initial troponin negative. Current troponin 0.306. Review of Systems ROS unobtainable: due to endotracheal tube Past Medical History Past Medical History: Asthma, Blood Disorder, COPD, Pneumonia Additional Past Medical History / Comment(s): heart arrythmia, hx anemia, USES O2/2L NC AT HS History of Any Multi-Drug Resistant Organisms: None Reported Past Surgical History: Orthopedic Surgery Additional Past Surgical History / Comment(s): Thumb surgery, sx on cervix, colonoscopy, bilat cataracts removed Past Anesthesia/Blood Transfusion Reactions: No Reported Reaction Past Psychological History: No Psychological Hx Reported Smoking Status: Former smoker Past Alcohol Use History: None Reported Additional Past Alcohol Use History / Comment(s): quit smoking 05/2018 Past Drug Use History: None Reported - Past Family History Father Family Medical History: Cancer Medications and Allergies Home Medications Medication Instructions Recorded Confirmed Type Montelukast [Singulair] 10 mg PO HS 02/09/14 05/10/21 History methocarbamoL [Robaxin] 500 mg PO TID PRN 02/09/14 05/10/21 History Ascorbic Acid [Vitamin C] 500 mg PO DAILY 05/12/19 05/10/21 History Budesonide/Formoterol Fumarate 2 puff INHALATION RT-BID 05/12/19 05/10/21 History [Symbicort 160-4.5 Mcg Inhaler] Cholecalciferol [Vitamin D3 (25 1,000 unit PO DAILY 05/12/19 05/10/21 History Mcg = 1000 Iu)] Tolterodine Tartrate [Detrol LA] 4 mg PO HS 05/12/19 05/10/21 History Calcium Carbonate [Calcium] 600 mg PO DAILY 06/20/19 05/10/21 History guaiFENesin [Mucinex] 1,200 mg PO Q12HR #60 tablet.er 07/04/19 05/10/21 Rx Albuterol Nebulized [Ventolin 2.5 mg INHALATION RT-Q6H PRN 05/10/21 05/10/21 History Nebulized] Aspirin [Children's Aspirin] 81 mg PO DAILY 05/10/21 05/10/21 History Fluticasone Nasal [place] [Flonase 2 spray EA NOSTRIL DAILY 05/10/21 05/10/21 History Nasal [place]] Ipratropium [place] [Atrovent Hfa] 2 puff INHALATION RT-Q6H 05/10/21 05/10/21 History Ipratropium Nebulized [Atrovent 0.5 mg INHALATION RT-Q6H PRN 05/10/21 05/10/21 History Nebulized 0.2 MG/ML] Allergies Allergy/AdvReac Type Severity Reaction Status Date / Time umeclidinium AdvReac Dyspnea Verified 05/10/21 19:20 [From Incruse Ellipta] Physical Exam Vitals: Vital Signs Temp Pulse Resp BP BP Pulse Ox 05/11/21 13:00 88 18 81/61 91 L 05/11/21 12:00 97.5 F L 92 18 83/53 90 L 05/11/21 11:00 96 24 90/62 92 L 05/11/21 10:00 90 18 121/77 98 05/11/21 09:00 133 H 17 86/63 98 05/11/21 08:00 97.7 F 112 H 20 85/63 99 05/11/21 07:00 93 20 77/59 91 L 05/11/21 06:00 138 H 33 H 91/65 90 L 05/11/21 05:00 122 H 53 H 130/99 91 L 05/11/21 04:00 97.5 F L 140 H 35 H 123/89 88 L 05/11/21 03:00 130 H 34 H 124/88 94 L 05/11/21 02:00 131 H 25 H 112/80 94 L 05/11/21 01:00 133 H 24 112/80 89 L 05/11/21 00:15 89 L 05/11/21 00:13 140 H 91 L 05/11/21 00:00 96.0 F L 142 H 34 H 119/93 90 L 05/10/21 22:21 137 H 20 122/84 91 L 05/10/21 21:02 96.0 F L 119/93 91 L 05/10/21 21:00 137 H 22 128/77 91 L 05/10/21 19:12 141 H 05/10/21 19:00 22 05/10/21 18:48 120 H 05/10/21 18:10 97.6 F 125 H 20 163/90 96 Intake and Output 05/10/21 05/11/21 05/11/21 22:59 06:59 14:59 Intake Total 1370 178.310 Balance 1370 178.310 Intake: IV 1350 50 Sodium Chloride 0.9% 1, 350 50 000 ml @ 50 mls/hr IV . Q20H [facility] Rx#:[id number] Sodium Chloride 0.9% 1, 1000 000 ml @ 999 mls/hr IV . Q1H1M [facility] Rx#:[id number] Intake, IV Titration 128.310 Amount Norepinephrine 4 mg In 66.118 Sodium Chloride 0.9% 250 ml @ 0.05 MCG/KG/MIN 10. 839 mls/hr IV .[id number] [facility] Rx#:[id number] propofoL 1,000 mg In 62.192 Empty Bag 1 bag @ Titrate IV .Q0M [facility] Rx#: [id number] Oral 20 Other: Voiding Method External Catheter # Voids 200 0 Weight 56.9 kg 56.9 kg 56.9 kg ABP, PAP, CO, CI - Last 8 Hours Arterial Blood Pressure 103/59 Arterial Blood Pressure 97/57 Arterial Blood Pressure 112/62 Arterial Blood Pressure 107/63 Arterial Blood Pressure 147/82 Arterial Blood Pressure 135/78 Arterial Blood Pressure 92/56 GENERAL EXAM: Intubated, sedated 65-year-old female patient, on 40% FiO2 via the mechanical ventilator, comfortable in no apparent distress. HEAD: Normocephalic. EYES: Sluggish reaction of pupils, equal size. NOSE: Clear with pink turbinates. THROAT: Oral endotracheal tube and gastric tube secured in place. No erythema or exudates. NECK: No masses, no JVD. CHEST: No chest wall deformity. LUNGS: Equal air entry with crackles in the right lung base CVS: S1 and S2 normal with no audible murmur, regular rhythm. ABDOMEN: No hepatosplenomegaly, normal bowel sounds, no guarding or rigidity. SPINE: No scoliosis or deformity SKIN: No rashes CENTRAL NERVOUS SYSTEM: Sedated, tone is normal in all 4 extremities. EXTREMITIES: There is no peripheral edema. No clubbing, no cyanosis. Peripheral pulses are intact. Results - Laboratory Findings CBC and BMP: 05/11/21 04:25 05/11/21 10:55 ABG ABG pH 7.41 (7.35-7.45) 05/11/21 07:16 ABG pCO2 37 mmHg (35-45) 05/11/21 07:16 ABG pO2 367 mmHg (83-108) H 05/11/21 07:16 ABG O2 Saturation 99.9 % (94-97) H 05/11/21 07:16 PT/INR, D-dimer PT 12.4 sec (9.0-12.0) H 05/10/21 18:21 INR 1.2 (<1.2) H 05/10/21 18:21 D-Dimer 0.35 mg/L FEU (<0.60) 05/11/21 04:30 Abnormal lab findings: Abnormal Labs 05/10/21 05/10/21 05/10/21 18:21 18:21 18:21 WBC 13.6 H Plt Count Neutrophils # 11.7 H Lymphocytes # 0.9 L Monocytes # PT 12.4 H INR 1.2 H ABG pH ABG pCO2 ABG pO2 ABG HCO3 ABG O2 Saturation Sodium 114 L* Potassium 3.4 L Chloride 73 L* Carbon Dioxide 32 H BUN 5 L Creatinine 0.23 L Glucose 175 H POC Glucose (mg/dL) Osmolality Calcium Magnesium 1.5 L AST 48 H Troponin I Coronavirus (PCR) 05/10/21 05/10/21 05/10/21 20:51 22:00 23:11 WBC Plt Count Neutrophils # Lymphocytes # Monocytes # PT INR ABG pH ABG pCO2 ABG pO2 ABG HCO3 ABG O2 Saturation Sodium 114 L* Potassium Chloride Carbon Dioxide BUN Creatinine Glucose POC Glucose (mg/dL) 313 H Osmolality Calcium Magnesium AST Troponin I Coronavirus (PCR) Detected A 05/10/21 05/11/21 05/11/21 23:55 01:09 04:25 WBC Plt Count Neutrophils # Lymphocytes # Monocytes # PT INR ABG pH 7.22 L ABG pCO2 78 H* ABG pO2 80 L ABG HCO3 31 H ABG O2 Saturation 93.0 L Sodium 115 L* 117 L* Potassium Chloride 79 L Carbon Dioxide BUN Creatinine 0.39 L Glucose 216 H POC Glucose (mg/dL) Osmolality Calcium 8.3 L Magnesium AST 48 H Troponin I Coronavirus (PCR) 05/11/21 05/11/21 05/11/21 04:25 07:16 07:36 WBC 26.8 H Plt Count 487 H Neutrophils # 24.6 H Lymphocytes # 0.7 L Monocytes # 1.3 H PT INR ABG pH ABG pCO2 ABG pO2 367 H ABG HCO3 ABG O2 Saturation 99.9 H Sodium 119 L* Potassium Chloride Carbon Dioxide BUN Creatinine Glucose POC Glucose (mg/dL) Osmolality 259 L Calcium Magnesium AST Troponin I Coronavirus (PCR) 05/11/21 05/11/21 05/11/21 10:55 10:55 13:19 WBC Plt Count Neutrophils # Lymphocytes # Monocytes # PT INR ABG pH ABG pCO2 ABG pO2 ABG HCO3 ABG O2 Saturation Sodium 121 L Potassium Chloride Carbon Dioxide BUN Creatinine Glucose POC Glucose (mg/dL) 156 H Osmolality Calcium Magnesium AST Troponin I 0.306 H* Coronavirus (PCR) - Diagnostic Findings Chest x-ray: image reviewed Assessment and Plan Assessment: 1 Acute on chronic hypoxic/hypercapnic respiratory failure suspect secondary to a acute exacerbation of COPD, complicated by possible right lower lobe community-acquired pneumonia, COVID-19 infection. Required intubation mechanical ventilatory support on 05/11/2021 2 Severe oxygen dependent chronic obstructive pulmonary disease with an FEV1 value 23% of predicted 3 Former smoker 4 Leukocytosis secondary to above 5 Hypovolemic hyponatremia suspect secondary to poor oral intake 6 COVID-19 infection 7 Sepsis with hypotension requiring pressor support. 8 History of anemia Plan: The patient was seen and evaluated by Dr. Huerta Check pro-calcitonin Add ceftriaxone Add IV Solu-Medrol Continue bronchodilators Triple-lumen catheter placed Initiate tube feedings Follow-up chest x-ray, ABGs and labs in the a.m. We will continue to follow and make further recommendations based on her clinical status I, the cosigning physician, performed a history & physical examination of the patient. Lungs sounds with crackles in the right lung base. Maintaining good O2 saturations in the 90s on 80% FiO2 via the mechanical ventilator. I discussed the assessment and plan of care with my nurse practitioner, Hansa Enciso. I attest to the above consultation as dictated by her. Time with Patient: Greater than 30
--- NOTE | 2021-05-11 14:16 | CONS ---
CONSULTATION Mrs. Whaley is a 65-year-old female with known history of chronic obstructive lung disease who presented to the emergency room yesterday with symptoms of progressive dyspnea on exertion, hyponatremia, and was diagnosed with COVID-19 infection. The patient became more tachycardic and tachypneic early this morning, requiring mechanical ventilation. There were noted to be EKG changes, and cardiology consultation was requested. The history is obtained from the nursing staff and the chart. Patient has a history of severe obstructive lung disease, uses oxygen at home. She has been on systemic steroids. She is hypotensive. There is no documentation in the chart of prior cardiac disease. She had an echocardiogram performed in 2019, and at that time she had normal left ventricular systolic function. She had a regular stress test that showed very poor exercise tolerance with 1 minute 46 seconds and there were no EKG changes. Otherwise, there is no other cardiac history. Patient has been in sinus mechanism since her admission. She has been seen by Dr. Huerta as well as Dr. Manriquez regarding her status. Her medications at the time of admission included Mucinex, aspirin, Robaxin, Detrol, Singulair, Ventolin, Atrovent and Symbicort. No review of systems could be obtained. She is intubated. Blood pressure 92/56 with a heart rate in the 90s. Earlier her heart rate was up in the 140s. I see no evidence of atrial fibrillation. No physical examination was done to limit the exposure. LAB DATA: On presentation, her sodium was 114 with a potassium of 3.4 and a chloride of 73. Her BUN and creatinine were 5 and 0.23. Her troponin was less than 0.012 with an NT proBNP of 609. Subsequent troponin is 0.306. Her sodium is up to 121. Her pH was 7.22 initially with a pCO2 of 78 and a PO2 of 80. Most recent blood gases this morning were pH 7.41, pCO2 of 37, and PO2 of 367 after intubation. White blood cells of 26,800. Her chest x-ray revealed evidence of an infiltrate. Initial EKG revealed a sinus mechanism, rate of 119, left axis deviation, nonspecific ST-T wave changes. Subsequent EKG revealed a T-wave inversion involving the anterior precordial leads as well as the inferior leads. IMPRESSION: 1. Respiratory failure with COVID-19 infection in a patient with known history of severe COPD. 2. Abnormal EKG with mild troponin elevation consistent with ischemic event. This could have been precipitated by the hypoxemia. It is unclear if the patient had a primary ischemic event. 3. Severe hyponatremia with hypovolemic, hyponatremic status. 4. Hypotension and probable septic shock related to her infectious process. 5. Sinus tachycardia related to the infectious process and the hypoxemia. RECOMMENDATIONS: From the cardiac standpoint, I will obtain echocardiogram with Doppler. Will hold on beta loni at this time because of her hypotension. I will add to her regimen a statin. I will add IV heparin. I will follow her cardiac enzymes and, depending on her progress, further recommendations will be made. The prognosis is guarded. The patient is not a candidate for aggressive cardiac workup. Thank you for this consult. Will follow with you. JESUS / CRISTIAN: [id number] /
--- NOTE | 2021-05-11 16:10 | OP ---
OPERATIVE REPORT OPERATIVE REPORT: Placement of right femoral triple-lumen catheter. PREOPERATIVE DIAGNOSIS: Acute hypoxic and hypercapnic respiratory failure secondary to chronic obstructive pulmonary disease and COVID-19 19 pneumonia. POSTOPERATIVE DIAGNOSIS: Acute hypoxic and hypercapnic respiratory failure secondary to chronic obstructive pulmonary disease and COVID-19 19 pneumonia. ANESTHESIA USED: 2 mL of 1% lidocaine. PROCEDURE DESCRIPTION: The patient was placed in a supine position. The right groin was prepared in a sterile fashion. Drapes were applied. The area was locally anesthetized, and then the right femoral vein was cannulated. A guidewire was placed, and the area around the guidewire was dilated using a dilator. Then a triple-lumen catheter was inserted over the guidewire and the guidewire was removed. Good blood flow was noted in the 3 different ports of the triple-lumen catheter. No evidence of any complications. Line was secured using 3.0 silk sutures. MMODL / IJN: [id number] /
[2021-05-11 17:51] LABS: Glucose,Whole Blood 141 mg/dL (75-99)
[2021-05-11] MEDS ORDERED: DEXTROSE 10% IN WATER 500 ML in EMPTY BAG 1 BAG IV SCH (19:30)
[2021-05-11] MEDS: SODIUM CHLORIDE 0.9% 1,000 ML IV SCH (20:19)
[2021-05-11] MEDS: MONTELUKAST 10 MG TAB PO SCH (20:26)
[2021-05-11] MEDS: OXYBUTYNIN 10 MG TAB.ER.24 PO SCH (20:26)
[2021-05-12] MEDS: methylPREDNISolone SOD SUCCI 125 MG/2 ML VIAL IV SCH ×4 (00:36→18:11)
[2021-05-12 00:51] LABS: Glucose,Whole Blood 232 mg/dL (75-99)
[2021-05-12 04:56] LABS: Basophils % (A) 0 %; Eosinophils % (A) 0 %; HCT 38.8 % (34.0-46.0); HGB 13.1 gm/dL (11.4-16.0); Lymphocytes # (A) 0.7 k/uL (1.0-4.8); Lymphocytes % (A) 3 %; MCH 30.8 pg (25.0-35.0); MCHC 33.8 g/dL (31.0-37.0); Mean Platelet Volume 7.9; Monocytes # (A) 1.3 k/uL (0-1.0); Monocytes % (A) 6 %; Neutrophils # (A) 19.9 k/uL (1.3-7.7); Neutrophils % (A) 90 %; Platelet Count 385 k/uL (150-450); RBC 4.26 m/uL (3.80-5.40); RDW 12.9 % (11.5-15.5); WBC 22.1 k/uL (3.8-10.6)
[2021-05-12 04:58] LABS: African American GFR (CKD) >90 (>60 ml/min/1.73 sqM); Anion Gap 5 mmol/L; Blood Urea Nitrogen 14 mg/dL (7-17); Calcium 8.4 mg/dL (8.4-10.2); Carbon Dioxide 25 mmol/L (22-30); Chloride 92 mmol/L (98-107); Glucose 202 mg/dL (74-99); Non-African American GFR(CKD) >90 (>60 ml/min/1.73 sqM); Potassium 3.9 mmol/L (3.5-5.1); Sodium 122 mmol/L (137-145)
[2021-05-12 05:50] LABS: ABG Base Excess 3.5 mmol/L; ABG HCO3 28 mmol/L (21-25); ABG PCO2 42 mmHg (35-45); ABG PH 7.43 (7.35-7.45); ABG PO2 60 mmHg (83-108); Allen Test Performed? Yes
[2021-05-12] MEDS: NOREPINEPHRINE 4 MG in SODIUM CHLORIDE 0.9% 250 ML IV SCH (06:15)
[2021-05-12 06:27] LABS: Partial Thromboplastin Time 23.7 sec (22.0-30.0); Prothrombin Time 11.2 sec (9.0-12.0)
[2021-05-12 06:29] LABS: INR 1.1 (<1.2)
[2021-05-12] MEDS: SODIUM CHLORIDE 0.9% 1,000 ML IV SCH ×2 (07:12→15:25)
--- NOTE | 2021-05-12 07:24 | XR ---
EXAMINATION TYPE: XR chest 1V portable DATE OF EXAM: 05/12/2021 COMPARISON: 05/11/2021 HISTORY: SOB, Follow Up FINDINGS: Indwelling tubes and catheters are unchanged. Strandy and patchy density right medial lung base and left lower lobe persists unchanged. Stable appearance of the cardio-mediastinal structures at this time. Pleural effusion unchanged. IMPRESSION: 1. Stable portable chest. Clinical correlation and follow up until resolution is recommended.
[2021-05-12] MEDS: CALCIUM CARBONATE 500 MG CHEWABLE PO SCH (08:06)
[2021-05-12] MEDS: CHLORHEXIDINE GLUCONATE 15 ML CUP MUCOUS MEM SCH ×2 (08:06→20:23)
[2021-05-12] MEDS: guaiFENesin 600 MG TABLET.ER PO SCH ×2 (08:06→20:23)
[2021-05-12] MEDS: ASPIRIN 81 MG PO SCH (08:06)
[2021-05-12] MEDS: CHOLECALCIFEROL 25 MCG (1000 IU) TABLET PO SCH (08:06)
[2021-05-12] MEDS: ATORVASTATIN 40 MG TAB PO SCH (08:06)
[2021-05-12] MEDS: ASCORBIC ACID 500 MG TAB PO SCH (08:07)
[2021-05-12] MEDS: POTASSIUM BICARBONATE/CIT AC 20 MEQ TABLET.EFF PO SCH (08:12)
[2021-05-12] MEDS ORDERED: SODIUM CHLORIDE 0.9% 500 ML 500 ML IV ONE (08:43)
--- NOTE | 2021-05-12 09:28 | P.PN ---
Subjective Patient is seen in follow-up for hyponatremia. Received D5W for a few hours last night to prevent rapid correction. Sodium level 122 this morning. Urine output is low. Off Levophed. Intubated. 40% FiO2. Vital signs are stable. On Levophed. HEENT: Intubated. LUNGS: Breath sounds decreased. HEART: Tachycardic. ABDOMEN: Soft, no distention. EXTREMITITES: No edema. Objective - Vital Signs Vital signs: Vital Signs Temp 97.1 F L 05/12/21 08:00 Pulse 105 H 05/12/21 08:00 Resp 18 05/12/21 08:00 BP 102/69 05/12/21 08:00 Pulse Ox 95 05/12/21 08:00 Intake & Output 05/11/21 05/12/21 05/12/21 18:59 06:59 18:59 Intake Total 630.653 925.698 1544.674 Output Total 900 260 45 Balance -269.347 294.777 968.674 Weight 56.9 kg Intake: IV 440 260 850 Dextrose 10% in Water 500 250 ml In Empty Bag 1 bag @ 50 mls/hr IV .Q10H [facility] Rx #:[id number] Sodium Chloride 0.9% 1, 300 000 ml @ 100 mls/hr IV . Q10H [facility] Rx#:[id number] Sodium Chloride 0.9% 1, 440 10 000 ml @ 50 mls/hr IV . Q20H [facility] Rx#:[id number] Sodium Chloride 0.9% 500 500 ml 500 ml @ 999 mls/hr IV .Q31M [facility] Rx#:[id number] cefTRIAXone 1 gm In 50 Sodium Chloride 0.9% 50 ml @ 100 mls/hr IVPB Q24HR [facility] Rx#:[id number] Intake, IV Titration 190.653 152.777 49.674 Amount Norepinephrine 4 mg In 82.884 Sodium Chloride 0.9% 250 ml @ 0.05 MCG/KG/MIN 10. 839 mls/hr IV .[id number] [facility] Rx#:[id number] propofoL 1,000 mg In 107.769 152.777 49.674 Empty Bag 1 bag @ Titrate IV .Q0M [facility] Rx#: [id number] Tube Feeding 112 84 Other 30 30 Output: Urine 900 260 45 Other: Voiding Method Indwelling Catheter Indwelling Catheter # Voids 0 ABP, PAP, CO, CI - Last Documented Arterial Blood Pressure 100/52 - Labs CBC & Chem 7: 05/12/21 04:25 05/12/21 04:25 Labs: Abnormal Lab Results - Last 24 Hours (Table) 05/11/21 05/11/21 05/11/21 Range/Units 07:36 08:05 10:55 WBC (3.8-10.6) k/uL Neutrophils # (1.3-7.7) k/uL Lymphocytes # (1.0-4.8) k/uL Monocytes # (0-1.0) k/uL ABG pO2 (83-108) mmHg ABG HCO3 (21-25) mmol/L ABG O2 Saturation (94-97) % Sodium 121 L (137-145) mmol/L Chloride (98-107) mmol/L Creatinine (0.52-1.04) mg/dL Glucose (74-99) mg/dL POC Glucose (mg/dL) (75-99) mg/dL Osmolality 259 L (280-301) mosm/kg Troponin I (0.000-0.034) ng/mL Procalcitonin (0.02-0.09) ng/mL Ur Random Sodium <20 L (40-220) mmol/L 05/11/21 05/11/21 05/11/21 Range/Units 10:55 10:55 13:19 WBC (3.8-10.6) k/uL Neutrophils # (1.3-7.7) k/uL Lymphocytes # (1.0-4.8) k/uL Monocytes # (0-1.0) k/uL ABG pO2 (83-108) mmHg ABG HCO3 (21-25) mmol/L ABG O2 Saturation (94-97) % Sodium (137-145) mmol/L Chloride (98-107) mmol/L Creatinine (0.52-1.04) mg/dL Glucose (74-99) mg/dL POC Glucose (mg/dL) 156 H (75-99) mg/dL Osmolality (280-301) mosm/kg Troponin I 0.306 H* (0.000-0.034) ng/mL Procalcitonin 0.19 H (0.02-0.09) ng/mL Ur Random Sodium (40-220) mmol/L 05/11/21 05/11/21 05/11/21 Range/Units 13:27 17:49 17:50 WBC (3.8-10.6) k/uL Neutrophils # (1.3-7.7) k/uL Lymphocytes # (1.0-4.8) k/uL Monocytes # (0-1.0) k/uL ABG pO2 (83-108) mmHg ABG HCO3 (21-25) mmol/L ABG O2 Saturation (94-97) % Sodium 122 L (137-145) mmol/L Chloride (98-107) mmol/L Creatinine (0.52-1.04) mg/dL Glucose (74-99) mg/dL POC Glucose (mg/dL) 141 H (75-99) mg/dL Osmolality (280-301) mosm/kg Troponin I 0.204 H* (0.000-0.034) ng/mL Procalcitonin (0.02-0.09) ng/mL Ur Random Sodium (40-220) mmol/L 05/11/21 05/11/21 05/12/21 Range/Units 17:50 21:55 00:50 WBC (3.8-10.6) k/uL Neutrophils # (1.3-7.7) k/uL Lymphocytes # (1.0-4.8) k/uL Monocytes # (0-1.0) k/uL ABG pO2 (83-108) mmHg ABG HCO3 (21-25) mmol/L ABG O2 Saturation (94-97) % Sodium 125 L 124 L (137-145) mmol/L Chloride (98-107) mmol/L Creatinine (0.52-1.04) mg/dL Glucose (74-99) mg/dL POC Glucose (mg/dL) 232 H (75-99) mg/dL Osmolality (280-301) mosm/kg Troponin I (0.000-0.034) ng/mL Procalcitonin (0.02-0.09) ng/mL Ur Random Sodium (40-220) mmol/L 05/12/21 05/12/21 05/12/21 Range/Units 04:25 04:25 05:23 WBC 22.1 H (3.8-10.6) k/uL Neutrophils # 19.9 H (1.3-7.7) k/uL Lymphocytes # 0.7 L (1.0-4.8) k/uL Monocytes # 1.3 H (0-1.0) k/uL ABG pO2 60 L (83-108) mmHg ABG HCO3 28 H (21-25) mmol/L ABG O2 Saturation 91.0 L (94-97) % Sodium 122 L (137-145) mmol/L Chloride 92 L (98-107) mmol/L Creatinine 0.39 L (0.52-1.04) mg/dL Glucose 202 H (74-99) mg/dL POC Glucose (mg/dL) (75-99) mg/dL Osmolality (280-301) mosm/kg Troponin I (0.000-0.034) ng/mL Procalcitonin (0.02-0.09) ng/mL Ur Random Sodium (40-220) mmol/L Microbiology - Last 24 Hours (Table) 05/10/21 22:00 Blood Culture - Preliminary Blood No Growth after 24 hours 05/10/21 22:15 Blood Culture - Preliminary Blood No Growth after 24 hours Assessment and Plan Plan: Assessment: 1. Hypovolemic hyponatremia improving with IV hydration. Component of poor solute intake. Urine osmolality 146. TSH normal. Improving. Sodium level 122 this morning. Cortisol level 12. 2. Acute hypoxic respiratory failure secondary to COVID-19 infection and COPD exacerbation. Intubated. 3. Coronavirus infection. 4. Septic shock secondary to coronavirus on Levophed. Plan: Start normal saline at 100 mL an hour. 500 mL bolus of normal saline now. Repeat sodium level at noon. Follow-up echocardiogram. Continue to monitor renal function and urine output.
[2021-05-12] MEDS: ALBUTEROL HFA INHALER INHALATION SCH ×4 (09:34→20:14)
[2021-05-12] MEDS: SYMBICORT 160-4.5 MCG INHALER INHALATION SCH ×2 (09:34→20:14)
[2021-05-12] MEDS: TIOTROPIUM 2.5 MCG INHALER INHALATION SCH (09:35)
--- NOTE | 2021-05-12 10:16 | ECHOF ---
Referral Reason:hypoxic resp failure MEASUREMENTS -------- HEIGHT: 160.0 cm WEIGHT: 56.7 kg BP: 103/59 RVIDd: 2.7 cm (< 3.3) IVSd: 1.1 cm (0.6 - 1.1) LVIDd: 4.3 cm (3.9 - 5.3) LVPWd: 1.2 cm (0.6 - 1.1) IVSs: 1.5 cm LVIDs: 3.2 cm LVPWs: 1.3 cm LAESV Index (A-L): 17.41 ml/m Ao Diam: 2.9 cm (2.0 - 3.7) AV Cusp: 1.7 cm (1.5 - 2.6) MV EXCURSION: 17.245 mm (> 18.000) MV EF SLOPE: 192 mm/s (70 - 150) EPSS: 0.7 cm AR PHT: 1492 ms RAP: 15.00 mmHg RVSP: 30.98 mmHg FINDINGS -------- Sinus rhythm. This was a technically adequate study. The left ventricular size is normal. There is borderline concentric left ventricular hypertrophy. Overall left ventricular systolic function is moderate-severely impaired with, an EF between 30 - 35 %. Apical anterior LV wall motion is hypokinetic. Apical lateral LV wall motion is hypokinetic. Apical inferior LV wall motion is hypokinetic. Apical septum LV wall motion is hypokinetic. The right ventricle is normal in size. Normal LA size by volume 22+/-6 ml/m2. The right atrium is normal in size. Interatrial and interventricular septum intact. There is mild aortic valve sclerosis. There is mild aortic regurgitation. The mitral valve is normal. Mild tricuspid regurgitation present. Right ventricular systolic pressure is normal at < 35 mmHg. There is no pulmonic regurgitation present. The aortic root size is normal. Normal inferior vena cava with less than 50% inspiratory collapse consistent with estimated right atr ial pressure of 15 mmHg. There is no pericardial effusion. CONCLUSIONS -------- 1. The left ventricular size is normal. 2. There is borderline concentric left ventricular hypertrophy. 3. Overall left ventricular systolic function is moderate-severely impaired with, an EF between 30 - 35 %. 4. Apical anterior LV wall motion is hypokinetic. 5. Apical lateral LV wall motion is hypokinetic. 6. Apical inferior LV wall motion is hypokinetic. 7. Apical septum LV wall motion is hypokinetic. 8. There is mild aortic valve sclerosis. 9. There is mild aortic regurgitation. 10. Mild tricuspid regurgitation present. 11. Normal inferior vena cava with less than 50% inspiratory collapse consistent with estimated right atrial pressure of 15 mmHg. 12. There is no pericardial effusion. SALES ANALYST: Jojo Hernandez RDCS
--- NOTE | 2021-05-12 11:34 | PN ---
PROGRESS NOTE Mrs. Whaley is a 65-year-old female with known history of severe chronic obstructive lung disease who presented with progressive dyspnea, had COVID-19 infection, required mechanical ventilation. She remains intubated. Cardiology consultation was requested because of abnormal EKG as well as evidence of mild troponin elevation. She remains intubated at this time. There is no evidence of ventricular ectopic activity or malignant arrhythmia. She continues to have hematuria, and her heparin is on hold. She continues to be on aspirin 81 mg daily, Lipitor 40 mg daily, methylprednisolone, vitamin C, vitamin D, Mucinex, Singulair. She is on norepinephrine. Blood pressure is running in the 80s to 100 with a heart rate in the low 100s in sinus tachycardia. She is afebrile. No physical examination was done to limit the exposure. Lab data revealed white blood cells of 22.1. Hemoglobin is 13.1. Her BUN and creatinine are 14 and 0.39. Her EKG continues to show anterior wall T-wave inversion consistent with acute ischemic event. IMPRESSION: 1. Respiratory failure in a patient with known severe chronic obstructive lung disease with COVID-19 infection. 2. T-wave inversion consistent with changes consistent with non-STEMI, probably exacerbated by the infectious process and the hypoxemia. 3. History of severe oxygen-dependent chronic obstructive lung disease with an FEV1 of 23%. 4. Prior history of smoking. RECOMMENDATIONS: From the cardiac standpoint, we will continue supportive care. Her heparin is on hold because of the hematuria. Will review the results of her echocardiogram. Depending on her progress, further recommendations will be made. Unfortunately the prognosis remains guarded. MMODL / IJN: [id number] /
[2021-05-12 11:38] LABS: Glucose,Whole Blood 192 mg/dL (75-99)
[2021-05-12] MEDS ORDERED: INSULIN ASPART (NovoLOG) 100 UNIT/ML VIAL SQ SCH (12:30)
--- NOTE | 2021-05-12 14:16 | P.PN ---
Subjective Progress Note Date: 05/12/21 Principal diagnosis: Acute hypoxic and hypercapnic respiratory failure secondary to acute exacerbation of COPD and COVID-19 pneumonia. This is a 65-year-old female patient who follows with Dr. Smith as her primary care provider. She has a history of COPD with nighttime oxygen at home at 2 L, former smoker, FEV1 value is 0.56 L or 23% of predicted. DLCO 28%. She was last seen in our office in 2019. She's been maintained on Symbicort, Singulair, Atrovent. She presented to the emergency room yesterday with complaints of increasing shortness of breath. She had been compliant with her medications but no improvement. Chest x-ray revealed some right lower lobe pneumonia. No heart failure. Evidence of COPD. Questionable pulmonary fibrosis. She initially required BiPAP support. She was also found to be hyponatremic with a sodium of 114. She was admitted to the intensive care unit. She was found to have hypercapnic respiratory failure. Initial blood gases revealed a pO2 of 80, pCO2 78 and a pH of 7.22 on 44% FiO2. Approximately 6:00 this morning the patient had worsening oxygenation and required intubation and mechanical ventilatory support. She also tested positive for araujo virus. She is seen today in consultation in the intensive care unit. Current vent settings are assist control at a rate of 18, tidal volume 350, FiO2 40% and a PEEP of 5. Follow-up blood gases reveal a P O2 of 367, pCO2 37, pH 7.41. She is sedated on propofol at 40 mcg/kg/m. Requiring norepinephrine at 0.06 mcg/kg/m. She has 0.9 normal saline at 50 MLS per hour. White count 26.8. Hemoglobin 13.9. Platelets 487. Lymphocytes 0.7. D-dimer 0.35. Sodium 121. Potassium 4.1. Chloride 79. Bicarb 27. Anion gap 11. Creatinine 0.39. Glucose 156. Lactic acid 1.5. AST 48. ALT 28. Initial troponin negative. Current troponin 0.306. Reevaluated today on 05/12/21, patient remains in the ICU, intubated and mechanically ventilated. She is now on assist control rate of 18 and I cut down 16 volume of 350 FiO2 40% PEEP of 5 however FiO2 was increased to 45% since ABG showed a pO2 of 60 pCO2 42 pH of 7.43. Patient remains on propofol at 50 mcg/kg/m, she is on IV fluid at 100 mL per hour. Patient is not requiring any pressors. She is on the COVID-19 cocktail, she is also on bronchodilators and steroids, and she is on enteral feeding vital AF at 28 mL/h. Patient developed worsening hematuria, hence cardiology stopped her heparin today. And urology wa s consulted regarding her hematuria. Labs today showed WBC count of 22.1 hemoglobin is 13.1 electrolytes showed improvement in her sodium up to 125. Renal profile is normal bicarb is 25. Pro-calcitonin is 0.19, relatively low. 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 Q10H [facility] Rx#:[id number] Sodium Chloride 0.9% 1, 440 10 000 ml @ 50 mls/hr IV . Q20H [facility] Rx#:[id number] Sodium Chloride 0.9% 500 500 ml 500 ml @ 999 mls/hr IV .Q31M [facility] Rx#:[id number] cefTRIAXone 1 gm In 50 Sodium Chloride 0.9% 50 ml @ 100 mls/hr IVPB Q24HR [facility] Rx#:[id number] Intake, IV Titration 190.653 152.777 73.003 Amount Norepinephrine 4 mg In 82.884 Sodium Chloride 0.9% 250 ml @ 0.05 MCG/KG/MIN 10. 839 mls/hr IV .[id number] [facility] Rx#:[id number] propofoL 1,000 mg In 107.769 152.777 73.003 Empty Bag 1 bag @ Titrate IV .Q0M [facility] Rx#: [id number] Tube Feeding 112 196 Other 30 60 Output: Urine 900 260 165 Other: Voiding Method Indwelling Catheter Indwelling Catheter Indwelling Catheter # Voids 0 ABP, PAP, CO, CI - Last Documented Arterial Blood Pressure 93/73 - Exam Physical Exam: Revealed 65-year-old female intubated, sedated, on propofol, in no distress. Head: Atraumatic, normocephalic. HEENT:[Neck is supple.] [No neck masses.] [No thyromegaly.] [No JVD.] Chest: [Diminished breath sound bilaterally, minimal crackles at the bases. No rhonchi and no wheezes. Cardiac Exam: [Normal S1 and S2, no S3 gallop, no murmur.] Abdomen: [Soft, nontender, no megaly, no rebound, no guarding, normal bowel sounds.] Extremities: [No clubbing, no edema, no cyanosis.] Neurological Exam: Sedated, on propofol, unable to assess. Psychiatric: Unable to assess. Skin: No rashes. - Labs CBC & Chem 7: 05/12/21 04:25 05/12/21 12:49 Labs: Abnormal Lab Results - Last 24 Hours (Table) 05/11/21 05/11/21 05/11/21 Range/Units 08:05 10:55 17:49 WBC (3.8-10.6) k/uL Neutrophils # (1.3-7.7) k/uL Lymphocytes # (1.0-4.8) k/uL Monocytes # (0-1.0) k/uL ABG pO2 (83-108) mmHg ABG HCO3 (21-25) mmol/L ABG O2 Saturation (94-97) % Sodium (137-145) mmol/L Chloride (98-107) mmol/L Creatinine (0.52-1.04) mg/dL Glucose (74-99) mg/dL POC Glucose (mg/dL) 141 H (75-99) mg/dL Troponin I (0.000-0.034) ng/mL Procalcitonin 0.19 H (0.02-0.09) ng/mL Ur Random Sodium <20 L (40-220) mmol/L 05/11/21 05/11/21 05/11/21 Range/Units 17:50 17:50 21:55 WBC (3.8-10.6) k/uL Neutrophils # (1.3-7.7) k/uL Lymphocytes # (1.0-4.8) k/uL Monocytes # (0-1.0) k/uL ABG pO2 (83-108) mmHg ABG HCO3 (21-25) mmol/L ABG O2 Saturation (94-97) % Sodium 125 L 124 L (137-145) mmol/L Chloride (98-107) mmol/L Creatinine (0.52-1.04) mg/dL Glucose (74-99) mg/dL POC Glucose (mg/dL) (75-99) mg/dL Troponin I 0.204 H* (0.000-0.034) ng/mL Procalcitonin (0.02-0.09) ng/mL Ur Random Sodium (40-220) mmol/L 05/12/21 05/12/21 05/12/21 Range/Units 00:50 04:25 04:25 WBC 22.1 H (3.8-10.6) k/uL Neutrophils # 19.9 H (1.3-7.7) k/uL Lymphocytes # 0.7 L (1.0-4.8) k/uL Monocytes # 1.3 H (0-1.0) k/uL ABG pO2 (83-108) mmHg ABG HCO3 (21-25) mmol/L ABG O2 Saturation (94-97) % Sodium 122 L (137-145) mmol/L Chloride 92 L (98-107) mmol/L Creatinine 0.39 L (0.52-1.04) mg/dL Glucose 202 H (74-99) mg/dL POC Glucose (mg/dL) 232 H (75-99) mg/dL Troponin I (0.000-0.034) ng/mL Procalcitonin (0.02-0.09) ng/mL Ur Random Sodium (40-220) mmol/L 05/12/21 05/12/21 05/12/21 Range/Units 05:23 11:37 12:49 WBC (3.8-10.6) k/uL Neutrophils # (1.3-7.7) k/uL Lymphocytes # (1.0-4.8) k/uL Monocytes # (0-1.0) k/uL ABG pO2 60 L (83-108) mmHg ABG HCO3 28 H (21-25) mmol/L ABG O2 Saturation 91.0 L (94-97) % Sodium 125 L (137-145) mmol/L Chloride (98-107) mmol/L Creatinine (0.52-1.04) mg/dL Glucose (74-99) mg/dL POC Glucose (mg/dL) 192 H (75-99) mg/dL Troponin I (0.000-0.034) ng/mL Procalcitonin (0.02-0.09) ng/mL Ur Random Sodium (40-220) mmol/L Microbiology - Last 24 Hours (Table) 05/10/21 22:00 Blood Culture - Preliminary Blood No Growth after 24 hours 05/10/21 22:15 Blood Culture - Preliminary Blood No Growth after 24 hours Assessment and Plan Assessment: Impression: Acute on chronic hypoxic and hypercapnic respiratory failure secondary to severe exacerbation of COPD complicated by COVID-19 infection, required intubation and mechanical ventilation on 05/11. Severe COPD, FEV1 of 23%. Hypovolemic hyponatremia/acute. COVID-19 pneumonia possible underlying community-acquired pneumonia based on a relatively elevated pro calcitonin level. Acute sepsis with hypotension but no evidence of septic shock Leukocytosis secondary to above. Former smoker. Recommendation: Continue ventilatory support. Continue bronchodilators. Continue IV Solu-Medrol. Continue antibiotics. Continue enteral feeding. Continue GI and DVT prophylaxis. Daily interruption of sedation and assessment of mental status. Not quite ready for extubation. Continue to monitor sodium and address accordingly. This is being addressed by nephrology. Prognosis remains guarded. Patient remains critical. Critical care time is over 30 minutes Time with Patient: Greater than 30
--- NOTE | 2021-05-12 15:00 | P.PN ---
Subjective Progress Note Date: 05/12/21 Patient 66-year-old female came with sharp shortness of breath and patient is presently intubated patient was a shortly intubated because of severe acute hypoxemia and hypercapnia. Patient does have history of her advanced COPD, former smoker uses 3 L of oxygen at home. Patient is presently on systemic s teroids. Patient is also found to have severe hyponatremia with the serum sodium as low as 114 patient is only getting 50 mL of IV normal saline as her sodium went up to 119 because of the bolus of IV fluids and patient is also hypotensive on levo fed, tachycardic. Patient the chest x-ray which was concerning for right lower lobe infiltrate but mostly consistent with atypical pneumonia and patient was found to have Covid 19 pneumonia. Patient is presently intubated sedated patient is on assist control ventilation with set up respiratory of around 18 because of hypercapnia episode of 40% PEEP of 5 05/12/2021 Patient is intubated in ICU, 40% FiO2. Covid was positive. Sodium level today is 122. Continue with IV fluids and recheck tomorrow. She is off levophed and maintaining blood pressures of 115/44. HR is 98, afebrile. Additional labs today include a WBC of 22.1, which is decreasing. Blood sugars are elevated. Pt was started on heparin gtt from cardiology for a possibility of Non-STEMI, but due to hematuria, heparin gtt has been placed on hold. Patient did have some T Wave inversion found on EKG. Cardiology is following closely. REVIEW OF SYSTEMS: Unable to obtain due to her clinical condition PHYSICAL EXAMINATION: GENERAL: Patient is intubated sedated HEENT: Pupils are round and equally reacting to light. EOMI. No scleral icterus. No conjunctival pallor. Normocephalic, atraumatic. No pharyngeal erythema. No thyromegaly. CARDIOVASCULAR: S1 and S2 present. No murmurs, rubs, or gallops. PULMONARY: Expiratory wheezing and some rhonchi ABDOMEN: Soft, nontender, nondistended, normoactive bowel sounds. No palpable organomegaly. MUSCULOSKELETAL: No joint swelling or deformity. EXTREMITIES: No cyanosis, clubbing, or pedal edema. NEUROLOGICAL: Patient is sedated SKIN: No rashes. Assessment and plan -Acute on chronic hypoxic and hypercapnic respiratory failure secondary to Covid 19 pneumonia and COPD exacerbation required intubation on 05/11/2021 -Severe hyponatremia is hypovolemic hyponatremia, 122 today, 0.9 at 100 after 500 cc bolus today -Sepsis with hypotension and leukocytosis, on IV rocephin, norepinephrin has been discontinued. -Hematuria: Patient will be monitored and patient was only taking aspirin which is being held. D-dimer is within normal limits possibility of DIC is low -Chronic hypoxic and hypercapnic respiratory failure secondary to COPD -hypomagnesemia, repleted -hyperglycemia s/t steroids - add novolog for glycemic control -Tachycardia secondary to severe sepsis improving at this time -Multiple acid-base abnormalities including respiratory acidosis, compensated metabolic alkalosis and possible metabolic acidosis DVT prophylaxis: No pharmacologic DVT prophylaxis at this time secondary to hematuria GI Prophlyaxis: IV Protonix Pt remains intubated in ICU, continue with all medications, recheck labs in the AM. Novolog added for hyperglycemia Objective - Vital Signs Vital signs: Vital Signs Temp 97.1 F L 05/12/21 08:00 Pulse 105 H 05/12/21 10:00 Resp 19 05/12/21 10:00 BP 122/83 05/12/21 10:00 Pulse Ox 92 L 05/12/21 10:00 Intake & Output 05/11/21 05/12/21 05/12/21 18:59 06:59 18:59 Intake Total 630.653 995.346 9553.003 Output Total 900 260 110 Balance -269.347 760.875 6205.003 Weight 56.9 kg Intake: IV 278 093 7067 Dextrose 10% in Water 500 250 ml In Empty Bag 1 bag @ 50 mls/hr IV .Q10H [facility] Rx #:[id number] Sodium Chloride 0.9% 1, 500 000 ml @ 100 mls/hr IV . Q10H [facility] Rx#:[id number] Sodium Chloride 0.9% 1, 440 10 000 ml @ 50 mls/hr IV . Q20H [facility] Rx#:[id number] Sodium Chloride 0.9% 500 500 ml 500 ml @ 999 mls/hr IV .Q31M [facility] Rx#:[id number] cefTRIAXone 1 gm In 50 Sodium Chloride 0.9% 50 ml @ 100 mls/hr IVPB Q24HR [facility] Rx#:[id number] Intake, IV Titration 190.653 152.777 73.003 Amount Norepinephrine 4 mg In 82.884 Sodium Chloride 0.9% 250 ml @ 0.05 MCG/KG/MIN 10. 839 mls/hr IV .[id number] [facility] Rx#:[id number] propofoL 1,000 mg In 107.769 152.777 73.003 Empty Bag 1 bag @ Titrate IV .Q0M [facility] Rx#: [id number] Tube Feeding 112 140 Other 30 30 Output: Urine 900 260 110 Other: Voiding Method Indwelling Catheter Indwelling Catheter Indwelling Catheter # Voids 0 ABP, PAP, CO, CI - Last Documented Arterial Blood Pressure 123/79 - Labs CBC & Chem 7: 05/12/21 04:25 05/12/21 12:49 Labs: Abnormal Lab Results - Last 24 Hours (Table) 05/11/21 05/11/21 05/11/21 Range/Units 08:05 10:55 10:55 WBC (3.8-10.6) k/uL Neutrophils # (1.3-7.7) k/uL Lymphocytes # (1.0-4.8) k/uL Monocytes # (0-1.0) k/uL ABG pO2 (83-108) mmHg ABG HCO3 (21-25) mmol/L ABG O2 Saturation (94-97) % Sodium 121 L (137-145) mmol/L Chloride (98-107) mmol/L Creatinine (0.52-1.04) mg/dL Glucose (74-99) mg/dL POC Glucose (mg/dL) (75-99) mg/dL Troponin I (0.000-0.034) ng/mL Procalcitonin 0.19 H (0.02-0.09) ng/mL Ur Random Sodium <20 L (40-220) mmol/L 05/11/21 05/11/21 05/11/21 Range/Units 10:55 13:19 13:27 WBC (3.8-10.6) k/uL Neutrophils # (1.3-7.7) k/uL Lymphocytes # (1.0-4.8) k/uL Monocytes # (0-1.0) k/uL ABG pO2 (83-108) mmHg ABG HCO3 (21-25) mmol/L ABG O2 Saturation (94-97) % Sodium 122 L (137-145) mmol/L Chloride (98-107) mmol/L Creatinine (0.52-1.04) mg/dL Glucose (74-99) mg/dL POC Glucose (mg/dL) 156 H (75-99) mg/dL Troponin I 0.306 H* (0.000-0.034) ng/mL Procalcitonin (0.02-0.09) ng/mL Ur Random Sodium (40-220) mmol/L 05/11/21 05/11/21 05/11/21 Range/Units 17:49 17:50 17:50 WBC (3.8-10.6) k/uL Neutrophils # (1.3-7.7) k/uL Lymphocytes # (1.0-4.8) k/uL Monocytes # (0-1.0) k/uL ABG pO2 (83-108) mmHg ABG HCO3 (21-25) mmol/L ABG O2 Saturation (94-97) % Sodium 125 L (137-145) mmol/L Chloride (98-107) mmol/L Creatinine (0.52-1.04) mg/dL Glucose (74-99) mg/dL POC Glucose (mg/dL) 141 H (75-99) mg/dL Troponin I 0.204 H* (0.000-0.034) ng/mL Procalcitonin (0.02-0.09) ng/mL Ur Random Sodium (40-220) mmol/L 05/11/21 05/12/21 05/12/21 Range/Units 21:55 00:50 04:25 WBC (3.8-10.6) k/uL Neutrophils # (1.3-7.7) k/uL Lymphocytes # (1.0-4.8) k/uL Monocytes # (0-1.0) k/uL ABG pO2 (83-108) mmHg ABG HCO3 (21-25) mmol/L ABG O2 Saturation (94-97) % Sodium 124 L 122 L (137-145) mmol/L Chloride 92 L (98-107) mmol/L Creatinine 0.39 L (0.52-1.04) mg/dL Glucose 202 H (74-99) mg/dL POC Glucose (mg/dL) 232 H (75-99) mg/dL Troponin I (0.000-0.034) ng/mL Procalcitonin (0.02-0.09) ng/mL Ur Random Sodium (40-220) mmol/L 05/12/21 05/12/21 Range/Units 04:25 05:23 WBC 22.1 H (3.8-10.6) k/uL Neutrophils # 19.9 H (1.3-7.7) k/uL Lymphocytes # 0.7 L (1.0-4.8) k/uL Monocytes # 1.3 H (0-1.0) k/uL ABG pO2 60 L (83-108) mmHg ABG HCO3 28 H (21-25) mmol/L ABG O2 Saturation 91.0 L (94-97) % Sodium (137-145) mmol/L Chloride (98-107) mmol/L Creatinine (0.52-1.04) mg/dL Glucose (74-99) mg/dL POC Glucose (mg/dL) (75-99) mg/dL Troponin I (0.000-0.034) ng/mL Procalcitonin (0.02-0.09) ng/mL Ur Random Sodium (40-220) mmol/L Microbiology - Last 24 Hours (Table) 05/10/21 22:00 Blood Culture - Preliminary Blood No Growth after 24 hours 05/10/21 22:15 Blood Culture - Preliminary Blood No Growth after 24 hours
[2021-05-12 17:49] LABS: Glucose,Whole Blood 119 mg/dL (75-99)
[2021-05-12] MEDS: INSULIN ASPART (NovoLOG) 100 UNIT/ML VIAL SQ SCH (18:06)
--- NOTE | 2021-05-12 19:38 | P.GSCN ---
History of Present Illness Consult date: 05/12/21 Reason for Consult: Hematuria Requesting physician: Edu Huerta History of present illness: The patient is a 65-year-old white female admitted with acute exacerbation of COPD and COVID-19 pneumonia. Upon Mcgrath catheter placement, hematuria was noted. Per his nurse, the urine was initially red in color, and over time has turned brown (consistent with old blood). She was oliguric, but urinalysis but has improved in the urine is essentially clear at this time. She is intubated and unable to provide history. Review of Systems ROS unobtainable: due to endotracheal tube Past Medical History Past Medical History: Asthma, Blood Disorder, COPD, Pneumonia Additional Past Medical History / Comment(s): heart arrythmia, hx anemia, USES O2/2L NC AT HS History of Any Multi-Drug Resistant Organisms: None Reported Past Surgical History: Orthopedic Surgery Additional Past Surgical History / Comment(s): Thumb surgery, sx on cervix, colonoscopy, bilat cataracts removed Past Anesthesia/Blood Transfusion Reactions: No Reported Reaction Past Psychological History: No Psychological Hx Reported Smoking Status: Former smoker Past Alcohol Use History: None Reported Additional Past Alcohol Use History / Comment(s): quit smoking 05/2018 Past Drug Use History: None Reported - Past Family History Father Family Medical History: Cancer Medications and Allergies Home Medications Medication Instructions Recorded Confirmed Type Montelukast [Singulair] 10 mg PO HS 02/09/14 05/10/21 History methocarbamoL [Robaxin] 500 mg PO TID PRN 02/09/14 05/10/21 History Ascorbic Acid [Vitamin C] 500 mg PO DAILY 05/12/19 05/10/21 History Budesonide/Formoterol Fumarate 2 puff INHALATION RT-BID 05/12/19 05/10/21 History [Symbicort 160-4.5 Mcg Inhaler] Cholecalciferol [Vitamin D3 (25 1,000 unit PO DAILY 05/12/19 05/10/21 History Mcg = 1000 Iu)] Tolterodine Tartrate [Detrol LA] 4 mg PO HS 05/12/19 05/10/21 History Calcium Carbonate [Calcium] 600 mg PO DAILY 06/20/19 05/10/21 History guaiFENesin [Mucinex] 1,200 mg PO Q12HR #60 tablet.er 07/04/19 05/10/21 Rx Albuterol Nebulized [Ventolin 2.5 mg INHALATION RT-Q6H PRN 05/10/21 05/10/21 History Nebulized] Aspirin [Children's Aspirin] 81 mg PO DAILY 05/10/21 05/10/21 History Fluticasone Nasal [place] [Flonase 2 spray EA NOSTRIL DAILY 05/10/21 05/10/21 History Nasal [place]] Ipratropium [place] [Atrovent Hfa] 2 puff INHALATION RT-Q6H 05/10/21 05/10/21 History Ipratropium Nebulized [Atrovent 0.5 mg INHALATION RT-Q6H PRN 05/10/21 05/10/21 History Nebulized 0.2 MG/ML] Allergies Allergy/AdvReac Type Severity Reaction Status Date / Time umeclidinium AdvReac Dyspnea Verified 05/10/21 19:20 [From Incruse Ellipta] Surgical - Exam Vital Signs Temp Pulse Resp BP Pulse Ox 97.6 F 125 H 20 163/90 96 05/10/21 18:10 05/10/21 18:10 05/10/21 18:10 05/10/21 18:10 05/10/21 18:10 - General well developed, well nourished - Abdomen Abdomen: soft, non tender, no guarding, no rigid, no rebound - Psychiatric oriented to time, oriented to person, oriented to place, speech is normal, memory intact Results - Labs 05/12/21 04:25 05/12/21 12:49 Abnormal Lab Results - Last 24 Hours (Table) 05/11/21 05/11/21 05/11/21 Range/Units 08:05 10:55 21:55 WBC (3.8-10.6) k/uL Neutrophils # (1.3-7.7) k/uL Lymphocytes # (1.0-4.8) k/uL Monocytes # (0-1.0) k/uL ABG pO2 (83-108) mmHg ABG HCO3 (21-25) mmol/L ABG O2 Saturation (94-97) % Sodium 124 L (137-145) mmol/L Chloride (98-107) mmol/L Creatinine (0.52-1.04) mg/dL Glucose (74-99) mg/dL POC Glucose (mg/dL) (75-99) mg/dL Procalcitonin 0.19 H (0.02-0.09) ng/mL Ur Random Sodium <20 L (40-220) mmol/L 05/12/21 05/12/21 05/12/21 Range/Units 00:50 04:25 04:25 WBC 22.1 H (3.8-10.6) k/uL Neutrophils # 19.9 H (1.3-7.7) k/uL Lymphocytes # 0.7 L (1.0-4.8) k/uL Monocytes # 1.3 H (0-1.0) k/uL ABG pO2 (83-108) mmHg ABG HCO3 (21-25) mmol/L ABG O2 Saturation (94-97) % Sodium 122 L (137-145) mmol/L Chloride 92 L (98-107) mmol/L Creatinine 0.39 L (0.52-1.04) mg/dL Glucose 202 H (74-99) mg/dL POC Glucose (mg/dL) 232 H (75-99) mg/dL Procalcitonin (0.02-0.09) ng/mL Ur Random Sodium (40-220) mmol/L 05/12/21 05/12/21 05/12/21 Range/Units 05:23 11:37 12:49 WBC (3.8-10.6) k/uL Neutrophils # (1.3-7.7) k/uL Lymphocytes # (1.0-4.8) k/uL Monocytes # (0-1.0) k/uL ABG pO2 60 L (83-108) mmHg ABG HCO3 28 H (21-25) mmol/L ABG O2 Saturation 91.0 L (94-97) % Sodium 125 L (137-145) mmol/L Chloride (98-107) mmol/L Creatinine (0.52-1.04) mg/dL Glucose (74-99) mg/dL POC Glucose (mg/dL) 192 H (75-99) mg/dL Procalcitonin (0.02-0.09) ng/mL Ur Random Sodium (40-220) mmol/L 05/12/21 Range/Units 17:47 WBC (3.8-10.6) k/uL Neutrophils # (1.3-7.7) k/uL Lymphocytes # (1.0-4.8) k/uL Monocytes # (0-1.0) k/uL ABG pO2 (83-108) mmHg ABG HCO3 (21-25) mmol/L ABG O2 Saturation (94-97) % Sodium (137-145) mmol/L Chloride (98-107) mmol/L Creatinine (0.52-1.04) mg/dL Glucose (74-99) mg/dL POC Glucose (mg/dL) 119 H (75-99) mg/dL Procalcitonin (0.02-0.09) ng/mL Ur Random Sodium (40-220) mmol/L Microbiology - Last 24 Hours (Table) 05/10/21 22:00 Blood Culture - Preliminary Blood No Growth after 24 hours 05/10/21 22:15 Blood Culture - Preliminary Blood No Growth after 24 hours Diabetes panel 05/11/21 05/12/21 05/12/21 Range/Units 21:55 04:25 12:49 Sodium 124 L 122 L 125 L (137-145) mmol/L Potassium 3.9 (3.5-5.1) mmol/L Chloride 92 L (98-107) mmol/L Carbon Dioxide 25 (22-30) mmol/L BUN 14 (7-17) mg/dL Creatinine 0.39 L (0.52-1.04) mg/dL Glucose 202 H (74-99) mg/dL Calcium 8.4 (8.4-10.2) mg/dL Calcium panel 05/12/21 Range/Units 04:25 Calcium 8.4 (8.4-10.2) mg/dL Pituitary panel 05/11/21 05/12/21 05/12/21 Range/Units 21:55 04:25 12:49 Sodium 124 L 122 L 125 L (137-145) mmol/L Potassium 3.9 (3.5-5.1) mmol/L Chloride 92 L (98-107) mmol/L Carbon Dioxide 25 (22-30) mmol/L BUN 14 (7-17) mg/dL Creatinine 0.39 L (0.52-1.04) mg/dL Glucose 202 H (74-99) mg/dL Calcium 8.4 (8.4-10.2) mg/dL Adrenal panel 05/11/21 05/12/21 05/12/21 Range/Units 21:55 04:25 12:49 Sodium 124 L 122 L 125 L (137-145) mmol/L Potassium 3.9 (3.5-5.1) mmol/L Chloride 92 L (98-107) mmol/L Carbon Dioxide 25 (22-30) mmol/L BUN 14 (7-17) mg/dL Creatinine 0.39 L (0.52-1.04) mg/dL Glucose 202 H (74-99) mg/dL Calcium 8.4 (8.4-10.2) mg/dL Assessment and Plan (1) Gross hematuria Current Visit: Yes Status: Acute Code(s): R31.0 - GROSS HEMATURIA SNOMED Code(s): 918699911 Plan: It is possible that the hematuria is the results of Mcgrath catheter trauma. It is unknown to me at this time whether the patient had pre-existing hematuria. For now, I would simply recommend that the Mcgrath catheter remain in place. Once the patient is extubated, history can be obtained to determine if the hematuria was in the pre-existing. If so, she should undergo a formal hematuria evaluation. Conversely, if the hematuria resolves and there is no history of hematuria prior to catheterization, formal evaluation is likely unwarranted. Time with Patient: Less than 30
[2021-05-12] MEDS: OXYBUTYNIN 10 MG TAB.ER.24 PO SCH (20:23)
[2021-05-12] MEDS: MONTELUKAST 10 MG TAB PO SCH (20:23)
[2021-05-13 00:23] LABS: Glucose,Whole Blood 149 mg/dL (75-99)
[2021-05-13] MEDS: methylPREDNISolone SOD SUCCI 125 MG/2 ML VIAL IV SCH ×4 (00:37→18:43)
[2021-05-13] MEDS: INSULIN ASPART (NovoLOG) 100 UNIT/ML VIAL SQ SCH ×4 (00:37→18:44)
[2021-05-13] MEDS: NOREPINEPHRINE 4 MG in SODIUM CHLORIDE 0.9% 250 ML IV SCH (05:12)
[2021-05-13 05:18] LABS: ABG Base Excess 6.2 mmol/L; ABG HCO3 31 mmol/L (21-25); ABG Oxygen Saturation 94.9 % (94-97); ABG PCO2 51 mmHg (35-45); ABG PH 7.39 (7.35-7.45); ABG PO2 72 mmHg (83-108); ABG TCO2 33 mmol/L (19-24); Allen Test Performed? Yes
[2021-05-13 06:01] LABS: Glucose,Whole Blood 196 mg/dL (75-99)
[2021-05-13] MEDS: SODIUM CHLORIDE 0.9% 1,000 ML IV SCH (06:26)
[2021-05-13 06:34] LABS: Basophils # (A) 0.1 k/uL (0-0.2); Basophils % (A) 1 %; Eosinophils % (A) 0 %; HCT 43.7 % (34.0-46.0); HGB 13.9 gm/dL (11.4-16.0); Lymphocytes % (A) 5 %; MCH 30.3 pg (25.0-35.0); MCHC 31.8 g/dL (31.0-37.0); MCV 95.3 fL (80.0-100.0); Mean Platelet Volume 7.9; Monocytes # (A) 1.4 k/uL (0-1.0); Monocytes % (A) 6 %; Neutrophils # (A) 19.3 k/uL (1.3-7.7); Neutrophils % (A) 88 %; Platelet Count 346 k/uL (150-450); RBC 4.58 m/uL (3.80-5.40); RDW 13.2 % (11.5-15.5)
[2021-05-13 06:58] LABS: African American GFR (CKD) >90 (>60 ml/min/1.73 sqM); Anion Gap 4 mmol/L; Blood Urea Nitrogen 15 mg/dL (7-17); C Reactive Protein 4.9 mg/dL (<1.0); Calcium 8.9 mg/dL (8.4-10.2); Carbon Dioxide 26 mmol/L (22-30); Chloride 104 mmol/L (98-107); Glucose 155 mg/dL (74-99); LDH 627 U/L (313-618); Non-African American GFR(CKD) >90 (>60 ml/min/1.73 sqM); Potassium 4.1 mmol/L (3.5-5.1); Sodium 134 mmol/L (137-145)
--- NOTE | 2021-05-13 07:06 | XR ---
EXAMINATION TYPE: XR chest 1V portable DATE OF EXAM: 05/13/2021 COMPARISON: 05/04/2021 INDICATION: Tube placement TECHNIQUE: Single frontal view of the chest is obtained. FINDINGS: The heart size is normal. The pulmonary vasculature is normal. Scattered peripheral infiltrate is present greater on the left. Endotracheal tube tip is above the alonso. Nasogastric tube transverses the thorax. IMPRESSION: 1. Scattered peripheral infiltrates are nonspecific and can be compatible with atypical pneumonia. 2. Lines and catheters discussed above
[2021-05-13] MEDS: ALBUTEROL HFA INHALER INHALATION SCH ×4 (08:14→19:40)
[2021-05-13] MEDS: SYMBICORT 160-4.5 MCG INHALER INHALATION SCH ×2 (08:14→19:40)
[2021-05-13] MEDS: TIOTROPIUM 2.5 MCG INHALER INHALATION SCH (08:15)
[2021-05-13] MEDS: CHLORHEXIDINE GLUCONATE 15 ML CUP MUCOUS MEM SCH ×2 (08:58→20:40)
[2021-05-13] MEDS: ENOXAPARIN 40 MG/0.4 ML SYRINGE SQ SCH (08:59)
[2021-05-13] MEDS: POTASSIUM BICARBONATE/CIT AC 20 MEQ TABLET.EFF PO SCH (09:00)
[2021-05-13] MEDS: guaiFENesin 600 MG TABLET.ER PO SCH ×2 (09:00→20:40)
[2021-05-13] MEDS: ASCORBIC ACID 500 MG TAB PO SCH (09:00)
[2021-05-13] MEDS: CALCIUM CARBONATE 500 MG CHEWABLE PO SCH (09:00)
[2021-05-13] MEDS: ATORVASTATIN 40 MG TAB PO SCH (09:00)
[2021-05-13] MEDS: SPIRONOLACTONE 25 MG TAB PO SCH (09:00)
[2021-05-13] MEDS: CHOLECALCIFEROL 25 MCG (1000 IU) TABLET PO SCH (09:00)
[2021-05-13] MEDS: ASPIRIN 81 MG PO SCH (09:00)
[2021-05-13] MEDS: SODIUM CHLORIDE 0.45% 1,000 ML IV SCH (09:06)
--- NOTE | 2021-05-13 10:01 | P.PN ---
Subjective Patient is seen in follow-up for hyponatremia. Sodium level improving with IV hydration. Off Levophed. Intubated. 45% FiO2. Nonoliguric. Vital signs are stable. HEENT: Intubated. LUNGS: Breath sounds decreased. HEART: Tachycardic. ABDOMEN: Soft, no distention. EXTREMITITES: No edema. Objective - Vital Signs Vital signs: Vital Signs Temp 97.9 F 05/13/21 08:00 Pulse 101 H 05/13/21 09:00 Resp 19 05/13/21 09:00 BP 92/53 05/13/21 09:00 Pulse Ox 97 05/13/21 09:00 Intake & Output 05/12/21 05/13/21 05/13/21 18:59 06:59 18:59 Intake Total 2258.485 1488.219 327.215 Output Total 585 1850 200 Balance 1673.485 -361.781 127.215 Weight 61.3 kg 61.3 kg Intake: IV 1625 900 150 Sodium Chloride 0.9% 1, 1075 900 150 000 ml @ 75 mls/hr IV . [id number] [facility] Rx#:[id number] Sodium Chloride 0.9% 500 500 ml 500 ml @ 999 mls/hr IV .Q31M ONE Rx#:[id number] cefTRIAXone 1 gm In 50 Sodium Chloride 0.9% 50 ml @ 100 mls/hr IVPB Q24HR [facility] Rx#:[id number] Intake, IV Titration 207.485 162.219 91.215 Amount propofoL 1,000 mg In 207.485 162.219 91.215 Empty Bag 1 bag @ Titrate IV .Q0M [facility] Rx#: [id number] Tube Feeding 336 336 56 Other 90 90 30 Output: Urine 585 1850 200 Other: Voiding Method Indwelling Catheter Indwelling Catheter ABP, PAP, CO, CI - Last Documented Arterial Blood Pressure 103/92 - Labs CBC & Chem 7: 05/13/21 05:57 05/13/21 05:55 Labs: Abnormal Lab Results - Last 24 Hours (Table) 05/12/21 05/12/21 05/12/21 Range/Units 11:37 12:49 17:47 WBC (3.8-10.6) k/uL Neutrophils # (1.3-7.7) k/uL Monocytes # (0-1.0) k/uL ABG pCO2 (35-45) mmHg ABG pO2 (83-108) mmHg ABG HCO3 (21-25) mmol/L ABG Total CO2 (19-24) mmol/L Sodium 125 L (137-145) mmol/L Creatinine (0.52-1.04) mg/dL Glucose (74-99) mg/dL POC Glucose (mg/dL) 192 H 119 H (75-99) mg/dL Lactate Dehydrogenase (313-618) U/L C-Reactive Protein (<1.0) mg/dL 05/13/21 05/13/21 05/13/21 Range/Units 00:21 05:11 05:55 WBC (3.8-10.6) k/uL Neutrophils # (1.3-7.7) k/uL Monocytes # (0-1.0) k/uL ABG pCO2 51 H (35-45) mmHg ABG pO2 72 L (83-108) mmHg ABG HCO3 31 H (21-25) mmol/L ABG Total CO2 33 H (19-24) mmol/L Sodium 134 L (137-145) mmol/L Creatinine 0.45 L (0.52-1.04) mg/dL Glucose 155 H (74-99) mg/dL POC Glucose (mg/dL) 149 H (75-99) mg/dL Lactate Dehydrogenase 627 H (313-618) U/L C-Reactive Protein 4.9 H (<1.0) mg/dL 05/13/21 05/13/21 Range/Units 05:57 05:59 WBC 22.0 H (3.8-10.6) k/uL Neutrophils # 19.3 H (1.3-7.7) k/uL Monocytes # 1.4 H (0-1.0) k/uL ABG pCO2 (35-45) mmHg ABG pO2 (83-108) mmHg ABG HCO3 (21-25) mmol/L ABG Total CO2 (19-24) mmol/L Sodium (137-145) mmol/L Creatinine (0.52-1.04) mg/dL Glucose (74-99) mg/dL POC Glucose (mg/dL) 196 H (75-99) mg/dL Lactate Dehydrogenase (313-618) U/L C-Reactive Protein (<1.0) mg/dL Microbiology - Last 24 Hours (Table) 05/10/21 22:15 Blood Culture - Preliminary Blood No Growth after 48 hours 05/10/21 22:00 Blood Culture - Preliminary Blood No Growth after 48 hours Assessment and Plan Plan: Assessment: 1. Hypovolemic hyponatremia improving with IV hydration. Component of poor solute intake. Urine osmolality 146. TSH normal. Improving. Sodium level 134 this morning. Cortisol level 12. 2. Acute hypoxic respiratory failure secondary to COVID-19 infection and COPD exacerbation. Intubated. 3. Coronavirus infection. 4. Septic shock secondary to coronavirus infection s/p Levophed. 5. Cardiomyopathy with ejection fraction of 30-35%. Plan: I will change IV fluids to half-normal saline to be run at 75 mL an hour. Receiving tube feeding now. Continue to monitor renal function and urine output.
[2021-05-13] MEDS: METOPROLOL TARTRATE 25 MG TAB PO SCH ×3 (10:44→20:40)
[2021-05-13] MEDS: PANTOPRAZOLE 40 MG/10 ML VIAL IVP SCH (10:44)
--- NOTE | 2021-05-13 11:32 | PN ---
PROGRESS NOTE Mrs. Whaley is a 65-year-old female with a history of severe chronic obstructive lung disease, oxygen-dependent, who presented with progressive dyspnea and evidence of COVID- 19 infection. She required mechanical ventilation. She had T-wave inversion anteriorly consistent with non-STEMI with mild troponin elevation. She underwent an echocardiogram that revealed severely impaired left ventricular systolic function with segmental wall motion consistent with anterior wall impairment. She had hematuria; that appears to be improving. Her urine output is improving. Hemodynamically, she continues to be in sinus mechanism. She continues to be at this time on aspirin once a day and Lipitor 40 mg daily in addition to her antibiotics and steroids. Blood pressure in the 120s. Her heart rate is in the 90s to 100. Physical examination was not done to limit the exposure. Lab data revealed a white blood cell count of 22,000, hemoglobin 13.9, BUN and creatinine of 15 and 0.45, potassium 4.1. Her C-reactive is 4.9. IMPRESSION: 1. Respiratory failure with COVID-19 pneumonia and possible superimposed pneumonia in a patient with known history of severe chronic obstructive lung disease. 2. Evidence of non-STEMI with severe cardiomyopathy. Her underlying coronary anatomy is unknown. 3. Sepsis with hypotension, improving. 4. Prior history of smoking. RECOMMENDATIONS: I will initiate low-dose beta loni because of her cardiomyopathy. I will add spironolactone to her regimen. Will follow her renal function. If her renal function is stable, an JONATHON inhibitor will be added. Patient will be initiated on Lovenox. Will follow her hematuria. Depending on her progress, further recommendations will be made. The prognosis remains guarded. MMODL / IJN: [id number] / MTDD
[2021-05-13 12:14] LABS: Glucose,Whole Blood 77 mg/dL (75-99)
--- NOTE | 2021-05-13 13:09 | P.PN ---
Subjective Progress Note Date: 05/13/21 Patient 66-year-old female came with sharp shortness of breath and patient is presently intubated patient was a shortly intubated because of severe acute hypoxemia and hypercapnia. Patient does have history of her advanced COPD, former smoker uses 3 L of oxygen at home. Patient is presently on systemic s teroids. Patient is also found to have severe hyponatremia with the serum sodium as low as 114 patient is only getting 50 mL of IV normal saline as her sodium went up to 119 because of the bolus of IV fluids and patient is also hypotensive on levo fed, tachycardic. Patient the chest x-ray which was concerning for right lower lobe infiltrate but mostly consistent with atypical pneumonia and patient was found to have Covid 19 pneumonia. Patient is presently intubated sedated patient is on assist control ventilation with set up respiratory of around 18 because of hypercapnia episode of 40% PEEP of 5 05/12/2021 Patient is intubated in ICU, 40% FiO2. Covid was positive. Sodium level today is 122. Continue with IV fluids and recheck tomorrow. She is off levophed and maintaining blood pressures of 115/44. HR is 98, afebrile. Additional labs today include a WBC of 22.1, which is decreasing. Blood sugars are elevated. Pt was started on heparin gtt from cardiology for a possibility of Non-STEMI, but due to hematuria, heparin gtt has been placed on hold. Patient did have some T Wave inversion found on EKG. Cardiology is following closely. 05/13/2021 Patient remains intubated in the ICU at 40% FiO2. White blood cell count today is 22, sodium is 134. LDH is 627 and her CRP is 4.9. Blood sugars are better controlled in the 100s. Blood pressures in the lower side today at 92/53, heart rate of 101. She remains afebrile. Hematuria seems to be resolved. Urology saw the patient who recommended to keep the Mcgrath until patient is extubated and able to provide a history. REVIEW OF SYSTEMS: Unable to obtain due to her clinical condition PHYSICAL EXAMINATION: GENERAL: Patient is intubated sedated HEENT: Pupils are round and equally reacting to light. EOMI. No scleral icterus. No conjunctival pallor. Normocephalic, atraumatic. No pharyngeal erythema. No thyromegaly. CARDIOVASCULAR: S1 and S2 present. No murmurs, rubs, or gallops. PULMONARY: Expiratory wheezing and some rhonchi ABDOMEN: Soft, nontender, nondistended, normoactive bowel sounds. No palpable organomegaly. MUSCULOSKELETAL: No joint swelling or deformity. EXTREMITIES: No cyanosis, clubbing, or pedal edema. NEUROLOGICAL: Patient is sedated SKIN: No rashes. Assessment and plan -Acute on chronic hypoxic and hypercapnic respiratory failure secondary to Covid 19 pneumonia and COPD exacerbation required intubation on 05/11/2021 -Hyponatremia is hypovolemic hyponatremia, 134 today, 0.45ns at 75 cc per hour per nephrology -Sepsis with hypotension and leukocytosis, on IV rocephin, norepinephrin has been discontinued. -Hematuria: Patient will be monitored and patient was only taking aspirin which is being held. D-dimer is within normal limits possibility of DIC is low -Chronic hypoxic and hypercapnic respiratory failure secondary to COPD -hypomagnesemia, repleted -hyperglycemia s/t steroids - improving with NovoLog -Tachycardia secondary to severe sepsis improving at this time -Multiple acid-base abnormalities including respiratory acidosis, compensated metabolic alkalosis and possible metabolic acidosis DVT prophylaxis: Hold DVT prophylaxis due to hematuria GI Prophlyaxis: IV Protonix Pt remains intubated in ICU, continue with all medications, recheck labs in the AM. Objective - Vital Signs Vital signs: Vital Signs Temp 97.9 F 05/13/21 08:00 Pulse 101 H 05/13/21 09:00 Resp 19 05/13/21 09:00 BP 92/53 05/13/21 09:00 Pulse Ox 97 05/13/21 09:00 Intake & Output 05/12/21 05/13/21 05/13/21 18:59 06:59 18:59 Intake Total 2258.485 1488.219 327.215 Output Total 585 1850 200 Balance 1673.485 -361.781 127.215 Weight 61.3 kg 61.3 kg Intake: IV 1625 900 150 Sodium Chloride 0.9% 1, 1075 900 150 000 ml @ 75 mls/hr IV . [id number] [facility] Rx#:[id number] Sodium Chloride 0.9% 500 500 ml 500 ml @ 999 mls/hr IV .Q31M ONE Rx#:[id number] cefTRIAXone 1 gm In 50 Sodium Chloride 0.9% 50 ml @ 100 mls/hr IVPB Q24HR [facility] Rx#:[id number] Intake, IV Titration 207.485 162.219 91.215 Amount propofoL 1,000 mg In 207.485 162.219 91.215 Empty Bag 1 bag @ Titrate IV .Q0M [facility] Rx#: [id number] Tube Feeding 336 336 56 Other 90 90 30 Output: Urine 585 1850 200 Other: Voiding Method Indwelling Catheter Indwelling Catheter ABP, PAP, CO, CI - Last Documented Arterial Blood Pressure 103/92 - Labs CBC & Chem 7: 05/13/21 05:57 05/13/21 05:55 Labs: Abnormal Lab Results - Last 24 Hours (Table) 05/12/21 05/12/21 05/12/21 Range/Units 11:37 12:49 17:47 WBC (3.8-10.6) k/uL Neutrophils # (1.3-7.7) k/uL Monocytes # (0-1.0) k/uL ABG pCO2 (35-45) mmHg ABG pO2 (83-108) mmHg ABG HCO3 (21-25) mmol/L ABG Total CO2 (19-24) mmol/L Sodium 125 L (137-145) mmol/L Creatinine (0.52-1.04) mg/dL Glucose (74-99) mg/dL POC Glucose (mg/dL) 192 H 119 H (75-99) mg/dL Lactate Dehydrogenase (313-618) U/L C-Reactive Protein (<1.0) mg/dL 05/13/21 05/13/21 05/13/21 Range/Units 00:21 05:11 05:55 WBC (3.8-10.6) k/uL Neutrophils # (1.3-7.7) k/uL Monocytes # (0-1.0) k/uL ABG pCO2 51 H (35-45) mmHg ABG pO2 72 L (83-108) mmHg ABG HCO3 31 H (21-25) mmol/L ABG Total CO2 33 H (19-24) mmol/L Sodium 134 L (137-145) mmol/L Creatinine 0.45 L (0.52-1.04) mg/dL Glucose 155 H (74-99) mg/dL POC Glucose (mg/dL) 149 H (75-99) mg/dL Lactate Dehydrogenase 627 H (313-618) U/L C-Reactive Protein 4.9 H (<1.0) mg/dL 05/13/21 05/13/21 Range/Units 05:57 05:59 WBC 22.0 H (3.8-10.6) k/uL Neutrophils # 19.3 H (1.3-7.7) k/uL Monocytes # 1.4 H (0-1.0) k/uL ABG pCO2 (35-45) mmHg ABG pO2 (83-108) mmHg ABG HCO3 (21-25) mmol/L ABG Total CO2 (19-24) mmol/L Sodium (137-145) mmol/L Creatinine (0.52-1.04) mg/dL Glucose (74-99) mg/dL POC Glucose (mg/dL) 196 H (75-99) mg/dL Lactate Dehydrogenase (313-618) U/L C-Reactive Protein (<1.0) mg/dL Microbiology - Last 24 Hours (Table) 05/10/21 22:15 Blood Culture - Preliminary Blood No Growth after 48 hours 05/10/21 22:00 Blood Culture - Preliminary Blood No Growth after 48 hours
--- NOTE | 2021-05-13 13:16 | P.PN ---
Subjective Progress Note Date: 05/13/21 Principal diagnosis: Acute hypoxic and hypercapnic respiratory failure secondary to acute exacerbation of COPD and COVID-19 pneumonia. This is a 65-year-old female patient who follows with Dr. Smith as her primary care provider. She has a history of COPD with nighttime oxygen at home at 2 L, former smoker, FEV1 value is 0.56 L or 23% of predicted. DLCO 28%. She was last seen in our office in 2019. She's been maintained on Symbicort, Singulair, Atrovent. She presented to the emergency room yesterday with complaints of increasing shortness of breath. She had been compliant with her medications but no improvement. Chest x-ray revealed some right lower lobe pneumonia. No heart failure. Evidence of COPD. Questionable pulmonary fibrosis. She initially required BiPAP support. She was also found to be hyponatremic with a sodium of 114. She was admitted to the intensive care unit. She was found to have hypercapnic respiratory failure. Initial blood gases revealed a pO2 of 80, pCO2 78 and a pH of 7.22 on 44% FiO2. Approximately 6:00 this morning the patient had worsening oxygenation and required intubation and mechanical ventilatory support. She also tested positive for araujo virus. She is seen today in consultation in the intensive care unit. Current vent settings are assist control at a rate of 18, tidal volume 350, FiO2 40% and a PEEP of 5. Follow-up blood gases reveal a P O2 of 367, pCO2 37, pH 7.41. She is sedated on propofol at 40 mcg/kg/m. Requiring norepinephrine at 0.06 mcg/kg/m. She has 0.9 normal saline at 50 MLS per hour. White count 26.8. Hemoglobin 13.9. Platelets 487. Lymphocytes 0.7. D-dimer 0.35. Sodium 121. Potassium 4.1. Chloride 79. Bicarb 27. Anion gap 11. Creatinine 0.39. Glucose 156. Lactic acid 1.5. AST 48. ALT 28. Initial troponin negative. Current troponin 0.306. Reevaluated today on 05/12/21, patient remains in the ICU, intubated and mechanically ventilated. She is now on assist control rate of 18 and I cut down 16 volume of 350 FiO2 40% PEEP of 5 however FiO2 was increased to 45% since ABG showed a pO2 of 60 pCO2 42 pH of 7.43. Patient remains on propofol at 50 mcg/kg/m, she is on IV fluid at 100 mL per hour. Patient is not requiring any pressors. She is on the COVID-19 cocktail, she is also on bronchodilators and steroids, and she is on enteral feeding vital AF at 28 mL/h. Patient developed worsening hematuria, hence cardiology stopped her heparin today. And urology wa s consulted regarding her hematuria. Labs today showed WBC count of 22.1 hemoglobin is 13.1 electrolytes showed improvement in her sodium up to 125. Renal profile is normal bicarb is 25. Pro-calcitonin is 0.19, relatively low. 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 She is now on assist control rate of 16 per volume 350 FiO2 45% PEEP of 5. She is on propofol at 40 mcg/kg/m, remains on antibiotics in the form of Rocephin 2 g IV piggyback every 24 hours. IV fluid is 0.45 at 75 mL per hour. ABG today showed a pO2 of 72 pCO2 51 pH of 7.39. Chest x-ray showed scattered peripheral infiltrates consistent with atypical pneumonia. WBC count today is 22 hemoglobin 13.9, basic metabolic profile is normal, sodium is 134, BUN is 15 and creatinine 0.45. LDH is 627 C-reactive protein is 4.9 Objective - Vital Signs Vital signs: Vital Signs Temp 97.9 F 05/13/21 08:00 Pulse 117 H 05/13/21 11:00 Resp 20 05/13/21 11:00 BP 128/75 05/13/21 11:00 Pulse Ox 95 05/13/21 11:00 Intake & Output 05/12/21 05/13/21 05/13/21 18:59 06:59 18:59 Intake Total 2258.485 1488.219 630.750 Output Total 585 1850 445 Balance 1673.485 -361.781 185.750 Weight 61.3 kg 61.3 kg Intake: IV 1625 900 425 Sodium Chloride 0.45% 1, 225 000 ml @ 75 mls/hr IV . [id number] [facility] Rx#:[id number] Sodium Chloride 0.9% 1, 1075 900 150 000 ml @ 75 mls/hr IV . [id number] [facility] Rx#:[id number] Sodium Chloride 0.9% 500 500 ml 500 ml @ 999 mls/hr IV .Q31M ONE Rx#:[id number] cefTRIAXone 1 gm In 50 50 Sodium Chloride 0.9% 50 ml @ 100 mls/hr IVPB Q24HR [facility] Rx#:[id number] Intake, IV Titration 207.485 162.219 119.750 Amount propofoL 1,000 mg In 207.485 162.219 119.750 Empty Bag 1 bag @ Titrate IV .Q0M [facility] Rx#: [id number] Tube Feeding 336 336 56 Other 90 90 30 Output: Urine 585 1850 445 Other: Voiding Method Indwelling Catheter Indwelling Catheter ABP, PAP, CO, CI - Last Documented Arterial Blood Pressure 103/92 - Exam Physical Exam: Revealed 65-year-old female intubated, sedated, on propofol, in no distress. Head: Atraumatic, normocephalic. HEENT:[Neck is supple.] [No neck masses.] [No thyromegaly.] [No JVD.] Chest: [Diminished breath sound bilaterally, minimal crackles at the bases. No rhonchi and no wheezes. Cardiac Exam: [Normal S1 and S2, no S3 gallop, no murmur.] Abdomen: [Soft, nontender, no megaly, no rebound, no guarding, normal bowel sounds.] Extremities: [No clubbing, no edema, no cyanosis.] Neurological Exam: Sedated, on propofol, unable to assess. Psychiatric: Unable to assess. Skin: No rashes. - Labs CBC & Chem 7: 05/13/21 05:57 05/13/21 05:55 Labs: Abnormal Lab Results - Last 24 Hours (Table) 05/12/21 05/12/21 05/13/21 Range/Units 12:49 17:47 00:21 WBC (3.8-10.6) k/uL Neutrophils # (1.3-7.7) k/uL Monocytes # (0-1.0) k/uL ABG pCO2 (35-45) mmHg ABG pO2 (83-108) mmHg ABG HCO3 (21-25) mmol/L ABG Total CO2 (19-24) mmol/L Sodium 125 L (137-145) mmol/L Creatinine (0.52-1.04) mg/dL Glucose (74-99) mg/dL POC Glucose (mg/dL) 119 H 149 H (75-99) mg/dL Lactate Dehydrogenase (313-618) U/L C-Reactive Protein (<1.0) mg/dL 05/13/21 05/13/21 05/13/21 Range/Units 05:11 05:55 05:57 WBC 22.0 H (3.8-10.6) k/uL Neutrophils # 19.3 H (1.3-7.7) k/uL Monocytes # 1.4 H (0-1.0) k/uL ABG pCO2 51 H (35-45) mmHg ABG pO2 72 L (83-108) mmHg ABG HCO3 31 H (21-25) mmol/L ABG Total CO2 33 H (19-24) mmol/L Sodium 134 L (137-145) mmol/L Creatinine 0.45 L (0.52-1.04) mg/dL Glucose 155 H (74-99) mg/dL POC Glucose (mg/dL) (75-99) mg/dL Lactate Dehydrogenase 627 H (313-618) U/L C-Reactive Protein 4.9 H (<1.0) mg/dL 05/13/21 Range/Units 05:59 WBC (3.8-10.6) k/uL Neutrophils # (1.3-7.7) k/uL Monocytes # (0-1.0) k/uL ABG pCO2 (35-45) mmHg ABG pO2 (83-108) mmHg ABG HCO3 (21-25) mmol/L ABG Total CO2 (19-24) mmol/L Sodium (137-145) mmol/L Creatinine (0.52-1.04) mg/dL Glucose (74-99) mg/dL POC Glucose (mg/dL) 196 H (75-99) mg/dL Lactate Dehydrogenase (313-618) U/L C-Reactive Protein (<1.0) mg/dL Microbiology - Last 24 Hours (Table) 05/10/21 22:15 Blood Culture - Preliminary Blood No Growth after 48 hours 05/10/21 22:00 Blood Culture - Preliminary Blood No Growth after 48 hours Assessment and Plan Assessment: Impression: Acute on chronic hypoxic and hypercapnic respiratory failure secondary to severe exacerbation of COPD complicated by COVID-19 infection, required intubation and mechanical ventilation on 05/11. Severe COPD, FEV1 of 23%. Hypovolemic hyponatremia/acute. COVID-19 pneumonia possible underlying community-acquired pneumonia based on a relatively elevated pro calcitonin level. Acute sepsis with hypotension but no evidence of septic shock Leukocytosis secondary to above. Former smoker. Recommendation: Continue ventilatory support. Continue bronchodilators. Continue IV Solu-Medrol. Continue antibiotics. Continue enteral feeding. Continue GI and DVT prophylaxis. Will interrupt sedation today and assess weaning parameters and if tolerated may even try a pressure support of 8 and CPAP. Prognosis remains guarded. Patient remains critical. Critical care time is over 30 minutes Time with Patient: Greater than 30
[2021-05-13 18:03] LABS: Glucose,Whole Blood 140 mg/dL (75-99)
--- NOTE | 2021-05-13 18:56 | OP ---
OPERATIVE REPORT OPERATIVE REPORT: Placement of left radial arterial line. PREOPERATIVE DIAGNOSIS: Acute hypoxic and hypercapnic respiratory failure secondary to chronic obstructive pulmonary disease. POSTOPERATIVE DIAGNOSIS: Acute hypoxic and hypercapnic respiratory failure secondary to chronic obstructive pulmonary disease. ANESTHESIA USED: None deployed. PROCEDURE DESCRIPTION: Left wrist was prepared in a sterile fashion. Drapes were applied. Left radial artery was palpated, cannulated, a guidewire was placed, and a Cook's catheter was inserted over the guidewire. Good blood flow and good waveform noted. Line was secured using 3.0 silk sutures. No evidence of any complications. MMODL / IJN: [id number] /
[2021-05-13] MEDS: MONTELUKAST 10 MG TAB PO SCH (20:40)
[2021-05-13] MEDS: OXYBUTYNIN 10 MG TAB.ER.24 PO SCH (20:40)
[2021-05-14 00:55] LABS: Glucose,Whole Blood 195 mg/dL (75-99)
[2021-05-14] MEDS: methylPREDNISolone SOD SUCCI 125 MG/2 ML VIAL IV SCH ×4 (00:58→18:41)
[2021-05-14] MEDS: INSULIN ASPART (NovoLOG) 100 UNIT/ML VIAL SQ SCH ×4 (00:59→18:42)
[2021-05-14] MEDS: SODIUM CHLORIDE 0.45% 1,000 ML IV SCH ×2 (00:59→13:00)
[2021-05-14] MEDS: NOREPINEPHRINE 4 MG in SODIUM CHLORIDE 0.9% 250 ML IV SCH (05:39)
[2021-05-14 05:53] LABS: Allen Test Performed? Yes
[2021-05-14 06:05] LABS: ABG Base Excess 6.1 mmol/L; ABG HCO3 31 mmol/L (21-25); ABG Oxygen Saturation 96.9 % (94-97); ABG PCO2 49 mmHg (35-45); ABG PH 7.41 (7.35-7.45); ABG PO2 83 mmHg (83-108); ABG TCO2 32 mmol/L (19-24)
[2021-05-14 06:26] LABS: Glucose,Whole Blood 162 mg/dL (75-99)
--- NOTE | 2021-05-14 07:41 | XR ---
EXAMINATION TYPE: XR chest 1V portable DATE OF EXAM: 05/14/2021 COMPARISON: Chest x-ray 05/13/2021 HISTORY: Intubated TECHNIQUE: Single frontal view of the chest is obtained. FINDINGS: Endotracheal tube, NG tube are overlying appropriate positions, there are overlying artifa cts. Lung apices are not entirely included on the exam. Patchy densities within the lungs show simila r appearance. Cardiac mediastinal silhouette is unchanged. Bones are stable. No evident pleural effus ion. IMPRESSION: Findings are similar within the limitations of the exam, there may be some improvement i n airspace disease. Correlate for pneumonia.
[2021-05-14] MEDS: SYMBICORT 160-4.5 MCG INHALER INHALATION SCH ×2 (07:59→19:38)
[2021-05-14] MEDS: ALBUTEROL HFA INHALER INHALATION SCH ×4 (07:59→19:31)
[2021-05-14] MEDS: TIOTROPIUM 2.5 MCG INHALER INHALATION SCH (07:59)
--- NOTE | 2021-05-14 08:20 | P.PN ---
Subjective Progress Note Date: 05/14/21 Principal diagnosis: [id number] followed up for hypovolemic hyponatremia, with history of COPD,: 19 positive, Started on IV fluids and improved sodium from 114-135 today, today's labs are pending Patient was not examined and was seen from the door Objective - Vital Signs Vital signs: Vital Signs Temp 97.2 F L 05/13/21 16:00 Pulse 82 05/14/21 07:00 Resp 16 05/14/21 07:00 BP 112/95 05/14/21 06:00 Pulse Ox 99 05/14/21 07:00 Intake & Output 05/13/21 05/14/21 05/14/21 18:59 06:59 18:59 Intake Total 5258.342 6000 75 Output Total 885 535 48 Balance 573.848 493 27 Weight 61.3 kg 61.3 kg Intake: IV 950 900 75 Sodium Chloride 0.45% 1, 750 900 75 000 ml @ 75 mls/hr IV . [id number] [facility] Rx#:[id number] Sodium Chloride 0.9% 1, 150 000 ml @ 75 mls/hr IV . [id number] [facility] Rx#:[id number] cefTRIAXone 1 gm In 50 Sodium Chloride 0.9% 50 ml @ 100 mls/hr IVPB Q24HR [facility] Rx#:[id number] Intake, IV Titration 224.848 100 Amount propofoL 1,000 mg In 224.848 100 Empty Bag 1 bag @ Titrate IV .Q0M [facility] Rx#: [id number] Tube Feeding 224 28 Other 60 Output: Urine 885 535 48 Other: Voiding Method Indwelling Catheter Indwelling Catheter ABP, PAP, CO, CI - Last Documented Arterial Blood Pressure 88/72 - Labs CBC & Chem 7: 05/13/21 05:57 05/13/21 13:09 Labs: Abnormal Lab Results - Last 24 Hours (Table) 05/13/21 05/13/21 05/14/21 Range/Units 13:09 18:01 00:53 ABG pCO2 (35-45) mmHg ABG HCO3 (21-25) mmol/L ABG Total CO2 (19-24) mmol/L Sodium 135 L (137-145) mmol/L POC Glucose (mg/dL) 140 H 195 H (75-99) mg/dL 05/14/21 05/14/21 Range/Units 05:34 06:24 ABG pCO2 49 H (35-45) mmHg ABG HCO3 31 H (21-25) mmol/L ABG Total CO2 32 H (19-24) mmol/L Sodium (137-145) mmol/L POC Glucose (mg/dL) 162 H (75-99) mg/dL Microbiology - Last 24 Hours (Table) 05/10/21 22:15 Blood Culture - Preliminary Blood No Growth after 72 hours 05/10/21 22:00 Blood Culture - Preliminary Blood No Growth after 72 hours Assessment and Plan Plan: Impression 1. Hypovolemic hyponatremia improved with IV fluids 2. COPD 3. Ventilator dependent. On 45% FiO2 4. Hypotension. Recommendation 1. Consider discontinuing blood pressure medications and diuretics because of the low blood pressure 2. Continue to check labs on a daily basis to follow-up the hyponatremia
--- NOTE | 2021-05-14 08:46 | P.PN ---
Subjective Progress Note Date: 05/14/21 Patient 66-year-old female came with sharp shortness of breath and patient is presently intubated patient was a shortly intubated because of severe acute hypoxemia and hypercapnia. Patient does have history of her advanced COPD, former smoker uses 3 L of oxygen at home. Patient is presently on systemic s teroids. Patient is also found to have severe hyponatremia with the serum sodium as low as 114 patient is only getting 50 mL of IV normal saline as her sodium went up to 119 because of the bolus of IV fluids and patient is also hypotensive on levo fed, tachycardic. Patient the chest x-ray which was concerning for right lower lobe infiltrate but mostly consistent with atypical pneumonia and patient was found to have Covid 19 pneumonia. Patient is presently intubated sedated patient is on assist control ventilation with set up respiratory of around 18 because of hypercapnia episode of 40% PEEP of 5 05/12/2021 Patient is intubated in ICU, 40% FiO2. Covid was positive. Sodium level today is 122. Continue with IV fluids and recheck tomorrow. She is off levophed and maintaining blood pressures of 115/44. HR is 98, afebrile. Additional labs today include a WBC of 22.1, which is decreasing. Blood sugars are elevated. Pt was started on heparin gtt from cardiology for a possibility of Non-STEMI, but due to hematuria, heparin gtt has been placed on hold. Patient did have some T Wave inversion found on EKG. Cardiology is following closely. 05/13/2021 Patient remains intubated in the ICU at 40% FiO2. White blood cell count today is 22, sodium is 134. LDH is 627 and her CRP is 4.9. Blood sugars are better controlled in the 100s. Blood pressures in the lower side today at 92/53, heart rate of 101. She remains afebrile. Hematuria seems to be resolved. Urology saw the patient who recommended to keep the Mcgrath until patient is extubated and able to provide a history. 05/14/2021 Patient is evaluated in the ICU, she is still intubated 45% fio2. Per RN there is question for possible PEG and trach. RT did have to do a extensive lavage this morning on the patient pulled out quite a bit of mucus. Her lungs are still tight and diminished. She does have bowel sounds, however there is been no bowel movement. We will order a Dulcolax suppository to give daily until BM. Continue MEDICATIONS per pulmonary recommendations. chest x-ray this morning shows similar findings with some improvement in airspace disease. Correlate for pneumonia. Labs are still pending from Aldactone and metoprolol recommended for discontinuation. REVIEW OF SYSTEMS: Unable to obtain due to her clinical condition PHYSICAL EXAMINATION: GENERAL: Patient is intubated sedated HEENT: Pupils are round and equally reacting to light. EOMI. No scleral icterus. No conjunctival pallor. Normocephalic, atraumatic. No pharyngeal erythema. No thyromegaly. CARDIOVASCULAR: S1 and S2 present. No murmurs, rubs, or gallops. PULMONARY: Lungs are tight and bilateral posterior bases, diminished posterior and anterior upper lobes. No wheezing or crackles noted. ABDOMEN: Soft, nontender, nondistended, hypoactive bowel sounds. No palpable organomegaly. MUSCULOSKELETAL: No joint swelling or deformity. EXTREMITIES: No cyanosis, clubbing, or pedal edema. NEUROLOGICAL: Patient is sedated SKIN: No rashes. Assessment and plan -Acute on chronic hypoxic and hypercapnic respiratory failure secondary to Covid 19 pneumonia and COPD exacerbation required intubation on 05/11/2021 -Hyponatremia is hypovolemic hyponatremia, sodium 135are pending from today. She continues on half normal saline. -Sepsis with hypotension and leukocytosis, on IV rocephin, norepid has been discontinued, however today she is experiencing some hypotension in the 80s. -Hematuria: Patient will be monitored and patient was only taking aspirin which is being held. D-dimer is within normal limits possibility of DIC is low, urine today appears a brown in color. -Chronic hypoxic and hypercapnic respiratory failure secondary to COPD -hypomagnesemia, repleted -hyperglycemia s/t steroids - improving with NovoLog -Tachycardia secondary to severe sepsis improving at this time -Multiple acid-base abnormalities including respiratory acidosis, compensated metabolic alkalosis and possible metabolic acidosis, which are resolving DVT prophylaxis: Hold DVT prophylaxis due to hematuria GI Prophlyaxis: IV Protonix Pt remains intubated in ICU, continue with all medications, recheck labs in the AM. Prognosis remains extremely guarded for this patient. Objective - Vital Signs Vital signs: Vital Signs Temp 97.2 F L 05/13/21 16:00 Pulse 82 05/14/21 07:00 Resp 16 05/14/21 07:00 BP 112/95 05/14/21 06:00 Pulse Ox 99 05/14/21 07:00 Intake & Output 05/13/21 05/14/21 05/14/21 18:59 06:59 18:59 Intake Total 7839.938 5171 75 Output Total 885 535 48 Balance 573.848 493 27 Weight 61.3 kg 61.3 kg Intake: IV 950 900 75 Sodium Chloride 0.45% 1, 750 900 75 000 ml @ 75 mls/hr IV . [id number] [facility] Rx#:[id number] Sodium Chloride 0.9% 1, 150 000 ml @ 75 mls/hr IV . [id number] [facility] Rx#:[id number] cefTRIAXone 1 gm In 50 Sodium Chloride 0.9% 50 ml @ 100 mls/hr IVPB Q24HR [facility] Rx#:[id number] Intake, IV Titration 224.848 100 Amount propofoL 1,000 mg In 224.848 100 Empty Bag 1 bag @ Titrate IV .Q0M [facility] Rx#: [id number] Tube Feeding 224 28 Other 60 Output: Urine 885 535 48 Other: Voiding Method Indwelling Catheter Indwelling Catheter ABP, PAP, CO, CI - Last Documented Arterial Blood Pressure 88/72 - Labs CBC & Chem 7: 05/13/21 05:57 05/13/21 13:09 Labs: Abnormal Lab Results - Last 24 Hours (Table) 05/13/21 05/13/21 05/14/21 Range/Units 13:09 18:01 00:53 ABG pCO2 (35-45) mmHg ABG HCO3 (21-25) mmol/L ABG Total CO2 (19-24) mmol/L Sodium 135 L (137-145) mmol/L POC Glucose (mg/dL) 140 H 195 H (75-99) mg/dL 05/14/21 05/14/21 Range/Units 05:34 06:24 ABG pCO2 49 H (35-45) mmHg ABG HCO3 31 H (21-25) mmol/L ABG Total CO2 32 H (19-24) mmol/L Sodium (137-145) mmol/L POC Glucose (mg/dL) 162 H (75-99) mg/dL Microbiology - Last 24 Hours (Table) 05/10/21 22:15 Blood Culture - Preliminary Blood No Growth after 72 hours 05/10/21 22:00 Blood Culture - Preliminary Blood No Growth after 72 hours Assessment and Plan Time with Patient: Greater than 30
[2021-05-14 08:58] LABS: African American GFR (CKD) >90 (>60 ml/min/1.73 sqM); Anion Gap 5 mmol/L; Blood Urea Nitrogen 18 mg/dL (7-17); Calcium 8.9 mg/dL (8.4-10.2); Carbon Dioxide 27 mmol/L (22-30); Chloride 103 mmol/L (98-107); Glucose 166 mg/dL (74-99); Non-African American GFR(CKD) >90 (>60 ml/min/1.73 sqM); Sodium 135 mmol/L (137-145)
[2021-05-14] MEDS: CHOLECALCIFEROL 25 MCG (1000 IU) TABLET PO SCH (09:32)
[2021-05-14] MEDS: guaiFENesin 600 MG TABLET.ER PO SCH ×2 (09:32→21:30)
[2021-05-14] MEDS: PANTOPRAZOLE 40 MG/10 ML VIAL IVP SCH (09:32)
[2021-05-14] MEDS: ASPIRIN 81 MG PO SCH (09:33)
[2021-05-14] MEDS: ASCORBIC ACID 500 MG TAB PO SCH (09:33)
[2021-05-14] MEDS: ATORVASTATIN 40 MG TAB PO SCH (09:33)
[2021-05-14] MEDS: bisacodyL 10 MG SUPP RECTAL SCH (09:33)
[2021-05-14] MEDS: CALCIUM CARBONATE 500 MG CHEWABLE PO SCH (09:33)
[2021-05-14] MEDS: CHLORHEXIDINE GLUCONATE 15 ML CUP MUCOUS MEM SCH ×2 (09:33→21:30)
[2021-05-14] MEDS: ENOXAPARIN 40 MG/0.4 ML SYRINGE SQ SCH (09:33)
[2021-05-14] MEDS: POTASSIUM BICARBONATE/CIT AC 20 MEQ TABLET.EFF PO SCH (09:40)
[2021-05-14] MEDS ORDERED: METOPROLOL SUCCINATE (ER) 25 MG TAB.ER.24H PO SCH (10:00)
[2021-05-14] MEDS: METOPROLOL TARTRATE 25 MG TAB PO SCH ×2 (10:43→21:31)
--- NOTE | 2021-05-14 11:54 | PN ---
PROGRESS NOTE Mrs. Whaley is a 65-year-old female who presented with progressive dyspnea requiring mechanical ventilation. She was diagnosed with COVID-19 infection. At the time of intubation, she was noted to have T-wave inversion in anterior lead consistent with a non-STEMI, and she has severe cardiomyopathy on the echocardiogram. She continues to be intubated. She did not tolerate weaning yesterday. She underwent placement of an arterial line yesterday. Her chest x-ray showed infiltrate with effusion on the left side. She continues to be in sinus mechanism. She has no evidence of tachyarrhythmia. She continues to be at this time on aspirin 81 mg daily, Lipitor 40 mg daily. Her beta loni was held earlier because of a low blood pressure. Her blood pressure is running in the 110s with a heart rate in the 80s. No physical examination was performed to limit exposure. Lab data revealed BUN and creatinine of 18 and 0.45, potassium 5.0. Her PO2 is 83. IMPRESSION: 1. Respiratory failure with COVID-19 pneumonia. 2. Evidence of severe ischemic cardiomyopathy; could be related to the acute infectious process and the COVID-19 infection. 3. Hypertension, improving. 4. Prior history of smoking. RECOMMENDATIONS: From the cardiac standpoint, I would favor restarting the beta loni. Follow her blood pressure. Continue supportive care. Follow her renal function and make a decision depending on her blood pressure about adding an JONATHON inhibitor. Unfortunately the prognosis remains guarded. MMODL / IJN: [id number] /
[2021-05-14] MEDS ORDERED: DEXMEDETOMIDINE/0.9% NACL(PMX) 400 MCG in EMPTY BAG 1 BAG IV SCH (12:30)
[2021-05-14 12:43] LABS: Glucose,Whole Blood 139 mg/dL (75-99)
--- NOTE | 2021-05-14 15:36 | P.PN ---
Subjective Progress Note Date: 05/14/21 Principal diagnosis: Acute hypoxic and hypercapnic respiratory failure secondary to acute exacerbation of COPD and COVID-19 pneumonia. This is a 65-year-old female patient who follows with Dr. Smith as her primary care provider. She has a history of COPD with nighttime oxygen at home at 2 L, former smoker, FEV1 value is 0.56 L or 23% of predicted. DLCO 28%. She was last seen in our office in 2019. She's been maintained on Symbicort, Singulair, Atrovent. She presented to the emergency room yesterday with complaints of increasing shortness of breath. She had been compliant with her medications but no improvement. Chest x-ray revealed some right lower lobe pneumonia. No heart failure. Evidence of COPD. Questionable pulmonary fibrosis. She initially required BiPAP support. She was also found to be hyponatremic with a sodium of 114. She was admitted to the intensive care unit. She was found to have hypercapnic respiratory failure. Initial blood gases revealed a pO2 of 80, pCO2 78 and a pH of 7.22 on 44% FiO2. Approximately 6:00 this morning the patient had worsening oxygenation and required intubation and mechanical ventilatory support. She also tested positive for araujo virus. She is seen today in consultation in the intensive care unit. Current vent settings are assist control at a rate of 18, tidal volume 350, FiO2 40% and a PEEP of 5. Follow-up blood gases reveal a P O2 of 367, pCO2 37, pH 7.41. She is sedated on propofol at 40 mcg/kg/m. Requiring norepinephrine at 0.06 mcg/kg/m. She has 0.9 normal saline at 50 MLS per hour. White count 26.8. Hemoglobin 13.9. Platelets 487. Lymphocytes 0.7. D-dimer 0.35. Sodium 121. Potassium 4.1. Chloride 79. Bicarb 27. Anion gap 11. Creatinine 0.39. Glucose 156. Lactic acid 1.5. AST 48. ALT 28. Initial troponin negative. Current troponin 0.306. Reevaluated today on 05/12/21, patient remains in the ICU, intubated and mechanically ventilated. She is now on assist control rate of 18 and I cut down 16 volume of 350 FiO2 40% PEEP of 5 however FiO2 was increased to 45% since ABG showed a pO2 of 60 pCO2 42 pH of 7.43. Patient remains on propofol at 50 mcg/kg/m, she is on IV fluid at 100 mL per hour. Patient is not requiring any pressors. She is on the COVID-19 cocktail, she is also on bronchodilators and steroids, and she is on enteral feeding vital AF at 28 mL/h. Patient developed worsening hematuria, hence cardiology stopped her heparin today. And urology wa s consulted regarding her hematuria. Labs today showed WBC count of 22.1 hemoglobin is 13.1 electrolytes showed improvement in her sodium up to 125. Renal profile is normal bicarb is 25. Pro-calcitonin is 0.19, relatively low. Cortisol level is 12.x showed patchy density right middle lung base and left lower lobe no change person the last 24 hours Reevaluated today on 05/13/21, patient remains in the ICU, intubated and mechanically ventilated. She is now on assist control rate of 16 per volume 350 FiO2 45% PEEP of 5. She is on propofol at 40 mcg/kg/m, remains on antibiotics in the form of Rocephin 2 g IV piggyback every 24 hours. IV fluid is 0.45 at 75 mL per hour. ABG today showed a pO2 of 72 pCO2 51 pH of 7.39. Chest x-ray showed scattered peripheral infiltrates consistent with atypical pneumonia. WBC count today is 22 hemoglobin 13.9, basic metabolic profile is normal, sodium is 134, BUN is 15 and creatinine 0.45. LDH is 627 C-reactive protein is 4.9 Reevaluated today on 05/14/21, patient remains in the ICU, intubated and mechanically ventilated. Patient is on assist control rate of 16, tidal volume 350 FiO2 45% PEEP of 5. ABG showed a pO2 of 83 pCO2 49 pH of 7.41. Patient continues to have intermittent episodes of tachycardia and tachypnea especially when weaned from sedation, and today on planning to start the patient on Precedex, and address at least a weaning trial if possible on Precedex. And her tube feeding is presently on hold. Chest x-ray showed minimal infiltrate in the right lower lobe. Does not seem to be classic of COVID-19 pneumonia. Elect rolytes are normal renal profile is normal blood sugar is 139 Objective - Vital Signs Vital signs: Vital Signs Temp 96.7 F L 05/14/21 13:00 Pulse 80 05/14/21 15:00 Resp 19 05/14/21 15:00 BP 131/104 05/14/21 15:00 Pulse Ox 95 05/14/21 15:00 Intake & Output 05/13/21 05/14/21 05/14/21 18:59 06:59 18:59 Intake Total 5977.105 8564 875.325 Output Total 885 535 613 Balance 573.848 493 262.325 Weight 61.3 kg 61.3 kg Intake: IV 950 900 600 Sodium Chloride 0.45% 1, 750 900 600 000 ml @ 75 mls/hr IV . [id number] [facility] Rx#:[id number] Sodium Chloride 0.9% 1, 150 000 ml @ 75 mls/hr IV . [id number] [facility] Rx#:[id number] cefTRIAXone 1 gm In 50 Sodium Chloride 0.9% 50 ml @ 100 mls/hr IVPB Q24HR ANTONIA Rx#:[id number] Intake, IV Titration 224.848 100 189.325 Amount Dexmedetomidine/0.9% NaCl 9.502 (Pmx) 400 mcg In Empty Bag 1 bag @ 0.2 MCG/KG/HR 3.065 mls/hr IV .Q24H AN[facility]IA Rx#:[id number] cefTRIAXone 2 gm In 50 Sodium Chloride 0.9% 50 ml @ 100 mls/hr IVPB Q24HR AN[facility] Rx#:[id number] propofoL 1,000 mg In 224.848 100 129.823 Empty Bag 1 bag @ Titrate IV .Q0M ANTONIA Rx#: [id number] Tube Feeding 224 28 56 Other 60 30 Output: Urine 885 535 613 Other: Voiding Method Indwelling Catheter Indwelling Catheter Indwelling Catheter ABP, PAP, CO, CI - Last Documented Arterial Blood Pressure 88/72 - Exam Physical Exam: Revealed 65-year-old female intubated, sedated, on propofol, in no distress. Will transition the patient to Precedex today. In order to try weaning trials. Head: Atraumatic, normocephalic. HEENT:[Neck is supple.] [No neck masses.] [No thyromegaly.] [No JVD.] Chest: [Diminished breath sound bilaterally, minimal crackles at the bases. No rhonchi and no wheezes. Cardiac Exam: [Normal S1 and S2, no S3 gallop, no murmur.] Abdomen: [Soft, nontender, no megaly, no rebound, no guarding, normal bowel sounds.] Extremities: [No clubbing, no edema, no cyanosis.] Neurological Exam: Sedated, on propofol, unable to assess. Psychiatric: Unable to assess. Skin: No rashes. - Labs CBC & Chem 7: 05/13/21 05:57 05/14/21 07:35 Labs: Abnormal Lab Results - Last 24 Hours (Table) 05/13/21 05/14/21 05/14/21 Range/Units 18:01 00:53 05:34 ABG pCO2 49 H (35-45) mmHg ABG HCO3 31 H (21-25) mmol/L ABG Total CO2 32 H (19-24) mmol/L Sodium (137-145) mmol/L BUN (7-17) mg/dL Creatinine (0.52-1.04) mg/dL Glucose (74-99) mg/dL POC Glucose (mg/dL) 140 H 195 H (75-99) mg/dL 05/14/21 05/14/21 05/14/21 Range/Units 06:24 07:35 12:42 ABG pCO2 (35-45) mmHg ABG HCO3 (21-25) mmol/L ABG Total CO2 (19-24) mmol/L Sodium 135 L (137-145) mmol/L BUN 18 H (7-17) mg/dL Creatinine 0.45 L (0.52-1.04) mg/dL Glucose 166 H (74-99) mg/dL POC Glucose (mg/dL) 162 H 139 H (75-99) mg/dL Microbiology - Last 24 Hours (Table) 05/10/21 22:15 Blood Culture - Preliminary Blood No Growth after 72 hours 05/10/21 22:00 Blood Culture - Preliminary Blood No Growth after 72 hours Assessment and Plan Assessment: Impression: Acute on chronic hypoxic and hypercapnic respiratory failure secondary to severe exacerbation of COPD complicated by COVID-19 infection, required intubation and mechanical ventilation on 05/11. Severe COPD, FEV1 of 23%. Hypovolemic hyponatremia/acute. Resolved. COVID-19 pneumonia possible underlying community-acquired pneumonia based on a relatively elevated pro calcitonin level. Acute sepsis with hypotension but no evidence of septic shock Leukocytosis secondary to above. Former smoker. Recommendation: Continue ventilatory support. Continue bronchodilators. Continue IV Solu-Medrol. Continue antibiotics. Continue enteral feeding. Continue GI and DVT prophylaxis. Patient will be given a trial of weaning possibly today on Precedex. If she continues to have poor tolerance to weaning, may have to consider tracheostomy and PEG tube placement next week. Prognosis remains guarded. Patient remains critical. Critical care time is over 30 minutes Time with Patient: Greater than 30
[2021-05-14 18:12] LABS: Glucose,Whole Blood 134 mg/dL (75-99)
[2021-05-14] MEDS: OXYBUTYNIN 10 MG TAB.ER.24 PO SCH (21:30)
[2021-05-14] MEDS: MONTELUKAST 10 MG TAB PO SCH (21:31)
[2021-05-15] MEDS: methylPREDNISolone SOD SUCCI 125 MG/2 ML VIAL IV SCH ×4 (00:59→18:18)
[2021-05-15] MEDS: SODIUM CHLORIDE 0.45% 1,000 ML IV SCH ×2 (01:05→18:17)
[2021-05-15 01:12] LABS: Glucose,Whole Blood 164 mg/dL (75-99)
[2021-05-15] MEDS: INSULIN ASPART (NovoLOG) 100 UNIT/ML VIAL SQ SCH ×4 (01:12→18:14)
[2021-05-15 04:12] LABS: Basophils # (A) 0.1 k/uL (0-0.2); Basophils % (A) 0 %; Eosinophils % (A) 0 %; HCT 40.9 % (34.0-46.0); HGB 12.6 gm/dL (11.4-16.0); Lymphocytes # (A) 0.8 k/uL (1.0-4.8); Lymphocytes % (A) 5 %; MCH 30.1 pg (25.0-35.0); MCHC 30.8 g/dL (31.0-37.0); MCV 97.4 fL (80.0-100.0); Mean Platelet Volume 7.9; Monocytes # (A) 0.8 k/uL (0-1.0); Monocytes % (A) 5 %; Neutrophils # (A) 15.3 k/uL (1.3-7.7); Neutrophils % (A) 89 %; Platelet Count 357 k/uL (150-450); RBC 4.19 m/uL (3.80-5.40); RDW 13.5 % (11.5-15.5); WBC 17.2 k/uL (3.8-10.6)
[2021-05-15 04:36] LABS: ALT 21 U/L (4-34); AST 30 U/L (14-36); African American GFR (CKD) >90 (>60 ml/min/1.73 sqM); Albumin 2.7 g/dL (3.5-5.0); Alkaline Phosphatase 69 U/L (38-126); Anion Gap 5 mmol/L; Blood Urea Nitrogen 21 mg/dL (7-17); Calcium 8.8 mg/dL (8.4-10.2); Carbon Dioxide 27 mmol/L (22-30); Chloride 105 mmol/L (98-107); Glucose 140 mg/dL (74-99); Non-African American GFR(CKD) >90 (>60 ml/min/1.73 sqM); Potassium 4.6 mmol/L (3.5-5.1); Sodium 137 mmol/L (137-145); Total Bilirubin 0.3 mg/dL (0.2-1.3); Total Protein 5.2 g/dL (6.3-8.2)
[2021-05-15] MEDS: NOREPINEPHRINE 4 MG in SODIUM CHLORIDE 0.9% 250 ML IV SCH (04:47)
[2021-05-15 05:34] LABS: ABG Base Excess 8.7 mmol/L; ABG HCO3 33 mmol/L (21-25); ABG Oxygen Saturation 96.5 % (94-97); ABG PCO2 46 mmHg (35-45); ABG PH 7.46 (7.35-7.45); ABG PO2 77 mmHg (83-108); ABG TCO2 34 mmol/L (19-24); Allen Test Performed? Yes
[2021-05-15 06:02] LABS: Glucose,Whole Blood 138 mg/dL (75-99)
--- NOTE | 2021-05-15 07:26 | XR ---
EXAMINATION TYPE: XR chest 1V portable DATE OF EXAM: 05/15/2021 COMPARISON: Chest x-ray 05/14/2021 HISTORY: Intubated TECHNIQUE: Single frontal view of the chest is obtained. FINDINGS: Endotracheal tube and NG tube are overlying appropriate positions. There is posttraumatic change which appears chronic involving the proximal humerus bilaterally. There are overlying artifact s. Patchy bilateral density present within the lungs. Cardiac mediastinal silhouette is stable. Right lung apex not entirely included on the exam. No evident pneumothorax or pleural effusion. IMPRESSION: Findings are similar, correlate for pneumonia, follow-up recommended
[2021-05-15] MEDS: ALBUTEROL HFA INHALER INHALATION SCH ×4 (07:33→19:40)
[2021-05-15] MEDS: SYMBICORT 160-4.5 MCG INHALER INHALATION SCH ×2 (07:34→19:40)
[2021-05-15] MEDS: TIOTROPIUM 2.5 MCG INHALER INHALATION SCH (07:34)
[2021-05-15] MEDS: PANTOPRAZOLE 40 MG/10 ML VIAL IVP SCH (08:58)
[2021-05-15] MEDS: ASPIRIN 81 MG PO SCH (08:58)
[2021-05-15] MEDS: ATORVASTATIN 40 MG TAB PO SCH (08:58)
[2021-05-15] MEDS: CALCIUM CARBONATE 500 MG CHEWABLE PO SCH (08:58)
[2021-05-15] MEDS: CHOLECALCIFEROL 25 MCG (1000 IU) TABLET PO SCH (08:58)
[2021-05-15] MEDS: CHLORHEXIDINE GLUCONATE 15 ML CUP MUCOUS MEM SCH (08:58)
[2021-05-15] MEDS: METOPROLOL TARTRATE 25 MG TAB PO SCH (08:58)
[2021-05-15] MEDS: lisinopriL 5 MG TAB PO SCH ×2 (08:58→22:10)
[2021-05-15] MEDS: ASCORBIC ACID 500 MG TAB PO SCH (08:58)
[2021-05-15] MEDS: bisacodyL 10 MG SUPP RECTAL SCH (08:59)
[2021-05-15] MEDS: ENOXAPARIN 40 MG/0.4 ML SYRINGE SQ SCH (08:59)
[2021-05-15] MEDS: guaiFENesin 600 MG TABLET.ER PO SCH ×2 (09:00→22:10)
--- NOTE | 2021-05-15 11:01 | PN ---
PROGRESS NOTE Mrs. Whaley is a 65-year-old female who presented with respiratory failure with evidence of COVID-19 pneumonia requiring mechanical ventilation. At the time of intubation, she was noted to have T-wave inversion anteriorly with evidence of severe cardiomyopathy. She continues to be intubated. The plan is to probably wean her and extubate her today. Her blood pressure has been under good control, at times elevated. There is no evidence of malignant arrhythmia. Her urine output is good. She has no evidence of arrhythmia. She continues to be on aspirin once a day, Lipitor 40 mg daily, Lovenox subcutaneously. She is back on metoprolol 25 mg twice a day, potassium bicarb. Blood pressure is running in the 180s with a heart rate in the 80s. No physical examination was done to limit the exposure. Lab data revealed hemoglobin 12.6, BUN and creatinine of 21 and 0.52. IMPRESSION: 1. Respiratory failure with COVID-19 pneumonia. 2. Severe cardiomyopathy; could be related to the infectious process and the COVID-19. Possibility of acute ischemic event cannot be totally excluded. 3. Hypotension, resolved. Patient is hypertensive at this time. 4. Evidence of pmr-KT-qfvstxs-elevation myocardial infarction. 5. Prior history of smoking. RECOMMENDATIONS: From the cardiac standpoint, I will continue on beta loni. I will add an JONATHON inhibitor. I will repeat the echocardiogram tomorrow to see if there is any change in her LV systolic function. I am hopeful that we will be able to wean her and extubate her. Depending on her progress, further recommendations will be made. JESUS / ADAMN: [id number] /
[2021-05-15] MEDS: CLEVIDIPINE BUTYRATE 25 MG in EMPTY BAG 1 BAG IV SCH ×2 (11:11→18:31)
[2021-05-15] MEDS: DEXMEDETOMIDINE/0.9% NACL(PMX) 400 MCG in EMPTY BAG 1 BAG IV SCH (11:11)
[2021-05-15 11:29] LABS: Glucose,Whole Blood 83 mg/dL (75-99)
--- NOTE | 2021-05-15 12:56 | P.PN ---
Subjective Progress Note Date: 05/15/21 Patient 66-year-old female came with sharp shortness of breath and patient is presently intubated patient was a shortly intubated because of severe acute hypoxemia and hypercapnia. Patient does have history of her advanced COPD, former smoker uses 3 L of oxygen at home. Patient is presently on systemic s teroids. Patient is also found to have severe hyponatremia with the serum sodium as low as 114 patient is only getting 50 mL of IV normal saline as her sodium went up to 119 because of the bolus of IV fluids and patient is also hypotensive on levo fed, tachycardic. Patient the chest x-ray which was concerning for right lower lobe infiltrate but mostly consistent with atypical pneumonia and patient was found to have Covid 19 pneumonia. Patient is presently intubated sedated patient is on assist control ventilation with set up respiratory of around 18 because of hypercapnia episode of 40% PEEP of 5 05/12/2021 Patient is intubated in ICU, 40% FiO2. Covid was positive. Sodium level today is 122. Continue with IV fluids and recheck tomorrow. She is off levophed and maintaining blood pressures of 115/44. HR is 98, afebrile. Additional labs today include a WBC of 22.1, which is decreasing. Blood sugars are elevated. Pt was started on heparin gtt from cardiology for a possibility of Non-STEMI, but due to hematuria, heparin gtt has been placed on hold. Patient did have some T Wave inversion found on EKG. Cardiology is following closely. 05/13/2021 Patient remains intubated in the ICU at 40% FiO2. White blood cell count today is 22, sodium is 134. LDH is 627 and her CRP is 4.9. Blood sugars are better controlled in the 100s. Blood pressures in the lower side today at 92/53, heart rate of 101. She remains afebrile. Hematuria seems to be resolved. Urology saw the patient who recommended to keep the Mcgrath until patient is extubated and able to provide a history. 05/14/2021 Patient is evaluated in the ICU, she is still intubated 45% fio2. Per RN there is question for possible PEG and trach. RT did have to do a extensive lavage this morning on the patient pulled out quite a bit of mucus. Her lungs are still tight and diminished. She does have bowel sounds, however there is been no bowel movement. We will order a Dulcolax suppository to give daily until BM. Continue MEDICATIONS per pulmonary recommendations. chest x-ray this morning shows similar findings with some improvement in airspace disease. Correlate for pneumonia. Labs are still pending from Aldactone and metoprolol recommended for discontinuation. 05/15/2021 Time of examination, patient is moving around a bit. Pressures are elevated into the 160s systolic. Urine in the Mcgrath catheter drainage tube appears clear yellow in color. There are no signs of bleeding. We will resume DVT pro phylaxis. tube feeding is on hold. Chest x-ray reveals a minimal infiltrate in the right lower lobe. Repeat chest x-ray this morning shows similar findings as yesterday, correlate for pneumonia. There is a plan today for possible extubation. Per cardiology there is some T wave inversion anteriorly on EKG. Plans to repeat echocardiogram tomorrow. Labs today show white blood cell count of 17.2. Blood pressure elevated at 168/83. Heart rate 69. Medication changes from cardiology. Patient was started on Precedex this morning and attempt to begin weaning off propofol for extubation. REVIEW OF SYSTEMS: Unable to obtain due to her clinical condition PHYSICAL EXAMINATION: GENERAL: Patient is intubated sedated HEENT: Pupils are round and equally reacting to light. EOMI. No scleral icterus. No conjunctival pallor. Normocephalic, atraumatic. No pharyngeal erythema. No thyromegaly. CARDIOVASCULAR: S1 and S2 present. No murmurs, rubs, or gallops. PULMONARY: Lungs are tight and bilateral posterior bases, diminished posterior and anterior upper lobes. No wheezing or crackles noted. ABDOMEN: Soft, nontender, nondistended, hypoactive bowel sounds. No palpable organomegaly. MUSCULOSKELETAL: No joint swelling or deformity. EXTREMITIES: No cyanosis, clubbing, or pedal edema. NEUROLOGICAL: Patient is sedated SKIN: No rashes. Assessment and plan -Acute on chronic hypoxic and hypercapnic respiratory failure secondary to Covid 19 pneumonia and COPD exacerbation required intubation on 05/11/2021 -Hyponatremia is hypovolemic hyponatremia, sodium 137 on half NS. -Sepsis with hypotension and leukocytosis, on IV rocephin -Hematuria: Patient will be monitored and patient was only taking aspirin which is being held. D-dimer is within normal limits possibility of DIC is low, urine today appears a brown in color. -Chronic hypoxic and hypercapnic respiratory failure secondary to COPD -hypomagnesemia, repleted -hyperglycemia s/t steroids - improving with NovoLog -Tachycardia secondary to severe sepsis improving at this time -hypertension, medication changes per cardiology -Multiple acid-base abnormalities including respiratory acidosis, compensated metabolic alkalosis and possible metabolic acidosis, which are resolving DVT prophylaxis: Lovenox GI Prophlyaxis: IV Protonix Pt remains intubated in ICU, continue with all medications, recheck labs in the AM. Prognosis remains extremely guarded for this patient. Plans for possible extubation today. Objective - Vital Signs Vital signs: Vital Signs Temp 97.5 F L 05/14/21 16:30 Pulse 91 05/15/21 09:00 Resp 18 05/15/21 09:00 BP 171/96 05/15/21 09:00 Pulse Ox 95 05/15/21 09:00 Intake & Output 05/14/21 05/15/21 05/15/21 18:59 06:59 18:59 Intake Total 1359.368 998.177 146.353 Output Total 1178 780 45 Balance 181.368 218.177 101.353 Weight 63 kg Intake: IV 900 900 75 Sodium Chloride 0.45% 1, 900 900 75 000 ml @ 75 mls/hr IV . [id number] [facility] Rx#:[id number] Intake, IV Titration 231.368 70.177 71.353 Amount Dexmedetomidine/0.9% NaCl 51.545 (Pmx) 400 mcg In Empty Bag 1 bag @ 0.2 MCG/KG/HR 3.065 mls/hr IV .Q24H [facility] Rx#:[id number] cefTRIAXone 2 gm In 50 Sodium Chloride 0.9% 50 ml @ 100 mls/hr IVPB Q24HR [facility] Rx#:[id number] propofoL 1,000 mg In 129.823 70.177 71.353 Empty Bag 1 bag @ Titrate IV .Q0M AN[facility] Rx#: [id number] Tube Feeding 168 28 Other 60 Output: Urine 1178 780 45 Other: Voiding Method Indwelling Catheter Indwelling Catheter Indwelling Catheter ABP, PAP, CO, CI - Last Documented Arterial Blood Pressure 169/85 - Labs CBC & Chem 7: 05/15/21 03:11 05/15/21 03:11 Labs: Abnormal Lab Results - Last 24 Hours (Table) 05/14/21 05/14/21 05/15/21 Range/Units 12:42 18:10 01:09 WBC (3.8-10.6) k/uL MCHC (31.0-37.0) g/dL Neutrophils # (1.3-7.7) k/uL Lymphocytes # (1.0-4.8) k/uL ABG pH (7.35-7.45) ABG pCO2 (35-45) mmHg ABG pO2 (83-108) mmHg ABG HCO3 (21-25) mmol/L ABG Total CO2 (19-24) mmol/L BUN (7-17) mg/dL Glucose (74-99) mg/dL POC Glucose (mg/dL) 139 H 134 H 164 H (75-99) mg/dL Total Protein (6.3-8.2) g/dL Albumin (3.5-5.0) g/dL 05/15/21 05/15/21 05/15/21 Range/Units 03:11 03:11 05:24 WBC 17.2 H (3.8-10.6) k/uL MCHC 30.8 L (31.0-37.0) g/dL Neutrophils # 15.3 H (1.3-7.7) k/uL Lymphocytes # 0.8 L (1.0-4.8) k/uL ABG pH 7.46 H (7.35-7.45) ABG pCO2 46 H (35-45) mmHg ABG pO2 77 L (83-108) mmHg ABG HCO3 33 H (21-25) mmol/L ABG Total CO2 34 H (19-24) mmol/L BUN 21 H (7-17) mg/dL Glucose 140 H (74-99) mg/dL POC Glucose (mg/dL) (75-99) mg/dL Total Protein 5.2 L (6.3-8.2) g/dL Albumin 2.7 L (3.5-5.0) g/dL 05/15/21 Range/Units 06:00 WBC (3.8-10.6) k/uL MCHC (31.0-37.0) g/dL Neutrophils # (1.3-7.7) k/uL Lymphocytes # (1.0-4.8) k/uL ABG pH (7.35-7.45) ABG pCO2 (35-45) mmHg ABG pO2 (83-108) mmHg ABG HCO3 (21-25) mmol/L ABG Total CO2 (19-24) mmol/L BUN (7-17) mg/dL Glucose (74-99) mg/dL POC Glucose (mg/dL) 138 H (75-99) mg/dL Total Protein (6.3-8.2) g/dL Albumin (3.5-5.0) g/dL Microbiology - Last 24 Hours (Table) 05/10/21 22:15 Blood Culture - Preliminary Blood No Growth after 96 hours 05/10/21 22:00 Blood Culture - Preliminary Blood No Growth after 96 hours Assessment and Plan Time with Patient: Greater than 30
[2021-05-15 13:00] LABS: ABG Base Excess 10.1 mmol/L; ABG HCO3 34 mmol/L (21-25); ABG Oxygen Saturation 94.3 % (94-97); ABG PCO2 49 mmHg (35-45); ABG PH 7.45 (7.35-7.45); ABG PO2 67 mmHg (83-108); ABG TCO2 36 mmol/L (19-24); Allen Test Performed? Yes
[2021-05-15] MEDS: POTASSIUM BICARBONATE/CIT AC 20 MEQ TABLET.EFF PO SCH (14:29)
--- NOTE | 2021-05-15 16:19 | P.PN ---
Subjective Progress Note Date: 05/15/21 Principal diagnosis: Acute hypoxic and hypercapnic respiratory failure secondary to acute exacerbation of COPD and COVID-19 pneumonia. This is a 65-year-old female patient who follows with Dr. Smith as her primary care provider. She has a history of COPD with nighttime oxygen at home at 2 L, former smoker, FEV1 value is 0.56 L or 23% of predicted. DLCO 28%. She was last seen in our office in 2019. She's been maintained on Symbicort, Singulair, Atrovent. She presented to the emergency room yesterday with complaints of increasing shortness of breath. She had been compliant with her medications but no improvement. Chest x-ray revealed some right lower lobe pneumonia. No heart failure. Evidence of COPD. Questionable pulmonary fibrosis. She initially required BiPAP support. She was also found to be hyponatremic with a sodium of 114. She was admitted to the intensive care unit. She was found to have hypercapnic respiratory failure. Initial blood gases revealed a pO2 of 80, pCO2 78 and a pH of 7.22 on 44% FiO2. Approximately 6:00 this morning the patient had worsening oxygenation and required intubation and mechanical ventilatory support. She also tested positive for araujo virus. She is seen today in consultation in the intensive care unit. Current vent settings are assist control at a rate of 18, tidal volume 350, FiO2 40% and a PEEP of 5. Follow-up blood gases reveal a P O2 of 367, pCO2 37, pH 7.41. She is sedated on propofol at 40 mcg/kg/m. Requiring norepinephrine at 0.06 mcg/kg/m. She has 0.9 normal saline at 50 MLS per hour. White count 26.8. Hemoglobin 13.9. Platelets 487. Lymphocytes 0.7. D-dimer 0.35. Sodium 121. Potassium 4.1. Chloride 79. Bicarb 27. Anion gap 11. Creatinine 0.39. Glucose 156. Lactic acid 1.5. AST 48. ALT 28. Initial troponin negative. Current troponin 0.306. Reevaluated today on 05/12/21, patient remains in the ICU, intubated and mechanically ventilated. She is now on assist control rate of 18 and I cut down 16 volume of 350 FiO2 40% PEEP of 5 however FiO2 was increased to 45% since ABG showed a pO2 of 60 pCO2 42 pH of 7.43. Patient remains on propofol at 50 mcg/kg/m, she is on IV fluid at 100 mL per hour. Patient is not requiring any pressors. She is on the COVID-19 cocktail, she is also on bronchodilators and steroids, and she is on enteral feeding vital AF at 28 mL/h. Patient developed worsening hematuria, hence cardiology stopped her heparin today. And urology wa s consulted regarding her hematuria. Labs today showed WBC count of 22.1 hemoglobin is 13.1 electrolytes showed improvement in her sodium up to 125. Renal profile is normal bicarb is 25. Pro-calcitonin is 0.19, relatively low. 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 She is now on assist control rate of 16 per volume 350 FiO2 45% PEEP of 5. She is on propofol at 40 mcg/kg/m, remains on antibiotics in the form of Rocephin 2 g IV piggyback every 24 hours. IV fluid is 0.45 at 75 mL per hour. ABG today showed a pO2 of 72 pCO2 51 pH of 7.39. Chest x-ray showed scattered peripheral infiltrates consistent with atypical pneumonia. WBC count today is 22 hemoglobin 13.9, basic metabolic profile is normal, sodium is 134, BUN is 15 and creatinine 0.45. LDH is 627 C-reactive protein is 4.9 Reevaluated today on 05/14/21, patient remains in the ICU, intubated and mechanically ventilated. Patient is on assist control rate of 16, tidal volume 350 FiO2 45% PEEP of 5. ABG showed a pO2 of 83 pCO2 49 pH of 7.41. Patient continues to have intermittent episodes of tachycardia and tachypnea especially when weaned from sedation, and today on planning to start the patient on Precedex, and address at least a weaning trial if possible on Precedex. And her tube feeding is presently on hold. Chest x-ray showed minimal infiltrate in the right lower lobe. Does not seem to be classic of COVID-19 pneumonia. Elect rolytes are normal renal profile is normal blood sugar is 139 Patient was reevaluated today on 05/15/21, patient remains in the ICU intubated and mechanically ventilated. Patient is on assist control rate of 16, volume 350 FiO2 45% and I cut it down to 40% PEEP of 5. Chest x-ray continues to show patchy bilateral infiltrates, seems mostly in the right lower lobe. Patient was transitioned earlier today from propofol to Precedex, and I was planning to give the patient a weaning trial. Indeed the patient was given a pressure support of 8 and CPAP trial, and she seems to be doing quite well with that trial. 1 hour after being on pressure support and CPAP, her ABG showed a pO2 of 67 pCO2 49 pH of 7.45. Hence I recommended extubating the patient in the meantime patient is to be kept on Precedex as she seems to be quite anxious. Basic metabolic profile is normal. CBC is relatively normal. She does have leukocytosis with WBC count of 17.2. Patient was on Precedex early this morning, she was also on clevidipine at 2 mg per hour this is being titrated. Patient was also on enteral feeding which will be placed on hold before extubating the patient or when she goes on weaning trial Objective - Vital Signs Vital signs: Vital Signs Temp 97.5 F L 05/14/21 16:30 Pulse 69 05/15/21 10:00 Resp 16 05/15/21 10:00 BP 168/83 05/15/21 10:00 Pulse Ox 98 05/15/21 10:00 Intake & Output 05/14/21 05/15/21 05/15/21 18:59 06:59 18:59 Intake Total 1359.368 998.177 857.162 Output Total 1178 780 695 Balance 181.368 218.177 162.162 Weight 63 kg Intake: IV 900 900 675 Sodium Chloride 0.45% 1, 900 900 675 000 ml @ 75 mls/hr IV . [id number] [facility] Rx#:[id number] Intake, IV Titration 231.368 70.177 98.162 Amount Clevidipine Butyrate 25 2.533 mg In Empty Bag 1 bag @ 1 MG/HR 2 mls/hr IV .Q24H [facility] Rx#:[id number] Dexmedetomidine/0.9% NaCl 51.545 (Pmx) 400 mcg In Empty Bag 1 bag @ 0.2 MCG/KG/HR 3.065 mls/hr IV .Q24H [facility] Rx#:[id number] cefTRIAXone 2 gm In 50 Sodium Chloride 0.9% 50 ml @ 100 mls/hr IVPB Q24HR [facility] Rx#:[id number] propofoL 1,000 mg In 129.823 70.177 95.629 Empty Bag 1 bag @ Titrate IV .Q0M [facility] Rx#: [id number] Oral 84 Tube Feeding 168 28 Other 60 Output: Urine 1178 780 695 Other: Voiding Method Indwelling Catheter Indwelling Catheter Indwelling Catheter ABP, PAP, CO, CI - Last Documented Arterial Blood Pressure 151/74 - Exam Physical Exam: Revealed 65-year-old female intubated, awake follows instructions/simple instructions. on Precedex, off propofol. Head: Atraumatic, normocephalic. HEENT:[Neck is supple.] [No neck masses.] [No thyromegaly.] [No JVD.] Chest: [Diminished breath sound bilaterally, minimal crackles at the bases. No rhonchi and no wheezes. Cardiac Exam: [Normal S1 and S2, no S3 gallop, no murmur.] Abdomen: [Soft, nontender, no megaly, no rebound, no guarding, normal bowel sounds.] Extremities: [No clubbing, no edema, no cyanosis.] Neurological Exam: Arousable follows instructions, no gross focal neurologic deficits. Psychiatric: Anxious mood, blunt affect, normal mental status seems to comprehend.. Skin: No rashes. - Labs CBC & Chem 7: 05/15/21 03:11 05/15/21 03:11 Labs: Abnormal Lab Results - Last 24 Hours (Table) 05/14/21 05/15/21 05/15/21 Range/Units 18:10 01:09 03:11 WBC 17.2 H (3.8-10.6) k/uL MCHC 30.8 L (31.0-37.0) g/dL Neutrophils # 15.3 H (1.3-7.7) k/uL Lymphocytes # 0.8 L (1.0-4.8) k/uL ABG pH (7.35-7.45) ABG pCO2 (35-45) mmHg ABG pO2 (83-108) mmHg ABG HCO3 (21-25) mmol/L ABG Total CO2 (19-24) mmol/L BUN (7-17) mg/dL Glucose (74-99) mg/dL POC Glucose (mg/dL) 134 H 164 H (75-99) mg/dL Total Protein (6.3-8.2) g/dL Albumin (3.5-5.0) g/dL 05/15/21 05/15/21 05/15/21 Range/Units 03:11 05:24 06:00 WBC (3.8-10.6) k/uL MCHC (31.0-37.0) g/dL Neutrophils # (1.3-7.7) k/uL Lymphocytes # (1.0-4.8) k/uL ABG pH 7.46 H (7.35-7.45) ABG pCO2 46 H (35-45) mmHg ABG pO2 77 L (83-108) mmHg ABG HCO3 33 H (21-25) mmol/L ABG Total CO2 34 H (19-24) mmol/L BUN 21 H (7-17) mg/dL Glucose 140 H (74-99) mg/dL POC Glucose (mg/dL) 138 H (75-99) mg/dL Total Protein 5.2 L (6.3-8.2) g/dL Albumin 2.7 L (3.5-5.0) g/dL 05/15/21 Range/Units 12:58 WBC (3.8-10.6) k/uL MCHC (31.0-37.0) g/dL Neutrophils # (1.3-7.7) k/uL Lymphocytes # (1.0-4.8) k/uL ABG pH (7.35-7.45) ABG pCO2 49 H (35-45) mmHg ABG pO2 67 L (83-108) mmHg ABG HCO3 34 H (21-25) mmol/L ABG Total CO2 36 H (19-24) mmol/L BUN (7-17) mg/dL Glucose (74-99) mg/dL POC Glucose (mg/dL) (75-99) mg/dL Total Protein (6.3-8.2) g/dL Albumin (3.5-5.0) g/dL Microbiology - Last 24 Hours (Table) 05/10/21 22:15 Blood Culture - Preliminary Blood No Growth after 96 hours 05/10/21 22:00 Blood Culture - Preliminary Blood No Growth after 96 hours Assessment and Plan Assessment: Impression: Acute on chronic hypoxic and hypercapnic respiratory failure secondary to severe exacerbation of COPD complicated by COVID-19 infection, required intubation and mechanical ventilation on 05/11. Severe COPD, FEV1 of 23%. Hypovolemic hyponatremia/acute. Resolved. COVID-19 pneumonia possible underlying community-acquired pneumonia based on a relatively elevated pro calcitonin level. Acute sepsis with hypotension but no evidence of septic shock Leukocytosis secondary to above. Former smoker. Recommendation: Continue ventilatory support. However the patient will be given a trial of pressure support and CPAP, and if tolerated will extubated to BiPAP. Discontinue propofol and he patient on Precedex. Continue bronchodilators. Continue IV Solu-Medrol. Continue antibiotics. Continue enteral feeding. Continue GI and DVT prophylaxis. Prognosis remains guarded. Considering the patient's overall pulmonary status and base line FEV1, patient is a potential failure to wean or extubated, but we'll address that accordingly otherwise the patient will eventually require tracheostomy and PEG tube placement. Patient remains critical. Critical care time is over 30 minutes Time with Patient: Greater than 30
[2021-05-15] MEDS ORDERED: SODIUM CHLORIDE 0.9% 500 ML 500 ML IV ONE (16:41)
[2021-05-15 18:13] LABS: Glucose,Whole Blood 97 mg/dL (75-99)
[2021-05-15] MEDS: METOPROLOL TARTRATE 50 MG TAB PO SCH (18:18)
[2021-05-15] MEDS: OXYBUTYNIN 10 MG TAB.ER.24 PO SCH (22:10)
[2021-05-15] MEDS: MONTELUKAST 10 MG TAB PO SCH (22:10)
[2021-05-16] MEDS: methylPREDNISolone SOD SUCCI 125 MG/2 ML VIAL IV SCH ×2 (01:00→06:11)
[2021-05-16 01:12] LABS: Glucose,Whole Blood 114 mg/dL (75-99)
[2021-05-16] MEDS: CLEVIDIPINE BUTYRATE 25 MG in EMPTY BAG 1 BAG IV SCH ×3 (01:22→10:04)
[2021-05-16 04:22] LABS: Basophils % (A) 0 %; Eosinophils % (A) 0 %; HCT 43.1 % (34.0-46.0); HGB 13.7 gm/dL (11.4-16.0); Lymphocytes # (A) 0.7 k/uL (1.0-4.8); Lymphocytes % (A) 4 %; MCH 30.2 pg (25.0-35.0); MCHC 31.7 g/dL (31.0-37.0); MCV 95.4 fL (80.0-100.0); Monocytes # (A) 0.8 k/uL (0-1.0); Monocytes % (A) 5 %; Neutrophils % (A) 90 %; Platelet Count 368 k/uL (150-450); RBC 4.52 m/uL (3.80-5.40); RDW 13.6 % (11.5-15.5); WBC 15.7 k/uL (3.8-10.6)
[2021-05-16 04:32] LABS: African American GFR (CKD) >90 (>60 ml/min/1.73 sqM); Anion Gap 4 mmol/L; Blood Urea Nitrogen 14 mg/dL (7-17); Calcium 8.5 mg/dL (8.4-10.2); Carbon Dioxide 34 mmol/L (22-30); Chloride 97 mmol/L (98-107); Glucose 124 mg/dL (74-99); Non-African American GFR(CKD) >90 (>60 ml/min/1.73 sqM); Sodium 135 mmol/L (137-145)
[2021-05-16] MEDS: NOREPINEPHRINE 4 MG in SODIUM CHLORIDE 0.9% 250 ML IV SCH (05:56)
[2021-05-16] MEDS: INSULIN ASPART (NovoLOG) 100 UNIT/ML VIAL SQ SCH ×5 (05:57→21:40)
[2021-05-16 06:09] LABS: Glucose,Whole Blood 128 mg/dL (75-99)
[2021-05-16] MEDS: SODIUM CHLORIDE 0.45% 1,000 ML IV SCH ×3 (06:14→21:40)
--- NOTE | 2021-05-16 07:10 | XR ---
EXAMINATION TYPE: XR chest 1V portable DATE OF EXAM: 05/16/2021 COMPARISON: Chest x-ray 05/15/2021 HISTORY: Extubated, abnormal chest x-ray TECHNIQUE: Single frontal view of the chest is obtained. FINDINGS: Minimal patchy basilar density persists. Endotracheal tube and NG tube have been removed i n the interval. There is no evident pneumothorax or pleural effusion. There are overlying leads. Ther e is a spinal curvature. Cardiac mediastinal silhouette is unchanged. Posttraumatic changes noted to the humerus on the left and right proximally is likely chronic. IMPRESSION: Interval extubation. There may be basilar atelectasis or scarring, correlate to exclude pneumonia
[2021-05-16] MEDS: ALBUTEROL HFA INHALER INHALATION SCH ×4 (07:43→20:06)
[2021-05-16] MEDS: SYMBICORT 160-4.5 MCG INHALER INHALATION SCH ×2 (07:43→20:06)
[2021-05-16] MEDS: TIOTROPIUM 2.5 MCG INHALER INHALATION SCH ×2 (07:43→11:10)
--- NOTE | 2021-05-16 09:28 | P.PN ---
Subjective HISTORY OF PRESENTING ILLNESS This is a pleasant 65-year-old with COVID 19 and cardiomyopathy. Patient previously was hypotensive on vasopressors however currently hypertensive and on clevidipine drip. She was extubated and currently on nasal cannula. She denies any chest pain or pressure. She has not been tried on oral medications yet. Repeat echo this morning shows preliminary EF 60%. PHYSICAL EXAMINATION Vital signs reviewed. CONSTITUTIONAL: No apparent distress. HEENT: Head is normocephalic. Pupils are equal, round. Sclerae anicteric. Mucous membranes of the mouth are moist. No JVD. No carotid bruit. CHEST EXAMINATION: Lungs are clear to auscultation. No chest wall tenderness is noted on palpation or with deep breathing. HEART EXAMINATION: Regular rate and rhythm. S1, S2 heard. No murmurs, gallops or rub. ABDOMEN: Soft, nontender. Positive bowel sounds. EXTREMITIES: 2+ peripheral pulses, no lower extremity edema and no calf tenderness. NEUROLOGIC EXAMINATION: Patient is awake, alert and oriented x3. ASSESSMENT 1. Respiratory failure with Covid 19 pneumonia 2. Cardiomyopathy suspect related to Takotsubo's with improved EF 3. Hypertension, previously hypotensive 4. Non-STEMI, type II with improved EF likely Takotsubo's vs Type 2 mechanism, no current angina-type symptoms 5. Previous tobacco abuse PLAN Preliminary report for repeat echo with preserved ejection fraction 60%. Suspect Takotsubo's cardiomyopathy secondary to sepsis.Continue with heart failure regimen as able, hopefully weaning drip and initiate oral medications when swallowing eval. Objective - Vital Signs Vital signs: Vital Signs Temp 98.2 F 05/15/21 16:00 Pulse 98 05/16/21 07:00 Resp 18 05/16/21 07:00 BP 145/80 05/16/21 07:00 Pulse Ox 97 05/16/21 07:00 Intake & Output 05/15/21 05/16/21 05/16/21 18:59 06:59 18:59 Intake Total 1617.234 950 125 Output Total 1120 1845 150 Balance 497.234 -895 -25 Weight 60.3 kg Intake: IV 900 900 75 Sodium Chloride 0.45% 1, 900 900 75 000 ml @ 75 mls/hr IV . [id number] [facility] Rx#:[id number] Intake, IV Titration 633.234 50 50 Amount Clevidipine Butyrate 25 32.933 50 50 mg In Empty Bag 1 bag @ 1 MG/HR 2 mls/hr IV .Q24H [facility] Rx#:[id number] Dexmedetomidine/0.9% NaCl 4.672 (Pmx) 400 mcg In Empty Bag 1 bag @ 0.2 MCG/KG/HR 3.15 mls/hr IV .Q24H [facility] Rx#:[id number] Sodium Chloride 0.9% 500 500 ml 500 ml @ 999 mls/hr IV .Q31M [facility] Rx#:[id number] propofoL 1,000 mg In 95.629 Empty Bag 1 bag @ Titrate IV .Q0M [facility] Rx#: [id number] Oral 84 Output: Urine 1120 1845 150 Other: Voiding Method Indwelling Catheter Indwelling Catheter ABP, PAP, CO, CI - Last Documented Arterial Blood Pressure 122/56 - Labs CBC & Chem 7: 05/16/21 04:01 05/16/21 04:01 Labs: Abnormal Lab Results - Last 24 Hours (Table) 05/15/21 05/16/21 05/16/21 Range/Units 12:58 01:10 04:01 WBC 15.7 H (3.8-10.6) k/uL Neutrophils # 14.0 H (1.3-7.7) k/uL Lymphocytes # 0.7 L (1.0-4.8) k/uL ABG pCO2 49 H (35-45) mmHg ABG pO2 67 L (83-108) mmHg ABG HCO3 34 H (21-25) mmol/L ABG Total CO2 36 H (19-24) mmol/L Sodium (137-145) mmol/L Chloride (98-107) mmol/L Carbon Dioxide (22-30) mmol/L Creatinine (0.52-1.04) mg/dL Glucose (74-99) mg/dL POC Glucose (mg/dL) 114 H (75-99) mg/dL 05/16/21 05/16/21 Range/Units 04:01 06:07 WBC (3.8-10.6) k/uL Neutrophils # (1.3-7.7) k/uL Lymphocytes # (1.0-4.8) k/uL ABG pCO2 (35-45) mmHg ABG pO2 (83-108) mmHg ABG HCO3 (21-25) mmol/L ABG Total CO2 (19-24) mmol/L Sodium 135 L (137-145) mmol/L Chloride 97 L (98-107) mmol/L Carbon Dioxide 34 H (22-30) mmol/L Creatinine 0.38 L (0.52-1.04) mg/dL Glucose 124 H (74-99) mg/dL POC Glucose (mg/dL) 128 H (75-99) mg/dL Microbiology - Last 24 Hours (Table) 05/10/21 22:15 Blood Culture - Preliminary Blood No Growth after 120 hours 05/10/21 22:00 Blood Culture - Preliminary Blood No Growth after 120 hours
[2021-05-16] MEDS: guaiFENesin 600 MG TABLET.ER PO SCH ×2 (09:48→21:20)
[2021-05-16] MEDS: ENOXAPARIN 40 MG/0.4 ML SYRINGE SQ SCH (09:48)
[2021-05-16] MEDS: CHOLECALCIFEROL 25 MCG (1000 IU) TABLET PO SCH (09:49)
[2021-05-16] MEDS: bisacodyL 10 MG SUPP RECTAL SCH (09:49)
[2021-05-16] MEDS: POTASSIUM BICARBONATE/CIT AC 20 MEQ TABLET.EFF PO SCH (09:49)
[2021-05-16] MEDS: PANTOPRAZOLE 40 MG/10 ML VIAL IVP SCH (09:49)
[2021-05-16] MEDS: ASPIRIN 81 MG PO SCH (09:49)
[2021-05-16] MEDS: ATORVASTATIN 40 MG TAB PO SCH (09:49)
[2021-05-16] MEDS: ASCORBIC ACID 500 MG TAB PO SCH (09:49)
[2021-05-16] MEDS: CALCIUM CARBONATE 500 MG CHEWABLE PO SCH (09:49)
[2021-05-16] MEDS: lisinopriL 5 MG TAB PO SCH ×2 (09:49→21:36)
[2021-05-16] MEDS: METOPROLOL TARTRATE 50 MG TAB PO SCH ×2 (09:49→21:35)
[2021-05-16] MEDS: DEXMEDETOMIDINE/0.9% NACL(PMX) 400 MCG in EMPTY BAG 1 BAG IV SCH (09:50)
--- NOTE | 2021-05-16 10:23 | P.PN ---
Subjective Progress Note Date: 05/16/21 Principal diagnosis: COVID 19, COPD On 05/16/2021 patient seen in follow-up in the intensive care unit, patient has been successfully weaned and extubated from mechanical ventilator on 05/15/2021, tolerating extubation well so far, she is currently on 6 L of oxygen with a pulse ox of 95-97%, vital signs have been stable, she is afebrile, she has however still requiring Cleviprex for hypertension, Cleviprex is infusing at 3 mg per hour, lisinopril and metoprolol were added by cardiology, she is awake and alert, in no acute distress, she is oriented 3, she is answering questions appropriately, she is breathing comfortably, she does have productive cough, denies any hemoptysis, she states the phlegm as creamy colored,. She remains on antibiotic coverage in the form of Rocephin. Blood cultures have shown no growth so far, chest x-ray today showing basilar atelectasis possibility of pneumonia is also being considered. No fever or chills, today's labs have been reviewed going white blood cell count of 15.7, hemoglobin of 13.7, her leukocytosis has improved since a few days ago. Sodium is 135, potassium is 4.0, chloride is 97, CO2 is 34, BUN is 14 and creatinine 0.38. Her last set of inflammatory markers was on 05/13/2021 with LDH of 627, CRP of 4.9. Patient is currently on Solu-Medrol 60 mg every 6 hours, and prophylactic dose of Lovenox. Last d-dimer was back on 05/11/2021 and he was negative at 0.35. Objective - Vital Signs Vital signs: Vital Signs Temp 98.2 F 05/15/21 16:00 Pulse 98 05/16/21 07:00 Resp 18 05/16/21 07:00 BP 145/80 05/16/21 07:00 Pulse Ox 97 05/16/21 07:00 Intake & Output 05/15/21 05/16/21 05/16/21 18:59 06:59 18:59 Intake Total 1617.234 950 142.2 Output Total 1120 1845 150 Balance 497.234 -895 -7.8 Weight 60.3 kg Intake: IV 900 900 75 Sodium Chloride 0.45% 1, 900 900 75 000 ml @ 75 mls/hr IV . [id number] [facility] Rx#:[id number] Intake, IV Titration 633.234 50 67.2 Amount Clevidipine Butyrate 25 32.933 50 67.2 mg In Empty Bag 1 bag @ 1 MG/HR 2 mls/hr IV .Q24H [facility] Rx#:[id number] Dexmedetomidine/0.9% NaCl 4.672 (Pmx) 400 mcg In Empty Bag 1 bag @ 0.2 MCG/KG/HR 3.15 mls/hr IV .Q24H [facility] Rx#:[id number] Sodium Chloride 0.9% 500 500 ml 500 ml @ 999 mls/hr IV .Q31M [facility] Rx#:[id number] propofoL 1,000 mg In 95.629 Empty Bag 1 bag @ Titrate IV .Q0M [facility] Rx#: [id number] Oral 84 Output: Urine 1120 1845 150 Other: Voiding Method Indwelling Catheter Indwelling Catheter ABP, PAP, CO, CI - Last Documented Arterial Blood Pressure 122/56 - Exam GENERAL EXAM: Alert, pleasant, 65-year-old white female, on 6 L of oxygen the pulse ox of 97%, comfortable in no apparent distress. HEAD: Normocephalic/atraumatic. EYES: Normal reaction of pupils, equal size. Conjunctiva pink, sclera white. NOSE: Clear with pink turbinates. THROAT: No erythema or exudates. NECK: No masses, no JVD, no thyroid enlargement, no adenopathy. CHEST: No chest wall deformity. Symmetrical expansion. LUNGS: Equal air entry with bibasilar crackles CVS: Regular rate and rhythm, normal S1 and S2, no gallops, no murmurs, no rubs ABDOMEN: Soft, nontender. No hepatosplenomegaly, normal bowel sounds, no guarding or rigidity. EXTREMITIES: No clubbing, no edema, no cyanosis, 2+ pulses and upper and lower extremities. MUSCULOSKELETAL: Muscle strength and tone normal. SPINE: No scoliosis or deformity SKIN: No rashes CENTRAL NERVOUS SYSTEM: Alert and oriented -3. No focal deficits, tone is normal in all 4 extremities. PSYCHIATRIC: Alert and oriented -3. Appropriate affect. Intact judgment and insight. - Labs CBC & Chem 7: 05/16/21 04:01 05/16/21 04:01 Labs: Abnormal Lab Results - Last 24 Hours (Table) 05/15/21 05/16/21 05/16/21 Range/Units 12:58 01:10 04:01 WBC 15.7 H (3.8-10.6) k/uL Neutrophils # 14.0 H (1.3-7.7) k/uL Lymphocytes # 0.7 L (1.0-4.8) k/uL ABG pCO2 49 H (35-45) mmHg ABG pO2 67 L (83-108) mmHg ABG HCO3 34 H (21-25) mmol/L ABG Total CO2 36 H (19-24) mmol/L Sodium (137-145) mmol/L Chloride (98-107) mmol/L Carbon Dioxide (22-30) mmol/L Creatinine (0.52-1.04) mg/dL Glucose (74-99) mg/dL POC Glucose (mg/dL) 114 H (75-99) mg/dL 05/16/21 05/16/21 Range/Units 04:01 06:07 WBC (3.8-10.6) k/uL Neutrophils # (1.3-7.7) k/uL Lymphocytes # (1.0-4.8) k/uL ABG pCO2 (35-45) mmHg ABG pO2 (83-108) mmHg ABG HCO3 (21-25) mmol/L ABG Total CO2 (19-24) mmol/L Sodium 135 L (137-145) mmol/L Chloride 97 L (98-107) mmol/L Carbon Dioxide 34 H (22-30) mmol/L Creatinine 0.38 L (0.52-1.04) mg/dL Glucose 124 H (74-99) mg/dL POC Glucose (mg/dL) 128 H (75-99) mg/dL Microbiology - Last 24 Hours (Table) 05/10/21 22:15 Blood Culture - Preliminary Blood No Growth after 120 hours 05/10/21 22:00 Blood Culture - Preliminary Blood No Growth after 120 hours Assessment and Plan Plan: Assessment: #1. Acute hypercapnic and hypoxic respiratory failure related to acute exacerbation of COPD, severity of the right lower lobe pneumonia, and acute COVID-19 infection. Patient was intubated on 05/11/2021 and successfully weaned and extubated on 05/15/2021. Patient was not a candidate for Remdesivir related to severe hypoxic respiratory failure, or baricitinib related to possibility of a right lower lobe pneumonia #2. History of severe COPD with FEV1 value of 0.56 L or 23% of predicted and DLCO of 28% of predicted, on home oxygen at bedtime at 2 L. #3. Peripherally make hyponatremia, acute, resolved #4. Acute sepsis with hypotension but no evidence of septic shock #5. Leukocytosis related to sepsis and possible pneumonia, improving #6. Former smoker Plan: Wean FiO2 to keep O2 sats ration is at or above 80-90% Provide the incentive spirometer and encouraged the patient to use it Today's chest x-ray has been reviewed Clinically patient is stable, tolerating extubation well so far No altered mentation, no fever or chills, Oral antihypertensives have been started per cardiology, wean Cleviprex GI and DVT prophylaxis Continue current antibiotics patient is currently on Rocephin, no growth on cultures Increase activity as tolerated Continue bronchodilators, We'll cutback to IV steroids to 40 mg every 8 hours We'll continue to follow in intensive care unit I performed a history & physical examination of the patient and discussed their management with my nurse practitioner, Jasmin Fuentes. I reviewed the nurse practitioner's note and agree with the documented findings and plan of care. Lung sounds are positive for basilar crackles throughout the lung varma. The findings and the impression was discussed with the patient. I attest to the documentation by the nurse practitioner. Time with Patient: Greater than 30
[2021-05-16 11:18] LABS: Glucose,Whole Blood 162 mg/dL (75-99)
--- NOTE | 2021-05-16 11:35 | ECHOF ---
Referral Reason:lv function MEASUREMENTS -------- HEIGHT: 160.0 cm WEIGHT: 62.6 kg BP: 122/56 RVIDd: 3.1 cm (< 3.3) FINDINGS -------- Resting tachycardia (HR>100bpm). Limited Study Overall left ventricular systolic function is normal with, an EF between 60 - 65 %. There is no pericardial effusion. CONCLUSIONS -------- 1. Overall left ventricular systolic function is normal with, an EF between 60 - 65 %. 2. There is no pericardial effusion. HEAT CURER: Jojo Hernandez RDCS
--- NOTE | 2021-05-16 14:10 | P.PN ---
Subjective Progress Note Date: 05/16/21 Patient 66-year-old female came with sharp shortness of breath and patient is presently intubated patient was a shortly intubated because of severe acute hypoxemia and hypercapnia. Patient does have history of her advanced COPD, former smoker uses 3 L of oxygen at home. Patient is presently on systemic steroids. Patient is also found to have severe hyponatremia with the serum sodium as low as 114 patient is only getting 50 mL of IV normal saline as her sodium went up to 119 because of the bolus of IV fluids and patient is also hypotensive on levo fed, tachycardic. Patient the chest x-ray which was concerning for right lower lobe infiltrate but mostly consistent with atypical pneumonia and patient was found to have Covid 19 pneumonia. Patient is presently intubated sedated patient is on assist control ventilation with set up respiratory of around 18 because of hypercapnia episode of 40% PEEP of 5 05/12/2021 Patient is intubated in ICU, 40% FiO2. Covid was positive. Sodium level today is 122. Continue with IV fluids and recheck tomorrow. She is off levophed and maintaining blood pressures of 115/44. HR is 98, afebrile. Additional labs today include a WBC of 22.1, which is decreasing. Blood sugars are elevated. Pt was started on heparin gtt from cardiology for a possibility of Non-STEMI, but due to hematuria, heparin gtt has been placed on hold. Patient did have some T Wave inversion found on EKG. Cardiology is following closely. 05/13/2021 Patient remains intubated in the ICU at 40% FiO2. White blood cell count today is 22, sodium is 134. LDH is 627 and her CRP is 4.9. Blood sugars are better controlled in the 100s. Blood pressures in the lower side today at 92/53, heart rate of 101. She remains afebrile. Hematuria seems to be resolved. Urology saw the patient who recommended to keep the Mcgrath until patient is extubated and able to provide a history. 05/14/2021 Patient is evaluated in the ICU, she is still intubated 45% fio2. Per RN there is question for possible PEG and trach. RT did have to do a extensive lavage this morning on the patient pulled out quite a bit of mucus. Her lungs are still tight and diminished. She does have bowel sounds, however there is been no bowel movement. We will order a Dulcolax suppository to give daily until BM. Continue MEDICATIONS per pulmonary recommendations. chest x-ray this morning shows similar findings with some improvement in airspace disease. Correlate for pneumonia. Labs are still pending from Aldactone and metoprolol recommended for discontinuation. 05/15/2021 Time of examination, patient is moving around a bit. Pressures are elevated into the 160s systolic. Urine in the Mcgrath catheter drainage tube appears clear yellow in color. There are no signs of bleeding. We will resume DVT p rophylaxis. tube feeding is on hold. Chest x-ray reveals a minimal infiltrate in the right lower lobe. Repeat chest x-ray this morning shows similar findings as yesterday, correlate for pneumonia. There is a plan today for possible extubation. Per cardiology there is some T wave inversion anteriorly on EKG. Plans to repeat echocardiogram tomorrow. Labs today show white blood cell count of 17.2. Blood pressure elevated at 168/83. Heart rate 69. Medication changes from cardiology. Patient was started on Precedex this morning and attempt to begin weaning off propofol for extubation. 05/16/2021 Patient is evaluated in the ICU recently extubated yesterday and currently sitting up with nursing staff and speech therapist at the bedside performing swallow eval. Patient is to continue with full liquid diet with nectar thickened liquids and fluid restrictions of 1200 mL daily. Multiple medical consultations following including cardiology, pulmonary, nephrology. Chest x- ray today shows minimal patchy basilar densities persist with interval extubation and some basilar atelectasis and/or scarring in the correlate to exclude pneumonia. Patient is maintained on IV ceftriaxone along with IV steroids and being transitioned to 40 mg every 8 hours, Lovenox, and vitamin supplements and will continue. Cleviprex was just weaned off today. Repeat echo was done today showing overall left ventricular systolic function is normal with an EF of 60-65% with no pericardial effusion noted. PT/OT to evaluate the patient. Labs: White blood count is 15.7, hemoglobin is 13.7, platelets are 368, sodium is 135, potassium is 4.0, BUN is 14, creatinine is 0.38, calcium is 8.5. Active Medications Albuterol Sulfate (Albuterol Hfa Inhaler) 2 puff INHALATION RT-QID [facility] Last Admin: 05/16/21 11:10 Dose: 2 puff Documented by: Ascorbic Acid (Ascorbic Acid 500 Mg Tab) 500 mg PO DAILY [facility] Last Admin: 05/16/21 09:49 Dose: 500 mg Documented by: Aspirin (Aspirin 81 Mg) 81 mg PO DAILY [facility] Last Admin: 05/16/21 09:49 Dose: 81 mg Documented by: Atorvastatin Calcium (Atorvastatin 40 Mg Tab) 40 mg PO DAILY [facility] Last Admin: 05/16/21 09:49 Dose: 40 mg Documented by: Bisacodyl (Bisacodyl 10 Mg Supp) 10 mg RECTAL DAILY [facility] Last Admin: 05/16/21 09:49 Dose: 10 mg Documented by: Budesonide/Formoterol Fumarate (Symbicort 160-4.5 Mcg Inhaler) 2 puff INH ALATION RT-BID [facility] Last Admin: 05/16/21 07:43 Dose: 2 puff Documented by: Calcium Carbonate/Glycine (Calcium Carbonate 500 Mg Chewable) 500 mg PO DAILY [facility] Last Admin: 05/16/21 09:49 Dose: 500 mg Documented by: Cholecalciferol (Cholecalciferol 25 Mcg (1000 Iu) Tablet) 25 mcg PO DAILY [facility] Last Admin: 05/16/21 09:49 Dose: 25 mcg Documented by: Enoxaparin Sodium (Enoxaparin 40 Mg/0.4 Ml Syringe) 40 mg SQ DAILY [facility] Last Admin: 05/16/21 09:48 Dose: 40 mg Documented by: Guaifenesin (Guaifenesin 600 Mg Tablet.Er) 1,200 mg PO Q12HR [facility] Last Admin: 05/16/21 09:48 Dose: Not Given Documented by: Sodium Chloride (Saline 0.45%) 1,000 mls @ 75 mls/hr IV .[id number] [facility] Last Admin: 05/16/21 07:56 Dose: 75 mls/hr Documented by: Ceftriaxone Sodium 2 gm/ (Sodium Chloride) 50 mls @ 100 mls/hr IVPB Q24HR [facility] Last Admin: 05/16/21 08:14 Dose: 100 mls/hr Documented by: Clevidipine 25 mg/ IV Solution 50 mls @ 2 mls/hr IV .Q24H [facility]; Protocol Last Titration: 05/16/21 13:30 Dose: 0 mg/hr, 0 mls/hr Documented by: Insulin Aspart (Insulin Aspart (Novolog) 100 Unit/Ml Vial) 0 unit SQ Q6HR [facility]; Protocol Last Admin: 05/16/21 12:08 Dose: 3 unit Documented by: Lisinopril (Lisinopril 5 Mg Tab) 5 mg PO BID [facility] Last Admin: 05/16/21 09:49 Dose: 5 mg Documented by: Methocarbamol (Methocarbamol 500 Mg Tab) 500 mg PO TID PRN PRN Reason: Pain Methylprednisolone Sodium Succinate (Methylprednisolone Sod Succi 40 Mg/Ml 1 Ml Vial) 40 mg IV Q8HR [facility] Metoprolol Tartrate (Metoprolol Tartrate 50 Mg Tab) 50 mg PO BID [facility] Last Admin: 05/16/21 09:49 Dose: 50 mg Documented by: Miscellaneous Information (Potassium Replacement Protocol 1 Each Misc) 1 each MISCELLANE DAILY PRN; Protocol PRN Reason: Per Protocol Montelukast Sodium (Montelukast 10 Mg Tab) 10 mg PO HS [facility] Last Admin: 05/15/21 22:10 Dose: 10 mg Documented by: Naloxone HCl (Naloxone 0.4 Mg/Ml 1 Ml Vial) 0.2 mg IV Q2M PRN PRN Reason: Opioid Reversal Oxybutynin Chloride (Oxybutynin 10 Mg Tab.Er.24) 10 mg PO HS [facility] Last Admin: 05/15/21 22:10 Dose: 10 mg Documented by: Pantoprazole Sodium (Pantoprazole 40 Mg/10 Ml Vial) 40 mg IVP DAILY [facility] Last Admin: 05/16/21 09:49 Dose: 40 mg Documented by: Potassium Bicarbonate (Potassium Bicarbonate/Cit Ac 20 Meq Tablet.Eff) 20 meq PO DAILY [facility] Last Admin: 05/16/21 09:49 Dose: 20 meq Documented by: Tiotropium [place] (Tiotropium 2.5 Mcg Inhaler) 2 puff INHALATION RT-DAILY [facility] Last Admin: 05/16/21 11:10 Dose: 2 puff Documented by: PHYSICAL EXAMINATION: GENERAL: Patient is extubated currently sitting up in the bed undergoing swallow eval alert and oriented 3, thin built HEENT: Pupils are round and equally reacting to light. EOMI. No scleral icterus. No conjunctival pallor. Normocephalic, atraumatic. No pharyngeal erythema. No t hyromegaly. CARDIOVASCULAR: S1 and S2 present. No murmurs, rubs, or gallops. PULMONARY: Diminished breath sounds bilaterally with some scattered crackles noted at the bases and coarse rhonchi throughout. ABDOMEN: Soft, nontender, nondistended, bowel sounds present. No palpable organomegaly. MUSCULOSKELETAL: No joint swelling or deformity. EXTREMITIES: No cyanosis, clubbing, or pedal edema. NEUROLOGICAL: Awake, alert and oriented 3, mildly delayed SKIN: No rashes. Assessment and plan: -Acute on chronic hypoxic and hypercapnic respiratory failure secondary to Covid 19 pneumonia and COPD exacerbation required intubation on 05/11/2021, recently extubated and on 6 L nasal cannula -Hyponatremia is hypovolemic hyponatremia, sodium 135 on half NS. -Sepsis with hypotension and leukocytosis, on IV rocephin -Hematuria: Patient will be monitored and patient was only taking aspirin which is being held. D-dimer is within normal limits possibility of DIC is low, indwelling Mcgrath catheter with possible removal tomorrow -Chronic hypoxic and hypercapnic respiratory failure secondary to COPD -hypomagnesemia, improved -hyperglycemia s/t steroids - improving with NovoLog -Tachycardia secondary to severe sepsis improving at this time -hypertension, medication changes per cardiology, recently started on lisinopril and metoprolol and weaned off Cleviprex today and monitoring for tolerance -Multiple acid-base abnormalities including respiratory acidosis, compensated metabolic alkalosis and possible metabolic acidosis, which are resolving -DVT prophylaxis: Lovenox -GI Prophlyaxis: IV Protonix -Full code Objective - Vital Signs Vital signs: Vital Signs Temp 98.2 F 05/15/21 16:00 Pulse 98 05/16/21 07:00 Resp 18 05/16/21 07:00 BP 145/80 05/16/21 07:00 Pulse Ox 97 05/16/21 07:00 Intake & Output 05/15/21 05/16/21 05/16/21 18:59 06:59 18:59 Intake Total 1617.234 950 125 Output Total 1120 1845 150 Balance 497.234 -895 -25 Weight 60.3 kg Intake: IV 900 900 75 Sodium Chloride 0.45% 1, 900 900 75 000 ml @ 75 mls/hr IV . [id number] [facility] Rx#:[id number] Intake, IV Titration 633.234 50 50 Amount Clevidipine Butyrate 25 32.933 50 50 mg In Empty Bag 1 bag @ 1 MG/HR 2 mls/hr IV .Q24H [facility] Rx#:[id number] Dexmedetomidine/0.9% NaCl 4.672 (Pmx) 400 mcg In Empty Bag 1 bag @ 0.2 MCG/KG/HR 3.15 mls/hr IV .Q24H [facility] Rx#:[id number] Sodium Chloride 0.9% 500 500 ml 500 ml @ 999 mls/hr IV .Q31M [facility] Rx#:[id number] propofoL 1,000 mg In 95.629 Empty Bag 1 bag @ Titrate IV .Q0M [facility] Rx#: [id number] Oral 84 Output: Urine 1120 1845 150 Other: Voiding Method Indwelling Catheter Indwelling Catheter ABP, PAP, CO, CI - Last Documented Arterial Blood Pressure 122/56 - Labs CBC & Chem 7: 05/16/21 04:01 05/16/21 04:01 Labs: Abnormal Lab Results - Last 24 Hours (Table) 05/15/21 05/16/21 05/16/21 Range/Units 12:58 01:10 04:01 WBC 15.7 H (3.8-10.6) k/uL Neutrophils # 14.0 H (1.3-7.7) k/uL Lymphocytes # 0.7 L (1.0-4.8) k/uL ABG pCO2 49 H (35-45) mmHg ABG pO2 67 L (83-108) mmHg ABG HCO3 34 H (21-25) mmol/L ABG Total CO2 36 H (19-24) mmol/L Sodium (137-145) mmol/L Chloride (98-107) mmol/L Carbon Dioxide (22-30) mmol/L Creatinine (0.52-1.04) mg/dL Glucose (74-99) mg/dL POC Glucose (mg/dL) 114 H (75-99) mg/dL 05/16/21 05/16/21 Range/Units 04:01 06:07 WBC (3.8-10.6) k/uL Neutrophils # (1.3-7.7) k/uL Lymphocytes # (1.0-4.8) k/uL ABG pCO2 (35-45) mmHg ABG pO2 (83-108) mmHg ABG HCO3 (21-25) mmol/L ABG Total CO2 (19-24) mmol/L Sodium 135 L (137-145) mmol/L Chloride 97 L (98-107) mmol/L Carbon Dioxide 34 H (22-30) mmol/L Creatinine 0.38 L (0.52-1.04) mg/dL Glucose 124 H (74-99) mg/dL POC Glucose (mg/dL) 128 H (75-99) mg/dL Microbiology - Last 24 Hours (Table) 05/10/21 22:15 Blood Culture - Preliminary Blood No Growth after 120 hours 05/10/21 22:00 Blood Culture - Preliminary Blood No Growth after 120 hours
[2021-05-16] MEDS: methylPREDNISolone SOD SUCCI 40 MG/ML 1 ML VIAL IV SCH (16:33)
[2021-05-16 16:51] LABS: Glucose,Whole Blood 98 mg/dL (75-99)
[2021-05-16 20:55] LABS: Glucose,Whole Blood 244 mg/dL (75-99)
[2021-05-16] MEDS: OXYBUTYNIN 10 MG TAB.ER.24 PO SCH (21:20)
[2021-05-16] MEDS: MONTELUKAST 10 MG TAB PO SCH (21:20)
[2021-05-16 21:29] LABS: Glucose,Whole Blood 259 mg/dL (75-99)
[2021-05-17] MEDS: methylPREDNISolone SOD SUCCI 40 MG/ML 1 ML VIAL IV SCH ×4 (00:45→23:40)
[2021-05-17 05:03] LABS: Basophils % (A) 0 %; Eosinophils # (A) 0.1 k/uL (0-0.7); Eosinophils % (A) 0 %; HCT 40.2 % (34.0-46.0); HGB 13.4 gm/dL (11.4-16.0); Lymphocytes % (A) 4 %; MCH 30.5 pg (25.0-35.0); MCHC 33.3 g/dL (31.0-37.0); MCV 91.6 fL (80.0-100.0); Mean Platelet Volume 8.1; Monocytes # (A) 0.9 k/uL (0-1.0); Monocytes % (A) 4 %; Neutrophils # (A) 21.2 k/uL (1.3-7.7); Neutrophils % (A) 91 %; Platelet Count 257 k/uL (150-450); RBC 4.39 m/uL (3.80-5.40); RDW 13.8 % (11.5-15.5); WBC 23.4 k/uL (3.8-10.6)
[2021-05-17 05:21] LABS: African American GFR (CKD) >90 (>60 ml/min/1.73 sqM); Anion Gap 3 mmol/L; Blood Urea Nitrogen 21 mg/dL (7-17); C Reactive Protein 0.8 mg/dL (<1.0); Calcium 8.2 mg/dL (8.4-10.2); Carbon Dioxide 32 mmol/L (22-30); Chloride 97 mmol/L (98-107); Glucose 85 mg/dL (74-99); Non-African American GFR(CKD) >90 (>60 ml/min/1.73 sqM); Sodium 132 mmol/L (137-145)
[2021-05-17 05:23] LABS: LDH 741 U/L (313-618); Potassium 4.4 mmol/L (3.5-5.1)
[2021-05-17 07:16] LABS: Glucose,Whole Blood 95 mg/dL (75-99)
[2021-05-17] MEDS: INSULIN ASPART (NovoLOG) 100 UNIT/ML VIAL SQ SCH ×4 (07:34→21:45)
[2021-05-17] MEDS: SYMBICORT 160-4.5 MCG INHALER INHALATION SCH ×2 (07:39→20:50)
[2021-05-17] MEDS: TIOTROPIUM 2.5 MCG INHALER INHALATION SCH (07:39)
[2021-05-17] MEDS: ALBUTEROL HFA INHALER INHALATION SCH ×4 (07:39→20:50)
--- NOTE | 2021-05-17 08:12 | P.PN ---
Subjective HISTORY OF PRESENTING ILLNESS This is a pleasant 65-year-old with COVID 19 and cardiomyopathy. Patient previously was hypotensive on vasopressors however currently hypertensive and on clevidipine drip. She was extubated and currently on nasal cannula. She denies any chest pain or pressure. She has not been tried on oral medications yet. Repeat echo this morning shows preliminary EF 60%. 05/17/21 Patient on nasal cannula and his breathing is somewhat better. No chest pain or pressure. Repeat echo showed EF 60-65% with no pericardial effusion. She is off the clevedipine drip and able to tolerate oral meds, BP controlled. PHYSICAL EXAMINATION Vital signs reviewed. CONSTITUTIONAL: No apparent distress. HEENT: Head is normocephalic. Pupils are equal, round. Sclerae anicteric. Mucous membranes of the mouth are moist. No JVD. No carotid bruit. CHEST EXAMINATION: Lungs are clear to auscultation. No chest wall tenderness is noted on palpation or with deep breathing. HEART EXAMINATION: Regular rate and rhythm. S1, S2 heard. No murmurs, gallops or rub. ABDOMEN: Soft, nontender. Positive bowel sounds. EXTREMITIES: 2+ peripheral pulses, no lower extremity edema and no calf tenderness. NEUROLOGIC EXAMINATION: Patient is awake, alert and oriented x3. ASSESSMENT 1. Respiratory failure with Covid 19 pneumonia 2. Cardiomyopathy suspect related to Takotsubo's with improved EF 3. Hypertension, previously hypotensive 4. Non-STEMI, type II with improved EF likely Takotsubo's vs Type 2 mechanism, no current angina-type symptoms 5. Previous tobacco abuse PLAN Repeat echo with preserved ejection fraction 60-65%. Suspect Takotsubo's cardiomyopathy secondary to sepsis vs from COVID itself. Do not suspect acute coronary syndrome. Continue with heart failure regimen as able which she is tolerating. No further recommendations from cardiology standpoint. Please call with any questions. Objective - Vital Signs Vital signs: Vital Signs Temp 97.4 F L 05/17/21 06:00 Pulse 87 05/17/21 07:00 Resp 10 L 05/17/21 07:00 BP 126/59 05/17/21 07:00 Pulse Ox 98 05/17/21 07:00 Intake & Output 05/16/21 05/17/21 05/17/21 18:59 06:59 18:59 Intake Total 1115.000 725 Output Total 1060 365 Balance 55.000 360 Weight 60.3 kg 60 kg Intake: IV 975 525 Sodium Chloride 0.45% 1, 975 525 000 ml @ 75 mls/hr IV . [id number] [facility] Rx#:[id number] Intake, IV Titration 140.000 Amount Clevidipine Butyrate 25 90.000 mg In Empty Bag 1 bag @ 1 MG/HR 2 mls/hr IV .Q24H [facility] Rx#:[id number] cefTRIAXone 2 gm In 50 Sodium Chloride 0.9% 50 ml @ 100 mls/hr IVPB Q24HR [facility] Rx#:[id number] Oral 200 Output: Urine 1060 365 Other: Voiding Method Indwelling Catheter Indwelling Catheter ABP, PAP, CO, CI - Last Documented Arterial Blood Pressure 143/63 - Labs CBC & Chem 7: 05/17/21 04:42 05/17/21 04:42 Labs: Abnormal Lab Results - Last 24 Hours (Table) 05/16/21 05/16/21 05/16/21 Range/Units 11: 20:53 21:29 WBC (3.8-10.6) k/uL Neutrophils # (1.3-7.7) k/uL D-Dimer (<0.60) mg/L FEU Sodium (137-145) mmol/L Chloride (98-107) mmol/L Carbon Dioxide (22-30) mmol/L BUN (7-17) mg/dL Creatinine (0.52-1.04) mg/dL POC Glucose (mg/dL) 162 H 244 H 259 H (75-99) mg/dL Calcium (8.4-10.2) mg/dL Lactate Dehydrogenase (313-618) U/L 05/17/21 05/17/21 05/17/21 Range/Units 04:42 04:42 04:42 WBC 23.4 H (3.8-10.6) k/uL Neutrophils # 21.2 H (1.3-7.7) k/uL D-Dimer 0.71 H (<0.60) mg/L FEU Sodium 132 L (137-145) mmol/L Chloride 97 L (98-107) mmol/L Carbon Dioxide 32 H (22-30) mmol/L BUN 21 H (7-17) mg/dL Creatinine 0.39 L (0.52-1.04) mg/dL POC Glucose (mg/dL) (75-99) mg/dL Calcium 8.2 L (8.4-10.2) mg/dL Lactate Dehydrogenase 741 H (313-618) U/L Microbiology - Last 24 Hours (Table) 05/10/21 22:15 Blood Culture - Final Blood No Growth after 144 hours 05/10/21 22:00 Blood Culture - Final Blood No Growth after 144 hours
--- NOTE | 2021-05-17 09:29 | XR ---
EXAMINATION TYPE: XR chest 1V portable DATE OF EXAM: 05/17/2021 COMPARISON: 05/16/2021 INDICATION: Tube placement, prior abnormal chest x-ray TECHNIQUE: Single frontal view of the chest is obtained. FINDINGS: The heart size is normal. The pulmonary vasculature is normal. Mild residual basilar lung markings may be present. Resolving atelectasis could be considered. Suspic ious consolidation is not evident. Some nonspecific increased lung markings may be in the right upper lung field. IMPRESSION: 1. Improving bibasilar infiltrates. Some residual infiltrate may be within the right upper lobe. Cont inued follow-up is recommended.
--- NOTE | 2021-05-17 10:22 | P.PN ---
Subjective Progress Note Date: 05/17/21 Principal diagnosis: COVID 19, COPD On 05/16/2021 patient seen in follow-up in the intensive care unit, patient has been successfully weaned and extubated from mechanical ventilator on 05/15/2021, tolerating extubation well so far, she is currently on 6 L of oxygen with a pulse ox of 95-97%, vital signs have been stable, she is afebrile, she has however still requiring Cleviprex for hypertension, Cleviprex is infusing at 3 mg per hour, lisinopril and metoprolol were added by cardiology, she is awake and alert, in no acute distress, she is oriented 3, she is answering questions appropriately, she is breathing comfortably, she does have productive cough, denies any hemoptysis, she states the phlegm as creamy colored,. She remains on antibiotic coverage in the form of Rocephin. Blood cultures have shown no growth so far, chest x-ray today showing basilar atelectasis possibility of pneumonia is also being considered. No fever or chills, today's labs have been reviewed going white blood cell count of 15.7, hemoglobin of 13.7, her leukocytosis has improved since a few days ago. Sodium is 135, potassium is 4.0, chloride is 97, CO2 is 34, BUN is 14 and creatinine 0.38. Her last set of inflammatory markers was on 05/13/2021 with LDH of 627, CRP of 4.9. Patient is currently on Solu-Medrol 60 mg every 6 hours, and prophylactic dose of Lovenox. Last d-dimer was back on 05/11/2021 and he was negative at 0.35. On 05/17/2021 patient is seen in follow-up in intensive care unit, she is awake and alert, in no acute distress, she is on 4 L of oxygen,and her pulse ox is 94- 98%, she is afebrile, hemodynamically she is stable, she is currently on 0.45 normal saline at a rate of 75 ML. she is tolerating oral intake, today's labs have been reviewed showing white blood cell count 23.4, hemoglobin is 13.4, d- dimer 0.71, sodium is 132, potassium is 4.4, chloride is 97, CO2 is 32, BUN is 21, creatinine 0.39. chest x-ray shows improving bibasilar infiltrates with some residual infiltrate within the right upper lobe.cultures have shown no growth. patient remains on Rocephin, , nebulized bronchodilators, she is on GI and DVT prophylaxis, and she remains on IV Solu-Medrol 40 mg Objective - Vital Signs Vital signs: Vital Signs Temp 97.4 F L 05/17/21 06:00 Pulse 87 05/17/21 07:00 Resp 10 L 05/17/21 07:00 BP 126/59 05/17/21 07:00 Pulse Ox 98 05/17/21 07:00 Intake & Output 05/16/21 05/17/21 05/17/21 18:59 06:59 18:59 Intake Total 1115.000 725 Output Total 1060 365 Balance 55.000 360 Weight 60.3 kg 60 kg Intake: IV 975 525 Sodium Chloride 0.45% 1, 975 525 000 ml @ 75 mls/hr IV . [id number] [facility] Rx#:[id number] Intake, IV Titration 140.000 Amount Clevidipine Butyrate 25 90.000 mg In Empty Bag 1 bag @ 1 MG/HR 2 mls/hr IV .Q24H [facility] Rx#:[id number] cefTRIAXone 2 gm In 50 Sodium Chloride 0.9% 50 ml @ 100 mls/hr IVPB Q24HR [facility] Rx#:[id number] Oral 200 Output: Urine 1060 365 Other: Voiding Method Indwelling Catheter Indwelling Catheter ABP, PAP, CO, CI - Last Documented Arterial Blood Pressure 143/63 - Exam GENERAL EXAM: Alert, pleasant, 65-year-old white female, on 4 L of oxygen the pulse ox of 97%, comfortable in no apparent distress. HEAD: Normocephalic/atraumatic. EYES: Normal reaction of pupils, equal size. Conjunctiva pink, sclera white. NOSE: Clear with pink turbinates. THROAT: No erythema or exudates. NECK: No masses, no JVD, no thyroid enlargement, no adenopathy. CHEST: No chest wall deformity. Symmetrical expansion. LUNGS: Equal air entry with bibasilar crackles CVS: Regular rate and rhythm, normal S1 and S2, no gallops, no murmurs, no rubs ABDOMEN: Soft, nontender. No hepatosplenomegaly, normal bowel sounds, no guarding or rigidity. EXTREMITIES: No clubbing, no edema, no cyanosis, 2+ pulses and upper and lower extremities. MUSCULOSKELETAL: Muscle strength and tone normal. SPINE: No scoliosis or deformity SKIN: No rashes CENTRAL NERVOUS SYSTEM: Alert and oriented -3. No focal deficits, tone is normal in all 4 extremities. PSYCHIATRIC: Alert and oriented -3. Appropriate affect. Intact judgment and insight. - Labs CBC & Chem 7: 05/17/21 04:42 05/17/21 04:42 Labs: Abnormal Lab Results - Last 24 Hours (Table) 05/16/21 05/16/21 05/16/21 Range/Units 11:17 20:53 21:29 WBC (3.8-10.6) k/uL Neutrophils # (1.3-7.7) k/uL D-Dimer (<0.60) mg/L FEU Sodium (137-145) mmol/L Chloride (98-107) mmol/L Carbon Dioxide (22-30) mmol/L BUN (7-17) mg/dL Creatinine (0.52-1.04) mg/dL POC Glucose (mg/dL) 162 H 244 H 259 H (75-99) mg/dL Calcium (8.4-10.2) mg/dL Lactate Dehydrogenase (313-618) U/L 05/17/21 05/17/21 05/17/21 Range/Units 04:42 04:42 04:42 WBC 23.4 H (3.8-10.6) k/uL Neutrophils # 21.2 H (1.3-7.7) k/uL D-Dimer 0.71 H (<0.60) mg/L FEU Sodium 132 L (137-145) mmol/L Chloride 97 L (98-107) mmol/L Carbon Dioxide 32 H (22-30) mmol/L BUN 21 H (7-17) mg/dL Creatinine 0.39 L (0.52-1.04) mg/dL POC Glucose (mg/dL) (75-99) mg/dL Calcium 8.2 L (8.4-10.2) mg/dL Lactate Dehydrogenase 741 H (313-618) U/L Microbiology - Last 24 Hours (Table) 05/10/21 22:15 Blood Culture - Final Blood No Growth after 144 hours 05/10/21 22:00 Blood Culture - Final Blood No Growth after 144 hours Assessment and Plan Plan: Assessment: #1. Acute hypercapnic and hypoxic respiratory failure related to acute exacerbation of COPD, severity of the right lower lobe pneumonia, and acute COVID-19 infection. Patient was intubated on 05/11/2021 and successfully weaned and extubated on 05/15/2021. Patient was not a candidate for Remdesivir related to severe hypoxic respiratory failure, or baricitinib related to possibility of a right lower lobe pneumonia #2. History of severe COPD with FEV1 value of 0.56 L or 23% of predicted and DLCO of 28% of predicted, on home oxygen at bedtime at 2 L. #3. Peripherally make hyponatremia, acute, resolved #4. Acute sepsis with hypotension but no evidence of septic shock #5. Leukocytosis related to sepsis and possible pneumonia, improving #6. Former smoker Plan: Patient was stable overnight, no acute events Fio2 currently down to 4 L, continue weaning to maintain O2 saturations at 88- 90% Provide the incentive spirometer and encouraged the patient to use it Today's chest x-ray has been reviewed, showing improving aeration she continues on IV Rocephin, no growth on cultures, no fever or chills, although white blood cell count was noted to be increased on today's labs Increase activity as tolerated Continue bronchodilators, We'll cutback to IV steroids to 40 mg every 8 hours GI and DVT prophylaxis Today's labs have been noted Increase activity as tolerated Physical therapy consultation Stable for transfer out of intensive care unit to medical surgical unit without telemetry without telemetry I performed a history & physical examination of the patient and discussed their management with my nurse practitioner, Jasmin Fuentes. I reviewed the nurse practitioner's note and agree with the documented findings and plan of care. Lung sounds are positive for basilar crackles throughout the lung varma. The findings and the impression was discussed with the patient. I attest to the documentation by the nurse practitioner. Time with Patient: Less than 30
[2021-05-17] MEDS: ENOXAPARIN 40 MG/0.4 ML SYRINGE SQ SCH (10:45)
[2021-05-17] MEDS: PANTOPRAZOLE 40 MG/10 ML VIAL IVP SCH (10:45)
[2021-05-17] MEDS: ASPIRIN 81 MG PO SCH (10:45)
[2021-05-17] MEDS: guaiFENesin 600 MG TABLET.ER PO SCH ×2 (10:45→21:33)
[2021-05-17] MEDS: CHOLECALCIFEROL 25 MCG (1000 IU) TABLET PO SCH (10:46)
[2021-05-17] MEDS: ASCORBIC ACID 500 MG TAB PO SCH (10:46)
[2021-05-17] MEDS: CALCIUM CARBONATE 500 MG CHEWABLE PO SCH (10:46)
[2021-05-17] MEDS: POTASSIUM BICARBONATE/CIT AC 20 MEQ TABLET.EFF PO SCH (10:46)
[2021-05-17] MEDS: lisinopriL 5 MG TAB PO SCH ×2 (10:46→21:31)
[2021-05-17] MEDS: bisacodyL 10 MG SUPP RECTAL SCH (10:46)
[2021-05-17] MEDS: ATORVASTATIN 40 MG TAB PO SCH (10:46)
[2021-05-17] MEDS: METOPROLOL TARTRATE 50 MG TAB PO SCH ×2 (10:46→21:31)
[2021-05-17 11:52] LABS: Glucose,Whole Blood 141 mg/dL (75-99)
--- NOTE | 2021-05-17 14:24 | P.PN ---
Subjective Progress Note Date: 05/17/21 Patient 66-year-old female came with sharp shortness of breath and patient is presently intubated patient was a shortly intubated because of severe acute hypoxemia and hypercapnia. Patient does have history of her advanced COPD, former smoker uses 3 L of oxygen at home. Patient is presently on systemic steroids. Patient is also found to have severe hyponatremia with the serum sodium as low as 114 patient is only getting 50 mL of IV normal saline as her sodium went up to 119 because of the bolus of IV fluids and patient is also hypotensive on levo fed, tachycardic. Patient the chest x-ray which was concerning for right lower lobe infiltrate but mostly consistent with atypical pneumonia and patient was found to have Covid 19 pneumonia. Patient is presently intubated sedated patient is on assist control ventilation with set up respiratory of around 18 because of hypercapnia episode of 40% PEEP of 5 05/12/2021 Patient is intubated in ICU, 40% FiO2. Covid was positive. Sodium level today is 122. Continue with IV fluids and recheck tomorrow. She is off levophed and maintaining blood pressures of 115/44. HR is 98, afebrile. Additional labs today include a WBC of 22.1, which is decreasing. Blood sugars are elevated. Pt was started on heparin gtt from cardiology for a possibility of Non-STEMI, but due to hematuria, heparin gtt has been placed on hold. Patient did have some T Wave inversion found on EKG. Cardiology is following closely. 05/13/2021 Patient remains intubated in the ICU at 40% FiO2. White blood cell count today is 22, sodium is 134. LDH is 627 and her CRP is 4.9. Blood sugars are better controlled in the 100s. Blood pressures in the lower side today at 92/53, heart rate of 101. She remains afebrile. Hematuria seems to be resolved. Urology saw the patient who recommended to keep the Mcgrath until patient is extubated and able to provide a history. 05/14/2021 Patient is evaluated in the ICU, she is still intubated 45% fio2. Per RN there is question for possible PEG and trach. RT did have to do a extensive lavage this morning on the patient pulled out quite a bit of mucus. Her lungs are still tight and diminished. She does have bowel sounds, however there is been no bowel movement. We will order a Dulcolax suppository to give daily until BM. Continue MEDICATIONS per pulmonary recommendations. chest x-ray this morning shows similar findings with some improvement in airspace disease. Correlate for pneumonia. Labs are still pending from Aldactone and metoprolol recommended for discontinuation. 05/15/2021 Time of examination, patient is moving around a bit. Pressures are elevated into the 160s systolic. Urine in the Mcgrath catheter drainage tube appears clear yellow in color. There are no signs of bleeding. We will resume DVT p rophylaxis. tube feeding is on hold. Chest x-ray reveals a minimal infiltrate in the right lower lobe. Repeat chest x-ray this morning shows similar findings as yesterday, correlate for pneumonia. There is a plan today for possible extubation. Per cardiology there is some T wave inversion anteriorly on EKG. Plans to repeat echocardiogram tomorrow. Labs today show white blood cell count of 17.2. Blood pressure elevated at 168/83. Heart rate 69. Medication changes from cardiology. Patient was started on Precedex this morning and attempt to begin weaning off propofol for extubation. 05/16/2021 Patient is evaluated in the ICU recently extubated yesterday and currently sitting up with nursing staff and speech therapist at the bedside performing swallow eval. Patient is to continue with full liquid diet with nectar thickened liquids and fluid restrictions of 1200 mL daily. Multiple medical consultations following including cardiology, pulmonary, nephrology. Chest x- ray today shows minimal patchy basilar densities persist with interval extubation and some basilar atelectasis and/or scarring in the correlate to exclude pneumonia. Patient is maintained on IV ceftriaxone along with IV steroids and being transitioned to 40 mg every 8 hours, Lovenox, and vitamin supplements and will continue. Cleviprex was just weaned off today. Repeat echo was done today showing overall left ventricular systolic function is normal with an EF of 60-65% with no pericardial effusion noted. PT/OT to evaluate the patient. 05/17/2021 Patient is seen and evaluated and follow-up in the ICU extremely lethargic although arousable and alert and oriented 3. Patient is continued on 4 L via nasal cannula and maintaining oxygen saturations of above 90%. Multiple medical consultations following and patient continues to be weak and working with physical therapy. Per nursing staff, family would like patient to return home and is refusing any form of rehab. Chest x-ray today shows improving bibasilar infiltrates with some residual infiltrate may be within the right upper lobe. Patient continues on IV steroids along with vitamin and zinc supplements along with IV ceftriaxone and pulmonary is following closely. Patient does have a past medical history of severe COPD and oxygen dependent at 2 L at home. Labs: White blood count is 23.4, hemoglobin is 13.4, platelets are 257, d-dimer is 0.71, sodium is 132, potassium is 4.4, BUN is 21, creatinine is 0.39, calcium is 8.2, LDH is 741, CRP is 0.8. Active Medications Albuterol Sulfate (Albuterol Hfa Inhaler) 2 puff INHALATION RT-QID [facility] Last Admin: 05/17/21 10:55 Dose: 2 puff Documented by: Ascorbic Acid (Ascorbic Acid 500 Mg Tab) 500 mg PO DAILY [facility] Last Admin: 05/17/21 10:46 Dose: 500 mg Documented by: Aspirin (Aspirin 81 Mg) 81 mg PO DAILY [facility] Last Admin: 05/17/21 10:45 Dose: 81 mg Documented by: Atorvastatin Calcium (Atorvastatin 40 Mg Tab) 40 mg PO DAILY [facility] Last Admin: 05/17/21 10:46 Dose: 40 mg Documented by: Bisacodyl (Bisacodyl 10 Mg Supp) 10 mg RECTAL DAILY [facility] Last Admin: 05/17/21 10:46 Dose: 10 mg Documented by: Budesonide/Formoterol Fumarate (Symbicort 160-4.5 Mcg Inhaler) 2 puff INHALATION RT-BID [facility] Last Admin: 05/17/21 07:39 Dose: 2 puff Documented by: Calcium Carbonate/Glycine (Calcium Carbonate 500 Mg Chewable) 500 mg PO DAILY [facility] Last Admin: 05/17/21 10:46 Dose: 500 mg Documented by: Cholecalciferol (Cholecalciferol 25 Mcg (1000 Iu) Tablet) 25 mcg PO DAILY [facility] Last Admin: 05/17/21 10:46 Dose: 25 mcg Documented by: Enoxaparin Sodium (Enoxaparin 40 Mg/0.4 Ml Syringe) 40 mg SQ DAILY [facility] Last Admin: 05/17/21 10:45 Dose: 40 mg Documented by: Guaifenesin (Guaifenesin 600 Mg Tablet.Er) 1,200 mg PO Q12HR [facility] Last Admin: 05/17/21 10:45 Dose: 1,200 mg Documented by: Ceftriaxone Sodium 2 gm/ (Sodium Chloride) 50 mls @ 100 mls/hr IVPB Q24HR [facility] Last Admin: 05/17/21 10:45 Dose: 100 mls/hr Documented by: Insulin Aspart (Insulin Aspart (Novolog) 100 Unit/Ml Vial) 0 unit SQ ACHS [facility]; Protocol Last Admin: 05/17/21 12:47 Dose: 2 unit Documented by: Lisinopril (Lisinopril 5 Mg Tab) 5 mg PO BID [facility] Last Admin: 05/17/21 10:46 Dose: 5 mg Documented by: Methocarbamol (Methocarbamol 500 Mg Tab) 500 mg PO TID PRN PRN Reason: Pain Methylprednisolone Sodium Succinate (Methylprednisolone Sod Succi 40 Mg/Ml 1 Ml Vial) 40 mg IV Q8HR [facility] Last Admin: 05/17/21 10:45 Dose: 40 mg Documented by: Metoprolol Tartrate (Metoprolol Tartrate 50 Mg Tab) 50 mg PO BID [facility] Last Admin: 05/17/21 10:46 Dose: 50 mg Documented by: Miscellaneous Information (Potassium Replacement Protocol 1 Each Misc) 1 each MISCELLANE DAILY PRN; Protocol PRN Reason: Per Protocol Montelukast Sodium (Montelukast 10 Mg Tab) 10 mg PO [facility] Last Admin: 05/16/21 21:20 Dose: 10 mg Documented by: Naloxone HCl (Naloxone 0.4 Mg/Ml 1 Ml Vial) 0.2 mg IV Q2M PRN PRN Reason: Opioid Reversal Oxybutynin Chloride (Oxybutynin 10 Mg Tab.Er.24) 10 mg PO [facility] Last Admin: 05/16/21 21:20 Dose: 10 mg Documented by: Pantoprazole Sodium (Pantoprazole 40 Mg/10 Ml Vial) 40 mg IVP DAILY [facility] Last Admin: 05/17/21 10:45 Dose: 40 mg Documented by: Potassium Bicarbonate (Potassium Bicarbonate/Cit Ac 20 Meq Tablet.Eff) 20 meq PO DAILY [facility] Last Admin: 05/17/21 10:46 Dose: 20 meq Documented by: Tiotropium [place] (Tiotropium 2.5 Mcg Inhaler) 2 puff INHALATION RT-DAILY [facility] Last Admin: 05/17/21 07:39 Dose: 2 puff Documented by: PHYSICAL EXAMINATION: GENERAL: Patient is recently extubated currently sitting up in the bed l ethargic, awake, alert and oriented 3, thin built HEENT: Pupils are round and equally reacting to light. EOMI. No scleral icterus. No conjunctival pallor. Normocephalic, atraumatic. No pharyngeal erythema. No thyromegaly. CARDIOVASCULAR: S1 and S2 present. No murmurs, rubs, or gallops. PULMONARY: Diminished breath sounds bilaterally with some scattered coarse rhonchi noted throughout. ABDOMEN: Soft, nontender, nondistended, bowel sounds present. No palpable organomegaly. MUSCULOSKELETAL: No joint swelling or deformity. EXTREMITIES: No cyanosis, clubbing, or pedal edema. NEUROLOGICAL: Awake, alert and oriented 3, mildly delayed, diffusely weak SKIN: No rashes. Assessment and plan: -Acute on chronic hypoxic and hypercapnic respiratory failure secondary to Covid 19 pneumonia and COPD exacerbation required intubation on 05/11/2021, recently extubated and on 4 L nasal cannula -Hyponatremia is hypovolemic hyponatremia, sodium 132 on half NS. -Sepsis with hypotension and leukocytosis, on IV rocephin -Leukocytosis possibly secondary to above and possibly mildly reactive secondary to IV steroids -Hematuria: Possibly related to indwelling Mcgrath catheter with possible removal tomorrow -Chronic hypoxic and hypercapnic respiratory failure secondary to COPD, wears 2 L nasal cannula in the outpatient setting -hypomagnesemia, improved -hyperglycemia s/t steroids - improving with NovoLog -Tachycardia secondary to severe sepsis improving at this time -hypertension, medication changes per cardiology, recently started on lisinopril and metoprolol and weaned off Cleviprex yesterday -Multiple acid-base abnormalities including respiratory acidosis, compensated metabolic alkalosis and possible metabolic acidosis, which are resolving -DVT prophylaxis: Lovenox -GI Prophlyaxis: IV Protonix -Full code Plan: Recommend continue weaning FiO2 as tolerated and encouraging increased activity as tolerated. Patient to work with physical therapy and will discuss with case management about possible home care as patient is refusing rehab. Diet has been advanced as patient is more awake and tolerating per speech therapy to dysphagia 3 chopped with fluid restrictions and consistent carb diet. Encouraged incentive spirometer use at least 10 times every hour while awake and increased activity as tolerated. Patient continues on IV steroids which are being titrated down to 40 mg every 8 hours and recommend to continue with Accu-Cheks before meals and at bedtime and sliding scale. Repeat labs ordered for the a.m. Prognosis is guarded. Objective - Vital Signs Vital signs: Vital Signs Temp 97.4 F L 05/17/21 06:00 Pulse 87 05/17/21 07:00 Resp 10 L 05/17/21 07:00 BP 126/59 05/17/21 07:00 Pulse Ox 98 05/17/21 07:00 Intake & Output 05/16/21 05/17/21 05/17/21 18:59 06:59 18:59 Intake Total 1115.000 725 Output Total 1060 365 Balance 55.000 360 Weight 60.3 kg 60 kg Intake: IV 975 525 Sodium Chloride 0.45% 1, 975 525 000 ml @ 75 mls/hr IV . [id number] [facility] Rx#:[id number] Intake, IV Titration 140.000 Amount Clevidipine Butyrate 25 90.000 mg In Empty Bag 1 bag @ 1 MG/HR 2 mls/hr IV .Q24H [facility] Rx#:[id number] cefTRIAXone 2 gm In 50 Sodium Chloride 0.9% 50 ml @ 100 mls/hr IVPB Q24HR [facility] Rx#:[id number] Oral 200 Output: Urine 1060 365 Other: Voiding Method Indwelling Catheter Indwelling Catheter ABP, PAP, CO, CI - Last Documented Arterial Blood Pressure 143/63 - Labs CBC & Chem 7: 05/17/21 04:42 05/17/21 04:42 Labs: Abnormal Lab Results - Last 24 Hours (Table) 05/16/21 05/16/21 05/16/21 Range/Units 11:17 20:53 21:29 WBC (3.8-10.6) k/uL Neutrophils # (1.3-7.7) k/uL D-Dimer (<0.60) mg/L FEU Sodium (137-145) mmol/L Chloride (98-107) mmol/L Carbon Dioxide (22-30) mmol/L BUN (7-17) mg/dL Creatinine (0.52-1.04) mg/dL POC Glucose (mg/dL) 162 H 244 H 259 H (75-99) mg/dL Calcium (8.4-10.2) mg/dL Lactate Dehydrogenase (313-618) U/L 05/17/21 05/17/2105/17/21 Range/Units 04:42 04:42 04:42 WBC 23.4 H (3.8-10.6) k/uL Neutrophils # 21.2 H (1.3-7.7) k/uL D-Dimer 0.71 H (<0.60) mg/L FEU Sodium 132 L (137-145) mmol/L Chloride 97 L (98-107) mmol/L Carbon Dioxide 32 H (22-30) mmol/L BUN 21 H (7-17) mg/dL Creatinine 0.39 L (0.52-1.04) mg/dL POC Glucose (mg/dL) (75-99) mg/dL Calcium 8.2 L (8.4-10.2) mg/dL Lactate Dehydrogenase 741 H (313-618) U/L Microbiology - Last 24 Hours (Table) 05/10/21 22:15 Blood Culture - Final Blood No Growth after 144 hours 05/10/21 22:00 Blood Culture - Final Blood No Growth after 144 hours
[2021-05-17 16:23] LABS: Glucose,Whole Blood 85 mg/dL (75-99)
[2021-05-17] MEDS: MONTELUKAST 10 MG TAB PO SCH (21:31)
[2021-05-17] MEDS: OXYBUTYNIN 10 MG TAB.ER.24 PO SCH (21:31)
[2021-05-17 21:38] LABS: Glucose,Whole Blood 203 mg/dL (75-99)
[2021-05-18 05:17] LABS: Basophils % (A) 0 %; Eosinophils # (A) 0.1 k/uL (0-0.7); Eosinophils % (A) 0 %; HCT 40.6 % (34.0-46.0); HGB 12.8 gm/dL (11.4-16.0); Lymphocytes # (A) 0.7 k/uL (1.0-4.8); Lymphocytes % (A) 3 %; MCH 30.4 pg (25.0-35.0); MCHC 31.4 g/dL (31.0-37.0); Mean Platelet Volume 7.6; Monocytes # (A) 0.7 k/uL (0-1.0); Monocytes % (A) 3 %; Neutrophils # (A) 20.5 k/uL (1.3-7.7); Neutrophils % (A) 93 %; Platelet Count 265 k/uL (150-450); RDW 13.2 % (11.5-15.5); WBC 22.1 k/uL (3.8-10.6)
[2021-05-18 05:19] LABS: MCV 96.8 fL (80.0-100.0)
[2021-05-18 05:30] LABS: African American GFR (CKD) >90 (>60 ml/min/1.73 sqM); Anion Gap 0 mmol/L; Blood Urea Nitrogen 20 mg/dL (7-17); C Reactive Protein 0.6 mg/dL (<1.0); Calcium 8.7 mg/dL (8.4-10.2); Carbon Dioxide 36 mmol/L (22-30); Chloride 93 mmol/L (98-107); Glucose 104 mg/dL (74-99); LDH 750 U/L (313-618); Non-African American GFR(CKD) >90 (>60 ml/min/1.73 sqM); Potassium 4.6 mmol/L (3.5-5.1); Sodium 129 mmol/L (137-145)
[2021-05-18 06:11] LABS: Glucose,Whole Blood 117 mg/dL (75-99)
[2021-05-18] MEDS: INSULIN ASPART (NovoLOG) 100 UNIT/ML VIAL SQ SCH ×4 (06:17→23:13)
[2021-05-18] MEDS ORDERED: SODIUM CHLORIDE 0.9% 1,000 ML IV SCH (09:15)
[2021-05-18] MEDS: SYMBICORT 160-4.5 MCG INHALER INHALATION SCH ×2 (09:25→19:43)
[2021-05-18] MEDS: ALBUTEROL HFA INHALER INHALATION SCH ×4 (09:25→19:42)
[2021-05-18] MEDS: TIOTROPIUM 2.5 MCG INHALER INHALATION SCH (09:26)
[2021-05-18] MEDS: ASCORBIC ACID 500 MG TAB PO SCH (10:23)
[2021-05-18] MEDS: PANTOPRAZOLE 40 MG TABLET PO SCH (10:23)
[2021-05-18] MEDS: POTASSIUM BICARBONATE/CIT AC 20 MEQ TABLET.EFF PO SCH (10:23)
[2021-05-18] MEDS: METOPROLOL TARTRATE 50 MG TAB PO SCH ×2 (10:23→21:28)
[2021-05-18] MEDS: guaiFENesin 600 MG TABLET.ER PO SCH ×2 (10:23→21:28)
[2021-05-18] MEDS: ATORVASTATIN 40 MG TAB PO SCH (10:24)
[2021-05-18] MEDS: lisinopriL 5 MG TAB PO SCH ×2 (10:24→21:28)
[2021-05-18] MEDS: CALCIUM CARBONATE 500 MG CHEWABLE PO SCH (10:24)
[2021-05-18] MEDS: CHOLECALCIFEROL 25 MCG (1000 IU) TABLET PO SCH (10:24)
[2021-05-18] MEDS: ASPIRIN 81 MG PO SCH (10:24)
[2021-05-18] MEDS: bisacodyL 10 MG SUPP RECTAL SCH (10:25)
[2021-05-18] MEDS: ENOXAPARIN 40 MG/0.4 ML SYRINGE SQ SCH (10:25)
--- NOTE | 2021-05-18 10:57 | P.PN ---
Subjective Progress Note Date: 05/18/21 Principal diagnosis: COVID 19, COPD On 05/16/2021 patient seen in follow-up in the intensive care unit, patient has been successfully weaned and extubated from mechanical ventilator on 05/15/2021, tolerating extubation well so far, she is currently on 6 L of oxygen with a pulse ox of 95-97%, vital signs have been stable, she is afebrile, she has however still requiring Cleviprex for hypertension, Cleviprex is infusing at 3 mg per hour, lisinopril and metoprolol were added by cardiology, she is awake and alert, in no acute distress, she is oriented 3, she is answering questions appropriately, she is breathing comfortably, she does have productive cough, denies any hemoptysis, she states the phlegm as creamy colored,. She remains on antibiotic coverage in the form of Rocephin. Blood cultures have shown no growth so far, chest x-ray today showing basilar atelectasis possibility of pneumonia is also being considered. No fever or chills, today's labs have been reviewed going white blood cell count of 15.7, hemoglobin of 13.7, her leukocytosis has improved since a few days ago. Sodium is 135, potassium is 4.0, chloride is 97, CO2 is 34, BUN is 14 and creatinine 0.38. Her last set of inflammatory markers was on 05/13/2021 with LDH of 627, CRP of 4.9. Patient is currently on Solu-Medrol 60 mg every 6 hours, and prophylactic dose of Lovenox. Last d-dimer was back on 05/11/2021 and he was negative at 0.35. On 05/17/2021 patient is seen in follow-up in intensive care unit, she is awake and alert, in no acute distress, she is on 4 L of oxygen,and her pulse ox is 94- 98%, she is afebrile, hemodynamically she is stable, she is currently on 0.45 normal saline at a rate of 75 ML. she is tolerating oral intake, today's labs have been reviewed showing white blood cell count 23.4, hemoglobin is 13.4, d- dimer 0.71, sodium is 132, potassium is 4.4, chloride is 97, CO2 is 32, BUN is 21, creatinine 0.39. chest x-ray shows improving bibasilar infiltrates with some residual infiltrate within the right upper lobe.cultures have shown no growth. patient remains on Rocephin, , nebulized bronchodilators, she is on GI and DVT prophylaxis, and she remains on IV Solu-Medrol 40 mg every 8 hours On 05/18/2021 patient seen in follow-up in intensive care unit, she has been stable over the last 24 hours, no acute distress, she is on 3 L of oxygen pulse ox is 97%, she is breathing comfortably, generally she appears weak, but no evidence of any respiratory difficulty, she is not on any IV fluids. She is awake and alert, oriented 3, yesterday's chest x-ray showed improving bibasilar infiltrates. These labs have been reviewed, her white blood cell count is 22.1, hemoglobin is 12.8, d-dimer is 0.74, today sodium is 129, potassium is 4.6, chloride is 93, CO2 is 36, B1 is 20, creatinine 0.51. Patient is currently on nebulized bronchodilators in the form of Symbicort and albuterol inhaler, she remains on IV Solu-Medrol 40 mg every 8 hours, she is on Lovenox 40 mg daily, and COVID-19 vitamins. Her appetite has been poor, patient is on dysphagia level III chopped diet. She is very weak, she requires assistance to feed herself. She has been working with physical therapy, she was able to take 2-3 steps with the use of a walker, she does require moderate assistance, she starts coughing after exertion, and she easily fatigues with minimal activity. She does sit up in the recliner during the day. She is awaiting a bed on medical surgical floor. She had no other acute events overnight. Objective - Vital Signs Vital signs: Vital Signs Temp 97.7 F 05/18/21 08:00 Pulse 99 05/18/21 08:00 Resp 17 05/18/21 08:00 BP 106/55 05/18/21 08:00 Pulse Ox 93 L 05/18/21 08:00 Intake & Output 05/17/21 05/18/21 05/18/21 18:59 06:59 18:59 Intake Total 125 Output Total 360 800 Balance -235 -800 Weight 61.5 kg Intake: IV 75 Sodium Chloride 0.45% 1, 75 000 ml @ 75 mls/hr IV . [id number] [facility] Rx#:[id number] Intake, IV Titration 50 Amount cefTRIAXone 2 gm In 50 Sodium Chloride 0.9% 50 ml @ 100 mls/hr IVPB Q24HR [facility] Rx#:[id number] Output: Urine 360 800 Other: Voiding Method Indwelling Catheter Indwelling Catheter # Bowel Movements 1 ABP, PAP, CO, CI - Last Documented Arterial Blood Pressure 143/63 - Exam GENERAL EXAM: Alert, pleasant, 65-year-old white female, on 3 L of oxygen the pulse ox of 93%, comfortable in no apparent distress. HEAD: Normocephalic/atraumatic. EYES: Normal reaction of pupils, equal size. Conjunctiva pink, sclera white. NOSE: Clear with pink turbinates. THROAT: No erythema or exudates. NECK: No masses, no JVD, no thyroid enlargement, no adenopathy. CHEST: No chest wall deformity. Symmetrical expansion. LUNGS: Equal air entry with bibasilar crackles CVS: Regular rate and rhythm, normal S1 and S2, no gallops, no murmurs, no rubs ABDOMEN: Soft, nontender. No hepatosplenomegaly, normal bowel sounds, no guarding or rigidity. EXTREMITIES: No clubbing, no edema, no cyanosis, 2+ pulses and upper and lower extremities. MUSCULOSKELETAL: Muscle strength and tone normal. SPINE: No scoliosis or deformity SKIN: No rashes CENTRAL NERVOUS SYSTEM: Alert and oriented -3. No focal deficits, tone is norm al in all 4 extremities. PSYCHIATRIC: Alert and oriented -3. Appropriate affect. Intact judgment and insight. - Labs CBC & Chem 7: 05/18/21 04:44 05/18/21 04:44 Labs: Abnormal Lab Results - Last 24 Hours (Table) 05/17/21 05/17/21 05/18/21 Range/Units 11:51 21:36 04:44 WBC 22.1 H (3.8-10.6) k/uL Neutrophils # 20.5 H (1.3-7.7) k/uL Lymphocytes # 0.7 L (1.0-4.8) k/uL D-Dimer (<0.60) mg/L FEU Sodium (137-145) mmol/L Chloride (98-107) mmol/L Carbon Dioxide (22-30) mmol/L BUN (7-17) mg/dL Creatinine (0.52-1.04) mg/dL Glucose (74-99) mg/dL POC Glucose (mg/dL) 141 H 203 H (75-99) mg/dL Lactate Dehydrogenase (313-618) U/L 05/18/21 05/18/21 05/18/21 Range/Units 04:44 04:44 06:09 WBC (3.8-10.6) k/uL Neutrophils # (1.3-7.7) k/uL Lymphocytes # (1.0-4.8) k/uL D-Dimer 0.74 H (<0.60) mg/L FEU Sodium 129 L (137-145) mmol/L Chloride 93 L (98-107) mmol/L Carbon Dioxide 36 H (22-30) mmol/L BUN 20 H (7-17) mg/dL Creatinine 0.51 L (0.52-1.04) mg/dL Glucose 104 H (74-99) mg/dL POC Glucose (mg/dL) 117 H (75-99) mg/dL Lactate Dehydrogenase 750 H (313-618) U/L Microbiology - Last 24 Hours (Table) 05/16/21 14:58 Gram Stain - Preliminary Sputum Sputum Culture - Preliminary Assessment and Plan Plan: Assessment: #1. Acute hypercapnic and hypoxic respiratory failure related to acute exacerbation of COPD, severity of the right lower lobe pneumonia, and acute COVID-19 infection. Patient was intubated on 05/11/2021 and successfully weaned and extubated on 05/15/2021. Patient was not a candidate for Remdesivir related to severe hypoxic respiratory failure, or baricitinib related to possibility of a right lower lobe pneumonia #2. History of severe COPD with FEV1 value of 0.56 L or 23% of predicted and DLCO of 28% of predicted, on home oxygen at bedtime at 2 L. #3. Hypovolemic hyponatremia, acute, improved and worsened again, currently at 129 on 05/18/2021 #4. Acute sepsis with hypotension but no evidence of septic shock #5. Leukocytosis related to sepsis and possible pneumonia, improving #6. Former smoker Plan: Continue weaning FiO2, currently patient is down to 3 L Continue current medical treatment, we'll switch IV Solu-Medrol to Decadron 6 mg daily Continue current dose Lovenox Discontinue Rocephin Vital signs have been stable, no fever or chills, no worsening dyspnea Physically patient is very weak, deconditioned She is working with physical therapy, she has been able to take steps with walker and moderate assist She will most likely require rehab placement after discharge She stable to go out of intensive care unit to regular medical surgical floor without telemetry Provide nutritional supplements per dietary recommendations Provide assistance with meals Increase IV 0.9 normal saline at a rate of 75 ML per hour Follow-up BMP tomorrow I performed a history & physical examination of the patient and discussed their management with my nurse practitioner, Jasmin Fuentes. I reviewed the nurse practitioner's note and agree with the documented findings and plan of care. Lung sounds are positive for basilar crackles throughout the lung varma. The findings and the impression was discussed with the patient. I attest to the documentation by the nurse practitioner. Time with Patient: Less than 30
[2021-05-18 12:07] LABS: Glucose,Whole Blood 140 mg/dL (75-99)
--- NOTE | 2021-05-18 14:31 | P.PN ---
Subjective Progress Note Date: 05/18/21 Patient 66-year-old female came with sharp shortness of breath and patient is presently intubated patient was a shortly intubated because of severe acute hypoxemia and hypercapnia. Patient does have history of her advanced COPD, former smoker uses 3 L of oxygen at home. Patient is presently on systemic steroids. Patient is also found to have severe hyponatremia with the serum sodium as low as 114 patient is only getting 50 mL of IV normal saline as her sodium went up to 119 because of the bolus of IV fluids and patient is also hypotensive on levo fed, tachycardic. Patient the chest x-ray which was concerning for right lower lobe infiltrate but mostly consistent with atypical pneumonia and patient was found to have Covid 19 pneumonia. Patient is presently intubated sedated patient is on assist control ventilation with set up respiratory of around 18 because of hypercapnia episode of 40% PEEP of 5 05/12/2021 Patient is intubated in ICU, 40% FiO2. Covid was positive. Sodium level today is 122. Continue with IV fluids and recheck tomorrow. She is off levophed and maintaining blood pressures of 115/44. HR is 98, afebrile. Additional labs today include a WBC of 22.1, which is decreasing. Blood sugars are elevated. Pt was started on heparin gtt from cardiology for a possibility of Non-STEMI, but due to hematuria, heparin gtt has been placed on hold. Patient did have some T Wave inversion found on EKG. Cardiology is following closely. 05/13/2021 Patient remains intubated in the ICU at 40% FiO2. White blood cell count today is 22, sodium is 134. LDH is 627 and her CRP is 4.9. Blood sugars are better controlled in the 100s. Blood pressures in the lower side today at 92/53, heart rate of 101. She remains afebrile. Hematuria seems to be resolved. Urology saw the patient who recommended to keep the Mcgrath until patient is extubated and able to provide a history. 05/14/2021 Patient is evaluated in the ICU, she is still intubated 45% fio2. Per RN there is question for possible PEG and trach. RT did have to do a extensive lavage this morning on the patient pulled out quite a bit of mucus. Her lungs are still tight and diminished. She does have bowel sounds, however there is been no bowel movement. We will order a Dulcolax suppository to give daily until BM. Continue MEDICATIONS per pulmonary recommendations. chest x-ray this morning shows similar findings with some improvement in airspace disease. Correlate for pneumonia. Labs are still pending from Aldactone and metoprolol recommended for discontinuation. 05/15/2021 Time of examination, patient is moving around a bit. Pressures are elevated into the 160s systolic. Urine in the Mcgrath catheter drainage tube appears clear yellow in color. There are no signs of bleeding. We will resume DVT p rophylaxis. tube feeding is on hold. Chest x-ray reveals a minimal infiltrate in the right lower lobe. Repeat chest x-ray this morning shows similar findings as yesterday, correlate for pneumonia. There is a plan today for possible extubation. Per cardiology there is some T wave inversion anteriorly on EKG. Plans to repeat echocardiogram tomorrow. Labs today show white blood cell count of 17.2. Blood pressure elevated at 168/83. Heart rate 69. Medication changes from cardiology. Patient was started on Precedex this morning and attempt to begin weaning off propofol for extubation. 05/16/2021 Patient is evaluated in the ICU recently extubated yesterday and currently sitting up with nursing staff and speech therapist at the bedside performing swallow eval. Patient is to continue with full liquid diet with nectar thickened liquids and fluid restrictions of 1200 mL daily. Multiple medical consultations following including cardiology, pulmonary, nephrology. Chest x- ray today shows minimal patchy basilar densities persist with interval extubation and some basilar atelectasis and/or scarring in the correlate to exclude pneumonia. Patient is maintained on IV ceftriaxone along with IV steroids and being transitioned to 40 mg every 8 hours, Lovenox, and vitamin supplements and will continue. Cleviprex was just weaned off today. Repeat echo was done today showing overall left ventricular systolic function is normal with an EF of 60-65% with no pericardial effusion noted. PT/OT to evaluate the patient. 05/17/2021 Patient is seen and evaluated and follow-up in the ICU extremely lethargic although arousable and alert and oriented 3. Patient is continued on 4 L via nasal cannula and maintaining oxygen saturations of above 90%. Multiple medical consultations following and patient continues to be weak and working with physical therapy. Per nursing staff, family would like patient to return home and is refusing any form of rehab. Chest x-ray today shows improving bibasilar infiltrates with some residual infiltrate may be within the right upper lobe. Patient continues on IV steroids along with vitamin and zinc supplements along with IV ceftriaxone and pulmonary is following closely. Patient does have a past medical history of severe COPD and oxygen dependent at 2 L at home. 05/18/2021 Patient is seen this morning in follow-up continues to be in the ICU awaiting a MedSur bed as overflow and currently no bed available. Patient is maintained on 3 L of oxygen via nasal cannula and maintaining oxygen saturations above 90%. Patient is afebrile. IV ceftriaxone was discontinued. Pulmonary following closely. Patient continues to be weak and family persistent on bringing the patient home. She is tolerating oral diet with no reports of nausea or vomiting noted. Patient denies any chest pain or palpitations. Labs: White blood count is 22.1, hemoglobin is 12.8, platelets are 265, d-dimer is 0.74, sodium is 129, potassium is 4.6, BUN is 20, creatinine is 0.51, calcium is 8.2, LDH is 750, CRP is 0.6. Review of systems: Constitutional: reports of fatigue, no reports of fever, or chills Cardiovascular: No reports of chest pain or palpitations Respiratory: No reports of worsening shortness of breath or cough GI: No reports of nausea, vomiting, or diarrhea : No reports of dysuria or retention Neurovascular: reports of weakness All medications have been reviewed Active Medications Albuterol Sulfate (Albuterol Hfa Inhaler) 2 puff INHALATION RT-QID [facility] Last Admin: 05/18/21 09:25 Dose: 2 puff Documented by: Ascorbic Acid (Ascorbic Acid 500 Mg Tab) 500 mg PO DAILY [facility] Last Admin: 05/18/21 10:23 Dose: 500 mg Documented by: Aspirin (Aspirin 81 Mg) 81 mg PO DAILY [facility] Last Admin: 05/18/21 10:24 Dose: 81 mg Documented by: Atorvastatin Calcium (Atorvastatin 40 Mg Tab) 40 mg PO DAILY [facility] Last Admin: 05/18/21 10:24 Dose: 40 mg Documented by: Bisacodyl (Bisacodyl 10 Mg Supp) 10 mg RECTAL DAILY [facility] Last Admin: 05/18/21 10:25 Dose: Not Given Documented by: Budesonide/Formoterol Fumarate (Symbicort 160-4.5 Mcg Inhaler) 2 puff INHALATION RT-BID [facility] Last Admin: 05/18/21 09:25 Dose: 2 puff Documented by: Calcium Carbonate/Glycine (Calcium Carbonate 500 Mg Chewable) 500 mg PO DAILY [facility] Last Admin: 05/18/21 10:24 Dose: 500 mg Documented by: Cholecalciferol (Cholecalciferol 25 Mcg (1000 Iu) Tablet) 25 mcg PO DAILY [facility] Last Admin: 05/18/21 10:24 Dose: 25 mcg Documented by: Dexamethasone (Dexamethasone 2 Mg Tab) 6 mg PO DAILY [facility] Enoxaparin Sodium (Enoxaparin 40 Mg/0.4 Ml Syringe) 40 mg SQ DAILY [facility] Last Admin: 05/18/21 10:25 Dose: 40 mg Documented by: Guaifenesin (Guaifenesin 600 Mg Tablet.Er) 1,200 mg PO Q12HR [facility] Last Admin: 05/18/21 10:23 Dose: 1,200 mg Documented by: Insulin Aspart (Insulin Aspart (Novolog) 100 Unit/Ml Vial) 0 unit SQ [facility]; Protocol Last Admin: 05/18/21 12:26 Dose: 1 unit Documented by: Lisinopril (Lisinopril 5 Mg Tab) 5 mg PO BID [facility] Last Admin: 05/18/21 10:24 Dose: 5 mg Documented by: Methocarbamol (Methocarbamol 500 Mg Tab) 500 mg PO TID PRN PRN Reason: Pain Metoprolol Tartrate (Metoprolol Tartrate 50 Mg Tab) 50 mg PO BID [facility] Last Admin: 05/18/21 10:23 Dose: 50 mg Documented by: Miscellaneous Information (Potassium Replacement Protocol 1 Each Misc) 1 each MISCELLANE DAILY PRN; Protocol PRN Reason: Per Protocol Montelukast Sodium (Montelukast 10 Mg Tab) 10 mg PO [facility] Last Admin: 05/17/21 21:31 Dose: 10 mg Documented by: Naloxone HCl (Naloxone 0.4 Mg/Ml 1 Ml Vial) 0.2 mg IV Q2M PRN PRN Reason: Opioid Reversal Oxybutynin Chloride (Oxybutynin 10 Mg Tab.Er.24) 10 mg PO [facility] Last Admin: 05/17/21 21:31 Dose: 10 mg Documented by: Pantoprazole Sodium (Pantoprazole 40 Mg Tablet) 40 mg PO AC-BRKFST [facility] Last Admin: 05/18/21 10:23 Dose: 40 mg Documented by: Potassium Bicarbonate (Potassium Bicarbonate/Cit Ac 20 Meq Tablet.Eff) 20 meq PO DAILY [facility] Last Admin: 05/18/21 10:23 Dose: 20 meq Documented by: Tiotropium [place] (Tiotropium 2.5 Mcg Inhaler) 2 puff INHALATION RT-DAILY [facility] Last Admin: 05/18/21 09:26 Dose: 2 puff Documented by: PHYSICAL EXAMINATION: GENERAL: Patient is currently sitting up in the bed lethargic, awake, alert and oriented 3, thin built HEENT: Pupils are round and equally reacting to light. EOMI. No scleral icterus. No conjunctival pallor. Normocephalic, atraumatic. No pharyngeal erythema. No thyromegaly. CARDIOVASCULAR: S1 and S2 present. No murmurs, rubs, or gallops. PULMONARY: Diminished breath sounds bilaterally with some scattered coarse rhonchi noted throughout. ABDOMEN: Soft, nontender, nondistended, bowel sounds present. No palpable organomegaly. MUSCULOSKELETAL: No joint swelling or deformity. EXTREMITIES: No cyanosis, clubbing, or pedal edema. NEUROLOGICAL: Awake, alert and oriented 3, mildly delayed, diffusely weak SKIN: No rashes. Assessment and plan: -Acute on chronic hypoxic and hypercapnic respiratory failure secondary to Covid 19 pneumonia and COPD exacerbation required intubation on 05/11/2021, recently extubated and on 4 L nasal cannula -Hyponatremia is hypovolemic hyponatremia, sodium 132 on half NS. -Sepsis with hypotension and leukocytosis, on IV rocephin -Leukocytosis possibly secondary to above and possibly mildly reactive secondary to IV steroids -Hematuria, resolved -Chronic hypoxic and hypercapnic respiratory failure secondary to COPD, wears 2 L nasal cannula in the outpatient setting -hypomagnesemia, improved -hyperglycemia s/t steroids - improving with NovoLog -Tachycardia secondary to severe sepsis improving at this time -hypertension, medication changes per cardiology, recently started on lisinopril and metoprolol and improved -Multiple acid-base abnormalities including respiratory acidosis, compensated metabolic alkalosis and possible metabolic acidosis, which are resolving -DVT prophylaxis: Lovenox -GI Prophlyaxis: IV Protonix -Full code Plan: Recommend continue weaning FiO2 as tolerated and encouraging increased activity as tolerated. Patient to work with physical therapy and will discuss with case management about possible home care as patient is refusing rehab. Diet has been advanced as patient is more awake and tolerating per speech therapy to dysphagia 3 chopped with fluid restrictions and consistent carb diet. Encouraged incentive spirometer use at least 10 times every hour while awake and increased activity as tolerated. IV ceftriaxone was discontinued and steroids transition to oral steroids and will need a taper on discharge. Recommend continue with Accu-Cheks before meals and at bedtime and sliding scale. Patient is extremely weak and working with physical therapy and family continues to refuse rehab and arrangements are being made for necessary discharge planning and equipment for the home. Patient is room confined at the home and will need a bedside commode secondary to extensive COPD and shortness of breath. Patient will also require a wheelchair on discharge to complete ADLs as patient is unable to do with a cane or walker due to extreme weakness and gait dysfunction and patient does have family there to assist with propelling the patient in the wheelchair. Will continue current diet and continue with fluid restrictions as sodium is low at 129 and will repeat labs for the a.m. Prognosis is guarded. Objective - Vital Signs Vital signs: Vital Signs Temp 97.8 F 05/18/21 02:00 Pulse 76 05/18/21 02:00 Resp 18 05/18/21 02:00 BP 126/64 05/18/21 02:00 Pulse Ox 97 05/17/21 16:00 Intake & Output 05/17/21 05/18/21 05/18/21 18:59 06:59 18:59 Intake Total 125 Output Total 360 800 Balance -235 -800 Weight 61.5 kg Intake: IV 75 Sodium Chloride 0.45% 1, 75 000 ml @ 75 mls/hr IV . [id number] [facility] Rx#:[id number] Intake, IV Titration 50 Amount cefTRIAXone 2 gm In 50 Sodium Chloride 0.9% 50 ml @ 100 mls/hr IVPB Q24HR [facility] Rx#:[id number] Output: Urine 360 800 Other: Voiding Method Indwelling Catheter Indwelling Catheter # Bowel Movements 1 ABP, PAP, CO, CI - Last Documented Arterial Blood Pressure 143/63 - Labs CBC & Chem 7: 05/18/21 04:44 05/18/21 04:44 Labs: Abnormal Lab Results - Last 24 Hours (Table) 05/17/21 05/17/21 05/18/21 Range/Units 11:51 21:36 04:44 WBC 22.1 H (3.8-10.6) k/uL Neutrophils # 20.5 H (1.3-7.7) k/uL Lymphocytes # 0.7 L (1.0-4.8) k/uL D-Dimer (<0.60) mg/L FEU Sodium (137-145) mmol/L Chloride (98-107) mmol/L Carbon Dioxide (22-30) mmol/L BUN (7-17) mg/dL Creatinine (0.52-1.04) mg/dL Glucose (74-99) mg/dL POC Glucose (mg/dL) 141 H 203 H (75-99) mg/dL Lactate Dehydrogenase (313-618) U/L 05/18/21 05/18/21 05/18/21 Range/Units 04:44 04:44 06:09 WBC (3.8-10.6) k/uL Neutrophils # (1.3-7.7) k/uL Lymphocytes # (1.0-4.8) k/uL D-Dimer 0.74 H (<0.60) mg/L FEU Sodium 129 L (137-145) mmol/L Chloride 93 L (98-107) mmol/L Carbon Dioxide 36 H (22-30) mmol/L BUN 20 H (7-17) mg/dL Creatinine 0.51 L (0.52-1.04) mg/dL Glucose 104 H (74-99) mg/dL POC Glucose (mg/dL) 117 H (75-99) mg/dL Lactate Dehydrogenase 750 H (313-618) U/L Microbiology - Last 24 Hours (Table) 05/16/21 14:58 Sputum Culture - Preliminary Sputum
[2021-05-18 16:46] LABS: Glucose,Whole Blood 93 mg/dL (75-99)
[2021-05-18] MEDS: MONTELUKAST 10 MG TAB PO SCH (21:28)
[2021-05-18] MEDS: OXYBUTYNIN 10 MG TAB.ER.24 PO SCH (21:30)
[2021-05-18 21:46] LABS: Glucose,Whole Blood 182 mg/dL (75-99)
[2021-05-19 05:42] LABS: Basophils % (A) 0 %; Eosinophils % (A) 0 %; HCT 39.7 % (34.0-46.0); HGB 12.5 gm/dL (11.4-16.0); Lymphocytes # (A) 1.2 k/uL (1.0-4.8); Lymphocytes % (A) 7 %; MCH 30.7 pg (25.0-35.0); MCHC 31.6 g/dL (31.0-37.0); MCV 97.2 fL (80.0-100.0); Mean Platelet Volume 7.7; Monocytes # (A) 1.1 k/uL (0-1.0); Monocytes % (A) 6 %; Neutrophils # (A) 14.6 k/uL (1.3-7.7); Neutrophils % (A) 85 %; Platelet Count 230 k/uL (150-450); RBC 4.08 m/uL (3.80-5.40); RDW 13.3 % (11.5-15.5); WBC 17.3 k/uL (3.8-10.6)
[2021-05-19 05:58] LABS: African American GFR (CKD) >90 (>60 ml/min/1.73 sqM); Anion Gap 1 mmol/L; Blood Urea Nitrogen 27 mg/dL (7-17); C Reactive Protein 1.5 mg/dL (<1.0); Calcium 8.7 mg/dL (8.4-10.2); Carbon Dioxide 37 mmol/L (22-30); Chloride 93 mmol/L (98-107); Glucose 78 mg/dL (74-99); Non-African American GFR(CKD) >90 (>60 ml/min/1.73 sqM); Potassium 4.1 mmol/L (3.5-5.1); Sodium 131 mmol/L (137-145)
[2021-05-19 06:09] LABS: Glucose,Whole Blood 79 mg/dL (75-99)
[2021-05-19] MEDS: INSULIN ASPART (NovoLOG) 100 UNIT/ML VIAL SQ SCH ×4 (06:10→21:03)
[2021-05-19] MEDS: PANTOPRAZOLE 40 MG TABLET PO SCH (06:15)
[2021-05-19] MEDS: ALBUTEROL HFA INHALER INHALATION SCH ×4 (07:20→21:15)
[2021-05-19] MEDS: TIOTROPIUM 2.5 MCG INHALER INHALATION SCH (07:21)
[2021-05-19] MEDS: SYMBICORT 160-4.5 MCG INHALER INHALATION SCH ×2 (07:21→21:15)
[2021-05-19] MEDS: guaiFENesin 600 MG TABLET.ER PO SCH ×2 (11:19→21:03)
[2021-05-19] MEDS: dexAMETHasone 2 MG TAB PO SCH (11:19)
[2021-05-19] MEDS: CALCIUM CARBONATE 500 MG CHEWABLE PO SCH (11:19)
[2021-05-19] MEDS: ASPIRIN 81 MG PO SCH (11:19)
[2021-05-19] MEDS: ASCORBIC ACID 500 MG TAB PO SCH (11:20)
[2021-05-19] MEDS: CHOLECALCIFEROL 25 MCG (1000 IU) TABLET PO SCH (11:20)
[2021-05-19] MEDS: METOPROLOL TARTRATE 50 MG TAB PO SCH ×2 (11:20→21:02)
[2021-05-19] MEDS: ATORVASTATIN 40 MG TAB PO SCH (11:20)
[2021-05-19] MEDS: bisacodyL 10 MG SUPP RECTAL SCH (11:20)
[2021-05-19] MEDS: lisinopriL 5 MG TAB PO SCH ×2 (11:20→21:03)
[2021-05-19] MEDS: POTASSIUM BICARBONATE/CIT AC 20 MEQ TABLET.EFF PO SCH (11:21)
[2021-05-19] MEDS: ENOXAPARIN 40 MG/0.4 ML SYRINGE SQ SCH (11:27)
--- NOTE | 2021-05-19 11:51 | P.PN ---
Subjective Progress Note Date: 05/19/21 Principal diagnosis: COVID 19, COPD On 05/16/2021 patient seen in follow-up in the intensive care unit, patient has been successfully weaned and extubated from mechanical ventilator on 05/15/2021, tolerating extubation well so far, she is currently on 6 L of oxygen with a pulse ox of 95-97%, vital signs have been stable, she is afebrile, she has however still requiring Cleviprex for hypertension, Cleviprex is infusing at 3 mg per hour, lisinopril and metoprolol were added by cardiology, she is awake and alert, in no acute distress, she is oriented 3, she is answering questions appropriately, she is breathing comfortably, she does have productive cough, denies any hemoptysis, she states the phlegm as creamy colored,. She remains on antibiotic coverage in the form of Rocephin. Blood cultures have shown no growth so far, chest x-ray today showing basilar atelectasis possibility of pneumonia is also being considered. No fever or chills, today's labs have been reviewed going white blood cell count of 15.7, hemoglobin of 13.7, her leukocytosis has improved since a few days ago. Sodium is 135, potassium is 4.0, chloride is 97, CO2 is 34, BUN is 14 and creatinine 0.38. Her last set of inflammatory markers was on 05/13/2021 with LDH of 627, CRP of 4.9. Patient is currently on Solu-Medrol 60 mg every 6 hours, and prophylactic dose of Lovenox. Last d-dimer was back on 05/11/2021 and he was negative at 0.35. On 05/17/2021 patient is seen in follow-up in intensive care unit, she is awake and alert, in no acute distress, she is on 4 L of oxygen,and her pulse ox is 94- 98%, she is afebrile, hemodynamically she is stable, she is currently on 0.45 normal saline at a rate of 75 ML. she is tolerating oral intake, today's labs have been reviewed showing white blood cell count 23.4, hemoglobin is 13.4, d- dimer 0.71, sodium is 132, potassium is 4.4, chloride is 97, CO2 is 32, BUN is 21, creatinine 0.39. chest x-ray shows improving bibasilar infiltrates with some residual infiltrate within the right upper lobe.cultures have shown no growth. patient remains on Rocephin, , nebulized bronchodilators, she is on GI and DVT prophylaxis, and she remains on IV Solu-Medrol 40 mg every 8 hours On 05/18/2021 patient seen in follow-up in intensive care unit, she has been stable over the last 24 hours, no acute distress, she is on 3 L of oxygen pulse ox is 97%, she is breathing comfortably, generally she appears weak, but no evidence of any respiratory difficulty, she is not on any IV fluids. She is awake and alert, oriented 3, yesterday's chest x-ray showed improving bibasilar infiltrates. These labs have been reviewed, her white blood cell count is 22.1, hemoglobin is 12.8, d-dimer is 0.74, today sodium is 129, potassium is 4.6, chloride is 93, CO2 is 36, B1 is 20, creatinine 0.51. Patient is currently on nebulized bronchodilators in the form of Symbicort and albuterol inhaler, she remains on IV Solu-Medrol 40 mg every 8 hours, she is on Lovenox 40 mg daily, and COVID-19 vitamins. Her appetite has been poor, patient is on dysphagia level III chopped diet. She is very weak, she requires assistance to feed herself. She has been working with physical therapy, she was able to take 2-3 steps with the use of a walker, she does require moderate assistance, she starts coughing after exertion, and she easily fatigues with minimal activity. She does sit up in the recliner during the day. She is awaiting a bed on medical surgical floor. She had no other acute events overnight. On 05/19/2021 patient seen in follow-up in the intensive care unit. She is awake and alert, in no acute distress, she is sitting up in a recliner, breathing comfortably, she is currently on 5 L of oxygen, she normally wears 3 L of oxygen at home on a regular basis, earlier this morning her pulse ox was 89% on 3 L, and subsequently her FiO2 was increased to 5 L, however her breathing is stable, no worsening dyspnea, no use of accessory muscles of breathing, she is awake and alert, she is oriented 3, looks very comfortable. Afebrile, hemodynamically stable, she is not on any IV fluids. She's had no acute events overnight. She continues on Decadron 6 mg daily, Symbicort and albuterol and Spiriva in addition to Singulair, she is on prophylactic dose Lovenox, and COVID-19 multivitamins. Her chest x-ray from 05/17/2021 shows improving bibasilar infiltrates. Objective - Vital Signs Vital signs: Vital Signs Temp 97.5 F L 05/19/21 02:00 Pulse 92 05/19/21 02:00 Resp 16 05/19/21 02:00 BP 101/57 05/19/21 02:00 Pulse Ox 96 05/19/21 02:00 Intake & Output 05/18/21 05/19/21 05/19/21 18:59 06:59 18:59 Intake Total 50 Output Total 200 Balance -150 Weight 61.5 kg 63 kg Intake: Oral 50 Output: Urine 200 Other: Voiding Method External Catheter Bedside Commode # Voids 1 1 # Bowel Movements 1 ABP, PAP, CO, CI - Last Documented Arterial Blood Pressure 143/63 - Exam GENERAL EXAM: Alert, pleasant, 65-year-old white female, on 5 L of oxygen the pulse ox of 93%, comfortable in no apparent distress. HEAD: Normocephalic/atraumatic. EYES: Normal reaction of pupils, equal size. Conjunctiva pink, sclera white. NOSE: Clear with pink turbinates. THROAT: No erythema or exudates. NECK: No masses, no JVD, no thyroid enlargement, no adenopathy. CHEST: No chest wall deformity. Symmetrical expansion. LUNGS: Equal air entry with bibasilar crackles CVS: Regular rate and rhythm, normal S1 and S2, no gallops, no murmurs, no rubs ABDOMEN: Soft, nontender. No hepatosplenomegaly, normal bowel sounds, no guarding or rigidity. EXTREMITIES: No clubbing, no edema, no cyanosis, 2+ pulses and upper and lower extremities. MUSCULOSKELETAL: Muscle strength and tone normal. SPINE: No scoliosis or deformity SKIN: No rashes CENTRAL NERVOUS SYSTEM: Alert and oriented -3. No focal deficits, tone is normal in all 4 extremities. PSYCHIATRIC: Alert and oriented -3. Appropriate affect. Intact judgment and insight. - Labs CBC & Chem 7: 05/19/21 04:53 05/19/21 04:53 Labs: Abnormal Lab Results - Last 24 Hours (Table) 05/18/21 05/18/21 05/19/21 Range/Units 12:06 21:44 04:53 WBC 17.3 H (3.8-10.6) k/uL Neutrophils # 14.6 H (1.3-7.7) k/uL Monocytes # 1.1 H (0-1.0) k/uL D-Dimer (<0.60) mg/L FEU Sodium (137-145) mmol/L Chloride (98-107) mmol/L Carbon Dioxide (22-30) mmol/L BUN (7-17) mg/dL POC Glucose (mg/dL) 140 H 182 H (75-99) mg/dL C-Reactive Protein (<1.0) mg/dL 05/19/21 05/19/21 05/19/21 Range/Units 04:53 04:53 04:53 WBC (3.8-10.6) k/uL Neutrophils # (1.3-7.7) k/uL Monocytes # (0-1.0) k/uL D-Dimer 0.63 H (<0.60) mg/L FEU Sodium 131 L (137-145) mmol/L Chloride 93 L (98-107) mmol/L Carbon Dioxide 37 H (22-30) mmol/L BUN 27 H (7-17) mg/dL POC Glucose (mg/dL) (75-99) mg/dL C-Reactive Protein 1.5 H (<1.0) mg/dL Microbiology - Last 24 Hours (Table) 05/16/21 14:58 Gram Stain - Preliminary Sputum Sputum Culture - Preliminary Sarahi albicans Assessment and Plan Plan: Assessment: #1. Acute hypercapnic and hypoxic respiratory failure related to acute exacerbation of COPD, severity of the right lower lobe pneumonia, and acute COVID-19 infection. Patient was intubated on 05/11/2021 and successfully weaned and extubated on 05/15/2021. Patient was not a candidate for Remdesivir related to severe hypoxic respiratory failure, or baricitinib related to possibility of a right lower lobe pneumonia #2. History of severe COPD with FEV1 value of 0.56 L or 23% of predicted and DLCO of 28% of predicted, on home oxygen at bedtime at 2 L. #3. Hypovolemic hyponatremia, acute, improved and worsened again, currently at 129 on 05/18/2021 #4. Acute sepsis with hypotension but no evidence of septic shock #5. Leukocytosis related to sepsis and possible pneumonia, improving #6. Former smoker Plan: Hep-Lock IV fluids Current FiO2 down to 3 L, and this is what patient usually wears a home Maintaining O2 saturations at or above 88-90% Increase activity as tolerated Consult social work for subacute rehab placement Patient is stable for discharge out of the hospital for pulmonary perspective She will need to complete total of 10 day course of oral Decadron He can continue on nebulized bronchodilators including Symbicort, Spiriva, and albuterol She'll need outpatient follow-up with Dr. Adler in the office in 2 weeks I performed a history & physical examination of the patient and discussed their management with my nurse practitioner, Jasmin Fuentes. I reviewed the nurse practitioner's note and agree with the documented findings and plan of care. Lung sounds are positive for basilar crackles throughout the lung varma. The findings and the impression was discussed with the patient. I attest to the documentation by the nurse practitioner. Time with Patient: Less than 30
[2021-05-19 12:28] LABS: Glucose,Whole Blood 89 mg/dL (75-99)
[2021-05-19 18:41] LABS: Glucose,Whole Blood 178 mg/dL (75-99)
[2021-05-19 20:59] LABS: Glucose,Whole Blood 298 mg/dL (75-99)
[2021-05-19] MEDS: MONTELUKAST 10 MG TAB PO SCH (21:02)
[2021-05-19] MEDS: OXYBUTYNIN 10 MG TAB.ER.24 PO SCH (21:16)
--- NOTE | 2021-05-20 03:36 | P.PN ---
Subjective Progress Note Date: 05/19/21 Patient 66-year-old female came with sharp shortness of breath and patient is presently intubated patient was a shortly intubated because of severe acute hypoxemia and hypercapnia. Patient does have history of her advanced COPD, former smoker uses 3 L of oxygen at home. Patient is presently on systemic steroids. Patient is also found to have severe hyponatremia with the serum sodium as low as 114 patient is only getting 50 mL of IV normal saline as her sodium went up to 119 because of the bolus of IV fluids and patient is also hypotensive on levo fed, tachycardic. Patient the chest x-ray which was concerning for right lower lobe infiltrate but mostly consistent with atypical pneumonia and patient was found to have Covid 19 pneumonia. Patient is presently intubated sedated patient is on assist control ventilation with set up respiratory of around 18 because of hypercapnia episode of 40% PEEP of 5 05/12/2021 Patient is intubated in ICU, 40% FiO2. Covid was positive. Sodium level today is 122. Continue with IV fluids and recheck tomorrow. She is off levophed and maintaining blood pressures of 115/44. HR is 98, afebrile. Additional labs today include a WBC of 22.1, which is decreasing. Blood sugars are elevated. Pt was started on heparin gtt from cardiology for a possibility of Non-STEMI, but due to hematuria, heparin gtt has been placed on hold. Patient did have some T Wave inversion found on EKG. Cardiology is following closely. 05/13/2021 Patient remains intubated in the ICU at 40% FiO2. White blood cell count today is 22, sodium is 134. LDH is 627 and her CRP is 4.9. Blood sugars are better controlled in the 100s. Blood pressures in the lower side today at 92/53, heart rate of 101. She remains afebrile. Hematuria seems to be resolved. Urology saw the patient who recommended to keep the Mcgrath until patient is extubated and able to provide a history. 05/14/2021 Patient is evaluated in the ICU, she is still intubated 45% fio2. Per RN there is question for possible PEG and trach. RT did have to do a extensive lavage this morning on the patient pulled out quite a bit of mucus. Her lungs are still tight and diminished. She does have bowel sounds, however there is been no bowel movement. We will order a Dulcolax suppository to give daily until BM. Continue MEDICATIONS per pulmonary recommendations. chest x-ray this morning shows similar findings with some improvement in airspace disease. Correlate for pneumonia. Labs are still pending from Aldactone and metoprolol recommended for discontinuation. 05/15/2021 Time of examination, patient is moving around a bit. Pressures are elevated into the 160s systolic. Urine in the Mcgrath catheter drainage tube appears clear yellow in color. There are no signs of bleeding. We will resume DVT p rophylaxis. tube feeding is on hold. Chest x-ray reveals a minimal infiltrate in the right lower lobe. Repeat chest x-ray this morning shows similar findings as yesterday, correlate for pneumonia. There is a plan today for possible extubation. Per cardiology there is some T wave inversion anteriorly on EKG. Plans to repeat echocardiogram tomorrow. Labs today show white blood cell count of 17.2. Blood pressure elevated at 168/83. Heart rate 69. Medication changes from cardiology. Patient was started on Precedex this morning and attempt to begin weaning off propofol for extubation. 05/16/2021 Patient is evaluated in the ICU recently extubated yesterday and currently sitting up with nursing staff and speech therapist at the bedside performing swallow eval. Patient is to continue with full liquid diet with nectar thickened liquids and fluid restrictions of 1200 mL daily. Multiple medical consultations following including cardiology, pulmonary, nephrology. Chest x- ray today shows minimal patchy basilar densities persist with interval extubation and some basilar atelectasis and/or scarring in the correlate to exclude pneumonia. Patient is maintained on IV ceftriaxone along with IV steroids and being transitioned to 40 mg every 8 hours, Lovenox, and vitamin supplements and will continue. Cleviprex was just weaned off today. Repeat echo was done today showing overall left ventricular systolic function is normal with an EF of 60-65% with no pericardial effusion noted. PT/OT to evaluate the patient. 05/17/2021 Patient is seen and evaluated and follow-up in the ICU extremely lethargic although arousable and alert and oriented 3. Patient is continued on 4 L via nasal cannula and maintaining oxygen saturations of above 90%. Multiple medical consultations following and patient continues to be weak and working with physical therapy. Per nursing staff, family would like patient to return home and is refusing any form of rehab. Chest x-ray today shows improving bibasilar infiltrates with some residual infiltrate may be within the right upper lobe. Patient continues on IV steroids along with vitamin and zinc supplements along with IV ceftriaxone and pulmonary is following closely. Patient does have a past medical history of severe COPD and oxygen dependent at 2 L at home. 05/18/2021 Patient is seen this morning in follow-up continues to be in the ICU awaiting a [facility] bed as overflow and currently no bed available. Patient is maintained on 3 L of oxygen via nasal cannula and maintaining oxygen saturations above 90%. Patient is afebrile. IV ceftriaxone was discontinued. Pulmonary following closely. Patient continues to be weak and family persistent on bringing the patient home. She is tolerating oral diet with no reports of nausea or vomiting noted. Patient denies any chest pain or palpitations. 05/19/2021 Patient is evaluated this morning in the ICU as no bed available on [facility]. Patient discharge planning in place and arrangements are being made for necessary equipment for the home as family will be taking her home with home care. Patient denies any worsening shortness of breath or chest pain. Patient on 3L NC and will need oxygen on discharge and family bringing her oxygen. Patient continues to be extremely weak and continued poor oral intake and needs encouragement with meals. Review of systems: Constitutional: no reports of fatigue, no reports of fever, or chills Cardiovascular: No reports of chest pain or palpitations Respiratory: No reports of worsening shortness of breath or cough GI: No reports of nausea, vomiting, or diarrhea : No reports of dysuria or retention Neurovascular: reports of weakness All medications have been reviewed PHYSICAL EXAMINATION: GENERAL: Patient is currently sitting up in the chair, awake, alert and oriented 3, thin built HEENT: Pupils are round and equally reacting to light. EOMI. No scleral icterus. No conjunctival pallor. Normocephalic, atraumatic. No pharyngeal erythema. No thyromegaly. CARDIOVASCULAR: S1 and S2 present. No murmurs, rubs, or gallops. PULMONARY: Diminished breath sounds bilaterally with some scattered coarse rhonchi noted throughout. ABDOMEN: Soft, nontender, nondistended, bowel sounds present. No palpable organomegaly. MUSCULOSKELETAL: No joint swelling or deformity. EXTREMITIES: No cyanosis, clubbing, or pedal edema. NEUROLOGICAL: Awake, alert and oriented 3, mildly delayed, diffusely weak SKIN: No rashes. Assessment and plan: -Acute on chronic hypoxic and hypercapnic respiratory failure secondary to Covid 19 pneumonia and COPD exacerbation required intubation on 05/11/2021, extubated and on 3 L nasal cannula -Hyponatremia is hypovolemic hyponatremia, improving -Sepsis with hypotension and leukocytosis, improved off IV antibiotics and wbc trending down. -Leukocytosis possibly secondary to above and possibly mildly reactive secondary to IV steroids -Hematuria, resolved -Chronic hypoxic and hypercapnic respiratory failure secondary to COPD, wears 2 L nasal cannula in the outpatient setting -hypomagnesemia, improved -hyperglycemia s/t steroids - improving with NovoLog -Tachycardia secondary to severe sepsis improving at this time -hypertension, medication changes per cardiology, recently started on lisinopril and metoprolol and improved -Multiple acid-base abnormalities including respiratory acidosis, compensated metabolic alkalosis and possible metabolic acidosis, resolved -DVT prophylaxis: Lovenox -GI Prophlyaxis: IV Protonix -Full code Plan: Recommend continue weaning FiO2 as tolerated and encouraging increased activity as tolerated. PT/OT evaluated the patient and working with her daily roxane mmending SNOW although family insists on taking patient home with home care. Plan was for discharge home today and awaiting family with oxygen and unable to arrange for transportation and necessary equipment today with possible discharge in 24 hours. Encouraged incentive spirometer use at least 10 times every hour while awake and increased activity as tolerated. Will continue to monitor closely and follow up with case management and family about discharge needs. Anticipate discharge in 24 hours. Objective - Vital Signs Vital signs: Vital Signs Temp 97.5 F L 05/19/21 02:00 Pulse 92 05/19/21 02:00 Resp 16 05/19/21 02:00 BP 101/57 05/19/21 02:00 Pulse Ox 96 05/19/21 02:00 Intake & Output 05/18/21 05/19/21 05/19/21 18:59 06:59 18:59 Intake Total 50 Output Total 200 Balance -150 Weight 61.5 kg 63 kg Intake: Oral 50 Output: Urine 200 Other: Voiding Method External Catheter Bedside Commode # Voids 1 1 # Bowel Movements 1 ABP, PAP, CO, CI - Last Documented Arterial Blood Pressure 143/63 - Labs CBC & Chem 7: 05/19/21 04:53 05/19/21 04:53 Labs: Abnormal Lab Results - Last 24 Hours (Table) 05/18/21 05/18/21 05/19/21 Range/Units 12:06 21:44 04:53 WBC 17.3 H (3.8-10.6) k/uL Neutrophils # 14.6 H (1.3-7.7) k/uL Monocytes # 1.1 H (0-1.0) k/uL D-Dimer (<0.60) mg/L FEU Sodium (137-145) mmol/L Chloride (98-107) mmol/L Carbon Dioxide (22-30) mmol/L BUN (7-17) mg/dL POC Glucose (mg/dL) 140 H 182 H (75-99) mg/dL C-Reactive Protein (<1.0) mg/dL 05/19/21 05/19/21 05/19/21 Range/Units 04:53 04:53 04:53 WBC (3.8-10.6) k/uL Neutrophils # (1.3-7.7) k/uL Monocytes # (0-1.0) k/uL D-Dimer 0.63 H (<0.60) mg/L FEU Sodium 131 L (137-145) mmol/L Chloride 93 L (98-107) mmol/L Carbon Dioxide 37 H (22-30) mmol/L BUN 27 H (7-17) mg/dL POC Glucose (mg/dL) (75-99) mg/dL C-Reactive Protein 1.5 H (<1.0) mg/dL Microbiology - Last 24 Hours (Table) 05/16/21 14:58 Gram Stain - Preliminary Sputum Sputum Culture - Preliminary Sarahi albicans
[2021-05-20 06:35] LABS: Glucose,Whole Blood 64 mg/dL (75-99)
[2021-05-20] MEDS: INSULIN ASPART (NovoLOG) 100 UNIT/ML VIAL SQ SCH ×4 (06:46→21:53)
[2021-05-20] MEDS: PANTOPRAZOLE 40 MG TABLET PO SCH (07:03)
[2021-05-20] MEDS: SYMBICORT 160-4.5 MCG INHALER INHALATION SCH ×2 (07:51→20:41)
[2021-05-20] MEDS: ALBUTEROL HFA INHALER INHALATION SCH ×4 (07:51→20:30)
[2021-05-20] MEDS: TIOTROPIUM 2.5 MCG INHALER INHALATION SCH (07:51)
[2021-05-20] MEDS: CHOLECALCIFEROL 25 MCG (1000 IU) TABLET PO SCH (09:47)
[2021-05-20] MEDS: bisacodyL 10 MG SUPP RECTAL SCH (09:47)
[2021-05-20] MEDS: METOPROLOL TARTRATE 50 MG TAB PO SCH ×2 (09:47→21:53)
[2021-05-20] MEDS: CALCIUM CARBONATE 500 MG CHEWABLE PO SCH (09:47)
[2021-05-20] MEDS: ASCORBIC ACID 500 MG TAB PO SCH (09:47)
[2021-05-20] MEDS: ATORVASTATIN 40 MG TAB PO SCH (09:47)
[2021-05-20] MEDS: ASPIRIN 81 MG PO SCH (09:47)
[2021-05-20] MEDS: dexAMETHasone 2 MG TAB PO SCH (09:48)
[2021-05-20] MEDS: lisinopriL 5 MG TAB PO SCH (09:48)
[2021-05-20] MEDS: FLUCONAZOLE 100 MG TAB PO SCH (09:48)
[2021-05-20] MEDS: ENOXAPARIN 40 MG/0.4 ML SYRINGE SQ SCH (09:48)
[2021-05-20] MEDS: guaiFENesin 600 MG TABLET.ER PO SCH ×2 (09:48→21:53)
[2021-05-20] MEDS: POTASSIUM BICARBONATE/CIT AC 20 MEQ TABLET.EFF PO SCH (09:58)
--- NOTE | 2021-05-20 10:03 | P.PN ---
Subjective Progress Note Date: 05/20/21 Principal diagnosis: COVID 19, COPD On 05/16/2021 patient seen in follow-up in the intensive care unit, patient has been successfully weaned and extubated from mechanical ventilator on 05/15/2021, tolerating extubation well so far, she is currently on 6 L of oxygen with a pulse ox of 95-97%, vital signs have been stable, she is afebrile, she has however still requiring Cleviprex for hypertension, Cleviprex is infusing at 3 mg per hour, lisinopril and metoprolol were added by cardiology, she is awake and alert, in no acute distress, she is oriented 3, she is answering questions appropriately, she is breathing comfortably, she does have productive cough, denies any hemoptysis, she states the phlegm as creamy colored,. She remains on antibiotic coverage in the form of Rocephin. Blood cultures have shown no growth so far, chest x-ray today showing basilar atelectasis possibility of pneumonia is also being considered. No fever or chills, today's labs have been reviewed going white blood cell count of 15.7, hemoglobin of 13.7, her leukocytosis has improved since a few days ago. Sodium is 135, potassium is 4.0, chloride is 97, CO2 is 34, BUN is 14 and creatinine 0.38. Her last set of inflammatory markers was on 05/13/2021 with LDH of 627, CRP of 4.9. Patient is currently on Solu-Medrol 60 mg every 6 hours, and prophylactic dose of Lovenox. Last d-dimer was back on 05/11/2021 and he was negative at 0.35. On 05/17/2021 patient is seen in follow-up in intensive care unit, she is awake and alert, in no acute distress, she is on 4 L of oxygen,and her pulse ox is 94- 98%, she is afebrile, hemodynamically she is stable, she is currently on 0.45 normal saline at a rate of 75 ML. she is tolerating oral intake, today's labs have been reviewed showing white blood cell count 23.4, hemoglobin is 13.4, d- dimer 0.71, sodium is 132, potassium is 4.4, chloride is 97, CO2 is 32, BUN is 21, creatinine 0.39. chest x-ray shows improving bibasilar infiltrates with some residual infiltrate within the right upper lobe.cultures have shown no growth. patient remains on Rocephin, , nebulized bronchodilators, she is on GI and DVT prophylaxis, and she remains on IV Solu-Medrol 40 mg every 8 hours On 05/18/2021 patient seen in follow-up in intensive care unit, she has been stable over the last 24 hours, no acute distress, she is on 3 L of oxygen pulse ox is 97%, she is breathing comfortably, generally she appears weak, but no evidence of any respiratory difficulty, she is not on any IV fluids. She is awake and alert, oriented 3, yesterday's chest x-ray showed improving bibasilar infiltrates. These labs have been reviewed, her white blood cell count is 22.1, hemoglobin is 12.8, d-dimer is 0.74, today sodium is 129, potassium is 4.6, chloride is 93, CO2 is 36, B1 is 20, creatinine 0.51. Patient is currently on nebulized bronchodilators in the form of Symbicort and albuterol inhaler, she remains on IV Solu-Medrol 40 mg every 8 hours, she is on Lovenox 40 mg daily, and COVID-19 vitamins. Her appetite has been poor, patient is on dysphagia level III chopped diet. She is very weak, she requires assistance to feed herself. She has been working with physical therapy, she was able to take 2-3 steps with the use of a walker, she does require moderate assistance, she starts coughing after exertion, and she easily fatigues with minimal activity. She does sit up in the recliner during the day. She is awaiting a bed on medical surgical floor. She had no other acute events overnight. On 05/19/2021 patient seen in follow-up in the intensive care unit. She is awake and alert, in no acute distress, she is sitting up in a recliner, breathing comfortably, she is currently on 5 L of oxygen, she normally wears 3 L of oxygen at home on a regular basis, earlier this morning her pulse ox was 89% on 3 L, and subsequently her FiO2 was increased to 5 L, however her breathing is stable, no worsening dyspnea, no use of accessory muscles of breathing, she is awake and alert, she is oriented 3, looks very comfortable. Afebrile, hemodynamically stable, she is not on any IV fluids. She's had no acute events overnight. She continues on Decadron 6 mg daily, Symbicort and albuterol and Spiriva in addition to Singulair, she is on prophylactic dose Lovenox, and COVID-19 multivitamins. Her chest x-ray from 05/17/2021 shows improving bibasilar infiltrates. On today's evaluation on 05/20/2021 patient seen in follow-up in the intensive care unit, she is awake and alert, in no acute distress, she is sitting up in the recliner, she is on 4 L of oxygen pulse ox is 94%, she is breathing comfortably. She is awake and alert and oriented 3, she is not on any IV infusions. She has had no acute events overnight, her vital signs stable. No fever or chills. No new labs today. Patient was referred for discharge home yesterday however family could not take her home because of there being no heat in the house. She currently continues on oral Decadron 6 mg daily prophylaxis Lovenox, inhaled bronchodilators. She is tolerating oral intake, she has no specific complaints. Objective - Vital Signs Vital signs: Vital Signs Temp 97.7 F 05/20/21 01:47 Pulse 81 05/20/21 01:47 Resp 14 05/20/21 01:47 BP 101/57 05/20/21 01:47 Pulse Ox 94 L 05/20/21 01:47 Intake & Output 05/19/21 05/20/21 05/20/21 18:59 06:59 18:59 Intake Total 300 540 Balance 300 540 Weight 61.6 kg Intake: Oral 300 540 Other: Voiding Method Toilet # Voids 2 2 # Bowel Movements 1 ABP, PAP, CO, CI - Last Documented Arterial Blood Pressure 143/63 - Exam GENERAL EXAM: Alert, pleasant, 65-year-old white female, on 4 L of oxygen the pulse ox of 93%, comfortable in no apparent distress. HEAD: Normocephalic/atraumatic. EYES: Normal reaction of pupils, equal size. Conjunctiva pink, sclera white. NOSE: Clear with pink turbinates. THROAT: No erythema or exudates. NECK: No masses, no JVD, no thyroid enlargement, no adenopathy. CHEST: No chest wall deformity. Symmetrical expansion. LUNGS: Equal air entry with bibasilar crackles CVS: Regular rate and rhythm, normal S1 and S2, no gallops, no murmurs, no rubs ABDOMEN: Soft, nontender. No hepatosplenomegaly, normal bowel sounds, no guarding or rigidity. EXTREMITIES: No clubbing, no edema, no cyanosis, 2+ pulses and upper and lower extremities. MUSCULOSKELETAL: Muscle strength and tone normal. SPINE: No scoliosis or deformity SKIN: No rashes CENTRAL NERVOUS SYSTEM: Alert and oriented -3. No focal deficits, tone is normal in all 4 extremities. PSYCHIATRIC: Alert and oriented -3. Appropriate affect. Intact judgment and insight. - Labs CBC & Chem 7: 05/19/21 04:53 05/19/21 04:53 Labs: Abnormal Lab Results - Last 24 Hours (Table) 05/19/21 05/19/21 05/20/21 Range/Units 18:40 20:57 06:33 POC Glucose (mg/dL) 178 H 298 H 64 L (75-99) mg/dL Microbiology - Last 24 Hours (Table) 05/16/21 14:58 Gram Stain - Final Sputum Sputum Culture - Final Sarahi albicans Assessment and Plan Plan: Assessment: #1. Acute hypercapnic and hypoxic respiratory failure related to acute exacerbation of COPD, severity of the right lower lobe pneumonia, and acute COVID-19 infection. Patient was intubated on 05/11/2021 and successfully weaned and extubated on 05/15/2021. Patient was not a candidate for Remdesivir related to severe hypoxic respiratory failure, or baricitinib related to possibility of a right lower lobe pneumonia #2. History of severe COPD with FEV1 value of 0.56 L or 23% of predicted and DLCO of 28% of predicted, on home oxygen at bedtime at 2 L. #3. Hypovolemic hyponatremia, acute, improved and worsened again, currently at 129 on 05/18/2021 #4. Acute sepsis with hypotension but no evidence of septic shock #5. Leukocytosis related to sepsis and possible pneumonia, improving #6. Former smoker Plan: No acute events overnight, Vital signs have been stable Patient is currently down to 4 L of oxygen maintaining stable to saturations above 90% Hep-Lock IV fluids Increase activity as tolerated Patient is stable for discharge out of the hospital for pulmonary perspective She will need to complete total of 10 day course of oral Decadron He can continue on nebulized bronchodilators including Symbicort, Spiriva, and albuterol She'll need outpatient follow-up with Dr. Adler in the office in 2 weeks I performed a history & physical examination of the patient and discussed their management with my nurse practitioner, Jasmin Fuentes. I reviewed the nurse practitioner's note and agree with the documented findings and plan of care. Lung sounds are positive for basilar crackles throughout the lung varma. The findings and the impression was discussed with the patient. I attest to the documentation by the nurse practitioner. Time with Patient: Less than 30
[2021-05-20 13:26] LABS: Glucose,Whole Blood 90 mg/dL (75-99)
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
[2021-05-20 17:04] LABS: Glucose,Whole Blood 167 mg/dL (75-99)
[2021-05-20] MEDS: SPIRONOLACTONE 25 MG TAB PO SCH (19:12)
[2021-05-20] MEDS: METOPROLOL TARTRATE 25 MG TAB PO SCH (19:12)
[2021-05-20] MEDS: methylPREDNISolone SOD SUCCI 40 MG/ML 1 ML VIAL IV SCH (19:13)
[2021-05-20] MEDS: PANTOPRAZOLE 40 MG/10 ML VIAL IVP SCH (19:15)
[2021-05-20 20:47] LABS: Glucose,Whole Blood 265 mg/dL (75-99)
[2021-05-20] MEDS: OXYBUTYNIN 10 MG TAB.ER.24 PO SCH (21:53)
[2021-05-20] MEDS: MONTELUKAST 10 MG TAB PO SCH (21:53)
[2021-05-21 01:49] LABS: Glucose,Whole Blood 132 mg/dL (75-99)
[2021-05-21 07:18] LABS: Glucose,Whole Blood 90 mg/dL (75-99)
[2021-05-21] MEDS: INSULIN ASPART (NovoLOG) 100 UNIT/ML VIAL SQ SCH ×4 (07:46→21:58)
[2021-05-21] MEDS: ALBUTEROL HFA INHALER INHALATION SCH ×4 (08:22→19:56)
[2021-05-21] MEDS: SYMBICORT 160-4.5 MCG INHALER INHALATION SCH ×2 (08:22→19:56)
[2021-05-21] MEDS: ENOXAPARIN 40 MG/0.4 ML SYRINGE SQ SCH (08:57)
[2021-05-21] MEDS: dexAMETHasone 2 MG TAB PO SCH (08:57)
[2021-05-21] MEDS: METOPROLOL TARTRATE 50 MG TAB PO SCH ×2 (08:58→21:59)
[2021-05-21] MEDS: lisinopriL 5 MG TAB PO SCH (08:58)
[2021-05-21] MEDS: guaiFENesin 600 MG TABLET.ER PO SCH ×2 (08:58→21:58)
[2021-05-21] MEDS: ASCORBIC ACID 500 MG TAB PO SCH (08:58)
[2021-05-21] MEDS: FLUCONAZOLE 100 MG TAB PO SCH (08:58)
[2021-05-21] MEDS: ATORVASTATIN 40 MG TAB PO SCH (08:58)
[2021-05-21] MEDS: ASPIRIN 81 MG PO SCH (08:58)
[2021-05-21] MEDS: CALCIUM CARBONATE 500 MG CHEWABLE PO SCH (08:58)
[2021-05-21] MEDS: PANTOPRAZOLE 40 MG TABLET PO SCH (08:58)
[2021-05-21] MEDS: bisacodyL 10 MG SUPP RECTAL SCH (08:58)
[2021-05-21] MEDS: CHOLECALCIFEROL 25 MCG (1000 IU) TABLET PO SCH (08:59)
[2021-05-21 11:56] LABS: Glucose,Whole Blood 100 mg/dL (75-99)
--- NOTE | 2021-05-21 14:09 | P.PN ---
Subjective Progress Note Date: 05/21/21 On 05/16/2021 patient seen in follow-up in the intensive care unit, patient has been successfully weaned and extubated from mechanical ventilator on 05/15/2021, tolerating extubation well so far, she is currently on 6 L of oxygen with a pulse ox of 95-97%, vital signs have been stable, she is afebrile, she has however still requiring Cleviprex for hypertension, Cleviprex is infusing at 3 mg per hour, lisinopril and metoprolol were added by cardiology, she is awake and alert, in no acute distress, she is oriented 3, she is answering questions appropriately, she is breathing comfortably, she does have productive cough, denies any hemoptysis, she states the phlegm as creamy colored,. She remains on antibiotic coverage in the form of Rocephin. Blood cultures have shown no growth so far, chest x-ray today showing basilar atelectasis possibility of pneumonia is also being considered. No fever or chills, today's labs have been reviewed going white blood cell count of 15.7, hemoglobin of 13.7, her leukocytosis has improved since a few days ago. Sodium is 135, potassium is 4.0, chloride is 97, CO2 is 34, BUN is 14 and creatinine 0.38. Her last set of inflammatory markers was on 05/13/2021 with LDH of 627, CRP of 4.9. Patient is currently on Solu-Medrol 60 mg every 6 hours, and prophylactic dose of Lovenox. Last d-dimer was back on 05/11/2021 and he was negative at 0.35. On 05/17/2021 patient is seen in follow-up in intensive care unit, she is awake and alert, in no acute distress, she is on 4 L of oxygen,and her pulse ox is 94- 98%, she is afebrile, hemodynamically she is stable, she is currently on 0.45 normal saline at a rate of 75 ML. she is tolerating oral intake, today's labs have been reviewed showing white blood cell count 23.4, hemoglobin is 13.4, d- dimer 0.71, sodium is 132, potassium is 4.4, chloride is 97, CO2 is 32, BUN is 21, creatinine 0.39. chest x-ray shows improving bibasilar infiltrates with some residual infiltrate within the right upper lobe.cultures have shown no growth. patient remains on Rocephin, , nebulized bronchodilators, she is on GI and DVT p rophylaxis, and she remains on IV Solu-Medrol 40 mg every 8 hours On 05/18/2021 patient seen in follow-up in intensive care unit, she has been stable over the last 24 hours, no acute distress, she is on 3 L of oxygen pulse ox is 97%, she is breathing comfortably, generally she appears weak, but no evidence of any respiratory difficulty, she is not on any IV fluids. She is awake and alert, oriented 3, yesterday's chest x-ray showed improving bibasilar infiltrates. These labs have been reviewed, her white blood cell count is 22.1, hemoglobin is 12.8, d-dimer is 0.74, today sodium is 129, potassium is 4.6, chloride is 93, CO2 is 36, B1 is 20, creatinine 0.51. Patient is currently on nebulized bronchodilators in the form of Symbicort and albuterol inhaler, she remains on IV Solu-Medrol 40 mg every 8 hours, she is on Lovenox 40 mg daily, and COVID-19 vitamins. Her appetite has been poor, patient is on dysphagia level III chopped diet. She is very weak, she requires assistance to feed herself. She has been working with physical therapy, she was able to take 2-3 steps with the use of a walker, she does require moderate assistance, she starts coughing after exertion, and she easily fatigues with minimal activity. She does sit up in the recliner during the day. She is awaiting a bed on medical surgical floor. She had no other acute events overnight. On 05/19/2021 patient seen in follow-up in the intensive care unit. She is awake and alert, in no acute distress, she is sitting up in a recliner, breathing comfortably, she is currently on 5 L of oxygen, she normally wears 3 L of oxygen at home on a regular basis, earlier this morning her pulse ox was 89% on 3 L, and subsequently her FiO2 was increased to 5 L, however her breathing is stable, no worsening dyspnea, no use of accessory muscles of breathing, she is awake and alert, she is oriented 3, looks very comfortable. Afebrile, hemodynamically stable, she is not on any IV fluids. She's had no acute events overnight. She continues on Decadron 6 mg daily, Symbicort and albuterol and Spiriva in addition to Singulair, she is on prophylactic dose Lovenox, and COVID-19 multivitamins. Her chest x-ray from 05/17/2021 shows improving bibasilar infiltrates. On today's evaluation on 05/20/2021 patient seen in follow-up in the intensive care unit, she is awake and alert, in no acute distress, she is sitting up in the recliner, she is on 4 L of oxygen pulse ox is 94%, she is breathing comfortably. She is awake and alert and oriented 3, she is not on any IV infusions. She has had no acute events overnight, her vital signs stable. No fever or chills. No new labs today. Patient was referred for discharge home yesterday however family could not take her home because of there being no heat in the house. She currently continues on oral Decadron 6 mg daily prophylaxis Lovenox, inhaled bronchodilators. She is tolerating oral intake, she has no specific complaints. The patient is seen today 05/21/2021 in follow-up on the regular medical floor. She is currently sitting up in bed. Awake and alert in no acute distress. She is maintaining O2 saturations in the 90s on 4 L/m per nasal cannula. No IV fluids. Appetite is good. The cultures revealed no growth. Sputum culture positive for Sarahi only. Glucose 100. She is continued on Symbicort, albuterol, Decadron, Lovenox, vitamin supplements. Continue on Diflucan. Objective - Vital Signs Vital signs: Vital Signs Temp 98.3 F 05/21/21 10:29 Pulse 93 05/21/21 10:29 Resp 18 05/21/21 10:29 BP 96/62 05/21/21 10:29 Pulse Ox 98 05/21/21 10:29 Intake & Output 05/20/21 05/21/21 05/21/21 18:59 06:59 18:59 Weight 57 kg Other: Voiding Method Toilet Toilet Toilet # Voids 2 ABP, PAP, CO, CI - Last Documented Arterial Blood Pressure 143/63 - Exam GENERAL EXAM: Alert, pleasant, 65-year-old female, on 4 L of oxygen the pulse ox of 98%, comfortable in no apparent distress. HEAD: Normocephalic/atraumatic. EYES: Normal reaction of pupils, equal size. Conjunctiva pink, sclera white. NOSE: Clear with pink turbinates. THROAT: No erythema or exudates. NECK: No masses, no JVD, no thyroid enlargement, no adenopathy. CHEST: No chest wall deformity. Symmetrical expansion. LUNGS: Equal air entry with bibasilar crackles CVS: Regular rate and rhythm, normal S1 and S2, no gallops, no murmurs, no rubs ABDOMEN: Soft, nontender. No hepatosplenomegaly, normal bowel sounds, no guarding or rigidity. EXTREMITIES: No clubbing, no edema, no cyanosis, 2+ pulses and upper and lower extremities. MUSCULOSKELETAL: Muscle strength and tone normal. SPINE: No scoliosis or deformity SKIN: No rashes CENTRAL NERVOUS SYSTEM: Alert and oriented -3. No focal deficits, tone is normal in all 4 extremities. PSYCHIATRIC: Alert and oriented -3. Appropriate affect. Intact judgment and insight. - Labs CBC & Chem 7: 05/19/21 04:53 05/19/21 04:53 Labs: Abnormal Lab Results - Last 24 Hours (Table) 05/20/21 05/20/21 05/21/21 Range/Units 17:03 20:45 01:24 POC Glucose (mg/dL) 167 H 265 H 132 H (75-99) mg/dL 05/21/21 Range/Units 11:55 POC Glucose (mg/dL) 100 H (75-99) mg/dL Assessment and Plan Assessment: 1 Acute on chronic hypoxic/hypercapnic respiratory failure suspect secondary to a acute exacerbation of COPD, complicated by possible right lower lobe community-acquired pneumonia, COVID-19 infection. Required intubation mechanical ventilatory support on 05/11/2021, subsequently extubated on 05/15/2021 and currently on 4 L nasal cannula 2 Severe oxygen dependent chronic obstructive pulmonary disease with an FEV1 value 23% of predicted 3 Former smoker 4 Leukocytosis secondary to above 5 Hypovolemic hyponatremia suspect secondary to poor oral intake 6 COVID-19 infection 7 Sepsis with hypotension requiring pressor support. 8 History of anemia Plan: The patient was seen and evaluated by Dr. Alonso She is cleared for discharge from the pulmonary standpoint We'll follow as needed I, the cosigning physician, performed a history & physical examination of the patient. Lungs sounds with crackles in the right lung base. Maintaining good O2 saturations in the 90s on 2 L/m per nasal cannula. I discussed the assessment and plan of care with my nurse practitioner, Hansa Enciso. I attest to the above note as dictated by her.
[2021-05-21 16:38] LABS: Glucose,Whole Blood 185 mg/dL (75-99)
--- NOTE | 2021-05-21 17:33 | P.PN ---
Subjective Progress Note Date: 05/21/21 Principal diagnosis: COVID-19 pneumonia, COPD exacerbation Mr. Murry is a 65-year-old female with a past medical history of advanced COPD admitted to the hospital with a chief complaint of difficulty in breathing. She was found to have coag 19 pneumonia. Patient was intubated on 05/12/2021 and successfully extubated on 05/15/2021. On 05/21/2021 - Patient was seen and examined at bedside. She is comfortably lying in bed appears to be no acute distress. Patient complains of ongoing cough that is productive in nature. She denies having any chest pain or palpitations. No fevers chills or rigors. She denies having any nausea vomiting or diarrhea. No dysuria or hematuria. Patient's vitals have been reviewed temperature maximum of 38.3, heart rate 94, respiratory 22, blood pressure 1 11 x 72 saturating at 98% on 4 L of oxygen. Labs from 05/19/2021 reviewed. Patient's medications reviewed Active Medications Albuterol Sulfate (Albuterol Hfa Inhaler) 2 puff INHALATION RT-QID [facility] Last Admin: 05/21/21 15:49 Dose: 2 puff Documented by: Ascorbic Acid (Ascorbic Acid 500 Mg Tab) 500 mg PO DAILY [facility] Last Admin: 05/21/21 08:58 Dose: 500 mg Documented by: Aspirin (Aspirin 81 Mg) 81 mg PO DAILY [facility] Last Admin: 05/21/21 08:58 Dose: 81 mg Documented by: Atorvastatin Calcium (Atorvastatin 40 Mg Tab) 40 mg PO DAILY [facility] Last Admin: 05/21/21 08:58 Dose: 40 mg Documented by: Bisacodyl (Bisacodyl 10 Mg Supp) 10 mg RECTAL DAILY [facility] Last Admin: 05/21/21 08:58 Dose: 10 mg Documented by: Budesonide/Formoterol Fumarate (Symbicort 160-4.5 Mcg Inhaler) 2 puff INHALATION RT-BID [facility] Last Admin: 05/21/21 08:22 Dose: 2 puff Documented by: Calcium Carbonate/Glycine (Calcium Carbonate 500 Mg Chewable) 500 mg PO DAILY [facility] Last Admin: 05/21/21 08:58 Dose: 500 mg Documented by: Cholecalciferol (Cholecalciferol 25 Mcg (1000 Iu) Tablet) 25 mcg PO DAILY [facility] Last Admin: 05/21/21 08:59 Dose: 25 mcg Documented by: Dexamethasone (Dexamethasone 2 Mg Tab) 6 mg PO DAILY [facility] Last Admin: 05/21/21 08:57 Dose: 6 mg Documented by: Enoxaparin Sodium (Enoxaparin 40 Mg/0.4 Ml Syringe) 40 mg SQ DAILY [facility] Last Admin: 05/21/21 08:57 Dose: 40 mg Documented by: Fluconazole (Fluconazole 100 Mg Tab) 100 mg PO DAILY [facility] Last Admin: 05/21/21 08:58 Dose: 100 mg Documented by: Guaifenesin (Guaifenesin 600 Mg Tablet.Er) 1,200 mg PO Q12HR [facility] Last Admin: 05/21/21 08:58 Dose: 1,200 mg Documented by: Insulin Aspart (Insulin Aspart (Novolog) 100 Unit/Ml Vial) 0 unit SQ ACHS [facility]; Protocol Last Admin: 05/21/21 14:01 Dose: Not Given Documented by: Lisinopril (Lisinopril 5 Mg Tab) 5 mg PO DAILY [facility] Last Admin: 05/21/21 08:58 Dose: 5 mg Documented by: Methocarbamol (Methocarbamol 500 Mg Tab) 500 mg PO TID PRN PRN Reason: Pain Metoprolol Tartrate (Metoprolol Tartrate 50 Mg Tab) 50 mg PO BID [facility] Last Admin: 05/21/21 08:58 Dose: 50 mg Documented by: Miscellaneous Information (Potassium Replacement Protocol 1 Each Misc) 1 each MISCELLANE DAILY PRN; Protocol PRN Reason: Per Protocol Montelukast Sodium (Montelukast 10 Mg Tab) 10 mg PO [facility] Last Admin: 05/20/21 21:53 Dose: 10 mg Documented by: Naloxone HCl (Naloxone 0.4 Mg/Ml 1 Ml Vial) 0.2 mg IV Q2M PRN PRN Reason: Opioid Reversal Oxybutynin Chloride (Oxybutynin 10 Mg Tab.Er.24) 10 mg PO [facility] Last Admin: 05/20/21 21:53 Dose: 10 mg Documented by: Pantoprazole Sodium (Pantoprazole 40 Mg Tablet) 40 mg PO AC-BRKFST [facility] Last Admin: 05/21/21 08:58 Dose: 40 mg Documented by: Potassium Bicarbonate (Potassium Bicarbonate/Cit Ac 20 Meq Tablet.Eff) 20 meq PO DAILY [facility] Last Admin: 11/05/21 09:58 Dose: 20 meq Documented by: Tiotropium [place] (Tiotropium 2.5 Mcg Inhaler) 2 puff INHALATION RT-DAILY [facility] Last Admin: 05/20/21 07:51 Dose: 2 puff Documented by: Objective - Vital Signs Vital signs: Vital Signs Temp 98.3 F 05/21/21 14:00 Pulse 94 05/21/21 14:00 Resp 22 05/21/21 14:00 BP 111/71 05/21/21 14:00 Pulse Ox 89 L 05/21/21 14:00 Intake & Output 05/20/21 05/21/21 05/21/21 18:59 06:59 18:59 Weight 57 kg Other: Voiding Method Toilet Toilet Toilet # Voids 2 ABP, PAP, CO, CI - Last Documented Arterial Blood Pressure 143/63 - Exam PHYSICAL EXAMINATION: GENERAL: Patient is currently sitting up in the chair, awake, alert and oriented 3, thin built HEENT: Pupils are round and equally reacting to light. EOMI. No scleral icterus. No conjunctival pallor. Normocephalic, atraumatic. CARDIOVASCULAR: S1 and S2 present. No murmurs, rubs, or gallops. PULMONARY: Diminished breath sounds in all lung varma with scattered rhonchi. ABDOMEN: Soft, nontender, nondistended, bowel sounds present. No palpable organomegaly. MUSCULOSKELETAL: No joint swelling or deformity. EXTREMITIES: No cyanosis, clubbing, or pedal edema. NEUROLOGICAL: Awake, alert and oriented 3, mildly delayed, diffusely weak SKIN: No rashes. - Labs CBC & Chem 7: 05/19/21 04:53 05/19/21 04:53 Labs: Abnormal Lab Results - Last 24 Hours (Table) 05/20/21 05/20/21 05/21/21 Range/Units 17:03 20:45 01:24 POC Glucose (mg/dL) 167 H 265 H 132 H (75-99) mg/dL 05/21/21 Range/Units 11:55 POC Glucose (mg/dL) 100 H (75-99) mg/dL Assessment and Plan Assessment: ASSESSMENT Acute on chronic hypoxic and hypercapnic respiratory failure secondary to COVID- 19 pneumonia Acute COPD exacerbation Hypovolemic hyponatremia Leukocytosis secondary to steroid use Hematuria resolved Hypomagnesemia Hypertension Multiple electrolyte abnormalities GI DVT prophylaxis PLAN. Patient to be continued on oxygen to maintain saturations above 90%. Patient continues to be on steroids, breathing treatments. Patient to be discharged home on oxygen therapy, but because of home situations she cannot be discharged. 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
[2021-05-21] MEDS: POTASSIUM BICARBONATE/CIT AC 20 MEQ TABLET.EFF PO SCH (18:11)
[2021-05-21 20:36] LABS: Glucose,Whole Blood 211 mg/dL (75-99)
[2021-05-21] MEDS: MONTELUKAST 10 MG TAB PO SCH (21:58)
[2021-05-21] MEDS: OXYBUTYNIN 10 MG TAB.ER.24 PO SCH (22:20)
[2021-05-22 07:19] LABS: Glucose,Whole Blood 130 mg/dL (75-99)
[2021-05-22] MEDS: INSULIN ASPART (NovoLOG) 100 UNIT/ML VIAL SQ SCH ×4 (07:47→21:41)
[2021-05-22] MEDS: SYMBICORT 160-4.5 MCG INHALER INHALATION SCH ×2 (07:59→20:06)
[2021-05-22] MEDS: ALBUTEROL HFA INHALER INHALATION SCH ×4 (07:59→20:05)
[2021-05-22] MEDS: TIOTROPIUM 2.5 MCG INHALER INHALATION SCH (08:00)
[2021-05-22] MEDS: POTASSIUM BICARBONATE/CIT AC 20 MEQ TABLET.EFF PO SCH (09:09)
[2021-05-22] MEDS: METOPROLOL TARTRATE 50 MG TAB PO SCH ×2 (09:09→21:42)
[2021-05-22] MEDS: FLUCONAZOLE 100 MG TAB PO SCH (09:09)
[2021-05-22] MEDS: ENOXAPARIN 40 MG/0.4 ML SYRINGE SQ SCH (09:09)
[2021-05-22] MEDS: ASCORBIC ACID 500 MG TAB PO SCH (09:09)
[2021-05-22] MEDS: ATORVASTATIN 40 MG TAB PO SCH (09:10)
[2021-05-22] MEDS: lisinopriL 5 MG TAB PO SCH (09:10)
[2021-05-22] MEDS: dexAMETHasone 2 MG TAB PO SCH (09:10)
[2021-05-22] MEDS: CHOLECALCIFEROL 25 MCG (1000 IU) TABLET PO SCH (09:10)
[2021-05-22] MEDS: ASPIRIN 81 MG PO SCH (09:10)
[2021-05-22] MEDS: PANTOPRAZOLE 40 MG TABLET PO SCH (09:10)
[2021-05-22] MEDS: guaiFENesin 600 MG TABLET.ER PO SCH ×2 (09:10→21:42)
[2021-05-22] MEDS: CALCIUM CARBONATE 500 MG CHEWABLE PO SCH (09:17)
[2021-05-22] MEDS: bisacodyL 10 MG SUPP RECTAL SCH (09:17)
[2021-05-22 11:51] LABS: Glucose,Whole Blood 90 mg/dL (75-99)
[2021-05-22 12:40] LABS: Basophils # (A) 0.01 X 10*3/uL (0.00-0.10); Basophils % (A) 0.1 %; Eosinophils # (A) 0.01 X 10*3/uL (0.04-0.35); Eosinophils % (A) 0.1 %; HCT 34.5 % (37.2-46.3); HGB 10.7 g/dL (12.0-15.0); Lymphocytes # (A) 1.23 X 10*3/uL (0.90-5.00); Lymphocytes % (A) 7.4 %; MCH 29.6 pg (27.0-32.0); MCV 95.3 fL (80.0-97.0); Mean Platelet Volume 10.2 fL (9.5-12.2); Neutrophils # (A) 13.85 X 10*3/uL (1.80-7.70); Neutrophils % (A) 82.7 %; Platelet Count 163 X 10*3/uL (140-440); RBC 3.62 X 10*6/uL (4.10-5.20); RDW 13.5 % (11.5-14.5); WBC 16.71 X 10*3/uL (4.50-10.00)
[2021-05-22 12:45] LABS: African American GFR (CKD) 117.7 (60.0-200.0); Anion Gap 9.5 mmol/L (4.00-12.00); BUN/Creat Ratio 21.2 Ratio (12.00-20.00); Blood Urea Nitrogen 10.6 mg/dL (9.0-27.0); Calcium 8.4 mg/dL (8.7-10.3); Carbon Dioxide 31.5 mmol/L (21.6-31.8); Non-African American GFR(CKD) 101.6 (60.0-200.0)
[2021-05-22 16:56] LABS: Glucose,Whole Blood 184 mg/dL (75-99)
[2021-05-22] MEDS: BENZOCAINE/MENTHOL LOZENG 1 EACH LOZENGE MUCOUS MEM PRN ×2 (17:21→21:41)
[2021-05-22 20:24] LABS: Glucose,Whole Blood 222 mg/dL (75-99)
[2021-05-22] MEDS: MONTELUKAST 10 MG TAB PO SCH (21:42)
[2021-05-22] MEDS: OXYBUTYNIN 10 MG TAB.ER.24 PO SCH (21:42)
--- NOTE | 2021-05-22 22:41 | P.PN ---
Subjective Progress Note Date: 05/22/21 Principal diagnosis: COVID-19 pneumonia, COPD exacerbation Mr. Murry is a 65-year-old female with a past medical history of advanced COPD admitted to the hospital with a chief complaint of difficulty in breathing. She was found to have coag 19 pneumonia. Patient was intubated on 05/12/2021 and successfully extubated on 05/15/2021. On 05/21/2021 - Patient was seen and examined at bedside. She is comfortably lying in bed appears to be no acute distress. Patient complains of ongoing cough that is productive in nature. She denies having any chest pain or palpitations. No fevers chills or rigors. She denies having any nausea vomiting or diarrhea. No dysuria or hematuria. Patient's vitals have been reviewed temperature maximum of 38.3, heart rate 94, respiratory 22, blood pressure 1 11 x 72 saturating at 98% on 4 L of oxygen. Labs from 05/19/2021 reviewed. On 05/22/2021 patient was seen and examined at the bedside. She is comfortably lying in bed appears to be no acute distress. No acute events reported as per nursing staff report. Patient still complains of ongoing cough that is difficult to bring sputum out. She complains of mild sore throat. She denies having any fevers chills or rigors. No chest pain or palpitations. No lower pain nausea vomiting or diarrhea. No dysuria or hematuria. On reviewing the vitals temperature temperature maximum of 99.0, heart rate 102, respiratory 26, blood pressure 130/76 saturating at 88% on 4 L of nasal cannula. Patient's labs have been reviewed white count of 16.7, hemoglobin 10.7, platelets 163. Sodium 134, potassium 4, chloride 93, bicarb 31, BUN 10, creatinine 0.5. Patient's medications have been reviewed Active Medications Albuterol Sulfate (Albuterol Hfa Inhaler) 2 puff INHALATION RT-QID [facility] Last Admin: 05/22/21 20:05 Dose: 2 puff Documented by: Ascorbic Acid (Ascorbic Acid 500 Mg Tab) 500 mg PO DAILY [facility] Last Admin: 05/22/21 09:09 Dose: 500 mg Documented by: Aspirin (Aspirin 81 Mg) 81 mg PO DAILY [facility] Last Admin: 05/22/21 09:10 Dose: 81 mg Documented by: Atorvastatin Calcium (Atorvastatin 40 Mg Tab) 40 mg PO DAILY [facility] Last Admin: 05/22/21 09:10 Dose: 40 mg Documented by: Benzocaine/Menthol (Benzocaine/Menthol Lozeng 1 Each Lozenge) 1 each MUCOUS MEM Q4HR PRN PRN Reason: Sore Throat Last Admin: 05/22/21 21:41 Dose: 1 each Documented by: Bisacodyl (Bisacodyl 10 Mg Supp) 10 mg RECTAL DAILY [facility] Last Admin: 05/22/21 09:17 Dose: Not Given Documented by: Budesonide/Formoterol Fumarate (Symbicort 160-4.5 Mcg Inhaler) 2 puff INHALATION RT-BID [facility] Last Admin: 05/22/21 20:06 Dose: 2 puff Documented by: Calcium Carbonate/Glycine (Calcium Carbonate 500 Mg Chewable) 500 mg PO DAILY [facility] Last Admin: 05/22/21 09:17 Dose: Not Given Documented by: Cholecalciferol (Cholecalciferol 25 Mcg (1000 Iu) Tablet) 25 mcg PO DAILY [facility] Last Admin: 05/22/21 09:10 Dose: 25 mcg Documented by: Dexamethasone (Dexamethasone 2 Mg Tab) 6 mg PO DAILY [facility] Last Admin: 05/22/21 09:10 Dose: 6 mg Documented by: Enoxaparin Sodium (Enoxaparin 40 Mg/0.4 Ml Syringe) 40 mg SQ DAILY [facility] Last Admin: 05/22/21 09:09 Dose: 40 mg Documented by: Fluconazole (Fluconazole 100 Mg Tab) 100 mg PO DAILY [facility] Last Admin: 05/22/21 09:09 Dose: 100 mg Documented by: Guaifenesin (Guaifenesin 600 Mg Tablet.Er) 1,200 mg PO Q12HR [facility] Last Admin: 05/22/21 21:42 Dose: 1,200 mg Documented by: Insulin Aspart (Insulin Aspart (Novolog) 100 Unit/Ml Vial) 0 unit SQ [facility]; Protocol Last Admin: 05/22/21 21:41 Dose: 7 unit Documented by: Lisinopril (Lisinopril 5 Mg Tab) 5 mg PO DAILY [facility] Last Admin: 05/22/21 09:10 Dose: 5 mg Documented by: Methocarbamol (Methocarbamol 500 Mg Tab) 500 mg PO TID PRN PRN Reason: Pain Metoprolol Tartrate (Metoprolol Tartrate 50 Mg Tab) 50 mg PO BID [facility] Last Admin: 05/22/21 21:42 Dose: 50 mg Documented by: Miscellaneous Information (Potassium Replacement Protocol 1 Each Misc) 1 each MISCELLANE DAILY PRN; Protocol PRN Reason: Per Protocol Montelukast Sodium (Montelukast 10 Mg Tab) 10 mg PO [facility] Last Admin: 05/22/21 21:42 Dose: 10 mg Documented by: Naloxone HCl (Naloxone 0.4 Mg/Ml 1 Ml Vial) 0.2 mg IV Q2M PRN PRN Reason: Opioid Reversal Oxybutynin Chloride (Oxybutynin 10 Mg Tab.Er.24) 10 mg PO [facility] Last Admin: 05/22/21 21:42 Dose: 10 mg Documented by: Pantoprazole Sodium (Pantoprazole 40 Mg Tablet) 40 mg PO AC-BRKFST [facility] Last Admin: 05/22/21 09:10 Dose: 40 mg Documented by: Potassium Bicarbonate (Potassium Bicarbonate/Cit Ac 20 Meq Tablet.Eff) 20 meq PO DAILY [facility] Last Admin: 05/22/21 09:09 Dose: 20 meq Documented by: Tiotropium [place] (Tiotropium 2.5 Mcg Inhaler) 2 puff INHALATION RT-DAILY [facility] Last Admin: 05/22/21 08:00 Dose: 2 puff Documented by: Objective - Vital Signs Vital signs: Vital Signs Temp 98.4 F 05/22/21 14:00 Pulse 94 05/22/21 14:00 Resp 24 05/22/21 14:00 BP 112/73 05/22/21 14:00 Pulse Ox 89 L 05/22/21 14:00 Intake & Output 05/21/21 05/22/21 05/22/21 19:59 06:59 18:59 Intake Total Balance Weight Intake: Oral Other: Voiding Method Toilet # Voids ABP, PAP, CO, CI - Last Documented Arterial Blood Pressure 143/63 - Exam PHYSICAL EXAMINATION: GENERAL: Patient is currently sitting up in the chair, awake, alert and oriented 3, thin built HEENT: Pupils are round and equally reacting to light. EOMI. No scleral icterus. No conjunctival pallor. Normocephalic, atraumatic. Mild pharyngeal erythema CARDIOVASCULAR: S1 and S2 present. No murmurs, rubs, or gallops. PULMONARY: Diminished breath sounds in all lung varma with scattered rhonchi. ABDOMEN: Soft, nontender, nondistended, bowel sounds present. No palpable organomegaly. MUSCULOSKELETAL: No joint swelling or deformity. EXTREMITIES: No cyanosis, clubbing, or pedal edema. NEUROLOGICAL: Awake, alert and oriented 3, mildly delayed, diffusely weak SKIN: No rashes. - Labs CBC & Chem 7: 05/22/21 08:26 05/22/21 08:26 Labs: Abnormal Lab Results - Last 24 Hours (Table) 05/21/21 05/21/21 05/22/21 Range/Units 16:37 20:34 07:17 WBC (4.50-10.00) X 10*3/uL RBC (4.10-5.20) X 10*6/uL Hgb (12.0-15.0) g/dL Hct (37.2-46.3) % MCHC (32.0-37.0) g/dL Immature Gran # (0.00-0.04) X 10*3/uL Neutrophils # (1.80-7.70) X 10*3/uL Monocytes # (0.20-1.00) X 10*3/uL Eosinophils # (0.04-0.35) X 10*3/uL Sodium (135-145) mmol/L Chloride (96-109) mmol/L Creatinine (0.6-1.5) mg/dL BUN/Creatinine Ratio (12.00-20.00) Ratio Glucose (70-110) mg/dL POC Glucose (mg/dL) 185 H 211 H 130 H (75-99) mg/dL Calcium (8.7-10.3) mg/dL 05/22/21 05/22/21 Range/Units 08:26 08:26 WBC 16.71 H (4.50-10.00) X 10*3/uL RBC 3.62 L (4.10-5.20) X 10*6/uL Hgb 10.7 L (12.0-15.0) g/dL Hct 34.5 L (37.2-46.3) % MCHC 31.0 L (32.0-37.0) g/dL Immature Gran # 0.11 H (0.00-0.04) X 10*3/uL Neutrophils # 13.85 H (1.80-7.70) X 10*3/uL Monocytes # 1.50 H (0.20-1.00) X 10*3/uL Eosinophils # 0.01 L (0.04-0.35) X 10*3/uL Sodium 134 L (135-145) mmol/L Chloride 93 L (96-109) mmol/L Creatinine 0.5 L (0.6-1.5) mg/dL BUN/Creatinine Ratio 21.20 H (12.00-20.00) Ratio Glucose 162 H (70-110) mg/dL POC Glucose (mg/dL) (75-99) mg/dL Calcium 8.4 L (8.7-10.3) mg/dL Assessment and Plan Assessment: ASSESSMENT Acute on chronic hypoxic and hypercapnic respiratory failure secondary to COVID- 19 pneumonia Acute COPD exacerbation Hypovolemic hyponatremia Leukocytosis secondary to steroid use Hematuria resolved Hypomagnesemia Hypertension Multiple electrolyte abnormalities GI DVT prophylaxis PLAN. Patient to be continued on oxygen to maintain saturations above 90%. Patient continues to be on steroids, breathing treatments. Patient will be given throat lozenges for throat discomfort. Patient to be discharged home on oxygen therapy, but because of home situations she cannot be discharged. 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
[2021-05-23 07:30] LABS: Glucose,Whole Blood 83 mg/dL (75-99)
[2021-05-23] MEDS: bisacodyL 10 MG SUPP RECTAL SCH (07:31)
[2021-05-23] MEDS: ALBUTEROL HFA INHALER INHALATION SCH ×6 (08:11→19:59)
[2021-05-23] MEDS: SYMBICORT 160-4.5 MCG INHALER INHALATION SCH ×2 (08:13→19:59)
[2021-05-23] MEDS: TIOTROPIUM 2.5 MCG INHALER INHALATION SCH (08:13)
[2021-05-23] MEDS: INSULIN ASPART (NovoLOG) 100 UNIT/ML VIAL SQ SCH ×4 (09:24→20:58)
[2021-05-23] MEDS: dexAMETHasone 2 MG TAB PO SCH (10:05)
[2021-05-23] MEDS: ENOXAPARIN 40 MG/0.4 ML SYRINGE SQ SCH (10:05)
[2021-05-23] MEDS: FLUCONAZOLE 100 MG TAB PO SCH (10:05)
[2021-05-23] MEDS: lisinopriL 5 MG TAB PO SCH (10:06)
[2021-05-23] MEDS: BENZOCAINE/MENTHOL LOZENG 1 EACH LOZENGE MUCOUS MEM PRN ×2 (10:06→21:01)
[2021-05-23] MEDS: CALCIUM CARBONATE 500 MG CHEWABLE PO SCH (10:06)
[2021-05-23] MEDS: ATORVASTATIN 40 MG TAB PO SCH (10:07)
[2021-05-23] MEDS: PANTOPRAZOLE 40 MG TABLET PO SCH (10:07)
[2021-05-23] MEDS: ASCORBIC ACID 500 MG TAB PO SCH (10:07)
[2021-05-23] MEDS: ASPIRIN 81 MG PO SCH (10:07)
[2021-05-23] MEDS: CHOLECALCIFEROL 25 MCG (1000 IU) TABLET PO SCH (10:07)
[2021-05-23] MEDS: METOPROLOL TARTRATE 50 MG TAB PO SCH ×2 (10:07→20:58)
[2021-05-23] MEDS: POTASSIUM BICARBONATE/CIT AC 20 MEQ TABLET.EFF PO SCH (10:07)
[2021-05-23] MEDS: guaiFENesin 600 MG TABLET.ER PO SCH ×2 (10:07→20:57)
[2021-05-23 10:59] LABS: HCT 32.5 % (37.2-46.3); HGB 10.3 g/dL (12.0-15.0); MCH 29.9 pg (27.0-32.0); MCHC 31.7 g/dL (32.0-37.0); MCV 94.2 fL (80.0-97.0); Mean Platelet Volume 10.1 fL (9.5-12.2); Platelet Count 158 X 10*3/uL (140-440); RBC 3.45 X 10*6/uL (4.10-5.20); RDW 13.3 % (11.5-14.5)
[2021-05-23 11:12] VITALS: BMI 22.4
[2021-05-23 11:29] LABS: Glucose,Whole Blood 89 mg/dL (75-99)
--- NOTE | 2021-05-23 11:29 | XR ---
EXAMINATION TYPE: XR chest 1V portable DATE OF EXAM: 05/23/2021 COMPARISON: NONE HISTORY: Shortness of breath TECHNIQUE: Single frontal view of the chest is obtained. FINDINGS: Bilateral lower lobe infiltrate with small left effusion. Remote trauma involving bilatera l shoulders. No pneumothorax. Underlying COPD. Scoliosis of the spine. Atherosclerotic change aorta. IMPRESSION: COPD with bilateral lower lobe infiltrate and small effusion.
[2021-05-23 11:30] LABS: African American GFR (CKD) 126.7 (60.0-200.0); Anion Gap 9.5 mmol/L (4.00-12.00); BUN/Creat Ratio 19.25 Ratio (12.00-20.00); Blood Urea Nitrogen 7.7 mg/dL (9.0-27.0); Calcium 8.5 mg/dL (8.7-10.3); Carbon Dioxide 31.5 mmol/L (21.6-31.8); Non-African American GFR(CKD) 109.3 (60.0-200.0); Potassium 4.1 mmol/L (3.5-5.5)
[2021-05-23 12:13] LABS: Basophils # (A) 0.01 X 10*3/uL (0.00-0.10); Basophils % (A) 0.1 %; Eosinophils # (A) 0.01 X 10*3/uL (0.04-0.35); Eosinophils % (A) 0.1 %; Lymphocytes # (A) 1.15 X 10*3/uL (0.90-5.00); Lymphocytes % (A) 8.2 %; Monocytes # (A) 1.66 X 10*3/uL (0.20-1.00); Monocytes % (A) 11.8 %; Neutrophils # (A) 11.17 X 10*3/uL (1.80-7.70); Neutrophils % (A) 79.1 %
--- NOTE | 2021-05-23 12:56 | P.PN ---
Subjective Progress Note Date: 05/23/21 05/23/2021, I'm seeing the patient for a follow-up. Would is requested to evaluate this patient regarding her ongoing hypoxemia community related pneumonia. Noted the patient was on a mechanical ventilator for respiratory failure due to COPD and community related pneumonia. The patient was extubated and the patient was weaned down to 3 L and later on he was brought up to she was brought up to 4 L and currently she is up to 6 L of oxygen by nasal cannula. She has congestion. She remains on Decadron. She remains on Lovenox for DVT prophylaxis. She is on Diflucan for oropharyngeal candidiasis. She remains on Symbicort and Spiriva as maintenance and albuterol HFA [id number] as needed. Noted the patient has advanced COPD and the patient has an FEV1 of 23% of predicted and the patient is O2 on 2 L. Patient on a regular basis. Objective - Vital Signs Vital signs: Vital Signs Temp 97.4 F L 05/23/21 10:00 Pulse 115 H 05/23/21 10:00 Resp 18 05/23/21 10:00 BP 113/64 05/23/21 10:00 Pulse Ox 90 L 05/23/21 10:00 Intake & Output 05/22/21 05/23/21 05/23/21 18:59 06:59 18:59 Output Total 200 Balance -200 Weight 57.5 kg 57.5 kg Output: Urine 200 Other: Voiding Method Toilet Toilet # Voids 5 3 3 ABP, PAP, CO, CI - Last Documented Arterial Blood Pressure 143/63 - Exam GENERAL EXAM: Alert, pleasant, 65-year-old female, on 6 L of oxygen the pulse ox of 93%, comfortable in no apparent distress. HEAD: Normocephalic/atraumatic. EYES: Normal reaction of pupils, equal size. Conjunctiva pink, sclera white. NOSE: Clear with pink turbinates. THROAT: No erythema or exudates. NECK: No masses, no JVD, no thyroid enlargement, no adenopathy. CHEST: No chest wall deformity. Symmetrical expansion. LUNGS: Equal air entry with bibasilar crackles CVS: Regular rate and rhythm, normal S1 and S2, no gallops, no murmurs, no rubs ABDOMEN: Soft, nontender. No hepatosplenomegaly, normal bowel sounds, no guarding or rigidity. EXTREMITIES: No clubbing, no edema, no cyanosis, 2+ pulses and upper and lower extremities. MUSCULOSKELETAL: Muscle strength and tone normal. SPINE: No scoliosis or deformity SKIN: No rashes CENTRAL NERVOUS SYSTEM: Alert and oriented -3. No focal deficits, tone is normal in all 4 extremities. PSYCHIATRIC: Alert and oriented -3. Appropriate affect. Intact judgment and insight. - Labs CBC & Chem 7: 05/23/21 07:36 05/23/21 07:36 Labs: Abnormal Lab Results - Last 24 Hours (Table) 05/22/21 05/22/21 05/23/21 Range/Units 16:54 20:23 07:36 WBC 14.10 H (4.50-10.00) X 10*3/uL RBC 3.45 L (4.10-5.20) X 10*6/uL Hgb 10.3 L (12.0-15.0) g/dL Hct 32.5 L (37.2-46.3) % MCHC 31.7 L (32.0-37.0) g/dL Immature Gran # 0.10 H (0.00-0.04) X 10*3/uL Neutrophils # 11.17 H (1.80-7.70) X 10*3/uL Monocytes # 1.66 H (0.20-1.00) X 10*3/uL Eosinophils # 0.01 L (0.04-0.35) X 10*3/uL Chloride (96-109) mmol/L BUN (9.0-27.0) mg/dL Creatinine (0.6-1.5) mg/dL POC Glucose (mg/dL) 184 H 222 H (75-99) mg/dL Calcium (8.7-10.3) mg/dL 05/23/21 Range/Units 07:36 WBC (4.50-10.00) X 10*3/uL RBC (4.10-5.20) X 10*6/uL Hgb (12.0-15.0) g/dL Hct (37.2-46.3) % MCHC (32.0-37.0) g/dL Immature Gran # (0.00-0.04) X 10*3/uL Neutrophils # (1.80-7.70) X 10*3/uL Monocytes # (0.20-1.00) X 10*3/uL Eosinophils # (0.04-0.35) X 10*3/uL Chloride 95 L (96-109) mmol/L BUN 7.7 L (9.0-27.0) mg/dL Creatinine 0.4 L (0.6-1.5) mg/dL POC Glucose (mg/dL) (75-99) mg/dL Calcium 8.5 L (8.7-10.3) mg/dL Assessment and Plan Plan: 1 Acute on chronic hypoxic/hypercapnic respiratory failure suspect secondary to a acute exacerbation of COPD, complicated by possible right lower lobe community-acquired pneumonia, COVID-19 infection. Required intubation mechanical ventilatory support on 05/11/2021, subsequently extubated on 05/15/2021 and currently on 4 L nasal cannula. We were asked clear the patient back again as the patient's oxygen requirement went up to 6 L. I saw the patient the bedside. She was having excess rest or secretions. She'll pulmonary toileting. She has a congested cough, unable to bring up much sputum. She has advanced COPD. 2 Severe oxygen dependent chronic obstructive pulmonary disease with an FEV1 value 23% of predicted 3 Former smoker 4 Leukocytosis secondary to above 5 Hypovolemic hyponatremia suspect secondary to poor oral intake 6 COVID-19 infection 7 Sepsis with hypotension requiring pressor support. 8 History of anemia Plan: Add Mucinex DM twice a day continue Decadron Continue Spiriva and Symbicort Continue nebulized treatments around the clock Provide the patient incentive spirometer Provide the patient. For valve Aggressive chest PT Continue Lovenox Oxygen source to be humidified The patient will be discharged to [facility] X-ray was reviewed. No other acute abnormalities. She has advanced COPD. Anticipate some fluctuation in her pulse ox due to her condition. We'll continue to follow.
[2021-05-23 17:27] LABS: Glucose,Whole Blood 266 mg/dL (75-99)
[2021-05-23 20:48] LABS: Glucose,Whole Blood 166 mg/dL (75-99)
[2021-05-23] MEDS: MONTELUKAST 10 MG TAB PO SCH (20:58)
[2021-05-23] MEDS: OXYBUTYNIN 10 MG TAB.ER.24 PO SCH (20:58)
--- NOTE | 2021-05-23 23:11 | P.PN ---
Subjective Progress Note Date: 05/23/21 Principal diagnosis: COVID-19 pneumonia, COPD exacerbation Mr. Murry is a 65-year-old female with a past medical history of advanced COPD admitted to the hospital with a chief complaint of difficulty in breathing. She was found to have coag 19 pneumonia. Patient was intubated on 05/12/2021 and successfully extubated on 05/15/2021. On 05/21/2021 - Patient was seen and examined at bedside. She is comfortably lying in bed appears to be no acute distress. Patient complains of ongoing cough that is productive in nature. She denies having any chest pain or palpitations. No fevers chills or rigors. She denies having any nausea vomiting or diarrhea. No dysuria or hematuria. Patient's vitals have been reviewed temperature maximum of 38.3, heart rate 94, respiratory 22, blood pressure 1 11 x 72 saturating at 98% on 4 L of oxygen. Labs from 05/19/2021 reviewed. On 05/22/2021 patient was seen and examined at the bedside. She is comfortably lying in bed appears to be no acute distress. No acute events reported as per nursing staff report. Patient still complains of ongoing cough that is difficult to bring sputum out. She complains of mild sore throat. She denies having any fevers chills or rigors. No chest pain or palpitations. No lower pain nausea vomiting or diarrhea. No dysuria or hematuria. On reviewing the vitals temperature temperature maximum of 99.0, heart rate 102, respiratory 26, blood pressure 130/76 saturating at 88% on 4 L of nasal cannula. Patient's labs have been reviewed white count of 16.7, hemoglobin 10.7, platelets 163. Sodium 134, potassium 4, chloride 93, bicarb 31, BUN 10, creatinine 0.5. On 05/23/2021 patient is seen and examined at the bedside. Patient is sitting up in her bed was complaining of more difficulty in breathing. Patient was currently on 4 L of oxygen saturating around 88% and having difficulty in breathing. She denied having any fevers chills or rigors. At baseline patient has history of COPD and chronic respiratory failure, now worsened with Covid pneumonia. On reviewing the vitals from this morning temperature of 97.4, heart rate 90s to 110s, respiratory rate 18, blood pressure 113 x 64 saturating at 88%.4 L of nasal cannula. On reviewing the patient's labs white count of 14, hemoglobin 10.3, platelets 158. Sodium 136, potassium 4.1, chloride 95, bicarb 31, BUN 7.7, creatinine 0.4. Patient medications have been reviewed she continues to be on albuterol, ascorbic acid, aspirin, atorvastatin, benzocaine, Dulcolax, Symbicort, calcium, dexamethasone 6 mg daily, Lovenox 40 mg daily, Diflucan, Mucinex, sliding scale of insulin, Zestril, Robaxin, metoprolol, Singulair, Ditropan, Protonix, Spiriva. Objective - Vital Signs Vital signs: Vital Signs Temp 97.9 F 05/23/21 21:35 Pulse 90 05/23/21 21:35 Resp 18 05/23/21 14:00 BP 106/69 05/23/21 21:35 Pulse Ox 97 05/23/21 21:35 Intake & Output 05/23/21 05/23/21 05/24/21 06:59 18:59 06:59 Output Total 200 Balance -200 Weight 57.5 kg 57.5 kg Output: Urine 200 Other: Voiding Method Toilet # Voids 3 1 1 ABP, PAP, CO, CI - Last Documented Arterial Blood Pressure 143/63 - Exam PHYSICAL EXAMINATION: GENERAL: Patient is currently sitting up in the chair, awake, alert and oriented 3, thin built.Tachypneic and tachycardia HEENT: Pupils are round and equally reacting to light. EOMI. No scleral icterus. No conjunctival pallor. Normocephalic, atraumatic. Mild pharyngeal erythema CARDIOVASCULAR: S1 and S2 present. No murmurs, rubs, or gallops. PULMONARY: Diminished breath sounds in all lung varma with scattered rhonchi. ABDOMEN: Soft, nontender, nondistended, bowel sounds present. No palpable organomegaly. MUSCULOSKELETAL: No joint swelling or deformity. EXTREMITIES: No cyanosis, clubbing, or pedal edema. NEUROLOGICAL: Awake, alert and oriented 3, mildly delayed, diffusely weak SKIN: No rashes. - Labs CBC & Chem 7: 05/23/21 07:36 05/23/21 07:36 Labs: Abnormal Lab Results - Last 24 Hours (Table) 05/23/21 05/23/21 05/23/21 Range/Units 07:36 07:36 17:25 WBC 14.10 H (4.50-10.00) X 10*3/uL RBC 3.45 L (4.10-5.20) X 10*6/uL Hgb 10.3 L (12.0-15.0) g/dL Hct 32.5 L (37.2-46.3) % MCHC 31.7 L (32.0-37.0) g/dL Immature Gran # 0.10 H (0.00-0.04) X 10*3/uL Neutrophils # 11.17 H (1.80-7.70) X 10*3/uL Monocytes # 1.66 H (0.20-1.00) X 10*3/uL Eosinophils # 0.01 L (0.04-0.35) X 10*3/uL Chloride 95 L (96-109) mmol/L BUN 7.7 L (9.0-27.0) mg/dL Creatinine 0.4 L (0.6-1.5) mg/dL POC Glucose (mg/dL) 266 H (75-99) mg/dL Calcium 8.5 L (8.7-10.3) mg/dL 05/23/21 Range/Units 20:43 WBC (4.50-10.00) X 10*3/uL RBC (4.10-5.20) X 10*6/uL Hgb (12.0-15.0) g/dL Hct (37.2-46.3) % MCHC (32.0-37.0) g/dL Immature Gran # (0.00-0.04) X 10*3/uL Neutrophils # (1.80-7.70) X 10*3/uL Monocytes # (0.20-1.00) X 10*3/uL Eosinophils # (0.04-0.35) X 10*3/uL Chloride (96-109) mmol/L BUN (9.0-27.0) mg/dL Creatinine (0.6-1.5) mg/dL POC Glucose (mg/dL) 166 H (75-99) mg/dL Calcium (8.7-10.3) mg/dL Assessment and Plan Assessment: ASSESSMENT Acute on chronic hypoxic and hypercapnic respiratory failure secondary to COVID- 19 pneumonia Acute COPD exacerbation Hypovolemic hyponatremia Leukocytosis secondary to steroid use Hematuria resolved Hypomagnesemia Chronic Anemia Hypertension Multiple electrolyte abnormalities GI DVT prophylaxis PLAN. Patient's respiratory status has been stable for the past couple of days, discharge was under planning but because patient had this acute episode of tachypnea requiring more oxygen, discharge was held. Patient is being continued on the current medication regimen of steroids, Symbicort, Spiriva and nebulization treatments. She is getting Lovenox for DVT prophylaxis. Overall prognosis is poor due to multiple chronic medical conditions. Further recommendations depending on the progress of the patient..
[2021-05-24 07:14] LABS: Glucose,Whole Blood 78 mg/dL (75-99)
[2021-05-24] MEDS: INSULIN ASPART (NovoLOG) 100 UNIT/ML VIAL SQ SCH ×4 (07:15→21:49)
[2021-05-24] MEDS: ALBUTEROL HFA INHALER INHALATION SCH ×4 (09:20→20:17)
[2021-05-24] MEDS: SYMBICORT 160-4.5 MCG INHALER INHALATION SCH ×2 (09:21→20:18)
[2021-05-24] MEDS: TIOTROPIUM 2.5 MCG INHALER INHALATION SCH (09:21)
[2021-05-24] MEDS: ASCORBIC ACID 500 MG TAB PO SCH (09:58)
[2021-05-24] MEDS: ENOXAPARIN 40 MG/0.4 ML SYRINGE SQ SCH (09:58)
[2021-05-24] MEDS: ASPIRIN 81 MG PO SCH (09:58)
[2021-05-24] MEDS: CALCIUM CARBONATE 500 MG CHEWABLE PO SCH (09:59)
[2021-05-24] MEDS: ATORVASTATIN 40 MG TAB PO SCH (09:59)
[2021-05-24] MEDS: BENZOCAINE/MENTHOL LOZENG 1 EACH LOZENGE MUCOUS MEM PRN (09:59)
[2021-05-24] MEDS: lisinopriL 5 MG TAB PO SCH (09:59)
[2021-05-24] MEDS: PANTOPRAZOLE 40 MG TABLET PO SCH (09:59)
[2021-05-24] MEDS: dexAMETHasone 2 MG TAB PO SCH (09:59)
[2021-05-24] MEDS: METOPROLOL TARTRATE 50 MG TAB PO SCH ×2 (09:59→21:49)
[2021-05-24] MEDS: CHOLECALCIFEROL 25 MCG (1000 IU) TABLET PO SCH (09:59)
[2021-05-24] MEDS: guaiFENesin 600 MG TABLET.ER PO SCH ×2 (10:00→21:49)
[2021-05-24] MEDS: POTASSIUM BICARBONATE/CIT AC 20 MEQ TABLET.EFF PO SCH (10:00)
[2021-05-24] MEDS: FLUCONAZOLE 100 MG TAB PO SCH (10:00)
[2021-05-24 11:57] LABS: Glucose,Whole Blood 89 mg/dL (75-99)
[2021-05-24] MEDS: bisacodyL 10 MG SUPP RECTAL SCH (12:13)
--- NOTE | 2021-05-24 12:32 | P.PN ---
Subjective Progress Note Date: 05/24/21 05/23/2021, I'm seeing the patient for a follow-up. Would is requested to evaluate this patient regarding her ongoing hypoxemia community related pneumonia. Noted the patient was on a mechanical ventilator for respiratory failure due to COPD and community related pneumonia. The patient was extubated and the patient was weaned down to 3 L and later on he was brought up to she was brought up to 4 L and currently she is up to 6 L of oxygen by nasal cannula. She has congestion. She remains on Decadron. She remains on Lovenox for DVT prophylaxis. She is on Diflucan for oropharyngeal candidiasis. She remains on Symbicort and Spiriva as maintenance and albuterol HFA [id number] as needed. Noted the patient has advanced COPD and the patient has an FEV1 of 23% of predicted and the patient is O2 on 2 L. Patient on a regular basis. 05/24/2021, the patient essentially is in the same condition and she is still on 6 L of oxygen by nasal cannula. I saw her in consultation yesterday. She is on Symbicort and Spiriva as maintenance and albuterol HFA on an as-needed basis. She has advanced COPD with an FEV1 of 23% of predicted. She is typically on oxygen at 2 L. I added Mucinex DM. I also requested her oxygen source to be 85. She is sitting up on a recliner. She is tolerating her lunch. Her pulse ox to 90% on 6 L. No other new complaints otherwise for now. No signs of any C O2 narcosis. Her breathing is not labored. No hemoptysis. No pleurisy. No chest pain. No other significant events otherwise for now. Her blood work has not been done today. She remains on Decadron 6 mg by mouth daily. She is also on Diflucan regarding oropharyngeal candidiasis. Objective - Vital Signs Vital signs: Vital Signs Temp 97.9 F 05/24/21 10:00 Pulse 52 L 05/24/21 10:00 Resp 19 05/24/21 10:00 BP 106/60 05/24/21 10:00 Pulse Ox 90 L 05/24/21 10:26 Intake & Output 05/23/21 05/24/21 05/24/21 18:59 06:59 18:59 Output Total 200 Balance -200 Weight 57.5 kg 59.5 kg Output: Urine 200 Other: Voiding Method Toilet Toilet # Voids 1 2 1 ABP, PAP, CO, CI - Last Documented Arterial Blood Pressure 143/63 - Exam GENERAL EXAM: Alert, pleasant, 65-year-old female, on 6 L of oxygen the pulse ox of 93%, comfortable in no apparent distress. HEAD: Normocephalic/atraumatic. EYES: Normal reaction of pupils, equal size. Conjunctiva pink, sclera white. NOSE: Clear with pink turbinates. THROAT: No erythema or exudates. NECK: No masses, no JVD, no thyroid enlargement, no adenopathy. CHEST: No chest wall deformity. Symmetrical expansion. LUNGS: Equal air entry with bibasilar crackles CVS: Regular rate and rhythm, normal S1 and S2, no gallops, no murmurs, no rubs ABDOMEN: Soft, nontender. No hepatosplenomegaly, normal bowel sounds, no gu arding or rigidity. EXTREMITIES: No clubbing, no edema, no cyanosis, 2+ pulses and upper and lower e xtremities. MUSCULOSKELETAL: Muscle strength and tone normal. SPINE: No scoliosis or deformity SKIN: No rashes CENTRAL NERVOUS SYSTEM: Alert and oriented -3. No focal deficits, tone is normal in all 4 extremities. PSYCHIATRIC: Alert and oriented -3. Appropriate affect. Intact judgment and insight. - Labs CBC & Chem 7: 05/23/21 07:36 05/23/21 07:36 Labs: Abnormal Lab Results - Last 24 Hours (Table) 05/23/21 05/23/21 Range/Units 17:25 20:43 POC Glucose (mg/dL) 266 H 166 H (75-99) mg/dL Assessment and Plan Plan: 1 Acute on chronic hypoxic/hypercapnic respiratory failure suspect secondary to a acute exacerbation of COPD, complicated by possible right lower lobe community-acquired pneumonia, COVID-19 infection. Required intubation mechanical ventilatory support on 05/11/2021, subsequently extubated on 05/15/2021 and currently on 4 L nasal cannula. We were asked clear the patient back again as the patient's oxygen requirement went up to 6 L. I saw the p atient the bedside. She was having excess rest or secretions. She'll pulmonary toileting. She has a congested cough, unable to bring up much sputum. She has advanced COPD. since yesterday, her condition remains stable and she remained on 6 L of oxygen by nasal cannula. No new labs from today. Continue bronchodilators, steroids, and Mucinex DM. Humidified oxygen source. 2 Severe oxygen dependent chronic obstructive pulmonary disease with an FEV1 value 23% of predicted 3 Former smoker 4 Leukocytosis secondary to above 5 Hypovolemic hyponatremia suspect secondary to poor oral intake 6 COVID-19 infection 7 Sepsis with hypotension requiring pressor support. 8 History of anemia Plan: No change in her condition since yesterday. She remains on 6 L. Continue Mucinex DM twice a day continue Decadron Continue Spiriva and Symbicort Continue nebulized treatments around the clock Provide the patient incentive spirometer Provide the patient. For valve Aggressive chest PT Continue Lovenox Oxygen source to be humidified The patient will be discharged to [facility] X-ray was reviewed. No other acute abnormalities. She has advanced COPD. Anticipate some fluctuation in her pulse ox due to her condition. We'll continue to follow.
[2021-05-24 16:18] LABS: Glucose,Whole Blood 151 mg/dL (75-99)
--- NOTE | 2021-05-24 17:41 | PN ---
PROGRESS NOTE DATE OF SERVICE: 05/24/2021. This 65-year-old woman who was admitted with COVID-19 pneumonia as well as weakness is being closely monitored. The patient also requires oxygen at this time. No chest pain. No palpitations. No fever. following the patient closely. The most recent chest x-ray which I reviewed personally showed some improvement. No chest pain. No palpitations. No fever. PHYSICAL EXAMINATION: Alert and oriented x3. Pulse 84, blood pressure 108/68, respiration 19, temperature 97.4, pulse ox 92% on 6 L. HEENT: Conjunctivae normal. NECK: No jugular venous distention. CARDIOVASCULAR: S1, S2 muffled. RESPIRATION: Breath sounds diminished at the bases. A few scattered rhonchi. ABDOMEN: Soft, nontender. NERVOUS SYSTEM: No focal deficit. LABS: WBC 14.1. ASSESSMENT: 1. Chronic obstructive pulmonary disease, acute exacerbation, as well as acute COVID- 19 pneumonia with acute hypoxic respiratory failure. 2. Hypovolemic hyponatremia. 3. Leukocytosis secondary to steroid usage. 4. Hematuria, resolved. 5. Hypomagnesemia. 6. Chronic anemia. 7. Hypotension. 8. Multiple abnormalities. 9. Gastrointestinal prophylaxis and deep vein thrombosis prophylaxis. RECOMMENDATIONS AND DISCUSSION: I recommend to continue the current medications, continue symptomatic treatment. Otherwise, continue with the bronchodilators. Continue with steroids. Continue the rest of the medications. Incentive spirometry. Continue the Lovenox. Guarded prognosis because of multiple complex medical issues. Further recommendations to follow. MMFRANKOL / DAAMN: [id number] / MTDD
[2021-05-24 20:53] LABS: Glucose,Whole Blood 239 mg/dL (75-99)
[2021-05-24] MEDS: OXYBUTYNIN 10 MG TAB.ER.24 PO SCH (21:49)
[2021-05-24] MEDS: MONTELUKAST 10 MG TAB PO SCH (21:49)
[2021-05-25 07:03] LABS: Glucose,Whole Blood 74 mg/dL (75-99)
[2021-05-25] MEDS: INSULIN ASPART (NovoLOG) 100 UNIT/ML VIAL SQ SCH ×4 (07:13→21:17)
[2021-05-25] MEDS: ALBUTEROL HFA INHALER INHALATION SCH ×4 (07:34→19:41)
[2021-05-25] MEDS: SYMBICORT 160-4.5 MCG INHALER INHALATION SCH ×2 (07:34→19:41)
[2021-05-25] MEDS: TIOTROPIUM 2.5 MCG INHALER INHALATION SCH (07:34)
[2021-05-25] MEDS: ENOXAPARIN 40 MG/0.4 ML SYRINGE SQ SCH (09:38)
[2021-05-25] MEDS: METOPROLOL TARTRATE 50 MG TAB PO SCH ×2 (09:38→21:17)
[2021-05-25] MEDS: ASCORBIC ACID 500 MG TAB PO SCH (09:38)
[2021-05-25] MEDS: guaiFENesin 600 MG TABLET.ER PO SCH ×2 (09:39→21:17)
[2021-05-25] MEDS: ASPIRIN 81 MG PO SCH (09:39)
[2021-05-25] MEDS: CALCIUM CARBONATE 500 MG CHEWABLE PO SCH (09:39)
[2021-05-25] MEDS: dexAMETHasone 2 MG TAB PO SCH (09:39)
[2021-05-25] MEDS: ATORVASTATIN 40 MG TAB PO SCH (09:39)
[2021-05-25] MEDS: CHOLECALCIFEROL 25 MCG (1000 IU) TABLET PO SCH (09:39)
[2021-05-25] MEDS: lisinopriL 5 MG TAB PO SCH (09:39)
[2021-05-25] MEDS: FLUCONAZOLE 100 MG TAB PO SCH (09:39)
[2021-05-25] MEDS: PANTOPRAZOLE 40 MG TABLET PO SCH (09:39)
[2021-05-25] MEDS: POTASSIUM BICARBONATE/CIT AC 20 MEQ TABLET.EFF PO SCH (09:41)
[2021-05-25] MEDS: bisacodyL 10 MG SUPP RECTAL SCH (09:48)
[2021-05-25 11:47] LABS: Glucose,Whole Blood 105 mg/dL (75-99)
--- NOTE | 2021-05-25 16:08 | P.PN ---
Subjective Progress Note Date: 05/25/21 This is a 65-year-old female who was recently admitted with COVID-19 pneumonia as well as weakness and is being closely monitored. Patient does have an extensive past medical history of COPD and currently maintained on 5-6 L of oxygen via nasal cannula. Patient had been using 2-3 L of oxygen in the ou tpatient setting. Pulmonary following as well. Patient continues to be weak and physical therapy recommending subacute rehab and again discussed extensively with the patient about discontinued weakness and unstable respiratory status and would benefit from subacute rehab prior to returning home with her son where she normally resides. Patient is agreeable and discussed with social work about di scharge planning to [facility]CF. Will await accepting facility and anticipate discharge to ECF. Also discussed with nursing staff about weaning FiO2 as tolerated and maintaining 4-5 L via nasal cannula. Encourage incentive spirometer use and increased activity as tolerated. Review of systems: Constitutional: No reports of fatigue, fever, or chills Cardiovascular: No reports of chest pain or palpitations Respiratory: No reports of worsening shortness of breath GI: No reports of nausea, vomiting, or diarrhea : No reports of dysuria or retention Neurovascular: Reports generalized weakness All medications have been reviewed Active Medications Albuterol Sulfate (Albuterol Hfa Inhaler) 2 puff INHALATION RT-QID [facility] Last Admin: 05/25/21 15:47 Dose: 2 puff Documented by: Ascorbic Acid (Ascorbic Acid 500 Mg Tab) 500 mg PO DAILY [facility] Last Admin: 05/25/21 09:38 Dose: 500 mg Documented by: Aspirin (Aspirin 81 Mg) 81 mg PO DAILY [facility] Last Admin: 05/25/21 09:39 Dose: 81 mg Documented by: Atorvastatin Calcium (Atorvastatin 40 Mg Tab) 40 mg PO DAILY [facility] Last Admin: 05/25/21 09:39 Dose: 40 mg Documented by: Benzocaine/Menthol (Benzocaine/Menthol Lozeng 1 Each Lozenge) 1 each MUCOUS MEM Q4HR PRN PRN Reason: Sore Throat Last Admin: 05/24/21 09:59 Dose: 1 each Documented by: Bisacodyl (Bisacodyl 10 Mg Supp) 10 mg RECTAL DAILY [facility] Last Admin: 05/25/21 09:48 Dose: Not Given Documented by: Budesonide/Formoterol Fumarate (Symbicort 160-4.5 Mcg Inhaler) 2 puff INHALATION RT-BID [facility] Last Admin: 05/25/21 07:34 Dose: 2 puff Documented by: Calcium Carbonate/Glycine (Calcium Carbonate 500 Mg Chewable) 500 mg PO DAILY [facility] Last Admin: 05/25/21 09:39 Dose: 500 mg Documented by: Cholecalciferol (Cholecalciferol 25 Mcg (1000 Iu) Tablet) 25 mcg PO DAILY [facility] Last Admin: 05/25/21 09:39 Dose: 25 mcg Documented by: Dexamethasone (Dexamethasone 2 Mg Tab) 6 mg PO DAILY [facility] Last Admin: 05/25/21 09:39 Dose: 6 mg Documented by: Enoxaparin Sodium (Enoxaparin 40 Mg/0.4 Ml Syringe) 40 mg SQ DAILY [facility] Last Admin: 05/25/21 09:38 Dose: 40 mg Documented by: Fluconazole (Fluconazole 100 Mg Tab) 100 mg PO DAILY [facility] Last Admin: 05/25/21 09:39 Dose: 100 mg Documented by: Guaifenesin (Guaifenesin 600 Mg Tablet.Er) 1,200 mg PO Q12HR [facility] Last Admin: 05/25/21 09:39 Dose: 1,200 mg Documented by: Insulin Aspart (Insulin Aspart (Novolog) 100 Unit/Ml Vial) 0 unit SQ ACHS [facility]; Protocol Last Admin: 05/25/21 13:05 Dose: Not Given Documented by: Lisinopril (Lisinopril 5 Mg Tab) 5 mg PO DAILY [facility] Last Admin: 05/25/21 09:39 Dose: 5 mg Documented by: Methocarbamol (Methocarbamol 500 Mg Tab) 500 mg PO TID PRN PRN Reason: Pain Metoprolol Tartrate (Metoprolol Tartrate 50 Mg Tab) 50 mg PO BID [facility] Last Admin: 05/25/21 09:38 Dose: 50 mg Documented by: Miscellaneous Information (Potassium Replacement Protocol 1 Each Misc) 1 each MISCELLANE DAILY PRN; Protocol PRN Reason: Per Protocol Montelukast Sodium (Montelukast 10 Mg Tab) 10 mg PO HS [facility] Last Admin: 05/24/21 21:49 Dose: 10 mg Documented by: Naloxone HCl (Naloxone 0.4 Mg/Ml 1 Ml Vial) 0.2 mg IV Q2M PRN PRN Reason: Opioid Reversal Oxybutynin Chloride (Oxybutynin 10 Mg Tab.Er.24) 10 mg PO HS [facility] Last Admin: 05/24/21 21:49 Dose: 10 mg Documented by: Pantoprazole Sodium (Pantoprazole 40 Mg Tablet) 40 mg PO AC-BRKFST [facility] Last Admin: 05/25/21 09:39 Dose: 40 mg Documented by: Potassium Bicarbonate (Potassium Bicarbonate/Cit Ac 20 Meq Tablet.Eff) 20 meq PO DAILY [facility] Last Admin: 05/25/21 09:41 Dose: Not Given Documented by: Tiotropium [place] (Tiotropium 2.5 Mcg Inhaler) 2 puff INHALATION RT-DAILY [facility] Last Admin: 05/25/21 07:34 Dose: 2 puff Documented by: Physical exam: Gen: This is a pleasant 65-year-old female awake, alert and oriented 3, sitting up in the chair, thin built. Temp is 98.1F, pulse is 93, respirations are 18, blood pressure is 124/73, oxygen saturation is 99% on 6 L. HEENT: Head is atraumatic, normocephalic. Pupils equal, round. Sclerae is anicteric. NECK: Supple. No JVD. No lymphadenopathy. No thyromegaly. LUNGS: Diminished breath sounds bilaterally with some scattered rhonchi noted. No intercostal retractions. HEART: S1, S2 are muffled ABDOMEN: Soft. Bowel sounds are present. No masses. No tenderness. EXTREMITIES: No pedal edema. No calf tenderness. NEUROLOGICAL: Patient is awake, alert and oriented x3. Diffusely weak Assessment: Chronic obstructive pulmonary disease, acute exacerbation as well as acute COVID-19 pneumonia with acute hypoxic respiratory failure Hypovolemic hyponatremia Leukocytosis secondary to steroid usage Hematuria resolved Hypomagnesemia Chronic anemia hypotension GI prophylaxis DVT prophylaxis Full code Plan: Recommend to continue with current medications and symptomatic treatment. Encouraged patient along with nursing staff to wean FiO2 as tolerated. Patient's oxygen saturations were 99-100% on 6 L. Encouraged incentive spirometer use and increased activity as tolerated. Had a detailed discussion with the patient about continued weakness and unstable respiratory status and recommended subacute rehab for some physical therapy and close monitoring of oxygen saturation and COPD. Patient is agreeable and social work following and working on accepting facilities. Recommend continue with the steroids and breathing inhalational treatments. Due to multiple complex medical issues, prognosis is guarded. Further recommendations to follow. Possible discharge to [facility] in 24-48 hours. Objective - Vital Signs Vital signs: Vital Signs Temp 97.9 F 05/25/21 14:22 Pulse 84 05/25/21 14:22 Resp 18 05/25/21 14:22 BP 104/62 05/25/21 14:22 Pulse Ox 91 L 05/25/21 14:22 Intake & Output 05/24/21 05/25/21 05/25/21 18:59 06:59 18:59 Weight 57.5 kg Other: Voiding Method Toilet Toilet # Voids 1 3 ABP, PAP, CO, CI - Last Documented Arterial Blood Pressure 143/63 - Labs CBC & Chem 7: 05/23/21 07:36 05/23/21 07:36 Labs: Abnormal Lab Results - Last 24 Hours (Table) 05/24/21 05/24/21 05/25/21 Range/Units 16:09 20:51 07:01 POC Glucose (mg/dL) 151 H 239 H 74 L (75-99) mg/dL 05/25/21 Range/Units 11:43 POC Glucose (mg/dL) 105 H (75-99) mg/dL
[2021-05-25 16:40] LABS: Glucose,Whole Blood 144 mg/dL (75-99)
[2021-05-25 20:43] LABS: Glucose,Whole Blood 248 mg/dL (75-99)
[2021-05-25] MEDS: OXYBUTYNIN 10 MG TAB.ER.24 PO SCH (21:17)
[2021-05-25] MEDS: MONTELUKAST 10 MG TAB PO SCH (21:17)
[2021-05-26 06:48] LABS: Glucose,Whole Blood 70 mg/dL (75-99)
[2021-05-26] MEDS: INSULIN ASPART (NovoLOG) 100 UNIT/ML VIAL SQ SCH ×4 (07:21→21:03)
[2021-05-26] MEDS: ALBUTEROL HFA INHALER INHALATION SCH ×4 (08:32→20:30)
[2021-05-26] MEDS: SYMBICORT 160-4.5 MCG INHALER INHALATION SCH ×2 (08:33→20:30)
[2021-05-26] MEDS: TIOTROPIUM 2.5 MCG INHALER INHALATION SCH (08:33)
[2021-05-26] MEDS: METOPROLOL TARTRATE 50 MG TAB PO SCH ×2 (09:11→21:03)
[2021-05-26] MEDS: ASCORBIC ACID 500 MG TAB PO SCH (09:11)
[2021-05-26] MEDS: PANTOPRAZOLE 40 MG TABLET PO SCH (09:11)
[2021-05-26] MEDS: FLUCONAZOLE 100 MG TAB PO SCH (09:11)
[2021-05-26] MEDS: guaiFENesin 600 MG TABLET.ER PO SCH ×2 (09:11→21:02)
[2021-05-26] MEDS: ASPIRIN 81 MG PO SCH (09:11)
[2021-05-26] MEDS: CALCIUM CARBONATE 500 MG CHEWABLE PO SCH (09:11)
[2021-05-26] MEDS: lisinopriL 5 MG TAB PO SCH (09:11)
[2021-05-26] MEDS: ATORVASTATIN 40 MG TAB PO SCH (09:11)
[2021-05-26] MEDS: CHOLECALCIFEROL 25 MCG (1000 IU) TABLET PO SCH (09:11)
[2021-05-26] MEDS: dexAMETHasone 2 MG TAB PO SCH (09:11)
[2021-05-26] MEDS: POTASSIUM BICARBONATE/CIT AC 20 MEQ TABLET.EFF PO SCH ×2 (09:12→09:14)
[2021-05-26] MEDS: bisacodyL 10 MG SUPP RECTAL SCH (09:13)
[2021-05-26] MEDS: ENOXAPARIN 40 MG/0.4 ML SYRINGE SQ SCH (09:14)
[2021-05-26 11:45] LABS: Glucose,Whole Blood 103 mg/dL (75-99)
[2021-05-26 16:34] LABS: Glucose,Whole Blood 170 mg/dL (75-99)
[2021-05-26 20:38] LABS: Glucose,Whole Blood 205 mg/dL (75-99)
[2021-05-26] MEDS: MONTELUKAST 10 MG TAB PO SCH (21:02)
[2021-05-26] MEDS: BENZOCAINE/MENTHOL LOZENG 1 EACH LOZENGE MUCOUS MEM PRN (21:12)
[2021-05-26] MEDS: OXYBUTYNIN 10 MG TAB.ER.24 PO SCH (22:10)
[2021-05-26] MEDS: NYSTATIN 100,000 UNIT/ML SUSP 500,000 UNIT/5 ML CUP PO SCH (22:10)
--- NOTE | 2021-05-26 23:33 | P.PN ---
Subjective Progress Note Date: 05/26/21 This is a 65-year-old female who was recently admitted with COVID-19 pneumonia as well as weakness and is being closely monitored. Patient does have an extensive past medical history of COPD and currently maintained on 5-6 L of oxygen via nasal cannula. Patient had been using 2-3 L of oxygen in the ou tpatient setting. Pulmonary following as well. Patient continues to be weak and physical therapy recommending subacute rehab and again discussed extensively with the patient about discontinued weakness and unstable respiratory status and would benefit from subacute rehab prior to returning home with her son where she normally resides. Patient is agreeable and discussed with social work about di scharge planning to ECF. Will await accepting facility and anticipate discharge to ECF. Also discussed with nursing staff about weaning FiO2 as tolerated and maintaining 4-5 L via nasal cannula. Encourage incentive spirometer use and increased activity as tolerated. 05/26/2021 Patient is seen and evaluated in follow up and awaiting on insurance authorization to [facility] for ECF placement. Patient continues to be weak and continues with shortness of breath with minimal exertion. Patient is having some tongue pain and will add Nystatin swish and swallow. Continued on Covid vitamins and zinc supplements. Review of systems: Constitutional: No reports of fatigue, fever, or chills Cardiovascular: No reports of chest pain or palpitations Respiratory: No reports of worsening shortness of breath although is short of breath during conversation. GI: No reports of nausea, vomiting, or diarrhea, reports tongue pain and intolerance to medication : No reports of dysuria or retention Neurovascular: Reports generalized weakness All medications have been reviewed Active Medications Albuterol Sulfate (Albuterol Hfa Inhaler) 2 puff INHALATION RT-QID [facility] Last Admin: 05/26/21 20:30 Dose: 2 puff Documented by: Ascorbic Acid (Ascorbic Acid 500 Mg Tab) 500 mg PO DAILY [facility] Last Admin: 05/26/21 09:11 Dose: 500 mg Documented by: Aspirin (Aspirin 81 Mg) 81 mg PO DAILY [facility] Last Admin: 05/26/21 09:11 Dose: 81 mg Documented by: Atorvastatin Calcium (Atorvastatin 40 Mg Tab) 40 mg PO DAILY [facility] Last Admin: 05/26/21 09:11 Dose: 40 mg Documented by: Benzocaine/Menthol (Benzocaine/Menthol Lozeng 1 Each Lozenge) 1 each MUCOUS MEM Q4HR PRN PRN Reason: Sore Throat Last Admin: 05/26/21 21:12 Dose: 1 each Documented by: Bisacodyl (Bisacodyl 10 Mg Supp) 10 mg RECTAL DAILY [facility] Last Admin: 05/26/21 09:13 Dose: Not Given Documented by: Budesonide/Formoterol Fumarate (Symbicort 160-4.5 Mcg Inhaler) 2 puff INHALATION RT-BID [facility] Last Admin: 05/26/21 20:30 Dose: 2 puff Documented by: Calcium Carbonate/Glycine (Calcium Carbonate 500 Mg Chewable) 500 mg PO DAILY [facility] Last Admin: 05/26/21 09:11 Dose: 500 mg Documented by: Cholecalciferol (Cholecalciferol 25 Mcg (1000 Iu) Tablet) 25 mcg PO DAILY [facility] Last Admin: 05/26/21 09:11 Dose: 25 mcg Documented by: Dexamethasone (Dexamethasone 2 Mg Tab) 6 mg PO DAILY [facility] Last Admin: 05/26/21 09:11 Dose: 6 mg Documented by: Enoxaparin Sodium (Enoxaparin 40 Mg/0.4 Ml Syringe) 40 mg SQ DAILY [facility] Last Admin: 05/26/21 09:14 Dose: 40 mg Documented by: Fluconazole (Fluconazole 100 Mg Tab) 100 mg PO DAILY [facility] Last Admin: 05/26/21 09:11 Dose: 100 mg Documented by: Guaifenesin (Guaifenesin 600 Mg Tablet.Er) 1,200 mg PO Q12HR [facility] Last Admin: 05/26/21 21:02 Dose: 1,200 mg Documented by: Insulin Aspart (Insulin Aspart (Novolog) 100 Unit/Ml Vial) 0 unit SQ [facility]; Protocol Last Admin: 05/26/21 21:03 Dose: 6 unit Documented by: Lisinopril (Lisinopril 5 Mg Tab) 5 mg PO DAILY [facility] Last Admin: 05/26/21 09:11 Dose: 5 mg Documented by: Methocarbamol (Methocarbamol 500 Mg Tab) 500 mg PO TID PRN PRN Reason: Pain Metoprolol Tartrate (Metoprolol Tartrate 50 Mg Tab) 50 mg PO BID [facility] Last Admin: 05/26/21 21:03 Dose: 50 mg Documented by: Miscellaneous Information (Potassium Replacement Protocol 1 Each Misc) 1 each MISCELLANE DAILY PRN; Protocol PRN Reason: Per Protocol Montelukast Sodium (Montelukast 10 Mg Tab) 10 mg PO HS [facility] Last Admin: 05/26/21 21:02 Dose: 10 mg Documented by: Naloxone HCl (Naloxone 0.4 Mg/Ml 1 Ml Vial) 0.2 mg IV Q2M PRN PRN Reason: Opioid Reversal Nystatin (Nystatin 100,000 Unit/Ml Susp 500,000 Unit/5 Ml Cup) 500,000 unit PO QID [facility] Last Admin: 05/26/21 22:10 Dose: 500,000 unit Documented by: Oxybutynin Chloride (Oxybutynin 10 Mg Tab.Er.24) 10 mg PO HS [facility] Last Admin: 05/26/21 22:10 Dose: 10 mg Documented by: Pantoprazole Sodium (Pantoprazole 40 Mg Tablet) 40 mg PO AC-BRKFST [facility] Last Admin: 05/26/21 09:11 Dose: 40 mg Documented by: Potassium Bicarbonate (Potassium Bicarbonate/Cit Ac 20 Meq Tablet.Eff) 20 meq PO DAILY [facility] Last Admin: 05/26/21 09:14 Dose: Not Given Documented by: Tiotropium [place] (Tiotropium 2.5 Mcg Inhaler) 2 puff INHALATION RT-DAILY [facility] Last Admin: 05/26/21 08:33 Dose: 2 puff Documented by: Physical exam: Gen: This is a pleasant 65-year-old female awake, alert and oriented 3, sitting up in the chair, thin built. oxygen saturation is 94% on 5 L. HEENT: Head is atraumatic, normocephalic. Pupils equal, round. Sclerae is anicteric. NECK: Supple. No JVD. No lymphadenopathy. No thyromegaly. LUNGS: Diminished breath sounds bilaterally with some scattered rhonchi noted. No intercostal retractions. HEART: S1, S2 are muffled ABDOMEN: Soft. Bowel sounds are present. No masses. No tenderness. EXTREMITIES: No pedal edema. No calf tenderness. NEUROLOGICAL: Patient is awake, alert and oriented x3. Diffusely weak Assessment: Chronic obstructive pulmonary disease, acute exacerbation as well as acute COVID-19 pneumonia with acute hypoxic respiratory failure Oral Candidiasis Hypovolemic hyponatremia Leukocytosis secondary to steroid usage Hematuria resolved Hypomagnesemia Chronic anemia hypotension GI prophylaxis DVT prophylaxis Full code Plan: Recommend to continue with current medications and symptomatic treatment. Encouraged patient along with nursing staff to wean FiO2 as tolerated. Patient's oxygen saturations 93-96% on 5 L. Encouraged incentive spirometer use and increased activity as tolerated. Had a detailed discussion with the patient about continued weakness and unstable respiratory status and recommended subacute rehab for some physical therapy and close monitoring of oxygen saturation and COPD. Patient is agreeable however a peer to peer with insurance was denied and will discuss with case management about discharge planning and home care. Patient is high risk for readmission. Due to multiple complex medical issues, prognosis is guarded. Further recommendations to follow. Possible discharge in 24-48 hours. Objective - Vital Signs Vital signs: Vital Signs Temp 98.6 F 05/26/21 20:00 Pulse 103 H 05/26/21 20:00 Resp 18 05/26/21 20:00 BP 117/76 05/26/21 20:00 Pulse Ox 94 L 05/26/21 20:00 Intake & Output 05/26/21 05/26/21 05/27/21 06:59 18:59 06:59 Intake Total 300 Balance 300 Weight 58.2 kg Intake: Oral 300 Other: Voiding Method Toilet # Voids 2 3 ABP, PAP, CO, CI - Last Documented Arterial Blood Pressure 143/63 - Labs CBC & Chem 7: 05/23/21 07:36 05/23/21 07:36 Labs: Abnormal Lab Results - Last 24 Hours (Table) 05/26/21 05/26/21 05/26/21 Range/Units 06:46 11:44 16:31 POC Glucose (mg/dL) 70 L 103 H 170 H (75-99) mg/dL 05/26/21 Range/Units 20:36 POC Glucose (mg/dL) 205 H (75-99) mg/dL
[2021-05-27 07:32] LABS: Glucose,Whole Blood 65 mg/dL (75-99)
[2021-05-27] MEDS: INSULIN ASPART (NovoLOG) 100 UNIT/ML VIAL SQ SCH ×4 (07:41→21:27)
[2021-05-27 08:06] LABS: Glucose,Whole Blood 137 mg/dL (75-99)
[2021-05-27] MEDS: FLUCONAZOLE 100 MG TAB PO SCH (08:52)
[2021-05-27] MEDS: guaiFENesin 600 MG TABLET.ER PO SCH ×2 (08:52→21:27)
[2021-05-27] MEDS: ATORVASTATIN 40 MG TAB PO SCH (08:52)
[2021-05-27] MEDS: METOPROLOL TARTRATE 50 MG TAB PO SCH ×2 (08:52→21:27)
[2021-05-27] MEDS: CHOLECALCIFEROL 25 MCG (1000 IU) TABLET PO SCH (08:53)
[2021-05-27] MEDS: dexAMETHasone 2 MG TAB PO SCH (08:53)
[2021-05-27] MEDS: ENOXAPARIN 40 MG/0.4 ML SYRINGE SQ SCH (08:53)
[2021-05-27] MEDS: lisinopriL 5 MG TAB PO SCH (08:53)
[2021-05-27] MEDS: NYSTATIN 100,000 UNIT/ML SUSP 500,000 UNIT/5 ML CUP PO SCH ×4 (08:53→21:28)
[2021-05-27] MEDS: CALCIUM CARBONATE 500 MG CHEWABLE PO SCH (08:53)
[2021-05-27] MEDS: ASCORBIC ACID 500 MG TAB PO SCH (08:53)
[2021-05-27] MEDS: ASPIRIN 81 MG PO SCH (08:53)
[2021-05-27] MEDS: POTASSIUM BICARBONATE/CIT AC 20 MEQ TABLET.EFF PO SCH (08:53)
[2021-05-27] MEDS: PANTOPRAZOLE 40 MG TABLET PO SCH (08:53)
[2021-05-27] MEDS: ALBUTEROL HFA INHALER INHALATION SCH ×4 (09:09→19:37)
[2021-05-27] MEDS: SYMBICORT 160-4.5 MCG INHALER INHALATION SCH ×2 (09:09→19:37)
[2021-05-27] MEDS: TIOTROPIUM 2.5 MCG INHALER INHALATION SCH (09:09)
[2021-05-27] MEDS: bisacodyL 10 MG SUPP RECTAL SCH (10:26)
[2021-05-27 11:17] LABS: Glucose,Whole Blood 122 mg/dL (75-99)
[2021-05-27 15:49] LABS: African American GFR (CKD) >90 (>60 ml/min/1.73 sqM); Anion Gap 4 mmol/L; Blood Urea Nitrogen 14 mg/dL (7-17); Carbon Dioxide 31 mmol/L (22-30); Chloride 90 mmol/L (98-107); Glucose 142 mg/dL (74-99); Non-African American GFR(CKD) >90 (>60 ml/min/1.73 sqM); Potassium 5.1 mmol/L (3.5-5.1); Sodium 125 mmol/L (137-145)
[2021-05-27 15:55] LABS: Basophils % (A) 0 %; Eosinophils % (A) 0 %; HCT 39.2 % (34.0-46.0); HGB 12.6 gm/dL (11.4-16.0); Lymphocytes # (A) 0.4 k/uL (1.0-4.8); Lymphocytes % (A) 3 %; MCH 30.9 pg (25.0-35.0); MCHC 32.1 g/dL (31.0-37.0); MCV 96.1 fL (80.0-100.0); Mean Platelet Volume 7.5; Monocytes # (A) 0.2 k/uL (0-1.0); Monocytes % (A) 2 %; Neutrophils # (A) 13.1 k/uL (1.3-7.7); Neutrophils % (A) 95 %; Platelet Count 237 k/uL (150-450); RBC 4.07 m/uL (3.80-5.40); RDW 13.7 % (11.5-15.5); WBC 13.8 k/uL (3.8-10.6)
[2021-05-27 16:49] LABS: Glucose,Whole Blood 160 mg/dL (75-99)
[2021-05-27] MEDS: SODIUM CHLORIDE 0.9% 1,000 ML IV SCH (16:55)
--- NOTE | 2021-05-27 18:45 | P.PN ---
Subjective Progress Note Date: 05/27/21 This is a 65-year-old female who was recently admitted with COVID-19 pneumonia as well as weakness and is being closely monitored. Patient does have an extensive past medical history of COPD and currently maintained on 5-6 L of oxygen via nasal cannula. Patient had been using 2-3 L of oxygen in the ou tpatient setting. Pulmonary following as well. Patient continues to be weak and physical therapy recommending subacute rehab and again discussed extensively with the patient about discontinued weakness and unstable respiratory status and would benefit from subacute rehab prior to returning home with her son where she normally resides. Patient is agreeable and discussed with social work about di scharge planning to ECF. Will await accepting facility and anticipate discharge to ECF. Also discussed with nursing staff about weaning FiO2 as tolerated and maintaining 4-5 L via nasal cannula. Encourage incentive spirometer use and increased activity as tolerated. 05/26/2021 Patient is seen and evaluated in follow up and awaiting on insurance authorization to [facility] for ECF placement. Patient continues to be weak and continues with shortness of breath with minimal exertion. Patient is having some tongue pain and will add Nystatin swish and swallow. Continued on Covid vitamins and zinc supplements. 05/26/2021 Patient seen in follow-up this morning with attempted peer to peer review through insurance for ECF placement and was denied. Patient is now planning to go home with son and have homecare in the outpatient setting. Patient currently on 4 L of oxygen via nasal cannula. Patient denies any worsening chest shortness of breath or palpitations. Repeat labs will be drawn. Patient continues with very little intake although states her tongue pain has improved since starting nystatin and will continue. labs: White blood count is 13.8, hemoglobin is 12.6, platelets are 237, sodium is 125, potassium is 5.1, BUN is 14, cr is 0.44, calcium is 9.0 Review of systems: Constitutional: No reports of fatigue, fever, or chills Cardiovascular: No reports of chest pain or palpitations Respiratory: No reports of worsening shortness of breath although is short of breath with exertion GI: No reports of nausea, vomiting, or diarrhea, reports tongue pain and feels better today : No reports of dysuria or retention Neurovascular: Reports generalized weakness All medications have been reviewed Active Medications Albuterol Sulfate (Albuterol Hfa Inhaler) 2 puff INHALATION RT-QID [facility] Last Admin: 05/27/21 16:48 Dose: 2 puff Documented by: Ascorbic Acid (Ascorbic Acid 500 Mg Tab) 500 mg PO DAILY [facility] Last Admin: 05/27/21 08:53 Dose: 500 mg Documented by: Aspirin (Aspirin 81 Mg) 81 mg PO DAILY [facility] Last Admin: 05/27/21 08:53 Dose: 81 mg Documented by: Atorvastatin Calcium (Atorvastatin 40 Mg Tab) 40 mg PO DAILY [facility] Last Admin: 05/27/21 08:52 Dose: 40 mg Documented by: Benzocaine/Menthol (Benzocaine/Menthol Lozeng 1 Each Lozenge) 1 each MUCOUS MEM Q4HR PRN PRN Reason: Sore Throat Last Admin: 05/26/21 21:12 Dose: 1 each Documented by: Bisacodyl (Bisacodyl 10 Mg Supp) 10 mg RECTAL DAILY [facility] Last Admin: 05/27/21 10:26 Dose: Not Given Documented by: Budesonide/Formoterol Fumarate (Symbicort 160-4.5 Mcg Inhaler) 2 puff INHALATION RT-BID [facility] Last Admin: 05/27/21 09:09 Dose: 2 puff Documented by: Calcium Carbonate/Glycine (Calcium Carbonate 500 Mg Chewable) 500 mg PO DAILY [facility] Last Admin: 05/27/21 08:53 Dose: 500 mg Documented by: Cholecalciferol (Cholecalciferol 25 Mcg (1000 Iu) Tablet) 25 mcg PO DAILY [facility] Last Admin: 05/27/21 08:53 Dose: 25 mcg Documented by: Dexamethasone (Dexamethasone 2 Mg Tab) 6 mg PO DAILY [facility] Last Admin: 05/27/21 08:53 Dose: 6 mg Documented by: Enoxaparin Sodium (Enoxaparin 40 Mg/0.4 Ml Syringe) 40 mg SQ DAILY [facility] Last Admin: 05/27/21 08:53 Dose: 40 mg Documented by: Fluconazole (Fluconazole 100 Mg Tab) 100 mg PO DAILY [facility] Last Admin: 05/27/21 08:52 Dose: 100 mg Documented by: Guaifenesin (Guaifenesin 600 Mg Tablet.Er) 1,200 mg PO Q12HR [facility] Last Admin: 05/27/21 08:52 Dose: 1,200 mg Documented by: Sodium Chloride (Saline 0.9%) 1,000 mls @ 75 mls/hr IV .[id number] [facility] Last Admin: 05/27/21 16:55 Dose: 75 mls/hr Documented by: Insulin Aspart (Insulin Aspart (Novolog) 100 Unit/Ml Vial) 0 unit SQ ACHS [facility]; Protocol Last Admin: 05/27/21 16:55 Dose: 3 unit Documented by: Lisinopril (Lisinopril 5 Mg Tab) 5 mg PO DAILY [facility] Last Admin: 05/27/21 08:53 Dose: 5 mg Documented by: Methocarbamol (Methocarbamol 500 Mg Tab) 500 mg PO TID PRN PRN Reason: Pain Metoprolol Tartrate (Metoprolol Tartrate 50 Mg Tab) 50 mg PO BID [facility] Last Admin: 05/27/21 08:52 Dose: 50 mg Documented by: Miscellaneous Information (Potassium Replacement Protocol 1 Each Misc) 1 each MISCELLANE DAILY PRN; Protocol PRN Reason: Per Protocol Montelukast Sodium (Montelukast 10 Mg Tab) 10 mg PO [facility] Last Admin: 05/26/21 21:02 Dose: 10 mg Documented by: Naloxone HCl (Naloxone 0.4 Mg/Ml 1 Ml Vial) 0.2 mg IV Q2M PRN PRN Reason: Opioid Reversal Nystatin (Nystatin 100,000 Unit/Ml Susp 500,000 Unit/5 Ml Cup) 500,000 unit PO QID [facility] Last Admin: 05/27/21 16:55 Dose: 500,000 unit Documented by: Oxybutynin Chloride (Oxybutynin 10 Mg Tab.Er.24) 10 mg PO [facility] Last Admin: 05/26/21 22:10 Dose: 10 mg Documented by: Pantoprazole Sodium (Pantoprazole 40 Mg Tablet) 40 mg PO AC-BRKFST [facility] Last Admin: 05/27/21 08:53 Dose: 40 mg Documented by: Potassium Bicarbonate (Potassium Bicarbonate/Cit Ac 20 Meq Tablet.Eff) 20 meq PO DAILY [facility] Last Admin: 05/27/21 08:53 Dose: Not Given Documented by: Tiotropium [place] (Tiotropium 2.5 Mcg Inhaler) 2 puff INHALATION RT-DAILY [facility] Last Admin: 05/27/21 09:09 Dose: 2 puff Documented by: Physical exam: Gen: This is a pleasant 65-year-old female awake, alert and oriented 3, sitting up in the chair, thin built. oxygen saturation is 94% on 4 L. HEENT: Head is atraumatic, normocephalic. Pupils equal, round. Sclerae is anicteric. NECK: Supple. No JVD. No lymphadenopathy. No thyromegaly. LUNGS: Diminished breath sounds bilaterally with some scattered rhonchi noted. No intercostal retractions. HEART: S1, S2 are muffled ABDOMEN: Soft. Bowel sounds are present. No masses. No tenderness. EXTREMITIES: No pedal edema. No calf tenderness. NEUROLOGICAL: Patient is awake, alert and oriented x3. Diffusely weak Assessment: Chronic obstructive pulmonary disease, acute exacerbation as well as acute COVID-19 pneumonia with acute hypoxic respiratory failure Oral Candidiasis Hypovolemic hyponatremia Leukocytosis secondary to steroid usage Hematuria resolved Hypomagnesemia Chronic anemia hypotension GI prophylaxis DVT prophylaxis Full code Plan: Recommend to continue with current medications and symptomatic treatment. Encouraged patient along with nursing staff to wean FiO2 as tolerated. Patient's oxygen saturations 93-96% on 4 L. Encouraged incentive spirometer use and increased activity as tolerated. Peer to peer for insurance authorization was denied and plan is in place for patient to return home with home care. Patient labs reveal trending down of WBC and sodium has dropped again to 125. Will start IV hydration and encouraged oral intake and will repeat am labs and continue to monitor closely. Patient is high risk for readmission. Due to multiple complex medical issues, prognosis is guarded. Further recommendations to follow. Objective - Vital Signs Vital signs: Vital Signs Temp 97.7 F 05/27/21 18:02 Pulse 89 05/27/21 18:02 Resp 24 05/27/21 18:02 BP 130/81 05/27/21 18:02 Pulse Ox 96 05/27/21 18:02 Intake & Output 05/26/21 05/27/21 05/27/21 18:59 06:59 18:59 Intake Total 300 300 Balance 300 300 Weight 81.5 kg Intake: Oral 300 300 Other: Voiding Method Toilet Toilet Toilet # Voids 3 2 1 ABP, PAP, CO, CI - Last Documented Arterial Blood Pressure 143/63 - Labs CBC & Chem 7: 05/27/21 14:43 05/27/21 14:43 Labs: Abnormal Lab Results - Last 24 Hours (Table) 05/26/21 05/27/2121 Range/Units 20:36 07:31 08:05 WBC (3.8-10.6) k/uL Neutrophils # (1.3-7.7) k/uL Lymphocytes # (1.0-4.8) k/uL Sodium (137-145) mmol/L Chloride (98-107) mmol/L Carbon Dioxide (22-30) mmol/L Creatinine (0.52-1.04) mg/dL Glucose (74-99) mg/dL POC Glucose (mg/dL) 205 H 65 L 137 H (75-99) mg/dL 05/27/21 05/27/21 05/27/21 Range/Units 11:16 14:43 14:43 WBC 13.8 H (3.8-10.6) k/uL Neutrophils # 13.1 H (1.3-7.7) k/uL Lymphocytes # 0.4 L (1.0-4.8) k/uL Sodium 125 L (137-145) mmol/L Chloride 90 L (98-107) mmol/L Carbon Dioxide 31 H (22-30) mmol/L Creatinine 0.44 L (0.52-1.04) mg/dL Glucose 142 H (74-99) mg/dL POC Glucose (mg/dL) 122 H (75-99) mg/dL 05/27/21 Range/Units 16:48 WBC (3.8-10.6) k/uL Neutrophils # (1.3-7.7) k/uL Lymphocytes # (1.0-4.8) k/uL Sodium (137-145) mmol/L Chloride (98-107) mmol/L Carbon Dioxide (22-30) mmol/L Creatinine (0.52-1.04) mg/dL Glucose (74-99) mg/dL POC Glucose (mg/dL) 160 H (75-99) mg/dL
[2021-05-27 20:59] LABS: Glucose,Whole Blood 251 mg/dL (75-99)
[2021-05-27] MEDS: OXYBUTYNIN 10 MG TAB.ER.24 PO SCH (21:26)
[2021-05-27] MEDS: MONTELUKAST 10 MG TAB PO SCH (21:27)
[2021-05-28] MEDS: SODIUM CHLORIDE 0.9% 1,000 ML IV SCH ×2 (05:51→21:56)
[2021-05-28 06:58] LABS: Glucose,Whole Blood 63 mg/dL (75-99)
[2021-05-28 07:14] LABS: Glucose,Whole Blood 74 mg/dL (75-99)
[2021-05-28 07:28] LABS: Basophils % (A) 0 %; Eosinophils # (A) 0.1 k/uL (0-0.7); Eosinophils % (A) 1 %; HCT 31.9 % (34.0-46.0); HGB 10.3 gm/dL (11.4-16.0); Lymphocytes # (A) 0.8 k/uL (1.0-4.8); Lymphocytes % (A) 11 %; MCH 31.2 pg (25.0-35.0); MCHC 32.5 g/dL (31.0-37.0); MCV 95.9 fL (80.0-100.0); Mean Platelet Volume 7.2; Monocytes # (A) 0.3 k/uL (0-1.0); Monocytes % (A) 4 %; Neutrophils # (A) 6.4 k/uL (1.3-7.7); Neutrophils % (A) 83 %; Platelet Count 189 k/uL (150-450); RBC 3.32 m/uL (3.80-5.40); RDW 13.7 % (11.5-15.5); WBC 7.7 k/uL (3.8-10.6)
[2021-05-28 07:33] LABS: African American GFR (CKD) >90 (>60 ml/min/1.73 sqM); Anion Gap 2 mmol/L; Blood Urea Nitrogen 9 mg/dL (7-17); Calcium 7.3 mg/dL (8.4-10.2); Carbon Dioxide 28 mmol/L (22-30); Chloride 104 mmol/L (98-107); Glucose 63 mg/dL (74-99); Non-African American GFR(CKD) >90 (>60 ml/min/1.73 sqM); Potassium 3.4 mmol/L (3.5-5.1); Sodium 134 mmol/L (137-145)
[2021-05-28] MEDS ORDERED: POTASSIUM CHLORIDE ER 20 MEQ TAB.ER PO STA (08:16)
[2021-05-28] MEDS: INSULIN ASPART (NovoLOG) 100 UNIT/ML VIAL SQ SCH ×4 (08:37→21:50)
[2021-05-28] MEDS: TIOTROPIUM 2.5 MCG INHALER INHALATION SCH (08:45)
[2021-05-28] MEDS: ALBUTEROL HFA INHALER INHALATION SCH ×4 (08:45→20:04)
[2021-05-28] MEDS: SYMBICORT 160-4.5 MCG INHALER INHALATION SCH ×2 (08:45→20:04)
[2021-05-28] MEDS: ASCORBIC ACID 500 MG TAB PO SCH (10:31)
[2021-05-28] MEDS: ASPIRIN 81 MG PO SCH (10:31)
[2021-05-28] MEDS: CALCIUM CARBONATE 500 MG CHEWABLE PO SCH (10:31)
[2021-05-28] MEDS: guaiFENesin 600 MG TABLET.ER PO SCH ×2 (10:31→21:51)
[2021-05-28] MEDS: CHOLECALCIFEROL 25 MCG (1000 IU) TABLET PO SCH (10:31)
[2021-05-28] MEDS: METOPROLOL TARTRATE 50 MG TAB PO SCH ×2 (10:31→21:51)
[2021-05-28] MEDS: ENOXAPARIN 40 MG/0.4 ML SYRINGE SQ SCH (10:31)
[2021-05-28] MEDS: ATORVASTATIN 40 MG TAB PO SCH (10:31)
[2021-05-28] MEDS: NYSTATIN 100,000 UNIT/ML SUSP 500,000 UNIT/5 ML CUP PO SCH ×4 (10:31→21:51)
[2021-05-28] MEDS: bisacodyL 10 MG SUPP RECTAL SCH (10:32)
[2021-05-28] MEDS: dexAMETHasone 4 MG TAB PO SCH (10:32)
[2021-05-28] MEDS: PANTOPRAZOLE 40 MG TABLET PO SCH (10:32)
[2021-05-28] MEDS: lisinopriL 5 MG TAB PO SCH (10:32)
[2021-05-28] MEDS: POTASSIUM BICARBONATE/CIT AC 20 MEQ TABLET.EFF PO SCH (10:32)
[2021-05-28 13:56] LABS: Glucose,Whole Blood 106 mg/dL (75-99)
[2021-05-28 16:49] LABS: Glucose,Whole Blood 142 mg/dL (75-99)
[2021-05-28 20:56] LABS: Glucose,Whole Blood 224 mg/dL (75-99)
[2021-05-28] MEDS: OXYBUTYNIN 10 MG TAB.ER.24 PO SCH (21:51)
[2021-05-28] MEDS: MONTELUKAST 10 MG TAB PO SCH (21:51)
--- NOTE | 2021-05-29 01:15 | P.PN ---
Subjective Progress Note Date: 05/28/21 This is a 65-year-old female who was recently admitted with COVID-19 pneumonia as well as weakness and is being closely monitored. Patient does have an extensive past medical history of COPD and currently maintained on 5-6 L of oxygen via nasal cannula. Patient had been using 2-3 L of oxygen in the ou tpatient setting. Pulmonary following as well. Patient continues to be weak and physical therapy recommending subacute rehab and again discussed extensively with the patient about discontinued weakness and unstable respiratory status and would benefit from subacute rehab prior to returning home with her son where she normally resides. Patient is agreeable and discussed with social work about di scharge planning to ECF. Will await accepting facility and anticipate discharge to ECF. Also discussed with nursing staff about weaning FiO2 as tolerated and maintaining 4-5 L via nasal cannula. Encourage incentive spirometer use and increased activity as tolerated. 05/26/2021 Patient is seen and evaluated in follow up and awaiting on insurance authorization to [facility] for ECF placement. Patient continues to be weak and continues with shortness of breath with minimal exertion. Patient is having some tongue pain and will add Nystatin swish and swallow. Continued on Covid vitamins and zinc supplements. 05/27/2021 Patient seen in follow-up this morning with attempted peer to peer review through insurance for ECF placement and was denied. Patient is now planning to go home with son and have homecare in the outpatient setting. Patient currently on 4 L of oxygen via nasal cannula. Patient denies any worsening chest shortness of breath or palpitations. Repeat labs will be drawn. Patient continues with very little intake although states her tongue pain has improved since starting nystatin and will continue. 05/28/2021 Patient had some hyponatremia and started on IV fluids gentle IV hydration and sodium improved. Patient also having some hypokalemia and will replace. Patient continues on 4L via NC and maintaining 02 saturations over 90%. Patient continues with generalized weakness and homecare has been arranged. Continue to encourage oral intake. Titrate steroids. Continue to monitor accuchecks. Will repeat am labs. labs: White blood count is 7.7, hemoglobin is 10.3, platelets are 189, sodium is 134, potassium is 3.4, BUN is 9, cr is 0.33, calcium is 7.3 Review of systems: Constitutional: No reports of fatigue, fever, or chills Cardiovascular: No reports of chest pain or palpitations Respiratory: No reports of worsening shortness of breath , exerts easily GI: No reports of nausea, vomiting, or diarrhea : No reports of dysuria or retention Neurovascular: Reports generalized weakness All medications have been reviewed Active Medications Albuterol Sulfate (Albuterol Hfa Inhaler) 2 puff INHALATION RT-QID [facility] Last Admin: 05/28/21 20:04 Dose: 2 puff Documented by: Ascorbic Acid (Ascorbic Acid 500 Mg Tab) 500 mg PO DAILY [facility] Last Admin: 05/28/21 10:31 Dose: 500 mg Documented by: Aspirin (Aspirin 81 Mg) 81 mg PO DAILY [facility] Last Admin: 05/28/21 10:31 Dose: 81 mg Documented by: Atorvastatin Calcium (Atorvastatin 40 Mg Tab) 40 mg PO DAILY [facility] Last Admin: 05/28/21 10:31 Dose: 40 mg Documented by: Benzocaine/Menthol (Benzocaine/Menthol Lozeng 1 Each Lozenge) 1 each MUCOUS MEM Q4HR PRN PRN Reason: Sore Throat Last Admin: 05/26/21 21:12 Dose: 1 each Documented by: Bisacodyl (Bisacodyl 10 Mg Supp) 10 mg RECTAL DAILY [facility] Last Admin: 05/28/21 10:32 Dose: Not Given Documented by: Budesonide/Formoterol Fumarate (Symbicort 160-4.5 Mcg Inhaler) 2 puff INHALATION RT-BID [facility] Last Admin: 05/28/21 20:04 Dose: 2 puff Documented by: Calcium Carbonate/Glycine (Calcium Carbonate 500 Mg Chewable) 500 mg PO DAILY [facility] Last Admin: 05/28/21 10:31 Dose: 500 mg Documented by: Cholecalciferol (Cholecalciferol 25 Mcg (1000 Iu) Tablet) 25 mcg PO DAILY [facility] Last Admin: 05/28/21 10:31 Dose: 25 mcg Documented by: Dexamethasone (Dexamethasone 4 Mg Tab) 4 mg PO DAILY [facility] Last Admin: 05/28/21 10:32 Dose: 4 mg Documented by: Enoxaparin Sodium (Enoxaparin 40 Mg/0.4 Ml Syringe) 40 mg SQ DAILY [facility] Last Admin: 05/28/21 10:31 Dose: 40 mg Documented by: Guaifenesin (Guaifenesin 600 Mg Tablet.Er) 1,200 mg PO Q12HR [facility] Last Admin: 05/28/21 21:51 Dose: 1,200 mg Documented by: Sodium Chloride (Saline 0.9%) 1,000 mls @ 75 mls/hr IV .[id number] [facility] Last Admin: 05/28/21 21:56 Dose: Not Given Documented by: Insulin Aspart (Insulin Aspart (Novolog) 100 Unit/Ml Vial) 0 unit SQ ACHS [facility]; Protocol Last Admin: 05/28/21 21:50 Dose: 7 unit Documented by: Lisinopril (Lisinopril 5 Mg Tab) 5 mg PO DAILY [facility] Last Admin: 05/28/21 10:32 Dose: 5 mg Documented by: Methocarbamol (Methocarbamol 500 Mg Tab) 500 mg PO TID PRN PRN Reason: Pain Metoprolol Tartrate (Metoprolol Tartrate 50 Mg Tab) 50 mg PO BID [facility] Last Admin: 05/28/21 21:51 Dose: 50 mg Documented by: Miscellaneous Information (Potassium Replacement Protocol 1 Each Misc) 1 each MISCELLANE DAILY PRN; Protocol PRN Reason: Per Protocol Montelukast Sodium (Montelukast 10 Mg Tab) 10 mg PO [facility] Last Admin: 05/28/21 21:51 Dose: 10 mg Documented by: Naloxone HCl (Naloxone 0.4 Mg/Ml 1 Ml Vial) 0.2 mg IV Q2M PRN PRN Reason: Opioid Reversal Nystatin (Nystatin 100,000 Unit/Ml Susp 500,000 Unit/5 Ml Cup) 500,000 unit PO QID [facility] Last Admin: 05/28/21 21:51 Dose: 500,000 unit Documented by: Oxybutynin Chloride (Oxybutynin 10 Mg Tab.Er.24) 10 mg PO [facility] Last Admin: 05/28/21 21:51 Dose: 10 mg Documented by: Pantoprazole Sodium (Pantoprazole 40 Mg Tablet) 40 mg PO AC-BRKFST [facility] Last Admin: 05/28/21 10:32 Dose: 40 mg Documented by: Potassium Bicarbonate (Potassium Bicarbonate/Cit Ac 20 Meq Tablet.Eff) 20 meq PO DAILY [facility] Last Admin: 05/28/21 10:32 Dose: Not Given Documented by: Tiotropium [place] (Tiotropium 2.5 Mcg Inhaler) 2 puff INHALATION RT-DAILY [facility] Last Admin: 05/28/21 08:45 Dose: 2 puff Documented by: Physical exam: Gen: This is a pleasant 65-year-old female awake, alert and oriented 3, thin built. oxygen saturation is 94% on 4 L. HEENT: Head is atraumatic, normocephalic. Pupils equal, round. Sclerae is anicteric. NECK: Supple. No JVD. No lymphadenopathy. No thyromegaly. LUNGS: Diminished breath sounds bilaterally with some scattered rhonchi noted. No intercostal retractions. HEART: S1, S2 are muffled ABDOMEN: Soft. Bowel sounds are present. No masses. No tenderness. EXTREMITIES: No pedal edema. No calf tenderness. NEUROLOGICAL: Patient is awake, alert and oriented x3. Diffusely weak Assessment: Chronic obstructive pulmonary disease, acute exacerbation acute COVID-19 pneumonia with acute hypoxic respiratory failure Oral Candidiasis Hypovolemic hyponatremia, improving Leukocytosis secondary to steroid usage, improved Hematuria resolved Hypomagnesemia Chronic anemia hypotension GI prophylaxis DVT prophylaxis Full code Plan: Recommend to continue with current medications and symptomatic treatment. Encouraged patient along with nursing staff to wean FiO2 as tolerated. Patient's oxygen requirements of 4 L. Encouraged incentive spirometer use and increased activity as tolerated. Patient labs reveal trending down of WBC and sodium improved with IV hydration and will decrease the dose. Will replace potassium and repeat am labs. encouraged oral intake. Will continue to monitor closely. Patient is high risk for readmission. Due to multiple complex medical issues, prognosis is guarded. Further recommendations to follow. Objective - Vital Signs Vital signs: Vital Signs Temp 98.1 F 05/28/21 22:12 Pulse 84 05/28/21 22:12 Resp 17 05/28/21 22:12 BP 100/54 05/28/21 22:12 Pulse Ox 98 05/28/21 22:12 Intake & Output 05/28/21 05/28/21 05/29/21 06:59 18:59 06:59 Weight 80.5 kg Other: Voiding Method Toilet Toilet # Voids 3 ABP, PAP, CO, CI - Last Documented Arterial Blood Pressure 143/63 - Labs CBC & Chem 7: 05/28/21 06:51 05/28/21 06:51 Labs: Abnormal Lab Results - Last 24 Hours (Table) 05/28/21 05/28/21 05/28/21 Range/Units 06:51 06:51 06:56 RBC 3.32 L (3.80-5.40) m/uL Hgb 10.3 L (11.4-16.0) gm/dL Hct 31.9 L (34.0-46.0) % Lymphocytes # 0.8 L (1.0-4.8) k/uL Sodium 134 L (137-145) mmol/L Potassium 3.4 L (3.5-5.1) mmol/L Creatinine 0.33 L (0.52-1.04) mg/dL Glucose 63 L (74-99) mg/dL POC Glucose (mg/dL) 63 L (75-99) mg/dL Calcium 7.3 L (8.4-10.2) mg/dL 05/28/21 05/28/21 05/28/21 Range/Units 07:11 13:51 16:45 RBC (3.80-5.40) m/uL Hgb (11.4-16.0) gm/dL Hct (34.0-46.0) % Lymphocytes # (1.0-4.8) k/uL Sodium (137-145) mmol/L Potassium (3.5-5.1) mmol/L Creatinine (0.52-1.04) mg/dL Glucose (74-99) mg/dL POC Glucose (mg/dL) 74 L 106 H 142 H (75-99) mg/dL Calcium (8.4-10.2) mg/dL 05/28/21 Range/Units 20:54 RBC (3.80-5.40) m/uL Hgb (11.4-16.0) gm/dL Hct (34.0-46.0) % Lymphocytes # (1.0-4.8) k/uL Sodium (137-145) mmol/L Potassium (3.5-5.1) mmol/L Creatinine (0.52-1.04) mg/dL Glucose (74-99) mg/dL POC Glucose (mg/dL) 224 H (75-99) mg/dL Calcium (8.4-10.2) mg/dL
[2021-05-29 07:07] LABS: Glucose,Whole Blood 70 mg/dL (75-99)
[2021-05-29] MEDS: INSULIN ASPART (NovoLOG) 100 UNIT/ML VIAL SQ SCH ×3 (07:41→16:35)
[2021-05-29] MEDS: bisacodyL 10 MG SUPP RECTAL SCH (08:18)
[2021-05-29] MEDS: lisinopriL 5 MG TAB PO SCH (08:25)
[2021-05-29] MEDS: ENOXAPARIN 40 MG/0.4 ML SYRINGE SQ SCH (08:25)
[2021-05-29] MEDS: ASPIRIN 81 MG PO SCH (08:25)
[2021-05-29] MEDS: ATORVASTATIN 40 MG TAB PO SCH (08:25)
[2021-05-29] MEDS: PANTOPRAZOLE 40 MG TABLET PO SCH (08:25)
[2021-05-29] MEDS: ASCORBIC ACID 500 MG TAB PO SCH (08:25)
[2021-05-29] MEDS: guaiFENesin 600 MG TABLET.ER PO SCH (08:25)
[2021-05-29] MEDS: METOPROLOL TARTRATE 50 MG TAB PO SCH (08:25)
[2021-05-29] MEDS: CHOLECALCIFEROL 25 MCG (1000 IU) TABLET PO SCH (08:26)
[2021-05-29] MEDS: dexAMETHasone 4 MG TAB PO SCH (08:27)
[2021-05-29] MEDS: CALCIUM CARBONATE 500 MG CHEWABLE PO SCH (08:27)
[2021-05-29] MEDS: NYSTATIN 100,000 UNIT/ML SUSP 500,000 UNIT/5 ML CUP PO SCH ×3 (08:27→17:03)
[2021-05-29] MEDS: SYMBICORT 160-4.5 MCG INHALER INHALATION SCH (09:10)
[2021-05-29] MEDS: TIOTROPIUM 2.5 MCG INHALER INHALATION SCH (09:10)
[2021-05-29] MEDS: ALBUTEROL HFA INHALER INHALATION SCH ×2 (09:10→11:57)
[2021-05-29 10:08] LABS: African American GFR (CKD) >90 (>60 ml/min/1.73 sqM); Anion Gap 3 mmol/L; Blood Urea Nitrogen 9 mg/dL (7-17); Carbon Dioxide 33 mmol/L (22-30); Chloride 94 mmol/L (98-107); Glucose 145 mg/dL (74-99); Non-African American GFR(CKD) >90 (>60 ml/min/1.73 sqM); Potassium 4.3 mmol/L (3.5-5.1); Sodium 130 mmol/L (137-145)
[2021-05-29 11:44] LABS: Glucose,Whole Blood 100 mg/dL (75-99)
[2021-05-29] MEDS: POTASSIUM BICARBONATE/CIT AC 20 MEQ TABLET.EFF PO SCH (12:37)
[2021-05-29] MEDS: SODIUM CHLORIDE 0.9% 1,000 ML IV SCH (12:37)
--- NOTE | 2021-05-29 15:23 | P.DS ---
Providers Date of admission: 05/10/21 19:41 Expected date of discharge: 05/29/21 Attending physician: Lilli Calabrese Consults: 05/10/21 19:41 Consult Physician Routine Consulting Provider: Pierre Manriquez Consult Reason/Comments: hyponatremia Do you want consulting provider notified?: Yes Consult Physician Routine Consulting Provider: Edu Huerta Consult Reason/Comments: copd Do you want consulting provider notified?: Yes 05/11/21 19:19 Consult Physician Routine Consulting Provider: Herrera Murphy Consult Reason/Comments: hematuria Do you want consulting provider notified?: Yes, Notify in am Primary care physician: Randal Smith [facility] Course: Final Diagnosis Chronic obstructive pulmonary disease, acute exacerbation acute COVID-19 pneumonia with acute hypoxic respiratory failure Oral Candidiasis Hypovolemic hyponatremia, improving Leukocytosis secondary to steroid usage, improved Hematuria resolved Hypomagnesemia Chronic anemia hypotension GI prophylaxis DVT prophylaxis Full code Discharge disposition Patient is being discharged in a stable condition with guarded prognosis to home. Patient will follow-up with Dr. Aminta Smith upon discharge. Patient will also need close outpatient follow up with pulmonary on discharge. Patient to continue with covid vitamins and dexamethasone taper and oral nystatin swish to complete the course. Recommend repeat labs outpatient. Total time taken is greater than 35 minutes. Hospital course This is a 65-year-old female who was recently admitted with COVID-19 pneumonia as well as weakness and is being closely monitored. Patient does have an extensive past medical history of COPD and currently maintained on 5-6 L of oxygen via nasal cannula. Patient had been using 2-3 L of oxygen in the ou tpatient setting. Pulmonary following as well. Patient continues to be weak and physical therapy recommending subacute rehab and again discussed extensively with the patient about discontinued weakness and unstable respiratory status and would benefit from subacute rehab prior to returning home with her son where she normally resides. Patient is agreeable and discussed with social work about di scharge planning to ECF. Will await accepting facility and anticipate discharge to ECF. Also discussed with nursing staff about weaning FiO2 as tolerated and maintaining 4-5 L via nasal cannula. Encourage incentive spirometer use and increased activity as tolerated. 05/26/2021 Patient is seen and evaluated in follow up and awaiting on insurance authorization to [facility] for ECF placement. Patient continues to be weak and continues with shortness of breath with minimal exertion. Patient is having some tongue pain and will add Nystatin swish and swallow. Continued on Covid vitamins and zinc supplements. 05/27/2021 Patient seen in follow-up this morning with attempted peer to peer review through insurance for ECF placement and was denied. Patient is now planning to go home with son and have homecare in the outpatient setting. Patient currently on 4 L of oxygen via nasal cannula. Patient denies any worsening chest shortness of breath or palpitations. Repeat labs will be drawn. Patient continues with very little intake although states her tongue pain has improved since starting nystatin and will continue. 05/28/2021 Patient had some hyponatremia and started on IV fluids gentle IV hydration and sodium improved. Patient also having some hypokalemia and will replace. Patient continues on 4L via NC and maintaining 02 saturations over 90%. Patient continues with generalized weakness and homecare has been arranged. Continue to encourage oral intake. Titrate steroids. Continue to monitor accuchecks. Will repeat am labs. 05/29/2021 Patient has been seen and evaluated this morning in follow-up and repeat labs within normal limits and discharge planning in progress. Awaiting for son to pick patient up and arranged for home care in the outpatient setting. Currently no reports of chest pain, worsening shortness of breath, or palpitations. Patient is afebrile. No reports of nausea or vomiting and patient is tolerating diet. Patient will be discharged home today. Guarded prognosis. Physical exam: Patient is sitting up in the chair comfortably, no acute distress, alert and oriented x3 HEENT: Normocephalic. Neck is supple. Pupils reactive. Nostrils clear. Oral cavity is moist. Neck reveals no JVD, carotid bruits, or thyromegaly. CHEST EXAMINATION: Trachea is central. Symmetrical expansion. No rhonchi or wheezing. Diminished breath sounds with rhonchi noted CARDIAC: Normal S1, S2 with no gallops. No murmurs ABDOMEN: Soft. Bowel sounds normal. No organomegaly. No abdominal bruits. Extremities: reveal no edema. No clubbing or cyanosis Neurologically awake, alert, oriented x3 with well-coordinated movements. No focal deficits noted Skin: No rash or skin lesions. Psychiatric: Cooperative. Non-suicidal Musculoskeletal: No joint swelling or deformity. Normal range of motion. Please refer to medication reconciliation sheet for a list of medications. Patient Condition at Discharge: Stable Plan - Discharge Summary Discharge Rx Participant: No New Discharge Prescriptions: New Atorvastatin [Lipitor] 40 mg PO DAILY 30 Days #30 tab Fluconazole [Diflucan] 100 mg PO DAILY 5 Days #5 tab Benzocaine/Menthol Lozeng [Cepacol lozenge] 1 each MUCOUS MEM Q4HR PRN #20 lozenge PRN Reason: Sore Throat Nystatin 100,000 Unit/ml Susp [Mycostatin Oral Susp] 500,000 unit PO QID #140 ml dexAMETHasone ORAL [Hexadrol] 6 mg PO DAILY 10 Days #17 tab Metoprolol Tartrate [Lopressor] 50 mg PO BID 30 Days #60 tab bisacodyL [Dulcolax] 10 mg RECTAL DAILY 30 Days #30 supp Pantoprazole [Protonix] 40 mg PO AC-BRKFST 30 Days #30 tab lisinopriL [Zestril] 5 mg PO DAILY 30 Days #30 tab Continue Montelukast [Singulair] 10 mg PO HS methocarbamoL [Robaxin] 500 mg PO TID PRN PRN Reason: Pain Budesonide/Formoterol Fumarate [Symbicort 160-4.5 Mcg Inhaler] 2 puff INHALATION RT-BID Cholecalciferol [Vitamin D3 (25 Mcg = 1000 Iu)] 1,000 unit PO DAILY Ascorbic Acid [Vitamin C] 500 mg PO DAILY Tolterodine Tartrate [Detrol LA] 4 mg PO HS Calcium Carbonate [Calcium] 600 mg PO DAILY guaiFENesin [Mucinex] 1,200 mg PO Q12HR #60 tablet.er Ipratropium Nebulized [Atrovent Nebulized 0.2 MG/ML] 0.5 mg INHALATION RT-Q6H PRN PRN Reason: Shortness Of Breath Ipratropium [place] [Atrovent Hfa] 2 puff INHALATION RT-Q6H Aspirin [Children's Aspirin] 81 mg PO DAILY Fluticasone Nasal [place] [Flonase Nasal [place]] 2 spray EA NOSTRIL DAILY Albuterol Nebulized [Ventolin Nebulized] 2.5 mg INHALATION RT-Q6H PRN PRN Reason: Shortness Of Breath Discharge Medication List Montelukast [Singulair] 10 mg PO HS 02/09/14 [History] methocarbamoL [Robaxin] 500 mg PO TID PRN 02/09/14 [History] Ascorbic Acid [Vitamin C] 500 mg PO DAILY 05/12/19 [History] Budesonide/Formoterol Fumarate [Symbicort 160-4.5 Mcg Inhaler] 2 puff INHALATION RT-BID 05/12/19 [History] Cholecalciferol [Vitamin D3 (25 Mcg = 1000 Iu)] 1,000 unit PO DAILY 05/12/19 [History] Tolterodine Tartrate [Detrol LA] 4 mg PO HS 05/12/19 [History] Calcium Carbonate [Calcium] 600 mg PO DAILY 06/20/19 [History] guaiFENesin [Mucinex] 1,200 mg PO Q12HR #60 tablet.er 07/04/19 [Rx] Albuterol Nebulized [Ventolin Nebulized] 2.5 mg INHALATION RT-Q6H PRN 05/10/21 [History] Aspirin [Children's Aspirin] 81 mg PO DAILY 05/10/21 [History] Fluticasone Nasal [place] [Flonase Nasal [place]] 2 spray EA NOSTRIL DAILY 05/10/21 [History] Ipratropium [place] [Atrovent Hfa] 2 puff INHALATION RT-Q6H 05/10/21 [History] Ipratropium Nebulized [Atrovent Nebulized 0.2 MG/ML] 0.5 mg INHALATION RT-Q6H PRN 05/10/21 [History] Atorvastatin [Lipitor] 40 mg PO DAILY 30 Days #30 tab 05/19/21 [Rx] Metoprolol Tartrate [Lopressor] 50 mg PO BID 30 Days #60 tab 05/19/21 [Rx] Pantoprazole [Protonix] 40 mg PO AC-BRKFST 30 Days #30 tab 05/19/21 [Rx] bisacodyL [Dulcolax] 10 mg RECTAL DAILY 30 Days #30 supp 05/19/21 [Rx] dexAMETHasone ORAL [Hexadrol] 6 mg PO DAILY 10 Days #17 tab 05/19/21 [Rx] Fluconazole [Diflucan] 100 mg PO DAILY 5 Days #5 tab 05/20/21 [Rx] lisinopriL [Zestril] 5 mg PO DAILY 30 Days #30 tab 05/20/21 [Rx] Benzocaine/Menthol Lozeng [Cepacol lozenge] 1 each MUCOUS MEM Q4HR PRN #20 lozenge 05/27/21 [Rx] Nystatin 100,000 Unit/ml Susp [Mycostatin Oral Susp] 500,000 unit PO QID #140 ml 05/27/21 [Rx] Follow up Appointment(s)/Referral(s): Edu Huerta MD [STAFF PHYSICIAN] - 2 Weeks [facility] [REFERRING] - As Needed [facility],Equipment [NON-STAFF] - As Needed (Supplier of commode, wheelchair and wheelchair cushion, walker) [facility], [NON-STAFF] - 1-2 Days Randal Smith DO [Primary Care Provider] - 1-2 days Ambulatory/Diagnostic Orders: Complete Blood Count w/diff [LAB.AMB] Time Frame: 3 Days, Location: None Selected Patient Instructions/Handouts: Coronavirus Disease 2019 (COVID-19), Hyponatremia (DC) Activity/Diet/Wound Care/Special Instructions: Discharge Pending labs Activity limited until follow-up Follow-up with primary care provider on discharge Follow-up with pulmonary in outpatient setting in 2 weeks Continue with steroids until complete Continue lisinopril 5mg daily Continue with chopped diet and consistent carbohydrate diet , assistance with meals and supervision Repeat labs in 2-3 days Discharge/Stand Alone Forms: Who Do I Call?, Help In The Home, Personal Surveyor'S Assistant Discharge Disposition: HOME WITH HOME HEALTH SERVICES
[2021-05-29 16:19] LABS: Glucose,Whole Blood 137 mg/dL (75-99)
[2021-05-29 17:50] VITALS: BP 114/71; PULSE 92; RESP 17; TEMP 98.3
== END 2021-05-29 18:53 | disposition home health service (06) | DRG 870 ==
LOC: EC 18:06 → 2SICU 19:41 → 4SSUR 05-20 17:17
PROVIDERS: ADMIT Internal Medicine; ATTEND Internal Medicine
PROC: 5A1955Z Respiratory Ventilation, Greater than 96 Consecutive Hours (ICD-10-PCS; principal; 2021-05-10)
PROC: 5A09357 Assistance with Respiratory Ventilation, Less than 24 Consecutive Hours, Continuous Positive Airway Pressure (ICD-10-PCS; 2021-05-10)
PROC: 0BH17EZ Insertion of Endotracheal Airway into Trachea, Via Natural or Artificial Opening (ICD-10-PCS; 2021-05-10)
PROC: 3E033XZ Introduction of Vasopressor into Peripheral Vein, Percutaneous Approach (ICD-10-PCS; 2021-05-10)
DX: A41.89 Other specified sepsis (principal); U07.1 COVID-19; J12.82 Pneumonia due to coronavirus disease 2019; J96.01 Acute respiratory failure with hypoxia; J96.21 Acute and chronic respiratory failure with hypoxia; J96.22 Acute and chronic respiratory failure with hypercapnia; R65.21 Severe sepsis with septic shock; I21.4 Non-ST elevation (NSTEMI) myocardial infarction; E87.1 Hypo-osmolality and hyponatremia; B37.0 Candidal stomatitis; J44.1 Chronic obstructive pulmonary disease with (acute) exacerbation; E87.4 Mixed disorder of acid-base balance; J44.0 Chronic obstructive pulmonary disease with (acute) lower respiratory infection; Z99.11 Dependence on respirator [ventilator] status; J44.9 Chronic obstructive pulmonary disease, unspecified; E83.42 Hypomagnesemia; D64.9 Anemia, unspecified; E86.1 Hypovolemia; R13.10 Dysphagia, unspecified; E87.6 Hypokalemia; R31.0 Gross hematuria; I10 Essential (primary) hypertension; I25.5 Ischemic cardiomyopathy; T38.0X5A Adverse effect of glucocorticoids and synthetic analogues, initial encounter; Z79.01 Long term (current) use of anticoagulants; Z79.51 Long term (current) use of inhaled steroids; Z79.52 Long term (current) use of systemic steroids; Z79.82 Long term (current) use of aspirin; Z79.899 Other long term (current) drug therapy; Z87.891 Personal history of nicotine dependence; Z99.81 Dependence on supplemental oxygen
CPT/HCPCS: 36415; 36600; 71045; 80048; 80053; 82533; 82805; 83605; 83615; 83735; 83880; 83930; 83935; 84145; 84295; 84300; 84443; 84484; 85025; 85379; 85610; 85730; 86140; 87040; 87070; 87205; 87635; 93005; 93306; 93308; 94002; 94003; 94640; 94660; 96361; 96374; 99285

== ENCOUNTER 2021-05-30 23:56 | Inpatient (IN) | payer MEDICARE, OTHER ==
[2021-05-31] MEDS ORDERED: IPRATROPIUM-ALBUTEROL 3 ML NEB INHALATION STA (00:24)
[2021-05-31] MEDS ORDERED: predniSONE 20 MG TAB PO STA (00:24)
--- NOTE | 2021-05-31 00:49 | ED ---
SOB HPI - General Chief Complaint: Shortness of Breath Stated Complaint: SOB Time Seen by Provider: 05/31/21 00:02 Source: patient, EMS Mode of arrival: EMS Limitations: no limitations - History of Present Illness Initial Comments: This patient is a 65-year-old woman with history of COPD, asthma, and recent pneumonia. She states she also had COVID-19 infection in April. She had been admitted in the hospital for nearly 3 weeks. The patient states that following release the hospital her respiratory condition has started worsening again. She is feeling short of breath with the home oxygen. On EMS arrival, the patient's pulse oximetry readings were in the low 80s. She has cough. Patient has noted wheezing. No fever or chills. No change in urination or bowel movements. No leg pain or swelling MD Complaint: shortness of breath -: hour(s) Severity scale (1-10): 0 Consistency: constant Improves With: nothing Worsens With: nothing Known History Of: COPD, asthma, other Associated Symptoms: denies other symptoms Treatments Prior to Arrival: none - Related Data Home Oxygen Therapy: Yes Home Medications Medication Instructions Recorded Confirmed Montelukast [Singulair] 10 mg PO HS 02/09/14 05/31/21 methocarbamoL [Robaxin] 500 mg PO TID PRN 02/09/14 05/31/21 Ascorbic Acid [Vitamin C] 500 mg PO DAILY 05/12/19 05/31/21 Budesonide/Formoterol Fumarate 2 puff INHALATION RT-BID 05/12/19 05/31/21 [Symbicort 160-4.5 Mcg Inhaler] Cholecalciferol [Vitamin D3 (25 25 mcg PO DAILY 05/12/19 05/31/21 Mcg = 1000 Iu)] Tolterodine Tartrate [Detrol LA] 4 mg PO HS 05/12/19 05/31/21 Calcium Carbonate [Calcium] 600 mg PO DAILY 06/20/19 05/31/21 Albuterol Nebulized [Ventolin 2.5 mg INHALATION RT-QID PRN 05/10/21 05/31/21 Nebulized] Aspirin [Children's Aspirin] 81 mg PO DAILY 05/10/21 05/31/21 Fluticasone Nasal [place] [Flonase 2 spray EA NOSTRIL DAILY 05/10/21 05/31/21 Nasal [place]] Ipratropium [place] [Atrovent Hfa] 2 puff INHALATION RT-Q6H 05/10/21 05/31/21 Ipratropium Nebulized [Atrovent 0.5 mg INHALATION RT-Q6H PRN 05/10/21 05/31/21 Nebulized 0.2 MG/ML] Benzocaine/Menthol Lozeng [Cepacol 1 lozenge MUCOUS MEM Q4HR PRN 05/31/21 05/31/21 lozenge] bisacodyL [Dulcolax] 10 mg RECTAL DAILY PRN 05/31/21 05/31/21 dexAMETHasone See Taper PO DAILY 05/31/21 05/31/21 Previous Rx's Medication Instructions Recorded guaiFENesin [Mucinex] 1,200 mg PO Q12HR #60 tablet.er 07/04/19 Atorvastatin [Lipitor] 40 mg PO DAILY 30 Days #30 tab 05/19/21 Metoprolol Tartrate [Lopressor] 50 mg PO BID 30 Days #60 tab 05/19/21 Pantoprazole [Protonix] 40 mg PO AC-BRKFST 30 Days #30 tab 05/19/21 Fluconazole [Diflucan] 100 mg PO DAILY 5 Days #5 tab 05/20/21 lisinopriL [Zestril] 5 mg PO DAILY 30 Days #30 tab 05/20/21 Nystatin 100,000 Unit/ml Susp 500,000 unit PO QID #140 ml 05/27/21 [Mycostatin Oral Susp] Albuterol Inhaler [Ventolin Hfa 2 puff INHALATION RT-QID PRN #18 gm 05/29/21 Inhaler] Allergies Allergy/AdvReac Type Severity Reaction Status Date / Time umeclidinium AdvReac Dyspnea Verified 05/31/21 07:37 [From Incruse Ellipta] Review of Systems ROS Statement: Those systems with pertinent positive or pertinent negative responses have been documented in the HPI. ROS Other: All systems not noted in ROS Statement are negative. Constitutional: Denies: fever, chills Respiratory: Reports: cough, dyspnea. Denies: wheezes, hemoptysis, stridor Cardiovascular: Denies: chest pain, palpitations Gastrointestinal: Denies: abdominal pain, vomiting, diarrhea, melena, hemat ochezia Genitourinary: Denies: dysuria, frequency, hematuria Musculoskeletal: Denies: back pain Skin: Denies: rash Neurological: Denies: headache, weakness Past Medical History Past Medical History: Asthma, Blood Disorder, COPD, Pneumonia Additional Past Medical History / Comment(s): heart arrythmia, hx anemia, USES O2/2L NC AT HS History of Any Multi-Drug Resistant Organisms: None Reported Past Surgical History: Orthopedic Surgery Additional Past Surgical History / Comment(s): Thumb surgery, sx on cervix, colonoscopy, bilat cataracts removed Past Anesthesia/Blood Transfusion Reactions: No Reported Reaction Past Psychological History: No Psychological Hx Reported Smoking Status: Former smoker Past Alcohol Use History: None Reported Past Drug Use History: None Reported - Past Family History Father Family Medical History: Cancer General Exam Limitations: no limitations General appearance: alert, in no apparent distress Head exam: Present: atraumatic, normocephalic Eye exam: Present: normal appearance. Absent: scleral icterus, conjunctival injection Neck exam: Present: normal inspection, full ROM Respiratory exam: Present: respiratory distress, wheezes, rales, decreased breath sounds. Absent: rhonchi, accessory muscle use Cardiovascular Exam: Present: tachycardia, normal heart sounds. Absent: systolic murmur, diastolic murmur GI/Abdominal exam: Present: soft. Absent: distended, tenderness, guarding, rebound, rigid, mass, pulsatile mass Extremities exam: Present: normal inspection, normal capillary refill. Absent: pedal edema, calf tenderness Back exam: Present: normal inspection. Absent: CVA tenderness (R), CVA tenderness (L) Neurological exam: Present: alert Skin exam: Present: warm, dry, intact, normal color. Absent: rash Course Vital Signs 05/30/21 05/31/21 05/31/21 23:58 00:03 00:38 Temperature 97.4 F L Pulse Rate 127 H 125 H Respiratory 32 H 32 H Rate Blood Pressure 145/82 O2 Sat by Pulse 99 Oximetry 05/31/21 05/31/21 05/31/21 00:47 01:01 01:53 Temperature Pulse Rate 122 H 122 H 117 H Respiratory 20 16 Rate Blood Pressure 131/83 126/72 O2 Sat by Pulse 94 L 94 L Oximetry 05/31/21 05/31/21 05/31/21 03:00 04:05 06:56 Temperature 98.2 F Pulse Rate 112 H 123 H 112 H Respiratory 22 24 16 Rate Blood Pressure 115/63 150/82 116/64 O2 Sat by Pulse 96 97 95 Oximetry 05/31/21 07:46 Temperature 98 F Pulse Rate 130 H Respiratory 18 Rate Blood Pressure 116/63 O2 Sat by Pulse 94 L Oximetry Medical Decision Making - Lab Data Result diagrams: 05/31/21 00:26 05/31/21 00:26 Lab Results 05/31/21 05/31/21 05/31/21 Range/Units 00:26 00:26 00:26 WBC 16.7 H (3.8-10.6) k/uL RBC 3.83 (3.80-5.40) m/uL Hgb 12.1 (11.4-16.0) gm/dL Hct 35.6 (34.0-46.0) % MCV 93.0 (80.0-100.0) fL MCH 31.5 (25.0-35.0) pg MCHC 33.9 (31.0-37.0) g/dL RDW 13.8 (11.5-15.5) % Plt Count 204 (150-450) k/uL MPV 8.0 Neutrophils % 88 % Lymphocytes % 7 % Monocytes % 3 % Eosinophils % 1 % Basophils % 0 % Neutrophils # 14.7 H (1.3-7.7) k/uL Lymphocytes # 1.1 (1.0-4.8) k/uL Monocytes # 0.5 (0-1.0) k/uL Eosinophils # 0.2 (0-0.7) k/uL Basophils # 0.0 (0-0.2) k/uL PT 12.4 H (9.0-12.0) sec INR 1.2 H (<1.2) APTT 27.3 (22.0-30.0) sec Sodium 116 L* (137-145) mmol/L Potassium 4.3 (3.5-5.1) mmol/L Chloride 81 L (98-107) mmol/L Carbon Dioxide 27 (22-30) mmol/L Anion Gap 8 mmol/L BUN 11 (7-17) mg/dL Creatinine 0.32 L (0.52-1.04) mg/dL Est GFR (CKD-EPI)AfAm >90 (>60 ml/min/1.73 sqM) Est GFR (CKD-EPI)NonAf >90 (>60 ml/min/1.73 sqM) Glucose 114 H (74-99) mg/dL Plasma Lactic Acid [place] (0.7-2.0) mmol/L Calcium 8.4 (8.4-10.2) mg/dL Total Bilirubin 1.4 H (0.2-1.3) mg/dL AST 28 (14-36) U/L ALT 25 (4-34) U/L Alkaline Phosphatase 62 (38-126) U/L Troponin I (0.000-0.034) ng/mL NT-Pro-B Natriuret Pep pg/mL Total Protein 5.9 L (6.3-8.2) g/dL Albumin 3.3 L (3.5-5.0) g/dL 05/31/21 05/31/21 05/31/21 Range/Units 00:26 00:26 00:26 WBC (3.8-10.6) k/uL RBC (3.80-5.40) m/uL Hgb (11.4-16.0) gm/dL Hct (34.0-46.0) % MCV (80.0-100.0) fL MCH (25.0-35.0) pg MCHC (31.0-37.0) g/dL RDW (11.5-15.5) % Plt Count (150-450) k/uL MPV Neutrophils % % Lymphocytes % % Monocytes % % Eosinophils % % Basophils % % Neutrophils # (1.3-7.7) k/uL Lymphocytes # (1.0-4.8) k/uL Monocytes # (0-1.0) k/uL Eosinophils # (0-0.7) k/uL Basophils # (0-0.2) k/uL PT (9.0-12.0) sec INR (<1.2) APTT (22.0-30.0) sec Sodium (137-145) mmol/L Potassium (3.5-5.1) mmol/L Chloride (98-107) mmol/L Carbon Dioxide (22-30) mmol/L Anion Gap mmol/L BUN (7-17) mg/dL Creatinine (0.52-1.04) mg/dL Est GFR (CKD-EPI)AfAm (>60 ml/min/1.73 sqM) Est GFR (CKD-EPI)NonAf (>60 ml/min/1.73 sqM) Glucose (74-99) mg/dL Plasma Lactic Acid [place] 1.2 (0.7-2.0) mmol/L Calcium (8.4-10.2) mg/dL Total Bilirubin (0.2-1.3) mg/dL AST (14-36) U/L ALT (4-34) U/L Alkaline Phosphatase (38-126) U/L Troponin I 0.040 H* (0.000-0.034) ng/mL NT-Pro-B Natriuret Pep 993 pg/mL Total Protein (6.3-8.2) g/dL Albumin (3.5-5.0) g/dL - EKG Data -: EKG Interpreted by Me EKG shows normal: sinus rhythm, intervals (Normal), QRS complexes (Left anterior fascicular block), ST-T waves (There do appear to be T inversions in leads V3 V4 and V5 which were not present previously ECG from April) Rate: tachycardia (Rate 127) Disposition Clinical Impression: COPD (chronic obstructive pulmonary disease) Disposition: ADMITTED IP TO THIS HOSP Condition: Fair Is patient prescribed a controlled substance at d/c from ED?: No
--- NOTE | 2021-05-31 01:03 | XR ---
EXAMINATION TYPE: XR chest 1V DATE OF EXAM: 05/31/2021 COMPARISON: 05/23/2021 HISTORY: Short of breath TECHNIQUE: Single view FINDINGS: There is no heart failure nor confluent pneumonic infiltrate. There are no hilar masses. Th ere is some linear density right lung base. There is old bilateral humeral neck fractures. IMPRESSION: There is some scarring and subsegmental atelectasis right lung base without change. Normal heart.
[2021-05-31 01:15] LABS: Basophils % (A) 0 %; Eosinophils # (A) 0.2 k/uL (0-0.7); Eosinophils % (A) 1 %; HCT 35.6 % (34.0-46.0); HGB 12.1 gm/dL (11.4-16.0); Lymphocytes # (A) 1.1 k/uL (1.0-4.8); Lymphocytes % (A) 7 %; MCH 31.5 pg (25.0-35.0); MCHC 33.9 g/dL (31.0-37.0); Monocytes # (A) 0.5 k/uL (0-1.0); Monocytes % (A) 3 %; Neutrophils # (A) 14.7 k/uL (1.3-7.7); Neutrophils % (A) 88 %; Platelet Count 204 k/uL (150-450); RBC 3.83 m/uL (3.80-5.40); RDW 13.8 % (11.5-15.5); WBC 16.7 k/uL (3.8-10.6)
[2021-05-31 01:28] LABS: ALT 25 U/L (4-34); AST 28 U/L (14-36); African American GFR (CKD) >90 (>60 ml/min/1.73 sqM); Albumin 3.3 g/dL (3.5-5.0); Alkaline Phosphatase 62 U/L (38-126); Anion Gap 8 mmol/L; Blood Urea Nitrogen 11 mg/dL (7-17); Calcium 8.4 mg/dL (8.4-10.2); Carbon Dioxide 27 mmol/L (22-30); Chloride 81 mmol/L (98-107); Glucose 114 mg/dL (74-99); Non-African American GFR(CKD) >90 (>60 ml/min/1.73 sqM); Potassium 4.3 mmol/L (3.5-5.1); Total Bilirubin 1.4 mg/dL (0.2-1.3); Total Protein 5.9 g/dL (6.3-8.2)
[2021-05-31 01:44] LABS: INR 1.2 (<1.2); Partial Thromboplastin Time 27.3 sec (22.0-30.0); Prothrombin Time 12.4 sec (9.0-12.0)
[2021-05-31 02:03] LABS: Sodium 116 mmol/L (137-145)
[2021-05-31] MEDS ORDERED: methocarbamoL 500 MG TAB PO PRN (03:12)
[2021-05-31 04:47] LABS: Appearance,Urine Cloudy (Clear); Bacteria,Urine Many /hpf; Bilirubin,Urine Negative (Negative); Blood,Urine Negative (Negative); Color,Urine Yellow; Glucose,Urine (UA) Negative (Negative); Ketones,Urine Negative (Negative); Leukocyte Esterase,Urine Large (Negative); Mucus,Urine Rare /hpf; Nitrite,Urine Positive (Negative); Protein,Urine Negative (Negative); RBC,Urine 2 /hpf (0-5); Specific Gravity,Urine 1.011 (1.001-1.035); Squamous Epithelial Cell,Urine 1 /hpf (0-4); Urobilinogen,Urine <2.0 mg/dL (<2.0); WBC,Urine 104 /hpf (0-5)
[2021-05-31] MEDS: SODIUM CHLORIDE 0.9% 1,000 ML IV SCH ×2 (06:57→19:35)
[2021-05-31] MEDS: ALBUTEROL HFA INHALER INHALATION SCH ×4 (07:26→20:08)
[2021-05-31] MEDS: TIOTROPIUM 2.5 MCG INHALER INHALATION SCH (07:27)
[2021-05-31] MEDS: SYMBICORT 160-4.5 MCG INHALER INHALATION SCH ×2 (07:27→20:08)
[2021-05-31] MEDS: METOPROLOL TARTRATE 50 MG TAB PO SCH ×2 (08:50→22:24)
[2021-05-31] MEDS: predniSONE 20 MG TAB PO SCH (08:50)
[2021-05-31] MEDS: HEPARIN SODIUM,PORCINE/PF 5,000 UNIT/0.5 ML SYRINGE SQ SCH ×2 (08:50→22:12)
[2021-05-31] MEDS: bisacodyL 10 MG SUPP RECTAL SCH (08:51)
[2021-05-31] MEDS: PANTOPRAZOLE 40 MG TABLET PO SCH (08:51)
[2021-05-31] MEDS: ASPIRIN 81 MG PO SCH (08:51)
[2021-05-31] MEDS: ATORVASTATIN 40 MG TAB PO SCH (08:51)
[2021-05-31] MEDS: ASCORBIC ACID 500 MG TAB PO SCH (08:51)
[2021-05-31] MEDS: DOXYCYCLINE 100 MG CAP PO SCH ×2 (08:56→22:12)
[2021-05-31] MEDS ORDERED: lisinopriL 5 MG TAB PO SCH (09:00)
--- NOTE | 2021-05-31 10:00 | P.HPIM ---
History of Present Illness Patient was a 60-year-old female came in with compensative shortness of breath does have history of COPD does use 3 as a part and presently requiring 6 L of oxygen patient chest x-ray showing some atelectasis. Patient is comparing of cough with sputum production patient was a recently hospitalized for prolonged period of time for Covid 19 pneumonia patient was intubated and subsequently extubated. Patient was hyponatremic at that time patient is presently hyponatremic patient was treated with hypervolemic hyponatremia with IV fluids with improvement in serum sodium patient admits to not eating or drinking well. Patient quit smoking 3 or 4 years ago. Patient is presently on oxygen and oral prednisone and is being admitted for COPD exacerbation. REVIEW OF SYSTEMS: CONSTITUTIONAL: No fever.HEENT: No recent visual problems or hearing problems. Denied any sore throat. CARDIOVASCULAR: No chest pain, orthopnea, PND, no palpitations, no syncope. PULMONARY: As mentioned in HPI GASTROINTESTINAL: No diarrhea, no nausea, no vomiting, no abdominal pain. NEUROLOGICAL: No headaches, no weakness, no numbness. HEMATOLOGICAL: Denies any bleeding or petechiae. GENITOURINARY: Denies any burning micturition, frequency, or urgency. MUSCULOSKELETAL/RHEUMATOLOGICAL: Denies any joint pain, swelling, or any muscle pain. ENDOCRINE: Denies any polyuria or polydipsia. The rest of the 14-point review of systems is negative. PHYSICAL EXAMINATION: GENERAL: The patient is alert and oriented x3, not in any acute distress. Thin built female HEENT: Pupils are round and equally reacting to light. EOMI. No scleral icterus. No conjunctival pallor. Normocephalic, atraumatic. No pharyngeal erythema. No thyromegaly. CARDIOVASCULAR: S1 and S2 present. No murmurs, rubs, or gallops. PULMONARY:wheezing on exam ABDOMEN: Soft, nontender, nondistended, normoactive bowel sounds. No palpable organomegaly. MUSCULOSKELETAL: No joint swelling or deformity. EXTREMITIES: No cyanosis, clubbing, or pedal edema. NEUROLOGICAL: Gross neurological examination did not reveal any focal deficits. SKIN: No rashes. Assessment and plan -Acute on chronic hypoxic and hypercapnic respiratory failure secondary to COPD exacerbation patient will be continued on systemic steroids inhalational treatments, doxycycline -Possible bronchitis -History of COPD and chronic respiratory failure secondary to that -Possible hypervolemic hyponatremia: Nephrology was consulted patient will be continued on IV fluids and we will obtain serum and urine osmolality, urine random sodium urine random creatinine. TSH. DVT prophylaxis: Lovenox Past Medical History Past Medical History: Asthma, Blood Disorder, COPD, Pneumonia Additional Past Medical History / Comment(s): heart arrythmia, hx anemia, USES O2/2L NC AT HS History of Any Multi-Drug Resistant Organisms: None Reported Past Surgical History: Orthopedic Surgery Additional Past Surgical History / Comment(s): Thumb surgery, sx on cervix, colonoscopy, bilat cataracts removed Past Anesthesia/Blood Transfusion Reactions: No Reported Reaction Past Psychological History: No Psychological Hx Reported Smoking Status: Former smoker Past Alcohol Use History: None Reported Past Drug Use History: None Reported - Past Family History Father Family Medical History: Cancer Medications and Allergies Home Medications Medication Instructions Recorded Confirmed Type Montelukast [Singulair] 10 mg PO HS 02/09/14 05/31/21 History methocarbamoL [Robaxin] 500 mg PO TID PRN 02/09/14 05/31/21 History Ascorbic Acid [Vitamin C] 500 mg PO DAILY 05/12/19 05/31/21 History Budesonide/Formoterol Fumarate 2 puff INHALATION RT-BID 05/12/19 05/31/21 History [Symbicort 160-4.5 Mcg Inhaler] Cholecalciferol [Vitamin D3 (25 25 mcg PO DAILY 05/12/19 05/31/21 History Mcg = 1000 Iu)] Tolterodine Tartrate [Detrol LA] 4 mg PO HS 05/12/19 05/31/21 History Calcium Carbonate [Calcium] 600 mg PO DAILY 06/20/19 05/31/21 History guaiFENesin [Mucinex] 1,200 mg PO Q12HR #60 tablet.er 07/04/19 05/31/21 Rx Albuterol Nebulized [Ventolin 2.5 mg INHALATION RT-QID PRN 05/10/21 05/31/21 History Nebulized] Aspirin [Children's Aspirin] 81 mg PO DAILY 05/10/21 05/31/21 History Fluticasone Nasal [place] [Flonase 2 spray EA NOSTRIL DAILY 05/10/21 05/31/21 History Nasal [place]] Ipratropium [place] [Atrovent Hfa] 2 puff INHALATION RT-Q6H 05/10/21 05/31/21 History Ipratropium Nebulized [Atrovent 0.5 mg INHALATION RT-Q6H PRN 05/10/21 05/31/21 History Nebulized 0.2 MG/ML] Atorvastatin [Lipitor] 40 mg PO DAILY 30 Days #30 tab 05/19/21 05/31/21 Rx Metoprolol Tartrate [Lopressor] 50 mg PO BID 30 Days #60 tab 05/19/21 05/31/21 Rx Pantoprazole [Protonix] 40 mg PO AC-BRKFST 30 Days #30 tab 05/19/21 05/31/21 Rx Fluconazole [Diflucan] 100 mg PO DAILY 5 Days #5 tab 05/20/21 05/31/21 Rx lisinopriL [Zestril] 5 mg PO DAILY 30 Days #30 tab 05/20/21 05/31/21 Rx Nystatin 100,000 Unit/ml Susp 500,000 unit PO QID #140 ml 05/27/21 05/31/21 Rx [Mycostatin Oral Susp] Albuterol Inhaler [Ventolin Hfa 2 puff INHALATION RT-QID PRN #18 gm 05/29/21 05/31/21 Rx Inhaler] Benzocaine/Menthol Lozeng [Cepacol 1 lozenge MUCOUS MEM Q4HR PRN 05/31/21 05/31/21 History lozenge] bisacodyL [Dulcolax] 10 mg RECTAL DAILY PRN 05/31/21 05/31/21 History dexAMETHasone See Taper PO DAILY 05/31/21 05/31/21 History Allergies Allergy/AdvReac Type Severity Reaction Status Date / Time umeclidinium AdvReac Dyspnea Verified 05/31/21 07:37 [From Incruse Ellipta] Physical Exam Vitals: Vital Signs Temp Pulse Resp BP Pulse Ox 05/31/21 07:46 98 F 130 H 18 116/63 94 L 05/31/21 06:56 98.2 F 112 H 16 116/64 95 05/31/21 04:05 123 H 24 150/82 97 05/31/21 03:00 112 H 22 115/63 96 05/31/21 01:53 117 H 16 126/72 94 L 05/31/21 01:01 122 H 20 131/83 94 L 05/31/21 00:47 122 H 05/31/21 00:38 125 H 05/31/21 00:03 32 H 05/30/21 23:58 97.4 F L 127 H 32 H 145/82 99 Intake and Output 05/30/21 05/31/21 05/31/21 22:59 06:59 14:59 Other: Weight 57.1 kg Results CBC & Chem 7: 05/31/21 00:26 05/31/21 00:26 Labs: Abnormal Lab Results - Last 24 Hours (Table) 05/31/21 05/31/21 05/31/21 Range/Units 00:26 00:26 00:26 WBC 16.7 H (3.8-10.6) k/uL Neutrophils # 14.7 H (1.3-7.7) k/uL PT 12.4 H (9.0-12.0) sec INR 1.2 H (<1.2) Sodium 116 L* (137-145) mmol/L Chloride 81 L (98-107) mmol/L Creatinine 0.32 L (0.52-1.04) mg/dL Glucose 114 H (74-99) mg/dL Total Bilirubin 1.4 H (0.2-1.3) mg/dL Troponin I (0.000-0.034) ng/mL Total Protein 5.9 L (6.3-8.2) g/dL Albumin 3.3 L (3.5-5.0) g/dL Urine Appearance (Clear) Urine Nitrite (Negative) Ur Leukocyte Esterase (Negative) Urine WBC (0-5) /hpf Urine Bacteria (None) /hpf Urine Mucus (None) /hpf 05/31/21 05/31/21 Range/Units 00:26 04:10 WBC (3.8-10.6) k/uL Neutrophils # (1.3-7.7) k/uL PT (9.0-12.0) sec INR (<1.2) Sodium (137-145) mmol/L Chloride (98-107) mmol/L Creatinine (0.52-1.04) mg/dL Glucose (74-99) mg/dL Total Bilirubin (0.2-1.3) mg/dL Troponin I 0.040 H* (0.000-0.034) ng/mL Total Protein (6.3-8.2) g/dL Albumin (3.5-5.0) g/dL Urine Appearance Cloudy H (Clear) Urine Nitrite Positive H (Negative) Ur Leukocyte Esterase Large H (Negative) Urine WBC 104 H (0-5) /hpf Urine Bacteria Many H (None) /hpf Urine Mucus Rare H (None) /hpf Microbiology - Last 24 Hours (Table) 05/31/21 04:10 Urine Culture - Preliminary Urine,Voided
--- NOTE | 2021-05-31 10:15 | P.CNPUL ---
History of Present Illness Consult date: 05/31/21 Requesting physician: Hieu Page Reason for consult: dyspnea, abnormal CXR/CT Chief complaint: Shortness of breath, cough, congestion History of present illness: This is a 65-year-old female patient who has a history of chronic obstructive pulmonary disease with an FEV1 value 23% of predicted, former smoker, recent COVID-19 infection, sepsis, and recent discharge for acute on chronic h ypoxic/hypercapnic respiratory failure with right lower lobe community-acquired pneumonia, COVID-19 infection, COPD exacerbation, hypovolemic hyponatremia. Discharged home on 05/29/2021. She returned to the emergency room early this morning worsening shortness of breath, cough and congestion. She was on home oxygen. Her saturations were found in the low 80s. She is seen today again in consultation in the emergency room resting comfortably on the stretcher. Awake and alert in no acute distress. Continue O2 saturations in the 90s on 6 L/m per nasal cannula. She's afebrile. Slightly tachycardic. Blood pressure stable. Urine culture pending. White count 16.7. Hemoglobin 12.1. Sodium 116. Potassium 4.3. Creatinine 0.32. Troponin 0.04. BNP 993. Urinalysis positive for nitrates and large leukocytes. Mensah virus not detected. X-ray reveals some scarring and subsegmental atelectasis of the right lung base. Otherwise clear. She's been initiated on Symbicort, Spiriva, albuterol, Singulair. Continued on prednisone at 40 mg daily. Review of Systems REVIEW OF SYSTEMS: CONSTITUTIONAL: Denies any recent significant weight loss or weight gain. EYES: Denies change in vision. EARS, NOSE, MOUTH, THROAT: Denies headaches, denies sore throat. CARDIOVASCULAR: Denies chest pain, palpitations or syncopal episodes. RESPIRATORY: Positive for shortness of breath, cough, congestion no hemoptysis. GASTROINTESTINAL: Positive for poor appetite, denies abdominal pain GENITOURINARY: Denies hematuria, denies infections. MUSKULOSKELETAL: Denies pain, denies swelling. INTEGUMENTARY: Denies rash, denies eczema. NEUROLOGICAL: Denies recent memory loss, no recent seizure activity. PSYCHIATRIC: Denies anxiety, denies depression. HEMATOLOGIC/LYMPHATIC: Denies anemia, denies enlarged lymph nodes. Past Medical History Past Medical History: Asthma, Blood Disorder, COPD, Pneumonia Additional Past Medical History / Comment(s): heart arrythmia, hx anemia, USES O2/2L NC AT HS History of Any Multi-Drug Resistant Organisms: None Reported Past Surgical History: Orthopedic Surgery Additional Past Surgical History / Comment(s): Thumb surgery, sx on cervix, colonoscopy, bilat cataracts removed Past Anesthesia/Blood Transfusion Reactions: No Reported Reaction Past Psychological History: No Psychological Hx Reported Smoking Status: Former smoker Past Alcohol Use History: None Reported Past Drug Use History: None Reported - Past Family History Father Family Medical History: Cancer Medications and Allergies Home Medications Medication Instructions Recorded Confirmed Type Montelukast [Singulair] 10 mg PO HS 02/09/14 05/31/21 History methocarbamoL [Robaxin] 500 mg PO TID PRN 02/09/14 05/31/21 History Ascorbic Acid [Vitamin C] 500 mg PO DAILY 05/12/19 05/31/21 History Budesonide/Formoterol Fumarate 2 puff INHALATION RT-BID 05/12/19 05/31/21 History [Symbicort 160-4.5 Mcg Inhaler] Cholecalciferol [Vitamin D3 (25 25 mcg PO DAILY 05/12/19 05/31/21 History Mcg = 1000 Iu)] Tolterodine Tartrate [Detrol LA] 4 mg PO HS 05/12/19 05/31/21 History Calcium Carbonate [Calcium] 600 mg PO DAILY 06/20/19 05/31/21 History guaiFENesin [Mucinex] 1,200 mg PO Q12HR #60 tablet.er 07/04/19 05/31/21 Rx Albuterol Nebulized [Ventolin 2.5 mg INHALATION RT-QID PRN 05/10/21 05/31/21 History Nebulized] Aspirin [Children's Aspirin] 81 mg PO DAILY 05/10/21 05/31/21 History Fluticasone Nasal [place] [Flonase 2 spray EA NOSTRIL DAILY 05/10/21 05/31/21 History Nasal [place]] Ipratropium [place] [Atrovent Hfa] 2 puff INHALATION RT-Q6H 05/10/21 05/31/21 History Ipratropium Nebulized [Atrovent 0.5 mg INHALATION RT-Q6H PRN 05/10/21 05/31/21 History Nebulized 0.2 MG/ML] Atorvastatin [Lipitor] 40 mg PO DAILY 30 Days #30 tab 05/19/21 05/31/21 Rx Metoprolol Tartrate [Lopressor] 50 mg PO BID 30 Days #60 tab 05/19/21 05/31/21 Rx Pantoprazole [Protonix] 40 mg PO AC-BRKFST 30 Days #30 tab 05/19/21 05/31/21 Rx Fluconazole [Diflucan] 100 mg PO DAILY 5 Days #5 tab 05/20/21 05/31/21 Rx lisinopriL [Zestril] 5 mg PO DAILY 30 Days #30 tab 05/20/21 05/31/21 Rx Nystatin 100,000 Unit/ml Susp 500,000 unit PO QID #140 ml 05/27/21 05/31/21 Rx [Mycostatin Oral Susp] Albuterol Inhaler [Ventolin Hfa 2 puff INHALATION RT-QID PRN #18 gm 05/29/21 05/31/21 Rx Inhaler] Benzocaine/Menthol Lozeng [Cepacol 1 lozenge MUCOUS MEM Q4HR PRN 05/31/21 05/31/21 History lozenge] bisacodyL [Dulcolax] 10 mg RECTAL DAILY PRN 05/31/21 05/31/21 History dexAMETHasone See Taper PO DAILY 05/31/21 05/31/21 History Allergies Allergy/AdvReac Type Severity Reaction Status Date / Time umeclidinium AdvReac Dyspnea Verified 05/31/21 07:37 [From Incruse Ellipta] Physical Exam Vitals: Vital Signs Temp Pulse Resp BP Pulse Ox 05/31/21 07:46 98 F 130 H 18 116/63 94 L 05/31/21 06:56 98.2 F 112 H 16 116/64 95 05/31/21 04:05 123 H 24 150/82 97 05/31/21 03:00 112 H 22 115/63 96 05/31/21 01:53 117 H 16 126/72 94 L 05/31/21 01:01 122 H 20 131/83 94 L 05/31/21 00:47 122 H 05/31/21 00:38 125 H 05/31/21 00:03 32 H 05/30/21 23:58 97.4 F L 127 H 32 H 145/82 99 Intake and Output 05/30/21 05/31/21 05/31/21 22:59 06:59 14:59 Other: Weight 57.1 kg GENERAL EXAM: Alert, pleasant 65-year-old female, appears older than stated age, 6 L nasal cannula, comfortable in no apparent distress. HEAD: Normocephalic. EYES: Normal reaction of pupils, equal size. NOSE: Clear with pink turbinates. THROAT: No erythema or exudates. NECK: No masses, no JVD. CHEST: No chest wall deformity. LUNGS: Equal air entry with crackles in the right lung base, diminished. CVS: S1 and S2 normal with no audible murmur, regular rhythm. ABDOMEN: No hepatosplenomegaly, normal bowel sounds, no guarding or rigidity. SPINE: No scoliosis or deformity SKIN: No rashes CENTRAL NERVOUS SYSTEM: No focal deficits, tone is normal in all 4 extremities. EXTREMITIES: There is no peripheral edema. No clubbing, no cyanosis. Peripheral pulses are intact. Results - Laboratory Findings CBC and BMP: 05/31/21 00:26 05/31/21 00:26 PT/INR, D-dimer PT 12.4 sec (9.0-12.0) H 05/31/21 00:26 INR 1.2 (<1.2) H 05/31/21 00:26 Abnormal lab findings: Abnormal Labs 05/31/21 05/31/21 05/31/21 00:26 00:26 00:26 WBC 16.7 H Neutrophils # 14.7 H PT 12.4 H INR 1.2 H Sodium 116 L* Chloride 81 L Creatinine 0.32 L Glucose 114 H Total Bilirubin 1.4 H Troponin I Total Protein 5.9 L Albumin 3.3 L Urine Appearance Urine Nitrite Ur Leukocyte Esterase Urine WBC Urine Bacteria Urine Mucus 05/31/21 05/31/21 00:26 04:10 WBC Neutrophils # PT INR Sodium Chloride Creatinine Glucose Total Bilirubin Troponin I 0.040 H* Total Protein Albumin Urine Appearance Cloudy H Urine Nitrite Positive H Ur Leukocyte Esterase Large H Urine WBC 104 H Urine Bacteria Many H Urine Mucus Rare H - Diagnostic Findings Chest x-ray: image reviewed Assessment and Plan Assessment: 1 Acute on chronic hypoxemic respiratory failure secondary to an acute exacerbation of chronic obstructive pulmonary disease, atelectasis of the right lung base. 2 Severe oxygen dependent chronic obstructive pulmonary disease with an FEV1 value 23% of predicted 3 Former smoker 4 Hypovolemic hyponatremia suspect secondary to poor oral intake 5 Suspected urinary tract infection 6 Recent COVID-19 infection, negative this admission 7 Recent admission for acute on chronic hypoxic/hypercapnic respiratory failure and possible right lower lobe community acquired pneumonia, COVID-19 infection, COPD. Discharged on 05/29/2021 8 History of anemia Plan: The patient was seen and evaluated by Dr. Huerta Chest x-ray and labs reviewed Continue prednisone taper Continue bronchodilators Add doxycycline Titrate the FiO2 as tolerated Nephrology per hyponatremia May need manager social media regarding home situation We will continue to follow and make further recommendations based on her clinical status I, the cosigning physician, performed a history & physical examination of the patient. Lungs sounds with crackles in the right lung base, diminished. Maintaining good O2 saturations in the 90s on 6 liters per minute per nasal cannula. I discussed the assessment and plan of care with my nurse practitioner, Hansa Enciso. I attest to the above consultation as dictated by her. Time with Patient: Greater than 30
[2021-05-31] MEDS: NYSTATIN 100,000 UNIT/ML SUSP 500,000 UNIT/5 ML CUP PO SCH ×4 (11:04→22:50)
--- NOTE | 2021-05-31 20:12 | CONS ---
CONSULTATION REASON FOR CONSULT: Hyponatremia. HISTORY OF PRESENT ILLNESS: Patient is a 65-year-old female who was admitted to the hospital with complaints of increased weakness. She stated that she had not been eating or drinking well prior to admission. This was going on for about a week. Patient also had cough productive of some phlegm. Patient has a history of COVID pneumonia with respiratory failure and intubation. This was last month. Patient had an episode of hyponatremia last month as well with serum sodium which improved with normal saline administration. This admission patient's sodium was 116. She is maintained on saline and it is up to 123 now. Previous sodium had improved from 114 to 119 and subsequently in the 130 range. Patient denies any significant diarrhea, vomiting, or nausea. No significant abdominal pain. She is not maintained on any diuretics at home. PAST MEDICAL HISTORY: Asthma, COPD, pneumonia, recent positive PCR for coronavirus. PAST SURGICAL HISTORY: Thumb surgery, colonoscopy, bilateral cataract removal. SOCIAL HISTORY: Patient is a former smoker. No history of drug abuse or alcohol abuse. MEDICATIONS: Medications prior to admission are multiple. Please see list. No diuretics noted. ALLERGIES: ALLERGIES include INCRUSE ELLIPTA, which caused shortness of breath. PHYSICAL EXAMINATION: Patient is comfortable, awake, not in any acute distress. Blood pressure is 116/63, heart rate 120 per minute. She is afebrile. EXAMINATION OF THE HEART: S1 and S2. EXAMINATION OF LUNGS: Decreased breath sounds at the bases. Abdomen is soft, non-tender. Examination of lower extremities shows no evidence of edema. COMPTOMETRIST exam shows patient is able to move all 4 extremities. LABS: Sodium 116, potassium 4.3, BUN 11, serum creatinine 0.32. UA shows WBCs 104, positive nitrite. Repeat sodium was 123 at 10 a.m. ASSESSMENT: 1. Hyponatremia; appears to be hypovolemic, improved with normal saline. Previous urine osmolality was low at 146. There is probably a component of poor solute intake as well. Patient's blood pressure is not high. I will start her on sodium chloride tabs. Her sodium has already increased by about 6 points. We will repeat another serum sodium in about 6 hours and if there is no significant further increase, she will be started on sodium chloride tabs, which patient should continue post discharge. 2. Pyuria. Rule out urinary tract infection. 3. Recent positive PCR for coronavirus. 4. History of chronic obstructive pulmonary disease. 5. Acute on chronic hypoxic and hypercapnic respiratory failure. PLAN: Repeat sodium later on this afternoon. Check urine osmolality. Add sodium chloride tabs if sodium does not further increase. It has already increased about 7 points in 10 hours, which is slightly on the rapid side. Check urine osmolality again. Thank you for this consultation. Will continue to follow the patient with you during her hospitalization. MMODL / IJN: [id number] /
[2021-05-31] MEDS: MONTELUKAST 10 MG TAB PO SCH (22:11)
[2021-05-31] MEDS: OXYBUTYNIN XL 5 MG TAB.ER.24 PO SCH (22:11)
[2021-06-01] MEDS: ALBUTEROL HFA INHALER INHALATION SCH ×5 (00:01→20:03)
[2021-06-01 04:31] LABS: African American GFR (CKD) >90 (>60 ml/min/1.73 sqM); Anion Gap 1 mmol/L; Blood Urea Nitrogen 7 mg/dL (7-17); Calcium 8.2 mg/dL (8.4-10.2); Carbon Dioxide 30 mmol/L (22-30); Chloride 97 mmol/L (98-107); Glucose 103 mg/dL (74-99); Non-African American GFR(CKD) >90 (>60 ml/min/1.73 sqM); Potassium 3.8 mmol/L (3.5-5.1); Sodium 128 mmol/L (137-145)
[2021-06-01] MEDS: TIOTROPIUM 2.5 MCG INHALER INHALATION SCH (07:51)
[2021-06-01] MEDS: SYMBICORT 160-4.5 MCG INHALER INHALATION SCH ×2 (07:51→20:03)
[2021-06-01] MEDS: predniSONE 20 MG TAB PO SCH (09:30)
[2021-06-01] MEDS: ATORVASTATIN 40 MG TAB PO SCH (09:30)
[2021-06-01] MEDS: ASCORBIC ACID 500 MG TAB PO SCH (09:30)
[2021-06-01] MEDS: PANTOPRAZOLE 40 MG TABLET PO SCH (09:30)
[2021-06-01] MEDS: DOXYCYCLINE 100 MG CAP PO SCH ×2 (09:30→22:39)
[2021-06-01] MEDS: ASPIRIN 81 MG PO SCH (09:31)
[2021-06-01] MEDS: bisacodyL 10 MG SUPP RECTAL SCH ×2 (09:31→09:34)
[2021-06-01] MEDS: METOPROLOL TARTRATE 50 MG TAB PO SCH ×2 (09:31→21:45)
[2021-06-01] MEDS: SODIUM CHLORIDE 0.9% 1,000 ML IV SCH ×2 (09:32→14:00)
[2021-06-01] MEDS: HEPARIN SODIUM,PORCINE/PF 5,000 UNIT/0.5 ML SYRINGE SQ SCH ×2 (09:41→21:45)
[2021-06-01] MEDS: NYSTATIN 100,000 UNIT/ML SUSP 500,000 UNIT/5 ML CUP PO SCH ×4 (10:28→22:39)
[2021-06-01] MEDS: guaiFENesin 600 MG TABLET.ER PO SCH ×2 (11:20→21:45)
--- NOTE | 2021-06-01 12:13 | P.PN ---
Subjective Progress Note Date: 06/01/21 Principal diagnosis: COPD exacerbation This is a 65-year-old female patient who has a history of chronic obstructive pulmonary disease with an FEV1 value 23% of predicted, former smoker, recent COVID-19 infection, sepsis, and recent discharge for acute on chronic hypoxic/hypercapnic respiratory failure with right lower lobe community-acquired pneumonia, COVID-19 infection, COPD exacerbation, hypovolemic hyponatremia. Discharged home on 05/29/2021. She returned to the emergency room early this morning worsening shortness of breath, cough and congestion. She was on home o xygen. Her saturations were found in the low 80s. She is seen today again in consultation in the emergency room resting comfortably on the stretcher. Awake and alert in no acute distress. Continue O2 saturations in the 90s on 6 L/m per nasal cannula. She's afebrile. Slightly tachycardic. Blood pressure stable. Urine culture pending. White count 16.7. Hemoglobin 12.1. Sodium 116. Potass ium 4.3. Creatinine 0.32. Troponin 0.04. BNP 993. Urinalysis positive for nitrates and large leukocytes. [place] virus not detected. X-ray reveals some scarring and subsegmental atelectasis of the right lung base. Otherwise clear. She's been initiated on Symbicort, Spiriva, albuterol, Singulair. Continued on prednisone at 40 mg daily. The patient is seen today 06/01/2021 in follow-up in the emergency department. She is currently resting comfortably in bed. Awake and alert in no acute distress. Breathing a bit easier today compared to yesterday. Maintaining O2 saturations in the mid 90s on 4 L/m per nasal cannula. She is in sinus rhythm. Urine culture pending. Sodium 128. Potassium 3.8. Creatinine 0.37. TSH 0.39. T4 1 0.30. She is continued on Symbicort, Spiriva, Singulair, albuterol. Remains on a prednisone taper. Continue empiric antibiotics in the form of doxycycline. Nystatin for oral eda. Objective - Vital Signs Vital signs: Vital Signs Temp 98.4 F 06/01/21 11:58 Pulse 86 06/01/21 11:58 Resp 16 06/01/21 11:58 BP 145/78 06/01/21 11:58 Pulse Ox 96 06/01/21 11:58 Intake & Output 05/31/21 06/01/21 06/01/21 18:59 06:59 18:59 Weight 57.1 kg - Exam GENERAL EXAM: Alert, pleasant 65-year-old female, appears older than stated age, 4 L nasal cannula, comfortable in no apparent distress. HEAD: Normocephalic. EYES: Normal reaction of pupils, equal size. NOSE: Clear with pink turbinates. THROAT: No erythema or exudates. NECK: No masses, no JVD. CHEST: No chest wall deformity. LUNGS: Equal air entry with crackles in the right lung base, diminished. CVS: S1 and S2 normal with no audible murmur, regular rhythm. ABDOMEN: No hepatosplenomegaly, normal bowel sounds, no guarding or rigidity. SPINE: No scoliosis or deformity SKIN: No rashes CENTRAL NERVOUS SYSTEM: No focal deficits, tone is normal in all 4 extremities. EXTREMITIES: There is no peripheral edema. No clubbing, no cyanosis. Peripheral pulses are intact. - Labs CBC & Chem 7: 05/31/21 00:26 06/01/21 03:40 Labs: Abnormal Lab Results - Last 24 Hours (Table) 05/31/21 05/31/21 06/01/21 Range/Units 10:04 18:30 03:40 Sodium 122 L 128 L (137-145) mmol/L Chloride 97 L (98-107) mmol/L Creatinine 0.37 L (0.52-1.04) mg/dL Glucose 103 H (74-99) mg/dL Osmolality 264 L (280-301) mosm/kg Calcium 8.2 L (8.4-10.2) mg/dL TSH 0.392 L (0.465-4.680) mIU/L Microbiology - Last 24 Hours (Table) 05/31/21 04:10 Urine Culture - Preliminary Urine,Voided Assessment and Plan Assessment: 1 Acute on chronic hypoxemic respiratory failure secondary to an acute exacerbat ion of chronic obstructive pulmonary disease, atelectasis of the right lung base. 2 Severe oxygen dependent chronic obstructive pulmonary disease with an FEV1 value 23% of predicted 3 Former smoker 4 Hypovolemic hyponatremia suspect secondary to poor oral intake, improving current sodium 120 5 Suspected urinary tract infection, culture pending 6 Recent COVID-19 infection, negative this admission 7 Recent admission for acute on chronic hypoxic/hypercapnic respiratory failure and possible right lower lobe community acquired pneumonia, COVID-19 infection, COPD. Discharged on 05/29/2021 8 History of anemia Plan: The patient was seen and evaluated by Dr. Huerta Continue prednisone taper, bronchodilators, doxycycline Titrate the FiO2 as tolerated May need subacute rehabilitation We will continue to follow I, the cosigning physician, performed a history & physical examination of the patient. Lungs sounds with crackles in the right lung base, diminished. Maintaining good O2 saturations in the 90s on 4 liters per minute per nasal cannula. I discussed the assessment and plan of care with my nurse practitioner, Hansa Enciso. I attest to the above consultation as dictated by her.
--- NOTE | 2021-06-01 13:08 | P.PN ---
Subjective Progress Note Date: 06/01/21 Patient was a 60-year-old female came in with compensative shortness of breath does have history of COPD does use 3 as a part and presently requiring 6 L of oxygen patient chest x-ray showing some atelectasis. Patient is comparing of cough with sputum production patient was a recently hospitalized for prolonged period of time for Covid 19 pneumonia patient was intubated and subsequently extubated. Patient was hyponatremic at that time patient is presently hyponatremic patient was treated with hypervolemic hyponatremia with IV fluids with improvement in serum sodium patient admits to not eating or drinking well. Patient quit smoking 3 or 4 years ago. Patient is presently on oxygen and oral prednisone and is being admitted for COPD exacerbation. 06/01/2021 Patient is in her breathing today is improving, although she is unable to take a deep breath her lungs feel tight. She states that her chest hurts from coughing. Patient is requesting Mucinex. Patient was started on oral antibiotics as well as oral steroids. She'll continue on 0.9ns at 100 as recommended by nephrology. Labs today show a sodium level of 128, potassium 3.8, chloride 97, bicarb 30, glucose 103, TSH low at 0.392 however her T4 is normal at 1.30. Vitals show a T-max of 99.1, heart rate 78, blood pressure 145/70 and she is 96% on 2L NC. Pt lives with her son, his girlfriend and grandkids who perform all the home duties include cooking and cleaning. REVIEW OF SYSTEMS: Constitutional: Denied any fatigue denied any fever. Cardio vascular: denied any chest pain, palpitations Gastrointestinal denied any nausea vomiting Pulmonary: Reports shortness breath at rest and cough Neurologic denied any new focal deficits All inpatient medications were reviewed and appropriate changes in these medications as dictated in the interval history and assessment and plan. PHYSICAL EXAMINATION: GENERAL: The patient is alert and oriented x3, not in any acute distress. Thin built female HEENT: Pupils are round and equally reacting to light. EOMI. No scleral icterus. No conjunctival pallor. Normocephalic, atraumatic. No pharyngeal erythema. No thyromegaly. CARDIOVASCULAR: S1 and S2 present. No murmurs, rubs, or gallops. PULMONARY: Faint expiratory wheezing, there is decreased aeration in all lung varma posteriorly. ABDOMEN: Soft, nontender, nondistended, normoactive bowel sounds. No palpable organomegaly. MUSCULOSKELETAL: No joint swelling or deformity. EXTREMITIES: No cyanosis, clubbing, trace ankle edema nonpitting NEUROLOGICAL: Gross neurological examination did not reveal any focal deficits. SKIN: No rashes. Assessment and plan -Acute on chronic hypoxic and hypercapnic respiratory failure secondary to COPD exacerbation -Possible bronchitis -History of COPD, oxygen dependent on 3-4 L nasal canula -Recent Covid19 infection requiring intubation, Covid PCR negative -Hypovolemic hyponatremia: secondary to poor oral intake -History of tobacco dependence DVT prophylaxis: Lovenox GI Prophylaxis: SQ heparin Plan Continue PO antibiotics, PO steroids Continue on 0.9 ns, repeat sodium level tomorrow PT/OT consultation Continue all other supportive care Repeats labs tomorrow. Objective - Vital Signs Vital signs: Vital Signs Temp 98.4 F 06/01/21 11:58 Pulse 86 06/01/21 11:58 Resp 16 06/01/21 11:58 BP 145/78 06/01/21 11:58 Pulse Ox 96 06/01/21 11:58 Intake & Output 05/31/21 06/01/21 06/01/21 18:59 06:59 18:59 Weight 57.1 kg - Labs CBC & Chem 7: 05/31/21 00:26 06/01/21 03:40 Labs: Abnormal Lab Results - Last 24 Hours (Table) 05/31/21 06/01/21 Range/Units 18:30 03:40 Sodium 122 L 128 L (137-145) mmol/L Chloride 97 L (98-107) mmol/L Creatinine 0.37 L (0.52-1.04) mg/dL Glucose 103 H (74-99) mg/dL Calcium 8.2 L (8.4-10.2) mg/dL TSH 0.392 L (0.465-4.680) mIU/L Microbiology - Last 24 Hours (Table) 05/31/21 04:10 Urine Culture - Preliminary Urine,Voided Assessment and Plan Time with Patient: Greater than 30
--- NOTE | 2021-06-01 15:49 | PN ---
PROGRESS NOTE REASON FOR CONSULT: The patient is seen for followup for hyponatremia. Her serum sodium was 116 yesterday on initial admission. It is gone up to 128 today. Patient was maintained on normal saline. I do not see the IV fluids running currently. Overall, she states she is feeling better. PHYSICAL EXAMINATION: On examination today, blood pressure is 121/63, heart rate 78 per minute. She is afebrile. Examination of the lower extremities shows no evidence of edema. The patient is moving all 4 extremities. LAB: Show sodium 128, potassium 3.8, BUN 7, serum creatinine 0.37. ASSESSMENT: 1. Hypovolemic hyponatremia, improved with saline administration. I will continue with the saline. Decrease it to about 50 mL an hour. 2. Pyuria rule out urinary tract infection. 3. Recent positive PCR for coronavirus, currently negative. 4. Acute on chronic hypoxic and hypercapnic respiratory failure. PLAN: Continue with saline. Decrease rate. Repeat sodium in a.m. Encourage increased oral intake. MMODL / IJN: [id number] /
[2021-06-01] MEDS: MONTELUKAST 10 MG TAB PO SCH (21:45)
[2021-06-01] MEDS: OXYBUTYNIN XL 5 MG TAB.ER.24 PO SCH (21:45)
[2021-06-02] MEDS: SODIUM CHLORIDE 0.9% 1,000 ML IV SCH ×3 (03:54→16:40)
[2021-06-02] MEDS: PANTOPRAZOLE 40 MG TABLET PO SCH (06:49)
[2021-06-02] MEDS: METOPROLOL TARTRATE 50 MG TAB PO SCH ×2 (08:26→20:25)
[2021-06-02] MEDS: ATORVASTATIN 40 MG TAB PO SCH (08:26)
[2021-06-02] MEDS: predniSONE 20 MG TAB PO SCH (08:26)
[2021-06-02] MEDS: guaiFENesin 600 MG TABLET.ER PO SCH ×2 (08:26→20:25)
[2021-06-02] MEDS: ASCORBIC ACID 500 MG TAB PO SCH (08:26)
[2021-06-02] MEDS: NYSTATIN 100,000 UNIT/ML SUSP 500,000 UNIT/5 ML CUP PO SCH ×4 (08:27→20:26)
[2021-06-02] MEDS: DOXYCYCLINE 100 MG CAP PO SCH ×2 (08:27→20:26)
[2021-06-02] MEDS: HEPARIN SODIUM,PORCINE/PF 5,000 UNIT/0.5 ML SYRINGE SQ SCH ×2 (08:27→20:25)
[2021-06-02] MEDS: ASPIRIN 81 MG PO SCH (08:27)
[2021-06-02] MEDS: ALBUTEROL HFA INHALER INHALATION SCH ×4 (08:31→21:36)
[2021-06-02] MEDS: SYMBICORT 160-4.5 MCG INHALER INHALATION SCH ×2 (08:32→21:36)
[2021-06-02] MEDS: bisacodyL 10 MG SUPP RECTAL SCH (08:32)
[2021-06-02] MEDS: TIOTROPIUM 2.5 MCG INHALER INHALATION SCH (09:37)
--- NOTE | 2021-06-02 10:37 | P.PN ---
Subjective Progress Note Date: 06/02/21 Patient was a 60-year-old female came in with compensative shortness of breath does have history of COPD does use 3 as a part and presently requiring 6 L of oxygen patient chest x-ray showing some atelectasis. Patient is comparing of cough with sputum production patient was a recently hospitalized for prolonged period of time for Covid 19 pneumonia patient was intubated and subsequently extubated. Patient was hyponatremic at that time patient is presently hyponatremic patient was treated with hypervolemic hyponatremia with IV fluids with improvement in serum sodium patient admits to not eating or drinking well. Patient quit smoking 3 or 4 years ago. Patient is presently on oxygen and oral prednisone and is being admitted for COPD exacerbation. 06/01/2021 Patient is in her breathing today is improving, although she is unable to take a deep breath her lungs feel tight. She states that her chest hurts from coughing. Patient is requesting Mucinex. Patient was started on oral antibiotics as well as oral steroids. She'll continue on 0.9ns at 100 as recommended by nephrology. Labs today show a sodium level of 128, potassium 3.8, chloride 97, bicarb 30, glucose 103, TSH low at 0.392 however her T4 is normal at 1.30. Vitals show a T-max of 99.1, heart rate 78, blood pressure 145/70 and she is 96% on 2L NC. Pt lives with her son, his girlfriend and grandkids who perform all the home duties include cooking and cleaning. 06/02/2021 Patient states her breathing continues to improve, lower extremity edema is improving as well. Lungs are still clear to auscultation with diminished aeration. She is still coughing up some yellowish sputum. On home oxygen - 3L NC with a saturation of 98%. Patient is afebrile, heart rate 70 pressure 138/63. Pending a sodium level from today. Urine cultures positive for E. coli with no resistance. Patient is on empiric antibiotic coverage with doxycycline, and this also cover for E. coli UTI. REVIEW OF SYSTEMS: Constitutional: Denied any fatigue denied any fever. Cardio vascular: denied any chest pain, palpitations Gastrointestinal denied any nausea vomiting Pulmonary: Reports shortness breath at rest and cough with sputum Neurologic denied any new focal deficits All inpatient medications were reviewed and appropriate changes in these medications as dictated in the interval history and assessment and plan. PHYSICAL EXAMINATION: GENERAL: The patient is alert and oriented x3, not in any acute distress. Thin built female HEENT: Pupils are round and equally reacting to light. EOMI. No scleral icterus. No conjunctival pallor. Normocephalic, atraumatic. No pharyngeal erythema. No thyromegaly. CARDIOVASCULAR: S1 and S2 present. No murmurs, rubs, or gallops. PULMONARY: Faint expiratory wheezing, there is decreased aeration in all lung varma posteriorly. ABDOMEN: Soft, nontender, nondistended, normoactive bowel sounds. No palpable organomegaly. MUSCULOSKELETAL: No joint swelling or deformity. EXTREMITIES: No cyanosis, clubbing, trace ankle edema nonpitting NEUROLOGICAL: Gross neurological examination did not reveal any focal deficits. SKIN: No rashes. Assessment and plan -Acute on chronic hypoxic and hypercapnic respiratory failure secondary to COPD exacerbation -Possible bronchitis -History of COPD, oxygen dependent on 3-4 L nasal canula -Recent Covid19 infection requiring intubation, Covid PCR negative -Hypovolemic hyponatremia: secondary to poor oral intake -History of tobacco dependence -Asymptomatic bacteriuria with culture positive for E. coli DVT prophylaxis: Lovenox GI Prophylaxis: SQ heparin Plan Continue PO antibiotics, PO steroids Continue on 0.9 ns, sodium level from today pending, nephrology consultation PT/OT consultation Continue all other supportive care Repeats labs tomorrow. Objective - Vital Signs Vital signs: Vital Signs Temp 97.4 F L 06/02/21 04:00 Pulse 82 06/02/21 04:00 Resp 18 06/02/21 04:00 BP 135/65 06/02/21 04:00 Pulse Ox 98 06/02/21 04:00 Intake & Output 06/01/21 06/02/21 06/02/21 18:59 06:59 18:59 Intake Total 420 Output Total 300 480 Balance 120 -480 Weight 57.1 kg 57 kg Intake: Oral 420 Output: Urine 300 480 Other: Voiding Method Bedside Commode # Voids 1 - Labs CBC & Chem 7: 05/31/21 00:26 06/01/21 03:40 Labs: Microbiology - Last 24 Hours (Table) 05/31/21 04:10 Urine Culture - Preliminary Urine,Voided Gram Neg Bacilli Assessment and Plan Time with Patient: Greater than 30
[2021-06-02 11:14] LABS: Basophils % (A) 0 %; Eosinophils # (A) 0.1 k/uL (0-0.7); Eosinophils % (A) 1 %; HCT 34.9 % (34.0-46.0); HGB 11.5 gm/dL (11.4-16.0); Lymphocytes # (A) 0.8 k/uL (1.0-4.8); Lymphocytes % (A) 8 %; MCH 31.5 pg (25.0-35.0); MCHC 33.1 g/dL (31.0-37.0); MCV 95.1 fL (80.0-100.0); Mean Platelet Volume 7.6; Monocytes # (A) 0.4 k/uL (0-1.0); Monocytes % (A) 5 %; Neutrophils # (A) 8.4 k/uL (1.3-7.7); Neutrophils % (A) 85 %; Platelet Count 234 k/uL (150-450); RBC 3.67 m/uL (3.80-5.40); RDW 14.7 % (11.5-15.5); WBC 9.8 k/uL (3.8-10.6)
[2021-06-02 11:30] LABS: African American GFR (CKD) >90 (>60 ml/min/1.73 sqM); Anion Gap 4 mmol/L; Blood Urea Nitrogen 5 mg/dL (7-17); Calcium 8.9 mg/dL (8.4-10.2); Carbon Dioxide 28 mmol/L (22-30); Chloride 98 mmol/L (98-107); Glucose 108 mg/dL (74-99); Non-African American GFR(CKD) >90 (>60 ml/min/1.73 sqM); Potassium 3.5 mmol/L (3.5-5.1); Sodium 130 mmol/L (137-145)
--- NOTE | 2021-06-02 13:01 | P.DS ---
Providers Date of admission: 05/31/21 03:08 Attending physician: Hieu Page Consults: 05/31/21 03:08 Consult Physician Routine Consulting Provider: Edu Huerta Consult Reason/Comments: your patient. COPD exacerbation Do you want consulting provider notified?: Yes Consult Physician Routine Consulting Provider: Gladys Hollins Consult Reason/Comments: hyponatremia Do you want consulting provider notified?: Yes Primary care physician: Randal Smith Hospital Course: Final Diagnosis -Acute on chronic hypoxic and hypercapnic respiratory failure secondary to COPD exacerbation -Possible bronchitis -History of COPD, oxygen dependent on 3-4 L nasal canula -Recent Covid19 infection requiring intubation, Covid PCR negative -Hypovolemic hyponatremia: secondary to poor oral intake -History of tobacco dependence -Asymptomatic bacteriuria with culture positive for E. coli Discharge Disposition Patient is cleared for discharge from pulmonary services. Repeat sodium level today is 130, recheck in 2 days. She can be discharged to rehab today. Hospital Course Patient was a 60-year-old female came in with compensative shortness of breath does have history of COPD does use 3L NC at home, was requiring 6 L of oxygen on admission. Chest x-ray showing some atelectasis. Patient is comparing of cough with sputum production patient was a recently hospitalized for prolonged period of time for Covid 19 pneumonia patient was intubated and subsequently extubated. Patient was hyponatremic at that time patient is presently hyponatremic patient was treated with hypervolemic hyponatremia with IV fluids with improvement in serum sodium patient admits to not eating or drinking well. Patient quit smoking 3 or 4 years ago. Patient is presently on oxygen and oral prednisone and is being admitted for COPD exacerbation. Patient was started on oral doxycycline as well as oral steroids. She was treated with normal saline, Labs today show a sodium level of 128, potassium 3.8, chloride 97, bicarb 30, glucose 103, TSH low at 0.392 however her T4 is normal at 1.30. Vitals show a T-max of 99.1, heart rate 78, blood pressure 145/70 and she is 96% on 2L NC. Pt lives with her son, his girlfriend and grandkids who perform all the home duties include cooking and cleaning. Patient had a pulmonary and nephrology consultation this admission. PT OT evaluation recommended home with homecare vs subacute rehab. We are recommending rehab on discharge due to frequent hospitalizations. 06/02/2021 Patient states her breathing continues to improve, lower extremity edema is improving as well. She denies any chest pain, chest pressure or palpitations. Denies any nausea vomiting or diarrhea. She is tolerating a diet well. Focal neurological exam is negative. Lungs are still clear to auscultation with diminished aeration. She is still coughing up some yellowish sputum. On home oxygen - 3L NC with a saturation of 98%. Patient is afebrile, heart rate 70 pressure 138/63. Sodium level today is 130. Urine cultures positive for E. coli with no resistance. Patient is on empiric antibiotic coverage with doxycycline, and this also cover for E. coli UTI. We will finish a short burst of steroids on discharge. Repeat labs in 2-3 days. Please see medication reconcilation for list of current medications. Thank you for allowing us to participate in care of this patient. Patient Condition at Discharge: Fair Plan - Discharge Summary Discharge Rx Participant: No New Discharge Prescriptions: New Doxycycline [Vibramycin] 100 mg PO BID 10 Days #20 cap predniSONE [Deltasone] 40 mg PO DAILY 4 Days tab Continue Montelukast [Singulair] 10 mg PO HS methocarbamoL [Robaxin] 500 mg PO TID PRN PRN Reason: Pain Budesonide/Formoterol Fumarate [Symbicort 160-4.5 Mcg Inhaler] 2 puff INHALATION RT-BID Cholecalciferol [Vitamin D3 (25 Mcg = 1000 Iu)] 25 mcg PO DAILY Ascorbic Acid [Vitamin C] 500 mg PO DAILY Tolterodine Tartrate [Detrol LA] 4 mg PO HS Calcium Carbonate [Calcium] 600 mg PO DAILY guaiFENesin [Mucinex] 1,200 mg PO Q12HR #60 tablet.er Ipratropium Nebulized [Atrovent Nebulized 0.2 MG/ML] 0.5 mg INHALATION RT-Q6H PRN PRN Reason: Shortness Of Breath Ipratropium [place] [Atrovent Hfa] 2 puff INHALATION RT-Q6H Atorvastatin [Lipitor] 40 mg PO DAILY 30 Days #30 tab Nystatin 100,000 Unit/ml Susp [Mycostatin Oral Susp] 500,000 unit PO QID #140 ml Aspirin [Children's Aspirin] 81 mg PO DAILY Fluticasone Nasal Brewster [Flonase Nasal Brew[place]] 2 spray EA NOSTRIL DAILY Albuterol Nebulized [Ventolin Nebulized] 2.5 mg INHALATION RT-QID PRN PRN Reason: Shortness Of Breath Metoprolol Tartrate [Lopressor] 50 mg PO BID 30 Days #60 tab Pantoprazole [Protonix] 40 mg PO AC-BRKFST 30 Days #30 tab lisinopriL [Zestril] 5 mg PO DAILY 30 Days #30 tab Albuterol Inhaler [Ventolin Hfa Inhaler] 2 puff INHALATION RT-QID PRN #18 gm PRN Reason: Shortness Of Breath Benzocaine/Menthol Lozeng [Cepacol lozenge] 1 lozenge MUCOUS MEM Q4HR PRN PRN Reason: Sore Throat bisacodyL [Dulcolax] 10 mg RECTAL DAILY PRN PRN Reason: Constipation dexAMETHasone See Taper PO DAILY Discontinued Fluconazole [Diflucan] 100 mg PO DAILY 5 Days #5 tab Discharge Medication List Montelukast [Singulair] 10 mg PO HS 02/09/14 [History] methocarbamoL [Robaxin] 500 mg PO TID PRN 02/09/14 [History] Ascorbic Acid [Vitamin C] 500 mg PO DAILY 05/12/19 [History] Budesonide/Formoterol Fumarate [Symbicort 160-4.5 Mcg Inhaler] 2 puff INHALATION RT-BID 05/12/19 [History] Cholecalciferol [Vitamin D3 (25 Mcg = 1000 Iu)] 25 mcg PO DAILY 05/12/19 [History] Tolterodine Tartrate [Detrol LA] 4 mg PO HS 05/12/19 [History] Calcium Carbonate [Calcium] 600 mg PO DAILY 06/20/19 [History] guaiFENesin [Mucinex] 1,200 mg PO Q12HR #60 tablet.er 07/04/19 [Rx] Albuterol Nebulized [Ventolin Nebulized] 2.5 mg INHALATION RT-QID PRN 05/10/21 [History] Aspirin [Children's Aspirin] 81 mg PO DAILY 05/10/21 [History] Fluticasone Nasal [place] [Flonase Nasal Brewster] 2 spray EA NOSTRIL DAILY 05/10/21 [History] Ipratropium Gunlock [Atrovent Hfa] 2 puff INHALATION RT-Q6H 10/26/21 [History] Ipratropium Nebulized [Atrovent Nebulized 0.2 MG/ML] 0.5 mg INHALATION RT-Q6H PRN 05/10/21 [History] Atorvastatin [Lipitor] 40 mg PO DAILY 30 Days #30 tab 05/19/21 [Rx] Metoprolol Tartrate [Lopressor] 50 mg PO BID 30 Days #60 tab 05/19/21 [Rx] Pantoprazole [Protonix] 40 mg PO AC-BRKFST 30 Days #30 tab 05/19/21 [Rx] lisinopriL [Zestril] 5 mg PO DAILY 30 Days #30 tab 05/20/21 [Rx] Nystatin 100,000 Unit/ml Susp [Mycostatin Oral Susp] 500,000 unit PO QID #140 ml 05/27/21 [Rx] Albuterol Inhaler [Ventolin Hfa Inhaler] 2 puff INHALATION RT-QID PRN #18 gm 05/29/21 [Rx] Benzocaine/Menthol Lozeng [Cepacol lozenge] 1 lozenge MUCOUS MEM Q4HR PRN 05/31/21 [History] bisacodyL [Dulcolax] 10 mg RECTAL DAILY PRN 05/31/21 [History] dexAMETHasone See Taper PO DAILY 05/31/21 [History] Doxycycline [Vibramycin] 100 mg PO BID 10 Days #20 cap 06/02/21 [Rx] predniSONE [Deltasone] 40 mg PO DAILY 4 Days tab 06/02/21 [Rx] Follow up Appointment(s)/Referral(s): Edu Huerta MD [STAFF PHYSICIAN] - 1 Week Gladys Hollins MD [STAFF PHYSICIAN] - 1 Week [facility], [NON-STAFF] - Randal Smith DO [Primary Care Provider] - 1-2 days [facility] [NON-STAFF] - Ambulatory/Diagnostic Orders: Basic Metabolic Panel [LAB.AMB] Time Frame: 2 Days, Location: None Selected Discharge/Stand Alone Forms: Who Do I Call?, Help In The Home Discharge Disposition: TRANSFER TO SNF/ECF
--- NOTE | 2021-06-02 14:12 | P.PN ---
Subjective Progress Note Date: 06/02/21 Principal diagnosis: Acute exacerbation of COPD This is a 65-year-old female patient who has a history of chronic obstructive pulmonary disease with an FEV1 value 23% of predicted, former smoker, recent COVID-19 infection, sepsis, and recent discharge for acute on chronic hypoxic /hypercapnic respiratory failure with right lower lobe community-acquired pneumonia, COVID-19 infection, COPD exacerbation, hypovolemic hyponatremia. Discharged home on 05/29/2021. She returned to the emergency room early this morning worsening shortness of breath, cough and congestion. She was on home oxygen. Her saturations were found in the low 80s. She is seen today again in consultation in the emergency room resting comfortably on the stretcher. Awake and alert in no acute distress. Continue O2 saturations in the 90s on 6 L/m per nasal cannula. She's afebrile. Slightly tachycardic. Blood pressure stable. Urine culture pending. White count 16.7. Hemoglobin 12.1. Sodium 116. Potassium 4.3. Creatinine 0.32. Troponin 0.04. BNP 993. Urinalysis positive for nitrates and large leukocytes. [place] virus not detected. X-ray reveals some scarring and subsegmental atelectasis of the right lung base. Otherwise clear. She's been initiated on Symbicort, Spiriva, albuterol, Singulair. Continued on prednisone at 40 mg daily. The patient is seen today 06/01/2021 in follow-up in the emergency department. She is currently resting comfortably in bed. Awake and alert in no acute distress. Breathing a bit easier today compared to yesterday. Maintaining O2 saturations in the mid 90s on 4 L/m per nasal cannula. She is in sinus rhythm. Urine culture pending. Sodium 128. Potassium 3.8. Creatinine 0.37. TSH 0.39. T4 1 0.30. She is continued on Symbicort, Spiriva, Singulair, albuterol. Remains on a prednisone taper. Continue empiric antibiotics in the form of doxycycline. Nystatin for oral eda. Reevaluated today on 06/02/21, patient seems to be very comfortable, in no distress, no cough no wheezing, no chest pain, no fever, no chills, remains on multiple bronchodilators. Remains on oxygen at 3 L nasal cannula, and her O2 sats is 94%. CBC is relatively normal electrolytes are normal renal profile is normal hence will clear the patient to be discharged to rehab if possible today. Objective - Vital Signs Vital signs: Vital Signs Temp 98.2 F 06/02/21 12:00 Pulse 79 06/02/21 12:00 Resp 20 06/02/21 12:00 BP 123/57 06/02/21 12:00 Pulse Ox 94 L 06/02/21 12:00 Intake & Output 06/01/21 06/02/21 06/02/21 18:59 06:59 18:59 Intake Total 420 358 Output Total 300 480 Balance 120 -480 358 Weight 57.1 kg 57 kg Intake: Oral 420 358 Output: Urine 300 480 Other: Voiding Method Bedside Commode # Voids 1 - Exam Physical Exam revealed a 65-year-old female chronically ill in no distress. HEENT:[Neck is supple.] [No neck masses.] [No thyromegaly.] [No JVD.] Chest: [Diminished breath sounds at the bases no crackles or rhonchi or wheezes Cardiac Exam: [Normal S1 and S2, no S3 gallop, no murmur.] Abdomen: [Soft, nontender, no megaly, no rebound, no guarding, normal bowel sounds.] Extremities: [No clubbing, no edema, no cyanosis.] Neurological Exam: [No focal neurologic deficit. Psychiatric: Normal mood affect and normal mental status examination. Skin: No rashes.] - Labs CBC & Chem 7: 06/02/21 10:08 06/02/21 10:08 Labs: Abnormal Lab Results - Last 24 Hours (Table) 06/02/21 06/02/21 Range/Units 10:08 10:08 RBC 3.67 L (3.80-5.40) m/uL Neutrophils # 8.4 H (1.3-7.7) k/uL Lymphocytes # 0.8 L (1.0-4.8) k/uL Sodium 130 L (137-145) mmol/L BUN 5 L (7-17) mg/dL Creatinine 0.41 L (0.52-1.04) mg/dL Glucose 108 H (74-99) mg/dL Microbiology - Last 24 Hours (Table) 05/31/21 04:10 Urine Culture - Final Urine,Voided Escherichia coli Assessment and Plan Assessment: 1 Acute on chronic hypoxemic respiratory failure secondary to an acute exacerbation of chronic obstructive pulmonary disease, atelectasis of the right lung base. 2 Severe oxygen dependent chronic obstructive pulmonary disease with an FEV1 value 23% of predicted 3 Former smoker 4 Hypovolemic hyponatremia suspect secondary to poor oral intake, improving current sodium 120 5 Suspected urinary tract infection, culture pending 6 Recent COVID-19 infection, negative this admission 7 Recent admission for acute on chronic hypoxic/hypercapnic respiratory failure and possible right lower lobe community acquired pneumonia, COVID-19 infection, COPD. Discharged on 05/29/2021 8 History of anemia Recommendation: Continue present meds as listed above. Taper prednisone over the next 3 weeks. Continue bronchodilators and doxycycline. Agree with discharging the patient home to subacute rehab. Time with Patient: Less than 30
--- NOTE | 2021-06-02 17:06 | PN ---
PROGRESS NOTE Patient is seen for followup for hyponatremia which appears to be hypovolemic and improved with saline administration. Sodium is up to 130 today. Patient has increased her oral intake. She denies any significant complaints. EXAMINATION: Today blood pressure was 123/57, heart rate 79 per minute, she is afebrile. Examination of the heart S1, S2. Examination of lungs decreased breath sounds at the bases. Abdomen is soft, nontender. Examination of lower extremities shows no significant edema. LABS: Show sodium of 130. ASSESSMENT: 1. Hypovolemic hyponatremia, improved with normal saline. 2. Generalized debility. 3. Urinary tract infection with urine culture growing Escherichia coli. 4. Acute on chronic hypoxic and hypercapnic respiratory failure. PLAN: Okay to discharge patient. Encourage increased oral intake. We will DC the saline. MMODL / IJN: [id number] /
[2021-06-02] MEDS: OXYBUTYNIN XL 5 MG TAB.ER.24 PO SCH (20:25)
[2021-06-02] MEDS: MONTELUKAST 10 MG TAB PO SCH (20:25)
[2021-06-03] MEDS: PANTOPRAZOLE 40 MG TABLET PO SCH (06:23)
[2021-06-03 08:01] LABS: Basophils % (A) 0 %; Eosinophils % (A) 1 %; HCT 31.2 % (34.0-46.0); HGB 10.4 gm/dL (11.4-16.0); Lymphocytes # (A) 0.9 k/uL (1.0-4.8); Lymphocytes % (A) 13 %; MCH 31.5 pg (25.0-35.0); MCHC 33.3 g/dL (31.0-37.0); MCV 94.5 fL (80.0-100.0); Mean Platelet Volume 7.1; Monocytes # (A) 0.5 k/uL (0-1.0); Monocytes % (A) 7 %; Neutrophils # (A) 5.4 k/uL (1.3-7.7); Neutrophils % (A) 77 %; Platelet Count 224 k/uL (150-450); RDW 14.6 % (11.5-15.5)
[2021-06-03 08:26] LABS: African American GFR (CKD) >90 (>60 ml/min/1.73 sqM); Anion Gap 0 mmol/L; Blood Urea Nitrogen 6 mg/dL (7-17); Calcium 8.8 mg/dL (8.4-10.2); Carbon Dioxide 36 mmol/L (22-30); Chloride 95 mmol/L (98-107); Glucose 78 mg/dL (74-99); Non-African American GFR(CKD) >90 (>60 ml/min/1.73 sqM); Potassium 3.6 mmol/L (3.5-5.1); Sodium 131 mmol/L (137-145)
[2021-06-03] MEDS: ASCORBIC ACID 500 MG TAB PO SCH (08:33)
[2021-06-03] MEDS: guaiFENesin 600 MG TABLET.ER PO SCH ×2 (08:33→20:23)
[2021-06-03] MEDS: ASPIRIN 81 MG PO SCH (08:33)
[2021-06-03] MEDS: METOPROLOL TARTRATE 50 MG TAB PO SCH ×2 (08:33→20:23)
[2021-06-03] MEDS: DOXYCYCLINE 100 MG CAP PO SCH ×2 (08:33→20:24)
[2021-06-03] MEDS: predniSONE 20 MG TAB PO SCH (08:33)
[2021-06-03] MEDS: ATORVASTATIN 40 MG TAB PO SCH (08:33)
[2021-06-03] MEDS: bisacodyL 10 MG SUPP RECTAL SCH (08:34)
[2021-06-03] MEDS: HEPARIN SODIUM,PORCINE/PF 5,000 UNIT/0.5 ML SYRINGE SQ SCH ×2 (08:34→20:23)
[2021-06-03] MEDS: NYSTATIN 100,000 UNIT/ML SUSP 500,000 UNIT/5 ML CUP PO SCH ×4 (08:34→20:24)
[2021-06-03] MEDS: ALBUTEROL HFA INHALER INHALATION SCH ×4 (09:20→21:01)
[2021-06-03] MEDS: TIOTROPIUM 2.5 MCG INHALER INHALATION SCH (09:21)
[2021-06-03] MEDS: SYMBICORT 160-4.5 MCG INHALER INHALATION SCH ×2 (09:21→21:00)
--- NOTE | 2021-06-03 12:10 | PN ---
PROGRESS NOTE Patient is seen, seen for followup for hyponatremia which was hypovolemic and improved with normal saline administration. The patient has also been eating much better. Her sodium is up to 131 today from J116 on initial admission 3 days ago. PHYSICAL EXAMINATION: On examination today, blood pressure is 135/63, heart rate 88 per minute. She is afebrile. Examination of the heart S1, S2. Examination of the lungs, bilateral breath sounds are heard. Abdomen is soft, nontender. Examination of lower extremities: No evidence of edema. [employer] exam grossly intact. LAB: Show sodium 131, potassium 3.6, BUN 6, serum creatinine 0.45, hemoglobin 10.4. ASSESSMENT: 1. Hypovolemic hyponatremia, improved with normal saline. Okay to discharge patient from nephrology standpoint. The patient may need a sodium chloride tabs as outpatient if her sodium remains low. 2. Urinary tract infection with urine culture growing Escherichia coli, maintained on antibiotics. 3. Acute on chronic hypoxic and hypercapnic respiratory failure, currently resolved. Etiology, exacerbation of chronic obstructive pulmonary disease. PLAN: Okay to discharge patient. Monitor serum sodium as outpatient. May need sodium chloride tabs. Encourage increased oral intake, particularly protein. MMODL / IJN: [id number] /
--- NOTE | 2021-06-03 13:21 | P.DS ---
Providers Date of admission: 05/31/21 03:08 Expected date of discharge: 06/03/21 Attending physician: Hieu Page Consults: 05/31/21 03:08 Consult Physician Routine Consulting Provider: Edu Huerta Consult Reason/Comments: your patient. COPD exacerbation Do you want consulting provider notified?: Yes Consult Physician Routine Consulting Provider: Gladys Hollins Consult Reason/Comments: hyponatremia Do you want consulting provider notified?: Yes Primary care physician: Randal Smith Hospital Course: Final diagnosis -Acute on chronic hypoxic and hypercapnic respiratory failure secondary to COPD exacerbation -Possible bronchitis -History of COPD, oxygen dependent on 3-4 L nasal canula -Recent Covid19 infection requiring intubation, Covid PCR negative -Hypovolemic hyponatremia: secondary to poor oral intake -History of tobacco dependence -Asymptomatic bacteriuria with culture positive for E. coli Discharge Disposition Patient is being discharged in stable condition with guarded prognosis to home and will continue with home care in the outpatient setting. Patient to follow- up with primary care provider Dr. Smith upon discharge along with pulmonary and nephrology in the outpatient setting. Patient will continue on oral doxycycline 100 mg twice daily for the next 10 days along with a short prednisone taper on discharge. Hospital Course Patient was a 60-year-old female came in with compensative shortness of breath does have history of COPD does use 3L NC at home, was requiring 6 L of oxygen on admission. Chest x-ray showing some atelectasis. Patient is comparing of cough with sputum production patient was a recently hospitalized for prolonged period of time for Covid 19 pneumonia patient was intubated and subsequently extubated. Patient was hyponatremic at that time patient is presently hyponatremic patient was treated with hypervolemic hyponatremia with IV fluids with improvement in serum sodium patient admits to not eating or drinking well. Patient quit smoking 3 or 4 years ago. Patient is presently on oxygen and oral prednisone and is being admitted for COPD exacerbation. Patient was started on oral doxycycline as well as oral steroids. She was treated with normal saline, Labs today show a sodium level of 128, potassium 3.8, chloride 97, bicarb 30, glucose 103, TSH low at 0.392 however her T4 is normal at 1.30. Vitals show a T-max of 99.1, heart rate 78, blood pressure 145/70 and she is 96% on 2L NC. Pt lives with her son, his girlfriend and grandkids who perform all the home duties include cooking and cleaning. Patient had a pulmonary and nephrology consultation this admission. PT OT evaluation recommended home with homecare vs subacute rehab. We are recommending rehab on discharge due to frequent hospital izations. 06/02/2021 Patient states her breathing continues to improve, lower extremity edema is improving as well. She denies any chest pain, chest pressure or palpitations. Denies any nausea vomiting or diarrhea. She is tolerating a diet well. Focal neurological exam is negative. Lungs are still clear to auscultation with diminished aeration. She is still coughing up some yellowish sputum. On home oxygen - 3L NC with a saturation of 98%. Patient is afebrile, heart rate 70 pressure 138/63. Sodium level today is 130. Urine cultures positive for E. coli with no resistance. Patient is on empiric antibiotic coverage with doxycycline, and this also cover for E. coli UTI. We will finish a short burst of steroids on discharge. Repeat labs in 2-3 days. 06/03/2021 She is seen in follow-up and was discharged to home with home care yesterday as insurance continues to deny subacute rehab and recommending long-term treatment facility. Family and patient to discuss long-term options as she lives with her son. Apparently the son was to pick her up yesterday and failed to do so and so discharge was held. Patient is stable for discharge today and son states he will be picking her up after work this evening. Currently no reports of chest pain, shortness of breath, or palpitations. Patient is afebrile. No reports of nausea or vomiting and patient is tolerating diet. Encouraged oral intake and also recommended close outpatient follow-up with pulmonary and nephrology to monitor sodium levels. Encouraged oral intake especially protein. Patient will be discharged home today with home care. Guarded prognosis. On exam, vital signs are stable. Cardio S1, S2 are muffled. Respiratory system shows diminished breath sounds bilaterally with some scattered rhonchi noted in continued on 3 L via nasal cannula which is her baseline. Abdomen is soft and nontender. Nervous system shows no focal deficits. Please see medication reconcilation for list of current medications. Patient Condition at Discharge: Fair Plan - Discharge Summary Discharge Rx Participant: No New Discharge Prescriptions: New predniSONE [Deltasone] 40 mg PO DAILY 4 Days #8 tab Doxycycline [Vibramycin] 100 mg PO BID 10 Days #20 capsule Continue Montelukast [Singulair] 10 mg PO HS methocarbamoL [Robaxin] 500 mg PO TID PRN PRN Reason: Pain Budesonide/Formoterol Fumarate [Symbicort 160-4.5 Mcg Inhaler] 2 puff INHALATION RT-BID Cholecalciferol [Vitamin D3 (25 Mcg = 1000 Iu)] 25 mcg PO DAILY Ascorbic Acid [Vitamin C] 500 mg PO DAILY Tolterodine Tartrate [Detrol LA] 4 mg PO HS Calcium Carbonate [Calcium] 600 mg PO DAILY guaiFENesin [Mucinex] 1,200 mg PO Q12HR #60 tablet.er Ipratropium Nebulized [Atrovent Nebulized 0.2 MG/ML] 0.5 mg INHALATION RT-Q6H PRN PRN Reason: Shortness Of Breath Ipratropium [place] [Atrovent Hfa] 2 puff INHALATION RT-Q6H Atorvastatin [Lipitor] 40 mg PO DAILY 30 Days #30 tab Nystatin 100,000 Unit/ml Susp [Mycostatin Oral Susp] 500,000 unit PO QID #140 ml Aspirin [Children's Aspirin] 81 mg PO DAILY Fluticasone Nasal [place] [Flonase Nasal [place]] 2 spray EA NOSTRIL DAILY Albuterol Nebulized [Ventolin Nebulized] 2.5 mg INHALATION RT-QID PRN PRN Reason: Shortness Of Breath Metoprolol Tartrate [Lopressor] 50 mg PO BID 30 Days #60 tab Pantoprazole [Protonix] 40 mg PO AC-BRKFST 30 Days #30 tab lisinopriL [Zestril] 5 mg PO DAILY 30 Days #30 tab Albuterol Inhaler [Ventolin Hfa Inhaler] 2 puff INHALATION RT-QID PRN #18 gm PRN Reason: Shortness Of Breath Benzocaine/Menthol Lozeng [Cepacol lozenge] 1 lozenge MUCOUS MEM Q4HR PRN PRN Reason: Sore Throat bisacodyL [Dulcolax] 10 mg RECTAL DAILY PRN PRN Reason: Constipation dexAMETHasone See Taper PO DAILY Discontinued Fluconazole [Diflucan] 100 mg PO DAILY 5 Days #5 tab Discharge Medication List Montelukast [Singulair] 10 mg PO HS 02/09/14 [History] methocarbamoL [Robaxin] 500 mg PO TID PRN 02/09/14 [History] Ascorbic Acid [Vitamin C] 500 mg PO DAILY 05/12/19 [History] Budesonide/Formoterol Fumarate [Symbicort 160-4.5 Mcg Inhaler] 2 puff INHALATION RT-BID 05/12/19 [History] Cholecalciferol [Vitamin D3 (25 Mcg = 1000 Iu)] 25 mcg PO DAILY 05/12/19 [History] Tolterodine Tartrate [Detrol LA] 4 mg PO HS 05/12/19 [History] Calcium Carbonate [Calcium] 600 mg PO DAILY 06/20/19 [History] guaiFENesin [Mucinex] 1,200 mg PO Q12HR #60 tablet.er 07/04/19 [Rx] Albuterol Nebulized [Ventolin Nebulized] 2.5 mg INHALATION RT-QID PRN 05/10/21 [History] Aspirin [Children's Aspirin] 81 mg PO DAILY 05/10/21 [History] Fluticasone Nasal [place] [Flonase Nasal [place]] 2 spray EA NOSTRIL DAILY 05/10/21 [History] Ipratropium [place] [Atrovent Hfa] 2 puff INHALATION RT-Q6H 05/10/21 [History] Ipratropium Nebulized [Atrovent Nebulized 0.2 MG/ML] 0.5 mg INHALATION RT-Q6H PRN 05/10/21 [History] Atorvastatin [Lipitor] 40 mg PO DAILY 30 Days #30 tab 05/19/21 [Rx] Metoprolol Tartrate [Lopressor] 50 mg PO BID 30 Days #60 tab 05/19/21 [Rx] Pantoprazole [Protonix] 40 mg PO AC-BRKFST 30 Days #30 tab 05/19/21 [Rx] lisinopriL [Zestril] 5 mg PO DAILY 30 Days #30 tab 05/20/21 [Rx] Nystatin 100,000 Unit/ml Susp [Mycostatin Oral Susp] 500,000 unit PO QID #140 ml 05/27/21 [Rx] Albuterol Inhaler [Ventolin Hfa Inhaler] 2 puff INHALATION RT-QID PRN #18 gm 05/29/21 [Rx] Benzocaine/Menthol Lozeng [Cepacol lozenge] 1 lozenge MUCOUS MEM Q4HR PRN 05/31/21 [History] bisacodyL [Dulcolax] 10 mg RECTAL DAILY PRN 05/31/21 [History] dexAMETHasone See Taper PO DAILY 05/31/21 [History] Doxycycline [Vibramycin] 100 mg PO BID 10 Days #20 capsule 06/02/21 [Rx] predniSONE [Deltasone] 40 mg PO DAILY 4 Days #8 tab 06/02/21 [Rx] Follow up Appointment(s)/Referral(s): Edu Huerta MD [STAFF PHYSICIAN] - 06/08/21 2:00 pm Gladys Hollins MD [STAFF PHYSICIAN] - 06/24/21 9:00 am [facility], [NON-STAFF] - Randal Smith DO [Primary Care Provider] - [facility] 9[facility] - Ambulatory/Diagnostic Orders: Basic Metabolic Panel [LAB.AMB] Time Frame: 2 Days, Location: None Selected Patient Instructions/Handouts: COPD (Chronic Obstructive Pulmonary Disease) (DC) Discharge/Stand Alone Forms: Who Do I Call?, Help In The Home Discharge Disposition: TRANSFER TO SNF/ECF
[2021-06-03] MEDS: OXYBUTYNIN XL 5 MG TAB.ER.24 PO SCH (20:23)
[2021-06-03] MEDS: MONTELUKAST 10 MG TAB PO SCH (20:23)
[2021-06-03 22:12] VITALS: TEMP 97.7
[2021-06-03 23:50] VITALS: BP 119/62; PULSE 92; RESP 20
== END 2021-06-03 23:50 | DRG 190 ==
LOC: EC 23:56 → 3SCARD 05-31 03:08
PROVIDERS: ADMIT Internal Medicine; ATTEND Internal Medicine
DX: J44.1 Chronic obstructive pulmonary disease with (acute) exacerbation (principal); J96.21 Acute and chronic respiratory failure with hypoxia; J96.22 Acute and chronic respiratory failure with hypercapnia; N39.0 Urinary tract infection, site not specified; E87.1 Hypo-osmolality and hyponatremia; B37.0 Candidal stomatitis; J98.11 Atelectasis; Z20.822 Contact with and (suspected) exposure to COVID-19; Z99.81 Dependence on supplemental oxygen; Z87.891 Personal history of nicotine dependence; Z87.01 Personal history of pneumonia (recurrent); Z86.16 Personal history of COVID-19; Z79.899 Other long term (current) drug therapy; Z79.82 Long term (current) use of aspirin; Z79.51 Long term (current) use of inhaled steroids; E87.70 Fluid overload, unspecified; E86.1 Hypovolemia; B96.20 Unspecified Escherichia coli [E. coli] as the cause of diseases classified elsewhere; D64.9 Anemia, unspecified
CPT/HCPCS: 36415; 71045; 80048; 80053; 81001; 83605; 83735; 83880; 83930; 83935; 84295; 84300; 84439; 84443; 84484; 85025; 85610; 85730; 87077; 87086; 87186; 87635; 93005; 94640; 94760; 99285